=== PATIENT | male | born 1960 | race Caucasian/White ===

== ENCOUNTER → 2021-01-09 08:22 | Outpatient (REF) | payer MEDICAID, SELFPAY | LOC: HO.CARD 08:22 | PROVIDERS: PCP Hospitalist; Referring Provider Hospitalist; Visit Provider Internal Medicine Cardiovascular Disease | DX: Z13.89 Encounter for screening for other disorder (principal) | CPT/HCPCS: J0280; J2785 ==

== ENCOUNTER 2021-02-13 11:59 | Inpatient (IN) | payer MEDICAID, SELFPAY ==
[2021-02-13] VITALS (7 sets, daily range): BP systolic 114–180; BP diastolic 51–83; PULSE 79–126; RESP 16–19; TEMP 36.9–39.5; O2SAT 95–100; BMI 24.2; BMI 22.4; BMI 23.6
--- NOTE | ~2021-02-13 | XR_ITS ---
EXAMINATION: XR CHEST CLINICAL INFORMATION: Fever COMPARISON: None TECHNIQUE: AP portable view of the chest was obtained. FINDINGS: There is a region of disease noted within the mid and lower right lung. There also appears to be some retrocardiac disease which partially obscures the hemidiaphragm which is consistent with left lower lobe disease. Patient status post median sternotomy. Heart normal size. No evidence of pulmonary edema. No pneumothorax or pleural effusion. XR/XR chest 1V IMPRESSION: Right lung airspace disease. Probable left lower lobe disease.
--- NOTE | ~2021-02-13 | US_ITS ---
EXAMINATION: US RETROPERITONEAL LIMITED (RENAL ONLY) CLINICAL INFORMATION: CKD/DORIAN, acute kidney insufficiency COMPARISON: None TECHNIQUE: Targeted ultrasound of the kidneys utilizing grayscale and color flow imaging. FINDINGS: RIGHT KIDNEY: 11.2 x 5 x 4.2 cm cm (SAG x AP x TRV). The kidney is normal in size, contour, and echogenicity. Renal cortical thickness is normal. No calculi or focal parenchymal lesions. No hydronephrosis. LEFT KIDNEY: 9 x 4.5 x 3.6 cm. cm (SAG x AP x TRV). The kidney is normal in size, contour, and echogenicity. Renal cortical thickness is normal. No calculi or focal parenchymal lesions. No hydronephrosis. US/US renal BI IMPRESSION: Normal ultrasound of the kidneys.
[2021-02-13 12:43] LABS: Glucose Urine UA NEG (NEG); Leukocyte Esterase Urine NEG (NEG); Nitrite Urine NEG (NEG); Specific Gravity - Urine 1.015 (1.005-1.025); UACC Culture Trigger NO; Urine Blood NEG (NEG); Urine Ketones NEG (NEG); Urine Protein 1+ MG/DL (NEG-TRACE)
[2021-02-13 12:44] LABS: Appearance Urine CLEAR; Color Urine YELLOW
[2021-02-13 12:54] LABS: RBC Urine 0-2 /HPF (0); Squamous Epithelial Cell Urine TRACE /LPF; WBC Urine 0-2 /HPF (0-4)
[2021-02-13 13:06] LABS: COVID-19 Test Negative (Negative); IDNOW Serial# 55D5AD1C
--- NOTE | 2021-02-13 14:32 | ECG_ITS ---
Test Reason : CHEST PAIN Blood Pressure : / mmHG Vent. Rate : 090 BPM Atrial Rate : 090 BPM P-R Int : 176 ms QRS Dur : 178 ms QT Int : 440 ms P-R-T Axes : 078 -66 -01 degrees QTc Int : 538 ms Normal sinus rhythm Possible Left atrial enlargement Left axis deviation Right bundle branch block Inferior infarct , age undetermined Abnormal ECG No previous ECGs available Referred By: Anna Moore Electronically Signed By:GABRIELA DUMONT
--- NOTE | 2021-02-13 14:35 | ED_ITS ---
HPI - General Adult General Chief complaint: General Medical Stated complaint: fever/vomiting from SNF Time Seen by Provider: 02/13/21 13:30 Source: patient and EMS Mode of arrival: EMS History of Present Illness HPI narrative: Patient is a 60-year-old male with a past medical history of seizures on keppra, schizoaffective disorder, CHF, type 2 diabetes, CKD stage IIIA, hypothyroidism, HLD, legally blind, coronary artery bypass grafts and restless legs syndrome coming from [facility] via EMS with with lethargy, pallor, sweating and fever. Patient states he has had a fever for 2 weeks but he is an unreliable historian as he states his T-max was 500 degrees. He states he has nausea but no abdominal pain. He has central chest pain that is stabbing in nature. He denies any shortness of breath, urinary or bowel changes. Related Data Allergies Allergy/AdvReac Type Severity Reaction Status Date / Time No Known Allergies Allergy Unverified 02/13/21 14:32 Review of Systems Review of Systems: Yes all other systems are reviewed and are negative Neurologic: Reports confusion (Slightly) Psychiatric: Psychiatric: Reports confusion (Slightly) [facility] Social History Social History Advance Directives: Yes Advance Directives on File: No Physical Exam Vital Signs: Vital Signs: Last Vital Signs Temp 99.1 F 02/13/21 14:57 Pulse 85 02/13/21 14:57 Resp 18 02/13/21 14:57 BP 129/60 02/13/21 14:57 Pulse Ox 96 02/13/21 14:57 Body Mass Index 24.2 Const: General: cooperative, comfortable, no acute distress, well developed, confusion (Slightly) and poor hygiene; No well groomed Nutritional Appearance: thin Orientation/consciousness: confusion (Slightly) Limitations: other limitations (legally blind) HENMT: Head: Yes normal to inspection Neck: Neck: Yes normal visual inspection and Yes full ROM Resp: Effort & Inspection: normal respiratory effort and able to speak in complete sentences Auscultation: clear to auscultation bilaterally Cardio: Rate: tachycardic Rhythm: regular rhythm Heart sounds: normal S1 and S2 GI: Inspection: Yes normal to inspection Palpation (GI): Soft to palpation and nontender Skin: General skin exam: no rashes or lesions noted Neuro: General: confusion (Slightly) Extrem: General: Yes normal to inspection Course Course Course Narrative: Patient is a 60-year-old male with a past medical history of seizures on keppra, schizoaffective disorder, CHF, type 2 diabetes, CKD stage IIIA, hypothyroidism, HLD, legally blind, coronary artery bypass grafts and restless legs syndrome coming from [facility] via EMS with with lethargy, pallor, sweating and fever. Vital signs notable for heart rate of 126, temp 103.1 degrees, O2 sat 95% on room air, BP 122/83 and respirations 19. EKG reveals ST changes in V2 through V6, no prior to compare to, will give 324 ASA and repeat EKG in 15 mins Reevaluation(s) Reevaluation #1: Lactic acid 2.4, as patient had elevated heart rate and temperature, also chest x-ray shows likely left lower lobe pneumonia, will start sepsis fluids and give Levaquin for antibiotics. Time: 15:34 Reevaluation #2: Repeat EKG showed ST depressions in V3 through V6, patient's troponin just resulted at 59.4. Reviewed with Dr. Sánchez. Patient now stating he does not have any active chest pain and is trying to sleep. Text to for Cardiology consult. Time: 15:42 Reevaluation #3: Dr. Zendejas recommended starting IV heparin if we suspect new [place], I will start IV heparin now. Notified nurse. Medical Decision Making Lab Data Result diagrams: 02/13/21 14:49 02/13/21 14:49 Labs: Lab Results 02/13/21 02/13/21 02/13/21 Range/Units 12:29 12:35 14:49 WBC (4.8-10.8) X10*3/uL RBC (4.60-5.80) X10*6/uL Hgb (14.0-18.0) g/dl Hct (42-52) % MCV (80-98) fL MCH (27.0-33.0) pg MCHC (31.0-36.0) g/dl RDW (11.0-16.0) % Plt Count (160-400) X10*3/uL MPV (9.4-12.4) fL Immature Gran % (Auto) (0.0-0.4) % Neut % (Auto) (45-73) % Lymph % (Auto) (20-40) % [place] % (Auto) (2-11) % Eos % (Auto) (0-4) % Baso % (Auto) (0-2) % Lymph # (Auto) (1.2-4.9) X10*3/uL [place] # (Auto) (0.1-1.2) X10*3/uL Eos # (Auto) (0.0-0.4) X10*3/uL Baso # (Auto) (0.0-0.2) X10*3/uL Abs Immat Gran (auto) (0.00-0.03) X10*3/uL Absolute Neuts (auto) (2.0-8.3) X10*3/uL Absolute Nucleated RBC (0.0-0.012) X10*3/uL Nucleated RBC % (auto) (0.0-0.2) /100WBC Sodium (135-145) mmol/L Potassium (3.3-5.1) mmol/L Chloride (96-108) mmol/L Carbon Dioxide (22-29) mmol/L Anion Gap (12-20) BUN (9-16) mg/dL Creatinine (0.5-1.4) mg/dL Estim Creat Clear Calc Estimated GFR Random Glucose (60-115) mg/dL Lactic Acid 2.3 H* (0.5-2.0) mmol/L Calcium (8.4-10.2) mg/dL Troponin I High Sens (<3.5-35.0) ng/L B-Natriuretic Peptide (<100) pg/mL Urine Color YELLOW Urine Appearance CLEAR Urine pH 6.0 (5.0-8.0) Ur Specific [place] 1.015 (1.005-1.025) Urine Protein 1+ H (NEG-TRACE) MG/DL Urine Glucose (UA) NEG (NEG) MG/DL Urine Ketones NEG (NEG) MG/DL Urine Blood NEG (NEG) Urine Nitrite NEG (NEG) Ur Leukocyte Esterase NEG (NEG) Urine RBC 0-2 (0) /HPF Urine WBC 0-2 (0-4) /HPF Ur Squamous Epith Cells TRACE /LPF Urine Bacteria NONE /LPF COVID-19 ([facility]AYES) Negative (Negative) COVID-19 Clin Com See Note 02/13/21 02/13/21 02/13/21 Range/Units 14:49 14:49 14:49 WBC 10.6 (4.8-10.8) X10*3/uL RBC 3.38 L (4.60-5.80) X10*6/uL Hgb 9.8 L (14.0-18.0) g/dl Hct 30.2 L (42-52) % MCV 89.3 (80-98) fL MCH 29.0 (27.0-33.0) pg MCHC 32.5 (31.0-36.0) g/dl RDW 17.2 H (11.0-16.0) % Plt Count 363 (160-400) X10*3/uL MPV 8.8 L (9.4-12.4) fL Immature Gran % (Auto) 0.7 H (0.0-0.4) % Neut % (Auto) 88.8 H (45-73) % Lymph % (Auto) 4.1 L (20-40) % [place] % (Auto) 6.1 (2-11) % Eos % (Auto) 0.0 (0-4) % Baso % (Auto) 0.3 (0-2) % Lymph # (Auto) 0.4 L (1.2-4.9) X10*3/uL [place] # (Auto) 0.7 (0.1-1.2) X10*3/uL Eos # (Auto) 0.0 (0.0-0.4) X10*3/uL Baso # (Auto) 0.0 (0.0-0.2) X10*3/uL Abs Immat Gran (auto) 0.07 H (0.00-0.03) X10*3/uL Absolute Neuts (auto) 9.4 H (2.0-8.3) X10*3/uL Absolute Nucleated RBC 0.000 (0.0-0.012) X10*3/uL Nucleated RBC % (auto) 0.0 (0.0-0.2) /100WBC Sodium 133 L (135-145) mmol/L Potassium 3.7 (3.3-5.1) mmol/L Chloride 100 (96-108) mmol/L Carbon Dioxide 26 (22-29) mmol/L Anion Gap 11 L (12-20) BUN 20 H (9-16) mg/dL Creatinine 1.93 H (0.5-1.4) mg/dL Estim Creat Clear Calc 36.2 Estimated GFR 36 Random Glucose 70 (60-115) mg/dL Lactic Acid (0.5-2.0) mmol/L Calcium 9.1 (8.4-10.2) mg/dL Troponin I High Sens 59.4 H* (<3.5-35.0) ng/L B-Natriuretic Peptide (<100) pg/mL Urine Color Urine Appearance Urine pH (5.0-8.0) Ur Specific [place] (1.005-1.025) Urine Protein (NEG-TRACE) MG/DL Urine Glucose (UA) (NEG) MG/DL Urine Ketones (NEG) MG/DL Urine Blood (NEG) Urine Nitrite (NEG) Ur Leukocyte Esterase (NEG) Urine RBC (0) /HPF Urine WBC (0-4) /HPF Ur Squamous Epith Cells /LPF Urine Bacteria /LPF COVID-19 (HAYES) (Negative) COVID-19 Clin Com 02/13/21 Range/Units 14:49 WBC (4.8-10.8) X10*3/uL RBC (4.60-5.80) X10*6/uL Hgb (14.0-18.0) g/dl Hct (42-52) % MCV (80-98) fL MCH (27.0-33.0) pg MCHC (31.0-36.0) g/dl RDW (11.0-16.0) % Plt Count (160-400) X10*3/uL MPV (9.4-12.4) fL Immature Gran % (Auto) (0.0-0.4) % Neut % (Auto) (45-73) % Lymph % (Auto) (20-40) % [place] % (Auto) (2-11) % Eos % (Auto) (0-4) % Baso % (Auto) (0-2) % Lymph # (Auto) (1.2-4.9) X10*3/uL [place] # (Auto) (0.1-1.2) X10*3/uL Eos # (Auto) (0.0-0.4) X10*3/uL Baso # (Auto) (0.0-0.2) X10*3/uL Abs Immat Gran (auto) (0.00-0.03) X10*3/uL Absolute Neuts (auto) (2.0-8.3) X10*3/uL Absolute Nucleated RBC (0.0-0.012) X10*3/uL Nucleated RBC % (auto) (0.0-0.2) /100WBC Sodium (135-145) mmol/L Potassium (3.3-5.1) mmol/L Chloride (96-108) mmol/L Carbon Dioxide (22-29) mmol/L Anion Gap (12-20) BUN (9-16) mg/dL Creatinine (0.5-1.4) mg/dL Estim Creat Clear Calc Estimated GFR Random Glucose (60-115) mg/dL Lactic Acid (0.5-2.0) mmol/L Calcium (8.4-10.2) mg/dL Troponin I High Sens (<3.5-35.0) ng/L B-Natriuretic Peptide 164 H (<100) pg/mL Urine Color Urine Appearance Urine pH (5.0-8.0) Ur Specific [place] (1.005-1.025) Urine Protein (NEG-TRACE) MG/DL Urine Glucose (UA) (NEG) MG/DL Urine Ketones (NEG) MG/DL Urine Blood (NEG) Urine Nitrite (NEG) Ur Leukocyte Esterase (NEG) Urine RBC (0) /HPF Urine WBC (0-4) /HPF Ur Squamous Epith Cells /LPF Urine Bacteria /LPF COVID-19 ([facility]AYES) (Negative) COVID-19 Clin Com ECG Data Attestation: I personally reviewed and interpreted this ECG as follows: Interpretation: Dr. Sánchez reviewed EKG, normal sinus rhythm with possible inferior and possible infarct V3 through V6, RBBB Discharge Plan Discharge Clinical Impression: Pneumonia, Non-ST elevation [place] (NSTEMI), Severe sepsis
--- NOTE | 2021-02-13 15:00 | ECG_ITS ---
Test Reason : REPEAT Blood Pressure : / mmHG Vent. Rate : 087 BPM Atrial Rate : 087 BPM P-R Int : 186 ms QRS Dur : 186 ms QT Int : 444 ms P-R-T Axes : 067 -60 -10 degrees QTc Int : 534 ms Normal sinus rhythm Possible Left atrial enlargement Left axis deviation Right bundle branch block Inferior infarct (cited on or before 13-FEB-2021) T wave abnormality, consider lateral ischemia Abnormal ECG When compared with ECG of 13-FEB-2021 14:36, No significant change was found Referred By: Anna Moore Electronically Signed By:GABRIELA DUMONT
[2021-02-13 15:02] LABS: Basophils Percent Auto 0.3 % (0-2); Hematocrit 30.2 % (42-52); Hemoglobin 9.8 g/dl (14.0-18.0); Imm Gran Abs Auto 0.07 X10*3/uL (0.00-0.03); Imm Gran Pct Auto 0.7 % (0.0-0.4); Lymphocytes Absolute Auto 0.4 X10*3/uL (1.2-4.9); Lymphocytes Percent Auto 4.1 % (20-40); MANUAL DIFF FLAG NO; Mean Corpuscular HGB Conc 32.5 g/dl (31.0-36.0); Mean Corpuscular Volume 89.3 fL (80-98); Mean Platelet Volume 8.8 fL (9.4-12.4); Monocytes Absolute Auto 0.7 X10*3/uL (0.1-1.2); Monocytes Percent Auto 6.1 % (2-11); Neutrophils Absolute Auto 9.4 X10*3/uL (2.0-8.3); Neutrophils Percent Auto 88.8 % (45-73); Platelet Count 363 X10*3/uL (160-400); Red Blood Count 3.38 X10*6/uL (4.60-5.80); Red Cell Distribution Width 17.2 % (11.0-16.0); White Blood Count 10.6 X10*3/uL (4.8-10.8)
[2021-02-13] MEDS: Acetaminophen 325 MG TABLET 650 MG PO (15:02)
[2021-02-13] MEDS: Ondansetron ODT 4 MG TAB.RAPDIS TRANSLINGU (15:03)
[2021-02-13] MEDS: Aspirin 81 MG TAB.CHEW 324 MG PO (15:15)
[2021-02-13 15:27] LABS: Anion Gap 11 (12-20); Blood Urea Nitrogen 20 mg/dL (9-16); Calcium 9.1 mg/dL (8.4-10.2); Carbon Dioxide 26 mmol/L (22-29); Chloride 100 mmol/L (96-108); Creatinine Clr Calc Pharmacy 36.2; Estimated Glomerular Filt Rate 36; Glucose Random 70 mg/dL (60-115); Potassium 3.7 mmol/L (3.3-5.1); Sodium 133 mmol/L (135-145)
[2021-02-13 15:31] LABS: Lactic Acid 2.3 mmol/L (0.5-2.0)
[2021-02-13 15:33] LABS: B Type Natriuretic Peptide 164 pg/mL (<100)
[2021-02-13 15:37] LABS: Troponin-I High Sensitivity 59.4 ng/L (<3.5-35.0)
[2021-02-13 16:34] LABS: Hematocrit 28.3 % (42-52); Hemoglobin 9.3 g/dl (14.0-18.0); Mean Corpuscular HGB Conc 32.9 g/dl (31.0-36.0); Mean Corpuscular Hemoglobin 29.3 pg (27.0-33.0); Mean Corpuscular Volume 89.3 fL (80-98); Mean Platelet Volume 8.7 fL (9.4-12.4); Platelet Count 329 X10*3/uL (160-400); Red Blood Count 3.17 X10*6/uL (4.60-5.80); Red Cell Distribution Width 17.2 % (11.0-16.0); White Blood Count 13.6 X10*3/uL (4.8-10.8)
[2021-02-13 16:41] LABS: Alanine Aminotransferase 8 U/L (0-40); Albumin Level 3.5 g/dL (3.5-5.0); Alkaline Phosphatase 92 U/L (39-117); Aspartate Amino Transferase 14 U/L (5-37); Bilirubin Direct 0.3 mg/dL (0.0-0.5); Bilirubin Total 0.4 mg/dL (0.0-1.0); C Reactive Protein 1.33 mg/dL (< or = 0.50); Lactate Dehydrogenase 153 U/L (118-273); Magnesium 1.7 mg/dL (1.6-2.6); Total Protein 9.6 g/dL (6.5-8.0)
--- NOTE | 2021-02-13 16:42 | PM.IMHP ---
History of Present Illness Date of Service: 02/13/21 Chief Complaint: fever, diaphoresis 60yo M long-term [facility] resident with CAD s/p CABG, diastolic CHF, HTN, HLD, CKD 3a, DM2, hypothyroidism, and schizoaffective disorder who was sent in with fever, diaphoresis, pallor, lethargy, and chest pain. He states the chest pain is mid-sternal and actually relieved by walking. He denies cough or dyspnea. No abdominal pain, nausea, or vomiting. No leg swelling. Patient is an unreliable/poor historian. He told the ED PA that he was febrile for 2 weeks but told me it was more like 4 days. Upon presentation in the ED, he was septic with fever of 103.1 and HR of 126. Lactate was 2.4. Chest X-ray showed RML, RLL, and LLL infiltrate consistent with multilobar pneumonia. COVID-19 [facility]ES was negative. EKG showed NSR with DEBBY, LAD, RBBB, and inferior Q waves. hs-Tn-I was 59.4. The patient was started on heparin drip. Repeat hs-Tn-I was 252.5. Review of Systems Review of Systems: Yes all other systems are reviewed and are negative [facility] Medical History Coronary artery disease Diastolic heart failure History of stroke Hyperlipidemia Hypertension Hypothyroidism Legal blindness Restless leg Schizoaffective disorder Seizure disorder Stage 3a chronic kidney disease Type 2 diabetes mellitus Urinary retention Pertinent family history: mother of heart attack Surgical History History of coronary artery bypass graft Social History Advance Directives: Yes Advance Directives on File: No Meds Allergies Allergy/AdvReac Type Severity Reaction Status Date / Time No Known Allergies Allergy Unverified 02/13/21 14:32 Active Medications: Current Medications Generic Name Dose Route Start Last Admin Trade Name Freq PRN Reason Stop Dose Admin Aspirin 81 mg 02/14/21 09:00 Aspirin 81 Mg Tab.Chew PO DAILY MARLENA Atorvastatin Calcium 80 mg 02/13/21 21:00 Atorvastatin Calcium 80 Mg Tablet PO BEDTIME MARLENA Dextrose 25 gm 02/13/21 16:26 Dextrose 50 % 25 Gm/50 Ml Vial IVPUSH Q15M PRN per Hypoglycemia Standing Ord. Protocol Glucose 15 gm 02/13/21 16:26 Glucose Gel 15 Gm Gel..Gram. PO Q15M PRN per Hypoglycemia Standing Ord. Protocol Heparin Sodium (Porcine) 2,700 unit 02/13/21 15:57 Heparin Sodium,Porcine 5,000 Unit/Ml Vial 40 unit/kg (2700 unit) IVPUSH PROTOCOL BOLUS PRN 40 unit/kg - Heparin Protocol Protocol Heparin Sodium (Porcine) 5,400 unit 02/13/21 15:57 Heparin Sodium,Porcine 5,000 Unit/Ml Vial 80 unit/kg (5400 unit) IVPUSH PROTOCOL BOLUS PRN 80 unit/kg - Heparin Protocol Protocol Levofloxacin 750 mg in 150 mls @ 100 mls/hr 02/13/21 15:32 Levaquin IV 02/13/21 17:01 ONCE ONE Heparin Sodium/Sodium Chloride 25,000 unit in 250 mls @ 0 mls/hr 02/13/21 16:00 IVCONT .Q0M MARLENA Protocol Per Protocol Ceftriaxone Sodium 1 gm/ 50 mls @ 100 mls/hr 02/13/21 16:30 Sodium Chloride IV Q24H [facility] Doxycycline Hyclate 100 mg/ 250 mls @ 166.67 mls/hr 02/13/21 16:30 Sodium Chloride IV Q12H [facility] Insulin Human Lispro 0 unit 02/13/21 16:30 Insulin Lispro 100 Unit/Ml 3 Ml Vial SUBCUT QIDACHS [facility] Protocol Nitroglycerin 0.4 mg 02/13/21 16:26 Nitroglycerin 0.4 Mg Tab.Subl SUBLINGUAL Q5MX3 PRN chest pain Pharmacy Consult 1 each 02/13/21 16:18 Consult Rx Perform Med Rec MISCELLANE 02/13/21 16:19 STAT STA Home Medications Medication Instructions Recorded Confirmed Last Taken Type acetaminophen 325 mg tablet 650 mg PO Q4H PRN 02/13/21 02/13/21 Unknown History ascorbic acid (vitamin C) 500 mg 500 mg PO BID 02/13/21 02/13/21 Unknown History tablet atorvastatin 10 mg tablet 10 mg PO DAILY 02/13/21 02/13/21 Unknown History baclofen 5 mg tablet 5 mg PO BEDTIME 02/13/21 02/13/21 Unknown History bisacodyl 10 mg rectal suppository 10 mg [place] DAILY PRN 02/13/21 02/13/21 Unknown History carvedilol 3.125 mg tablet 3.125 mg PO BID 02/13/21 02/13/21 Unknown History dorzolamide 2 %-timolol 0.5 % (PF) 1 drp OPHTHALMIC (EYE) BID 02/13/21 02/13/21 Unknown History eye drops ferrous sulfate 325 mg (65 mg 325 mg PO BID 02/13/21 02/13/21 Unknown History iron) tablet insulin glargine 100 unit/mL (3 20 unit SUBCUT BEDTIME 02/13/21 02/13/21 Unknown History mL) subcutaneous pen (Lantus Solostar U-100 Insulin) isosorbide mononitrate 120 mg 120 mg PO DAILY 02/13/21 02/13/21 Unknown History tablet,extended release 24 hr levetiracetam 1,000 mg tablet 1,000 mg PO BID 02/13/21 02/13/21 Unknown History ([place]) levothyroxine 75 mcg tablet 75 mcg PO DAILY 02/13/21 02/13/21 Unknown History lorazepam 1 mg tablet 1 mg PO BID PRN 02/13/21 02/13/21 Unknown History metformin 1,000 mg tablet 1,000 mg PO BID 02/13/21 02/13/21 Unknown History oxycodone 5 mg tablet 5 mg PO QID PRN 02/13/21 02/13/21 Unknown History pregabalin 25 mg capsule (Lyrica) 25 mg PO BID 02/13/21 02/13/21 Unknown History quetiapine 100 mg tablet 100 mg PO BID 02/13/21 02/13/21 Unknown History quetiapine 50 mg tablet 50 mg PO BID 02/13/21 02/13/21 Unknown History ropinirole 0.25 mg tablet 0.25 mg PO BID 02/13/21 02/13/21 Unknown History sennosides 8.6 mg tablet (senna) 8.6 mg PO DAILY PRN 02/13/21 02/13/21 Unknown History tamsulosin 0.4 mg capsule 0.4 mg PO DAILY 02/13/21 02/13/21 Unknown History torsemide 10 mg tablet 10 mg PO DAILY 02/13/21 02/13/21 Unknown History Physical Exam Vital Signs and Narrative: Vital Signs: Last Vital Signs Temp 99.1 F 02/13/21 14:57 Pulse 85 02/13/21 14:57 Resp 18 02/13/21 14:57 BP 129/60 02/13/21 14:57 Pulse Ox 96 02/13/21 14:57 Body Mass Index 24.2 Gen: in no acute distress HEENT: blind, sclera anicteric, moist mucus membranes Neck: supple Lungs: diminished bilaterally with diffuse inspiratory crackles Heart: regular rate and rhythm, no murmurs Abd: soft, non-tender, non-distended Ext: no edema MSK: reproducible chest wall tenderness along left sternal border Skin: warm/well-perfused Neuro: alert and oriented x3 Psych: impaired insight Results Labs CBC and Chem 7: 02/13/21 16:28 02/13/21 14:49 Labs: Laboratory Results - last 24 hr 02/13/21 02/13/21 02/13/21 12:29 12:35 14:49 MCV MCH MCHC RDW Plt Count MPV Immature Gran % (Auto) Neut % (Auto) Lymph % (Auto) [place] % (Auto) Eos % (Auto) Baso % (Auto) Lymph # (Auto) [place] # (Auto) Eos # (Auto) Baso # (Auto) Abs Immat Gran (auto) Absolute Neuts (auto) Absolute Nucleated RBC Nucleated RBC % (auto) Anion Gap Estim Creat Clear Calc Estimated GFR Random Glucose Lactic Acid 2.3 H* Calcium Magnesium Total Bilirubin Direct Bilirubin AST ALT Alkaline Phosphatase Lactate Dehydrogenase Troponin I High Sens C-Reactive Protein B-Natriuretic Peptide Total Protein Albumin Urine Color YELLOW Urine Appearance CLEAR Urine pH 6.0 Ur Specific [place] 1.015 Urine Protein 1+ H Urine Glucose (UA) NEG Urine Ketones NEG Urine Blood NEG Urine Nitrite NEG Ur Leukocyte Esterase NEG Urine RBC 0-2 Urine WBC 0-2 Ur Squamous Epith Cells TRACE Urine Bacteria NONE COVID-19 ([facility]ES) Negative COVID-19 Clin Com See Note 02/13/21 02/13/21 02/13/21 14:49 14:49 14:49 MCV 89.3 MCH 29.0 MCHC 32.5 RDW 17.2 H Plt Count 363 MPV 8.8 L Immature Gran % (Auto) 0.7 H Neut % (Auto) 88.8 H Lymph % (Auto) 4.1 L [place] % (Auto) 6.1 Eos % (Auto) 0.0 Baso % (Auto) 0.3 Lymph # (Auto) 0.4 L [place] # (Auto) 0.7 Eos # (Auto) 0.0 Baso # (Auto) 0.0 Abs Immat Gran (auto) 0.07 H Absolute Neuts (auto) 9.4 H Absolute Nucleated RBC 0.000 Nucleated RBC % (auto) 0.0 Anion Gap 11 L Estim Creat Clear Calc 36.2 Estimated GFR 36 Random Glucose 70 Lactic Acid Calcium 9.1 Magnesium 1.7 Total Bilirubin 0.4 Direct Bilirubin 0.3 AST 14 ALT 8 Alkaline Phosphatase 92 Lactate Dehydrogenase 153 Troponin I High Sens 59.4 H* C-Reactive Protein 1.33 H B-Natriuretic Peptide Total Protein 9.6 H Albumin 3.5 Urine Color Urine Appearance Urine pH Ur Specific [place] Urine Protein Urine Glucose (UA) Urine Ketones Urine Blood Urine Nitrite Ur Leukocyte Esterase Urine RBC Urine WBC Ur Squamous Epith Cells Urine Bacteria COVID-19 ([facility]ES) COVID-19 [employer] 02/13/21 02/13/21 14:49 16:28 MCV 89.3 MCH 29.3 MCHC 32.9 RDW 17.2 H Plt Count 329 MPV 8.7 L Immature Gran % (Auto) Neut % (Auto) Lymph % (Auto) [place] % (Auto) Eos % (Auto) Baso % (Auto) Lymph # (Auto) [place] # (Auto) Eos # (Auto) Baso # (Auto) Abs Immat Gran (auto) Absolute Neuts (auto) Absolute Nucleated RBC 0.000 Nucleated RBC % (auto) 0.0 Anion Gap Estim Creat Clear Calc Estimated GFR Random Glucose Lactic Acid Calcium Magnesium Total Bilirubin Direct Bilirubin AST ALT Alkaline Phosphatase Lactate Dehydrogenase Troponin I High Sens C-Reactive Protein B-Natriuretic Peptide 164 H Total Protein Albumin Urine Color Urine Appearance Urine pH Ur Specific [place] Urine Protein Urine Glucose (UA) Urine Ketones Urine Blood Urine Nitrite Ur Leukocyte Esterase Urine RBC Urine WBC Ur Squamous Epith Cells Urine Bacteria COVID-19 ([facility]ES) COVID-19 [employer] Com Imaging Radiologist's Impressions: Impressions Chest X-Ray 02/13/21 14:56 IMPRESSION: Right lung airspace disease. Probable left lower lobe disease. Assessment and Plan (1) Pneumonia: Status: Acute (2) Non-ST elevation [place] (NSTEMI): Status: Acute (3) Severe sepsis: Status: Acute 60yo M long-term [facility] resident with CAD s/p CABG, diastolic CHF, HTN, HLD, CKD 3a, DM2, hypothyroidism, and schizoaffective disorder who was sent in with fever, diaphoresis, pallor, lethargy, and chest pain. He is found to be septic due to multilobar pneumonia and has an NSTEMI. # severe sepsis # multilobar pneumonia - [place] [facility] PSI score 121 [risk class IV, 9% mortality] so inpt tx indicated. will give ceftriaxone/doxycycline, trend PCT, check BCx, check urinary antigen tests. - given fluid bolus, trend lactate # NSTEMI - could be type 2/due to sepsis; however, pt has known coronary disease and is s/p CABG and is high-risk; will heparinize, continue ASA + high-intensity statin, obtain TTE, and consult Cardiology. # CAD # HTN # CHF - continue carvedilol, Imdur; hold torsemide # CKD3a - suspect this is his baseline SCr; obtain records from [facility]. avoid nephrotoxins. check FENa, urine pr/Cr, renal US # normocytic anemia - ?baseline- obtain records from [facility]. continue Fe supplementation # seizure disorder - continue levetiracetam # RLS - continue ropinirole # schizoaffective disorder - continue quetiapine, lorazepam # chronic pain - continue pregabalin, baclofen, oxycodone # DM2 - hold MTF; continue glargine and add correction-dose lispro; check A1c # hypothyrodism - continue LT4 # VTE ppx - heparin gtt # code - FULL Quality Stroke Does the patient have a stroke diagnosis?: No VTE Prior VTE?: No VTE Risk Level:: Medical - moderate - high VTE Device Contraindication: N/A - Device Ordered VTE Drug Contraindication: N/A - Med Ordered
[2021-02-13 16:45] LABS: INTERNATIONAL NORM RATIO 1.2 (0.9-1.1); Prothrombin Time 13.5 SEC (9.9-13.0)
[2021-02-13 16:48] LABS: PTT Heparin Drip 31.5 SEC (53-77.9)
[2021-02-13 16:59] LABS: Reflex Lactate? Lactic Acid Added
[2021-02-13] MEDS: cefTRIAXone sodium 1 GM in 0.9 % Sodium Chloride 50 ML IV (17:02)
[2021-02-13 17:05] LABS: Procalcitonin 6.19 ng/mL
[2021-02-13 17:05] LABS: Glucose, Whole Blood 92 mg/dL (60-115)
[2021-02-13 17:26] LABS: Estimated Average Glucose 157 mg/dL; Hemoglobin A1c % 7.1 %
[2021-02-13] MEDS: 0.9 % Sodium Chloride 2,041.17 ML 2041.17 ML IV (17:51)
[2021-02-13 17:55] LABS: ~Lactic Acid-LAB USE ONLY 1.7 mmol/L (0.5-2.0)
[2021-02-13] MEDS: levoFLOXacin/D5W 750 MG/150 ML PIGGYBACK 100 MG IV (17:59)
[2021-02-13 18:08] LABS: Troponin-I High Sensitivity 252.5 ng/L (<3.5-35.0)
[2021-02-13] MEDS: Heparin Sodium,Porcine/1/2NS 25,000 UNIT/250 ML IV.SOLN 7.57 UNIT IVCONT (18:14)
--- NOTE | 2021-02-13 19:07 | PC.NURSE ---
Heparin drip started at 181. Troponins critically elevated. and PA aware. Pt to be moved to [facility] bed. No changes on monitor. Next PTT-HD entered.
[2021-02-13] MEDS: Doxycycline Hyclate 100 MG in 0.9 % Sodium Chloride 250 ML 166.67 MG IV (19:20)
--- NOTE | 2021-02-13 20:01 | PC.NURSE ---
pt awaiting for transfer to floor. pt in nad.
[2021-02-13] MEDS: QUEtiapine Fumarate 50 MG TABLET PO (22:20)
[2021-02-13] MEDS: Pregabalin 25 MG CAPSULE PO (22:20)
[2021-02-13] MEDS: carvediloL 3.125 MG TABLET PO (22:20)
[2021-02-13] MEDS: Ascorbic Acid 500 MG TABLET PO (22:20)
[2021-02-13] MEDS: rOPINIRole HCL 0.25 MG TABLET PO (22:20)
[2021-02-13] MEDS: levETIRAcetam 1,000 MG TABLET 1000 MG PO (22:20)
[2021-02-13] MEDS: QUEtiapine Fumarate 100 MG TABLET PO (22:21)
[2021-02-13] MEDS: Atorvastatin Calcium 80 MG TABLET PO (22:21)
[2021-02-13] MEDS: Baclofen 10 MG TABLET 5 MG PO (22:21)
[2021-02-13] MEDS: Ferrous Sulfate 324 MG TABLET.DR PO (22:21)
[2021-02-13] MEDS: Dorzolamide HCl 2 % Ophth Sol 10 ML DRPBTL 1 DROP EYE-BOTH (22:24)
[2021-02-13 22:25] LABS: Glucose, Whole Blood 123 mg/dL (60-115)
[2021-02-14] VITALS (12 sets, daily range): BP systolic 76–145; BP diastolic 45–66; PULSE 57–79; RESP 17–20; TEMP 36.2–37.6; O2SAT 93–99; BMI 23.6
[2021-02-14 00:51] LABS: PTT Heparin Drip 51.2 SEC (53-77.9)
[2021-02-14] MEDS: Heparin Sodium,Porcine 5,000 UNIT/ML VIAL 2500 UNIT IVPUSH (01:32)
[2021-02-14] MEDS: LORazepam 1 MG TABLET PO ×2 (01:33→21:55)
[2021-02-14] MEDS: Doxycycline Hyclate 100 MG in 0.9 % Sodium Chloride 250 ML 166.67 MG IV ×2 (04:58→16:50)
[2021-02-14] MEDS: Levothyroxine Sodium 75 MCG TABLET PO (04:58)
--- NOTE | 2021-02-14 07:30 | CA_ITS ---
Transthoracic Echocardiogram Patient (Last, First, Middle): Miquel Arnold, Gender: Male Date of : 1960 Age: 60 Procedure Date: 02/14/2021 Procedure Type: Transthoracic Echocardiogram Location: [facility] [place] Height: 167.64 cm Weight: 66.23 kg BSA: 1.75 m2 Heart Rate: bpm BP: 137 / 64 mmHg Panama Hat Blocker: DSDaiana Referring MD: Trey Penaloza MD Symptoms: NSTEMI Conclusions: - 1. Normal LV systolic function with pseudonormal filling pattern with underlying regional wall motion abnormality suggestive coronary artery disease 2. Mildly dilated left atrium 3. Normal cardiac valvular Doppler next 4. Normal RV systolic pressure 5. No pericardial effusion Findings Left Ventricle Normal left ventricular size and systolic function. There is mildly increased left ventricular wall thickness. The visually estimated ejection fraction is between 55-60%. Spectral Doppler is indicative of a pseudonormal filling pattern. E/E prime ratio is between 8 and 15 consistent with indeterminate filling pressures. Wall Motion Rest Echo Findings The inferoseptal wall and mid inferior segment are hypokinetic. The basal inferior segment is akinetic. All other scored wall segments showed normal motion. Right Ventricle Normal right ventricular cavity size and systolic function. Atria The left atrium is mildly dilated. There is no evidence of interatrial shunt. The right atrium is normal in size. Aortic Valve Normal aortic valve structure and function. There is no aortic valve stenosis. There is no aortic valve regurgitation. Mitral Valve There is mild anterior and posterior mitral leaflet thickening. There is trace mitral valve regurgitation. There is no mitral valve stenosis. Pulmonic Valve The pulmonic valve is likely normal. Tricuspid Valve Likely normal tricuspid valve structure and function. The right ventricular systolic pressure is normal. The right ventricular systolic pressure is 27 mmHg. There is no evidence of pulmonary hypertension. Great Vessels All visible segments of the aorta are normal in size. The pulmonary artery was not well visualized. Venous The inferior vena cava was not well visualized. Pericardium/Pleural There is no evidence of pericardial effusion. Prior Study Comparison No prior study available for comparison. Measurements 2D Linear Measurements IVSd: 1.24 0.6-0.9/0.6-1.0 cm LVIDd: 5.05 3.9-5.3/4.2-5.9 cm LVIDd Index: 2.89 2.4-3.2/2.2-3.1 cm/m2 LVIDs: 3.19 2.0-3.6 cm LVPWd: 1.31 0.7-1.1 cm Ao Root: 3.10 2.1-3.5 cm LA Diam: 4.20 2.7-3.8/3.0-4.0 cm LAIDs Index: 2.40 1.5-2.3 cm/m2 LV Mass: 380.77 67-162/88-224 g LV Mass Index: 217.58 43-95/49-115 g/m2 LVOT Diam: 2.20 3.0+(-)1.3 cm Mitral Valve MV Pk E: 1.12 MV PK A: 0.99 MV Decel Time: 135.00 E/A: 1.10 E'Lateral: 9.79 E'Medial: 4.79 E/E' Med: 23.40 E/E' Lat: 11.40 PHT: 40.00 MVA PHT: 5.50 Decel Hickman: 8.64 Aortic Valve AoV Pk Eric: 1.26 AoV Pk Grad: 6.00 LVOT LVOT Pk Eric: 0.92 LVOT Mn Eric: 0.62 LVOT VTI: 0.22 LVOT Pk Grad: 3.00 LVOT Mn Grad: 2.00 LVOT Diam: 2.20 LVOT Area: 3.80 Diastolic Function MV Pk E: 1.12 MV Pk A: 0.99 E/A: 1.10 E'Medial: 4.79 E/E' Med: 23.40 E' Laterial: 9.79 E/E' Lat: 11.40 Right Ventricle TAPSE (mm): 17.50 Tricuspid Valve TR Pk Eric: 2.47 TR Pk Grad: 24.00 RA Press: 3.00 RVSP: 27.00 Great Vessels Aorta Ao Root-2D: 3.10 2.0-3.7 cm Ao Asc: 3.50 2.1-3.4 cm Updated in Other Vendor System with Status of Final Cheikh Zendejas MD electronically signed on 02/14/2021 4:00:11 PM with status of Final
[2021-02-14 07:50] LABS: Hematocrit 24.4 % (42-52); Hemoglobin 7.8 g/dl (14.0-18.0); Mean Corpuscular Hemoglobin 28.7 pg (27.0-33.0); Mean Corpuscular Volume 89.7 fL (80-98); Platelet Count 302 X10*3/uL (160-400); Red Blood Count 2.72 X10*6/uL (4.60-5.80); Red Cell Distribution Width 17.7 % (11.0-16.0); White Blood Count 15.9 X10*3/uL (4.8-10.8)
[2021-02-14 07:55] LABS: INTERNATIONAL NORM RATIO 1.5 (0.9-1.1); Prothrombin Time 17.1 SEC (9.9-13.0)
[2021-02-14 08:07] LABS: Glucose, Whole Blood 113 mg/dL (60-115)
[2021-02-14 08:08] LABS: PTT Heparin Drip 107.8 SEC (53-77.9)
[2021-02-14 08:10] LABS: B Type Natriuretic Peptide 321 pg/mL (<100)
--- NOTE | 2021-02-14 08:44 | MHC.CM.PN ---
CM spoke with Patient's Guardian/Yessenia @ [phone]. The goal for dc is for Patient to return to LTC @ [facility] and CM has initiated and will follow for dc planning. Patient uses a walker to assist with mobility and Dr. Uriel Callaway is the PCP.
[2021-02-14 09:02] LABS: Iron 36 mcg/dL (45-160); Percent Iron Saturation 18 % (15-50); Total Iron Binding Capacity 196 mcg/dL (228-428); Unsaturated Iron Binding 160 ug/dL
[2021-02-14 09:06] LABS: Anion Gap 9 (12-20); Blood Urea Nitrogen 21 mg/dL (9-16); Calcium 7.6 mg/dL (8.4-10.2); Carbon Dioxide 22 mmol/L (22-29); Chloride 102 mmol/L (96-108); Creatinine Clr Calc Pharmacy 40.9; Estimated Glomerular Filt Rate 41; Glucose Random 117 mg/dL (60-115); Sodium 129 mmol/L (135-145)
[2021-02-14 09:19] LABS: Hematocrit 23.4 % (42-52); Hemoglobin 7.5 g/dl (14.0-18.0)
--- NOTE | 2021-02-14 10:16 | P.CONCA_ITS ---
History of Present Illness History of Present Illness Date of Service: 02/14/21 Requesting physician: Trey Penaloza Consult reason: troponin elevation Chief complaint: sepsis,PNA, NSTEMI Narrative: I was requested to see Miquel in cardiology consultation today for elevated troponins. Patient is not providing any history, responded briefly w ith some eye movements but then was not were bubble on questioning. History was mostly therefore obtained from the chart. Patient was sent from assisted facility because of fever and chills on presentation was noted to have multi lobar pneumonia with severe sepsis. Reported EKG initially showed significant ST depression, however reviewing the EKG shows right bundle-branch block with anterior T-wave changes which are not unusual in patients with right bundle- branch block. His initial troponin was in the 50s and subsequent troponin in 240 range. Cardiology consult was sought for elevated troponins. There was reported history of chest pain however the chest pain was fairly atypical for myocardial ischemia as he said the pain got better with walking and was possibly pleuritic in nature. Patient not providing me with any history. His usual health status is not clear to me whether patient has any exertional chest pain prior to presentation. He is in a assisted facility and is getting all his medications. Prior history of CAD status post coronary artery bypass grafti ng, chronic kidney disease, diabetes, hypertension, schizoaffective disorder. He was treated with aggressive sepsis protocol with aggressive IV hydration and his lactic acid has improved. His fevers improved. His overall clinical status seems to have improved. He was also started on IV heparin because of rising troponins. Review of Systems Review of Systems: Yes Unobtainable due to mental status PMFSH Past Medical History Medical History Coronary artery disease Diastolic heart failure History of stroke Hyperlipidemia Hypertension Hypothyroidism Legal blindness Restless leg Schizoaffective disorder Seizure disorder Stage 3a chronic kidney disease Type 2 diabetes mellitus Urinary retention Surgical History Surgical History History of coronary artery bypass graft Social History Social History Household Members: Other Household Members Other:: FACILITY Housing: Assisted Living Facility Do you presently have visiting nurse or other home services: No Patient Tobacco Use Status: Never used Tobacco Use of substances other than those prescribed or required for medical reasons: No Currently Displaying Signs/Symptoms of Drug Intoxication Withdrawal: No Have you been hit, kicked, punched, or otherwise hurt by someone within the past year? If so, by whom?: No Do you feel safe in your current relationship?: Yes Is there a partner from a previous relationship who is making you feel unsafe now?: No Are you made to feel afraid or neglected: No Spiritual Healthcare Practices: unknown Gnosticist Healthcare Practices: unknown Cultural Healthcare Practices: unknown Advance Directives: No (yes, but unknown date) Advance Directives on File: No Do you have thoughts of harming others: None Do you have a plan to hurt others: No Plan Recently lost weight without trying: Unsure Poor oral hygiene: No service: No Current occupational status: disabled [employer] Allergies Allergy/AdvReac Type Severity Reaction Status Date / Time No Known Allergies Allergy Unverified 02/13/21 14:32 Active Medications: Current Medications Generic Name Dose Route Start Last Admin Trade Name Freq PRN Reason Stop Dose Admin Acetaminophen 650 mg 02/13/21 16:40 Acetaminophen 325 Mg Tablet PO Q6H PRN Pain, Mild (Pain Scale 1-3) Ascorbic Acid 500 mg 02/13/21 21:00 02/13/21 22:20 Ascorbic Acid 500 Mg Tablet PO 500 mg BID MARLENA Administration Aspirin 81 mg 02/14/21 09:00 Aspirin 81 Mg Tab.Chew PO DAILY MARLENA Atorvastatin Calcium 80 mg 02/13/21 21:00 02/13/21 22:21 Atorvastatin Calcium 80 Mg Tablet PO 80 mg BEDTIME MARLENA Administration Baclofen 5 mg 02/13/21 21:00 02/13/21 22:21 Baclofen 10 Mg Tablet PO 5 mg BEDTIME MARLENA Administration Bisacodyl 10 mg 02/13/21 18:15 Bisacodyl 10 Mg Supp.Rect RI DAILY PRN Constipation Carvedilol 3.125 mg 02/13/21 21:00 02/13/21 22:20 Carvedilol 3.125 Mg Tablet PO 3.125 mg BID MARLENA Administration Protocol Dextrose 25 gm 02/13/21 16:26 Dextrose 50 % 25 Gm/50 Ml Vial IVPUSH Q15M PRN per Hypoglycemia Standing Ord. Protocol Dorzolamide HCl 1 drop 02/13/21 21:00 02/13/21 22:24 Dorzolamide Hcl 2 % Ophth Huma 10 Ml Juanita EYE-BOTH 1 drop BID MARLENA Administration Ferrous Sulfate 324 mg 02/13/21 21:00 02/13/21 22:21 Ferrous Sulfate 324 Mg Tablet.Dr PO 324 mg BID MARLENA Administration Glucose 15 gm 02/13/21 16:26 Glucose Gel 15 Gm Gel..Gram. PO Q15M PRN per Hypoglycemia Standing Ord. Protocol Heparin Sodium (Porcine) 2,500 unit 02/13/21 18:05 02/14/21 01:32 Heparin Sodium,Porcine 5,000 Unit/Ml Vial 40 unit/kg (2500 unit) 2,500 unit IVPUSH Administration PROTOCOL BOLUS PRN 40 unit/kg - Heparin Protocol Protocol Heparin Sodium (Porcine) 5,000 unit 02/13/21 18:05 Heparin Sodium,Porcine 5,000 Unit/Ml Vial 80 unit/kg (5000 unit) IVPUSH PROTOCOL BOLUS PRN 80 unit/kg - Heparin Protocol Protocol Ceftriaxone Sodium 1 gm/ 50 mls @ 100 mls/hr 02/13/21 16:30 02/13/21 17:30 Sodium Chloride IV Infused Q24H MARLENA Infusion Doxycycline Hyclate 100 mg/ 250 mls @ 166.67 mls/hr 02/13/21 16:30 02/14/21 06:35 Sodium Chloride IV Infused Q12H MARLENA Infusion Heparin Sodium/Sodium Chloride 25,000 unit in 250 mls @ 0 mls/hr 02/13/21 18: 15 02/14/21 09:52 IVCONT 11 units/kg/hr .Q0M MARLENA 6.94 mls/hr Titration Protocol Per Protocol Insulin Glargine 20 unit 02/13/21 21:00 02/13/21 22:40 Insulin Glargine,Hum.Rec.Anlog 100 Unit/Ml 10 Ml Vial SUBCUT Not Given BEDTIME [facility] Insulin Human Lispro 0 unit 02/13/21 16:30 02/14/21 08:18 Insulin Lispro 100 Unit/Ml 3 Ml Vial SUBCUT Not Given QIDACHS [facility] Protocol Isosorbide Mononitrate 120 mg 02/13/21 18:30 02/13/21 19:12 Isosorbide Mononitrate 60 Mg Tab.Er.24h PO Not Given DAILY [facility] Protocol Levetiracetam 1,000 mg 02/13/21 21:00 09/02/21 22:20 Levetiracetam 1,000 Mg Tablet PO 1,000 mg BID MARLENA Administration Levothyroxine Sodium 75 mcg 02/14/21 06:30 02/14/21 04:58 Levothyroxine Sodium 75 Mcg Tablet PO 75 mcg DAILY@0630 MARLENA Administration Lorazepam 1 mg 02/13/21 18:15 02/14/21 01:33 Lorazepam 1 Mg Tablet PO 1 mg BID PRN Administration Anxiety Nitroglycerin 0.4 mg 02/13/21 16:26 Nitroglycerin 0.4 Mg Tab.Subl SUBLINGUAL Q5MX3 PRN chest pain Ondansetron HCl 4 mg 02/13/21 16:40 Ondansetron Hcl 4 Mg/2 Ml Vial IVPUSH Q8H PRN Nausea and Vomiting Oxycodone HCl 5 mg 02/13/21 18:15 Oxycodone Hcl Immed Release 5 Mg Tablet PO QID PRN Pain Pharmacy Consult 1 each 02/13/21 16:49 Consult Rx Perform Med Rec MISCELLANE ONCE PRN Consult order Pregabalin 25 mg 02/13/21 21:00 02/13/21 22:20 Pregabalin 25 Mg Capsule PO 25 mg BID MARLENA Administration Quetiapine Fumarate 100 mg 02/13/21 21:00 02/13/21 22:21 Quetiapine Fumarate 100 Mg Tablet PO 100 mg BID MARLENA Administration Quetiapine Fumarate 50 mg 02/13/21 21:00 02/13/21 22:20 Quetiapine Fumarate 50 Mg Tablet PO 50 mg BID MARLENA Administration Ropinirole HCl 0.25 mg 02/13/21 21:00 02/13/21 22:20 Ropinirole Hcl 0.25 Mg Tablet PO 0.25 mg BID MARLENA Administration Senna 8.6 mg 02/13/21 18:15 Sennosides 8.6 Mg Tablet PO DAILY PRN Constipation Tamsulosin HCl 0.4 mg 02/14/21 17:00 Tamsulosin Hcl 0.4 Mg Capsule PO DAILY@1700 [facility] Timolol Maleate 1 drop 02/13/21 21:00 02/13/21 22:36 Timolol Maleate 0.5 % Oph Huma 5 Ml Drbtl EYE-BOTH Not Given BID [facility] Home Medications Medication Instructions Recorded Confirmed Last Taken Type acetaminophen 325 mg tablet 650 mg PO Q4H PRN 02/13/21 02/13/21 Unknown History ascorbic acid (vitamin C) 500 mg 500 mg PO BID 02/13/21 02/13/21 Unknown History tablet atorvastatin 10 mg tablet 10 mg PO DAILY 02/13/21 02/13/21 Unknown History baclofen 5 mg tablet 5 mg PO BEDTIME 02/13/21 02/13/21 Unknown History bisacodyl 10 mg rectal suppository 10 mg RI DAILY PRN 02/13/21 02/13/21 Unknown History carvedilol 3.125 mg tablet 3.125 mg PO BID 02/13/21 02/13/21 Unknown History dorzolamide 2 %-timolol 0.5 % (PF) 1 drp OPHTHALMIC (EYE) BID 02/13/21 02/13/21 Unknown History eye drops ferrous sulfate 325 mg (65 mg 325 mg PO BID 02/13/21 02/13/21 Unknown History iron) tablet insulin glargine 100 unit/mL (3 20 unit SUBCUT BEDTIME 02/13/21 02/13/21 Unknown History mL) subcutaneous pen (Lantus Solostar U-100 Insulin) isosorbide mononitrate 120 mg 120 mg PO DAILY 02/13/21 02/13/21 Unknown History tablet,extended release 24 hr levetiracetam 1,000 mg tablet 1,000 mg PO BID 02/13/21 02/13/21 Unknown History ([place]) levothyroxine 75 mcg tablet 75 mcg PO DAILY 02/13/21 02/13/21 Unknown History lorazepam 1 mg tablet 1 mg PO BID PRN 02/13/21 02/13/21 Unknown History metformin 1,000 mg tablet 1,000 mg PO BID 02/13/21 02/13/21 Unknown History oxycodone 5 mg tablet 5 mg PO QID PRN 02/13/21 02/13/21 Unknown History pregabalin 25 mg capsule (Lyrica) 25 mg PO BID 02/13/21 02/13/21 Unknown History quetiapine 100 mg tablet 100 mg PO BID 02/13/21 02/13/21 Unknown History quetiapine 50 mg tablet 50 mg PO BID 02/13/21 02/13/21 Unknown History ropinirole 0.25 mg tablet 0.25 mg PO BID 02/13/21 02/13/21 Unknown History sennosides 8.6 mg tablet (senna) 8.6 mg PO DAILY PRN 02/13/21 02/13/21 Unknown History tamsulosin 0.4 mg capsule 0.4 mg PO DAILY 02/13/21 02/13/21 Unknown History torsemide 10 mg tablet 10 mg PO DAILY 02/13/21 02/13/21 Unknown History Physical Exam Vital Signs: Vital Signs: Last Vital Signs Temp 99.0 F 02/14/21 08:00 Pulse 72 02/14/21 08:00 Resp 17 02/14/21 08:00 BP 145/65 H 02/14/21 08:16 Pulse Ox 93 02/14/21 08:00 Body Mass Index 23.6 Const: General: no acute distress and lethargic; No cooperative Orientation/consciousness: lethargic HENMT: Head: Yes normocephalic and Yes atraumatic Neck: Neck: Yes other (Patient did not a lot examination) Resp: Effort & Inspection: other (Patient did not allow examination) Cardio: Jugular venous distension: other (Patient did not allow examination) Neuro: General: other (Patient did not allow examination) Results Labs and Meds Result diagrams: 02/14/21 09:10 02/14/21 07:36 Lab results: Laboratory Results - last 24 hr 02/13/21 02/13/21 02/13/21 12:29 12:35 14:49 WBC RBC Hgb Hct MCV MCH MCHC RDW Plt Count MPV Immature Gran % (Auto) Neut % (Auto) Lymph % (Auto) Colbert % (Auto) Eos % (Auto) Baso % (Auto) Lymph # (Auto) Colbert # (Auto) Eos # (Auto) Baso # (Auto) Abs Immat Gran (auto) Absolute Neuts (auto) Absolute Nucleated RBC Nucleated RBC % (auto) PT INR APTT PTT (Heparin Protocol) Sodium Potassium Chloride Carbon Dioxide Anion Gap BUN Creatinine Estim Creat Clear Calc Estimated GFR POC Glucose Random Glucose Estimat Average Glucose Hemoglobin A1c % Lactic Acid 2.3 H* Lactic Acid Fup @ 2Hr Calcium Magnesium Iron TIBC % Saturation Unsat Iron Binding Total Bilirubin Direct Bilirubin AST ALT Alkaline Phosphatase Lactate Dehydrogenase Troponin I High Sens C-Reactive Protein B-Natriuretic Peptide Total Protein Albumin Procalcitonin Urine Color YELLOW Urine Appearance CLEAR Urine pH 6.0 Ur Specific [place] 1.015 Urine Protein 1+ H Urine Glucose (UA) NEG Urine Ketones NEG Urine Blood NEG Urine Nitrite NEG Ur Leukocyte Esterase NEG Urine RBC 0-2 Urine WBC 0-2 Ur Squamous Epith Cells TRACE Urine Bacteria NONE COVID-19 (HAYES) Negative COVID-19 Clin Com See Note 02/13/21 02/13/21 02/13/21 14:49 14:49 14:49 WBC 10.6 RBC 3.38 L Hgb 9.8 L Hct 30.2 L MCV 89.3 MCH 29.0 MCHC 32.5 RDW 17.2 H Plt Count 363 MPV 8.8 L Immature Gran % (Auto) 0.7 H Neut % (Auto) 88.8 H Lymph % (Auto) 4.1 L Colbert % (Auto) 6.1 Eos % (Auto) 0.0 Baso % (Auto) 0.3 Lymph # (Auto) 0.4 L Colbert # (Auto) 0.7 Eos # (Auto) 0.0 Baso # (Auto) 0.0 Abs Immat Gran (auto) 0.07 H Absolute Neuts (auto) 9.4 H Absolute Nucleated RBC 0.000 Nucleated RBC % (auto) 0.0 PT INR APTT PTT (Heparin Protocol) Sodium 133 L Potassium 3.7 Chloride 100 Carbon Dioxide 26 Anion Gap 11 L BUN 20 H Creatinine 1.93 H Estim Creat Clear Calc 36.2 Estimated GFR 36 POC Glucose Random Glucose 70 Estimat Average Glucose Hemoglobin A1c % Lactic Acid Lactic Acid Fup @ 2Hr Calcium 9.1 Magnesium 1.7 Iron TIBC % Saturation Unsat Iron Binding Total Bilirubin 0.4 Direct Bilirubin 0.3 AST 14 ALT 8 Alkaline Phosphatase 92 Lactate Dehydrogenase 153 Troponin I High Sens 59.4 H* C-Reactive Protein 1.33 H B-Natriuretic Peptide Total Protein 9.6 H Albumin 3.5 Procalcitonin Urine Color Urine Appearance Urine pH Ur Specific [place] Urine Protein Urine Glucose (UA) Urine Ketones Urine Blood Urine Nitrite Ur Leukocyte Esterase Urine RBC Urine WBC Ur Squamous Epith Cells Urine Bacteria COVID-19 (HAYES) COVID-19 Clin Com 02/13/21 02/13/21 02/13/21 14:49 14:49 16:28 WBC 13.6 H RBC 3.17 L Hgb 9.3 L Hct 28.3 L MCV 89.3 MCH 29.3 MCHC 32.9 RDW 17.2 H Plt Count 329 MPV 8.7 L Immature Gran % (Auto) Neut % (Auto) Lymph % (Auto) Colbert % (Auto) Eos % (Auto) Baso % (Auto) Lymph # (Auto) Colbert # (Auto) Eos # (Auto) Baso # (Auto) Abs Immat Gran (auto) Absolute Neuts (auto) Absolute Nucleated RBC 0.000 Nucleated RBC % (auto) 0.0 PT INR APTT PTT (Heparin Protocol) Sodium Potassium Chloride Carbon Dioxide Anion Gap BUN Creatinine Estim Creat Clear Calc Estimated GFR POC Glucose Random Glucose Estimat Average Glucose Hemoglobin A1c % Lactic Acid Lactic Acid Fup @ 2Hr Calcium Magnesium Iron TIBC % Saturation Unsat Iron Binding Total Bilirubin Direct Bilirubin AST ALT Alkaline Phosphatase Lactate Dehydrogenase Troponin I High Sens C-Reactive Protein B-Natriuretic Peptide 164 H Total Protein Albumin Procalcitonin 6.19 Urine Color Urine Appearance Urine pH Ur Specific [place] Urine Protein Urine Glucose (UA) Urine Ketones Urine Blood Urine Nitrite Ur Leukocyte Esterase Urine RBC Urine WBC Ur Squamous Epith Cells Urine Bacteria COVID-19 (HAYES) COVID-19 [place] Com 02/13/21 02/13/21 02/13/21 16:28 16:28 17:00 WBC RBC Hgb Hct MCV MCH MCHC RDW Plt Count MPV Immature Gran % (Auto) Neut % (Auto) Lymph % (Auto) Colbert % (Auto) Eos % (Auto) Baso % (Auto) Lymph # (Auto) Colbert # (Auto) Eos # (Auto) Baso # (Auto) Abs Immat Gran (auto) Absolute Neuts (auto) Absolute Nucleated RBC Nucleated RBC % (auto) PT 13.5 H INR 1.2 H APTT PTT (Heparin Protocol) 31.5 L Sodium Potassium Chloride Carbon Dioxide Anion Gap BUN Creatinine Estim Creat Clear Calc Estimated GFR POC Glucose 92 Random Glucose Estimat Average Glucose 157 Hemoglobin A1c % 7.1 Lactic Acid Lactic Acid Fup @ 2Hr Calcium Magnesium Iron TIBC % Saturation Unsat Iron Binding Total Bilirubin Direct Bilirubin AST ALT Alkaline Phosphatase Lactate Dehydrogenase Troponin I High Sens C-Reactive Protein B-Natriuretic Peptide Total Protein Albumin Procalcitonin Urine Color Urine Appearance Urine pH Ur Specific [place] Urine Protein Urine Glucose (UA) Urine Ketones Urine Blood Urine Nitrite Ur Leukocyte Esterase Urine RBC Urine WBC Ur Squamous Epith Cells Urine Bacteria COVID-19 (HAYES) COVID-19 [place] Com 02/13/21 02/13/21 02/13/21 17:37 17:37 22:16 WBC RBC Hgb Hct MCV MCH MCHC RDW Plt Count MPV Immature Gran % (Auto) Neut % (Auto) Lymph % (Auto) Colbert % (Auto) Eos % (Auto) Baso % (Auto) Lymph # (Auto) [place]bert # (Auto) Eos # (Auto) Baso # (Auto) Abs Immat Gran (auto) Absolute Neuts (auto) Absolute Nucleated RBC Nucleated RBC % (auto) PT INR APTT PTT (Heparin Protocol) Sodium Potassium Chloride Carbon Dioxide Anion Gap BUN Creatinine Estim Creat Clear Calc Estimated GFR POC Glucose 123 H Random Glucose Estimat Average Glucose Hemoglobin A1c % Lactic Acid Lactic Acid Fup @ 2Hr 1.7 Calcium Magnesium Iron TIBC % Saturation Unsat Iron Binding Total Bilirubin Direct Bilirubin AST ALT Alkaline Phosphatase Lactate Dehydrogenase Troponin I High Sens 252.5 H* D C-Reactive Protein B-Natriuretic Peptide Total Protein Albumin Procalcitonin Urine Color Urine Appearance Urine pH Ur Specific [place] Urine Protein Urine Glucose (UA) Urine Ketones Urine Blood Urine Nitrite Ur Leukocyte Esterase Urine RBC Urine WBC Ur Squamous Epith Cells Urine Bacteria COVID-19 (HAYES) COVID-19 Clin Com 02/14/21 02/14/21 02/14/21 00:22 07:36 07:36 WBC 15.9 H RBC 2.72 L Hgb 7.8 L Hct 24.4 L MCV 89.7 MCH 28.7 MCHC 32.0 RDW 17.7 H Plt Count 302 MPV 9.0 L Immature Gran % (Auto) Neut % (Auto) Lymph % (Auto) Colbert % (Auto) Eos % (Auto) Baso % (Auto) Lymph # (Auto) Colbert # (Auto) Eos # (Auto) Baso # (Auto) Abs Immat Gran (auto) Absolute Neuts (auto) Absolute Nucleated RBC 0.000 Nucleated RBC % (auto) 0.0 PT 17.1 H D INR 1.5 H APTT PTT (Heparin Protocol) 51.2 L D Sodium Potassium Chloride Carbon Dioxide Anion Gap BUN Creatinine Estim Creat Clear Calc Estimated GFR POC Glucose Random Glucose Estimat Average Glucose Hemoglobin A1c % Lactic Acid Lactic Acid Fup @ 2Hr Calcium Magnesium Iron TIBC % Saturation Unsat Iron Binding Total Bilirubin Direct Bilirubin AST ALT Alkaline Phosphatase Lactate Dehydrogenase Troponin I High Sens C-Reactive Protein B-Natriuretic Peptide Total Protein Albumin Procalcitonin Urine Color Urine Appearance Urine pH Ur Specific [place] Urine Protein Urine Glucose (UA) Urine Ketones Urine Blood Urine Nitrite Ur Leukocyte Esterase Urine RBC Urine WBC Ur Squamous Epith Cells Urine Bacteria COVID-19 (HAYES) COVID-19 Clin Com 02/14/21 02/14/21 02/14/21 07:36 07:36 07:36 WBC RBC Hgb Hct MCV MCH MCHC RDW Plt Count MPV Immature Gran % (Auto) Neut % (Auto) Lymph % (Auto) Colbert % (Auto) Eos % (Auto) Baso % (Auto) Lymph # (Auto) Colbert # (Auto) Eos # (Auto) Baso # (Auto) Abs Immat Gran (auto) Absolute Neuts (auto) Absolute Nucleated RBC Nucleated RBC % (auto) PT INR APTT PTT (Heparin Protocol) 107.8 H* D Sodium 129 L Potassium 4.0 Chloride 102 Carbon Dioxide 22 Anion Gap 9 L BUN 21 H Creatinine 1.71 H Estim Creat Clear Calc 40.9 Estimated GFR 41 POC Glucose Random Glucose 117 H D Estimat Average Glucose Hemoglobin A1c % Lactic Acid Lactic Acid Fup @ 2Hr Calcium 7.6 L D Magnesium Iron 36 L TIBC 196 L % Saturation 18 Unsat Iron Binding 160 Total Bilirubin Direct Bilirubin AST ALT Alkaline Phosphatase Lactate Dehydrogenase Troponin I High Sens C-Reactive Protein B-Natriuretic Peptide 321 H Total Protein Albumin Procalcitonin Urine Color Urine Appearance Urine pH Ur Specific [place] Urine Protein Urine Glucose (UA) Urine Ketones Urine Blood Urine Nitrite Ur Leukocyte Esterase Urine RBC Urine WBC Ur Squamous Epith Cells Urine Bacteria COVID-19 ([facility]AYES) COVID-19 Clin Com 02/14/21 02/14/21 02/14/21 08:04 09:10 09:10 WBC RBC Hgb 7.5 L Hct 23.4 L MCV MCH MCHC RDW Plt Count MPV Immature Gran % (Auto) Neut % (Auto) Lymph % (Auto) Colbert % (Auto) Eos % (Auto) Baso % (Auto) Lymph # (Auto) Colbert # (Auto) Eos # (Auto) Baso # (Auto) Abs Immat Gran (auto) Absolute Neuts (auto) Absolute Nucleated RBC Nucleated RBC % (auto) PT INR APTT Cancelled PTT (Heparin Protocol) 55.0 D Sodium Potassium Chloride Carbon Dioxide Anion Gap BUN Creatinine Estim Creat Clear Calc Estimated GFR POC Glucose 113 Random Glucose Estimat Average Glucose Hemoglobin A1c % Lactic Acid Lactic Acid Fup @ 2Hr Calcium Magnesium Iron TIBC % Saturation Unsat Iron Binding Total Bilirubin Direct Bilirubin AST ALT Alkaline Phosphatase Lactate Dehydrogenase Troponin I High Sens C-Reactive Protein B-Natriuretic Peptide Total Protein Albumin Procalcitonin Urine Color Urine Appearance Urine pH Ur Specific [place] Urine Protein Urine Glucose (UA) Urine Ketones Urine Blood Urine Nitrite Ur Leukocyte Esterase Urine RBC Urine WBC Ur Squamous Epith Cells Urine Bacteria COVID-19 ([facility]AYES) COVID-19 Clin Com EKG shows normal sinus rhythm right bundle-branch block with anterior T-wave changes which could be secondary to RV strain or LAD territory ischemia with prior inferior infarct. Imaging Radiologist's impression: Impressions Chest X-Ray 02/13/21 14:56 IMPRESSION: Right lung airspace disease. Probable left lower lobe disease. Renal Ultrasound 02/13/21 17:58 IMPRESSION: Normal ultrasound of the kidneys. Assessment and Plan (1) Non-ST elevation [place] (NSTEMI): Status: Acute Patient presents to the hospital with severe sepsis related to pneumonia and noted to have elevated troponin with some atypical chest pain. However patient is a poor historian and not providing any further history at this point time. Rising troponin, differential diagnosis include primary ACS although less likely, secondary NSTEMI related to severe sepsis and pneumonia and also possibility of stress-induced cardiomyopathy. Echocardiogram has been performed. Given that there is historical inadequacy will treat him with IV heparin for 48 hours. If there is persistent decreasing hematocrit, pursue workup. Lower hematocrit may be due to dilutional anemia. However trend troponin till there is apeak.. Will review the echocardiogram. Continue low- dose aspirin, high-intensity statin therapy and beta-george therapy. Currently not having apparent any symptoms. Management will be conservative. Will sign of the case unless there are further issues. Thank you for allowing me to partake in his care Procedures Date of Service Date of Service: 02/14/21
[2021-02-14 10:18] LABS: Ferritin 197 ng/mL (20-250)
[2021-02-14 10:41] LABS: Folate 3.5 ng/mL (> or = 4.0); Vitamin B12 298 pg/mL (200-900)
[2021-02-14 11:05] LABS: Glucose, Whole Blood 117 mg/dL (60-115)
[2021-02-14] MEDS: Pregabalin 25 MG CAPSULE PO ×2 (12:10→20:23)
[2021-02-14] MEDS: carvediloL 3.125 MG TABLET PO (12:10)
[2021-02-14] MEDS: levETIRAcetam 1,000 MG TABLET 1000 MG PO ×2 (12:11→20:23)
[2021-02-14] MEDS: Isosorbide Mononitrate 60 MG TAB.ER.24H 120 MG PO (12:11)
[2021-02-14] MEDS: rOPINIRole HCL 0.25 MG TABLET PO ×2 (12:13→20:22)
[2021-02-14] MEDS: Ascorbic Acid 500 MG TABLET PO ×2 (12:13→20:22)
[2021-02-14] MEDS: QUEtiapine Fumarate 50 MG TABLET PO ×2 (12:14→20:23)
[2021-02-14] MEDS: Ferrous Sulfate 324 MG TABLET.DR PO ×2 (12:14→20:23)
[2021-02-14] MEDS: QUEtiapine Fumarate 100 MG TABLET PO ×2 (12:14→20:23)
[2021-02-14] MEDS: timoloL maleate 0.5 % Oph Sol 5 ML DRBTL 1 DROP EYE-BOTH (12:15)
[2021-02-14] MEDS: Dorzolamide HCl 2 % Ophth Sol 10 ML DRPBTL 1 DROP EYE-BOTH (12:15)
[2021-02-14] MEDS: Aspirin 81 MG TAB.CHEW PO (12:15)
--- NOTE | 2021-02-14 14:25 | HO.PM.IMPN ---
Subjective Subjective Date of Service: 02/14/21 Interval History: sepsis/pneumonia,nstemi Review of Systems Patient is awake could answers few questions like denies any chest chest pain currently or shortness of breath or abdominal pain As per staff no active bleeding episode In addition patient received the fluid bolus 30 cc range due to sepsis on admit. Physical Exam Vital Signs: Vital Signs: Last Vital Signs Temp 99.1 F 02/14/21 11:25 Pulse 65 02/14/21 12:11 Resp 17 02/14/21 11:25 BP 139/64 02/14/21 12:11 Pulse Ox 95 02/14/21 11:25 Body Mass Index 23.6 physical exam: Gen: in no acute distress HEENT: blind, sclera anicteric, moist mucus membranes Lungs: air entry seems slightly better, diminshed at bases, few faint rale at base. Heart: regular rate and rhythm, no murmurs Abd: soft, non-tender, non-distended Ext: no edema or cynosis. MSK: reproducible chest wall tenderness along left sternal border Skin: warm/well-perfused Neuro: alert and oriented x3 Psych: impaired insight Objective Data Active Medications Acetaminophen (Acetaminophen 325 Mg Tablet) 650 mg PO Q6H PRN PRN Reason: Pain, Mild (Pain Scale 1-3) Ascorbic Acid (Ascorbic Acid 500 Mg Tablet) 500 mg PO BID [facility] Last Admin: 02/14/21 12:13 Dose: 500 mg Documented by: JOSIAH Aspirin (Aspirin 81 Mg Tab.Chew) 81 mg PO DAILY [facility] Last Admin: 02/14/21 12:15 Dose: 81 mg Documented by: JOSIAH Atorvastatin Calcium (Atorvastatin Calcium 80 Mg Tablet) 80 mg PO BEDTIME [facility] Last Admin: 02/13/21 22:21 Dose: 80 mg Documented by: LYNDA Baclofen (Baclofen 10 Mg Tablet) 5 mg PO BEDTIME [facility] Last Admin: 02/13/21 22:21 Dose: 5 mg Documented by: LYNDA Bisacodyl (Bisacodyl 10 Mg Supp.Rect) 10 mg DE DAILY PRN PRN Reason: Constipation Carvedilol (Carvedilol 3.125 Mg Tablet) 3.125 mg PO BID [facility]; Protocol Last Admin: 02/14/21 12:10 Dose: 3.125 mg Documented by: JOSIAH Dextrose (Dextrose 50 % 25 Gm/50 Ml Vial) 25 gm IVPUSH Q15M PRN; Protocol PRN Reason: per Hypoglycemia Standing Ord. Dorzolamide HCl (Dorzolamide Hcl 2 % Ophth Huma 10 Ml Drpbtl) 1 drop EYE-BOTH BID [facility] Last Admin: 02/14/21 12:15 Dose: 1 drop Documented by: JOSIAH Ferrous Sulfate (Ferrous Sulfate 324 Mg Tablet.Dr) 324 mg PO BID [facility] Last Admin: 02/14/21 12:14 Dose: 324 mg Documented by: JOSIAH Glucose (Glucose Gel 15 Gm Gel..Gram.) 15 gm PO Q15M PRN; Protocol PRN Reason: per Hypoglycemia Standing Ord. Heparin Sodium (Porcine) (Heparin Sodium,Porcine 5,000 Unit/Ml Vial) 2,500 unit 40 unit/kg (2500 unit) IVPUSH PROTOCOL BOLUS PRN; Protocol PRN Reason: 40 unit/kg - Heparin Protocol Last Admin: 02/14/21 01:32 Dose: 2,500 unit Documented by: LYNDA Heparin Sodium (Porcine) (Heparin Sodium,Porcine 5,000 Unit/Ml Vial) 5,000 unit 80 unit/kg (5000 unit) IVPUSH PROTOCOL BOLUS PRN; Protocol PRN Reason: 80 unit/kg - Heparin Protocol Ceftriaxone Sodium 1 gm/ (Sodium Chloride) 50 mls @ 100 mls/hr IV Q24H [facility] Last Infusion: 02/13/21 17:30 Dose: 0 mls/hr Documented by: DOMENICA Doxycycline Hyclate 100 mg/ (Sodium Chloride) 250 mls @ 166.67 mls/hr IV Q12H [facility] Last Infusion: 02/14/21 06:35 Dose: 0 mls/hr Documented by: LYNDA Heparin Sodium/Sodium Chloride () 25,000 unit in 250 mls @ 0 mls/hr IVCONT .Q0M [facility]; Protocol Last Titration: 02/14/21 09:52 Dose: 11 units/kg/hr, 6.94 mls/hr Documented by: JOSIAH Cosigned by: SOL Insulin Glargine (Insulin Glargine,Hum.Rec.Anlog 100 Unit/Ml 10 Ml Vial) 20 unit SUBCUT BEDTIME [facility] Last Admin: 02/13/21 22:40 Dose: Not Given Documented by: LYNDA Non-Admin Reason: No Insulin Coverage Insulin Human Lispro (Insulin Lispro 100 Unit/Ml 3 Ml Vial) 0 unit SUBCUT QIDACHS [facility]; Protocol Last Admin: 02/14/21 11:03 Dose: Not Given Documented by: JOSIAH Non-Admin Reason: No Insulin Coverage Comments: POC 117 Isosorbide Mononitrate (Isosorbide Mononitrate 60 Mg Tab.Er.24h) 120 mg PO DAILY [facility]; Protocol Last Admin: 02/14/21 12:11 Dose: 120 mg Documented by: JOSIAH Levetiracetam (Levetiracetam 1,000 Mg Tablet) 1,000 mg PO BID [facility] Last Admin: 02/14/21 12:11 Dose: 1,000 mg Documented by: JOSIAH Levothyroxine Sodium (Levothyroxine Sodium 75 Mcg Tablet) 75 mcg PO DAILY@0630 [facility] Last Admin: 02/14/21 04:58 Dose: 75 mcg Documented by: LYNDA Lorazepam (Lorazepam 1 Mg Tablet) 1 mg PO BID PRN PRN Reason: Anxiety Last Admin: 02/14/21 01:33 Dose: 1 mg Documented by: LYNDA Nitroglycerin (Nitroglycerin 0.4 Mg Tab.Subl) 0.4 mg SUBLINGUAL Q5MX3 PRN PRN Reason: chest pain Ondansetron HCl (Ondansetron Hcl 4 Mg/2 Ml Vial) 4 mg IVPUSH Q8H PRN PRN Reason: Nausea and Vomiting Oxycodone HCl (Oxycodone Hcl Immed Release 5 Mg Tablet) 5 mg PO QID PRN PRN Reason: Pain Pharmacy Consult (Consult Rx Perform Med Rec) 1 each MISCELLANE ONCE PRN PRN Reason: Consult order Pregabalin (Pregabalin 25 Mg Capsule) 25 mg PO BID [facility] Last Admin: 02/14/21 12:10 Dose: 25 mg Documented by: JOSIAH Quetiapine Fumarate (Quetiapine Fumarate 100 Mg Tablet) 100 mg PO BID [facility] Last Admin: 02/14/21 12:14 Dose: 100 mg Documented by: JOSIAH Quetiapine Fumarate (Quetiapine Fumarate 50 Mg Tablet) 50 mg PO BID [facility] Last Admin: 02/14/21 12:14 Dose: 50 mg Documented by: JOSIAH Ropinirole HCl (Ropinirole Hcl 0.25 Mg Tablet) 0.25 mg PO BID [facility] Last Admin: 02/14/21 12:13 Dose: 0.25 mg Documented by: JOSIAH Senna (Sennosides 8.6 Mg Tablet) 8.6 mg PO DAILY PRN PRN Reason: Constipation Tamsulosin HCl (Tamsulosin Hcl 0.4 Mg Capsule) 0.4 mg PO DAILY@1700 [facility] Timolol Maleate (Timolol Maleate 0.5 % Oph Huma 5 Ml Drbtl) 1 drop EYE-BOTH BID [facility] Last Admin: 02/14/21 12:15 Dose: 1 drop Documented by: JOSIAH Labs CBC & Chem 7: 02/14/21 16:47 02/14/21 07:36 Labs: Laboratory Results - last 24 hr 02/13/21 02/13/21 02/13/21 14:49 14:49 14:49 MCV 89.3 MCH 29.0 MCHC 32.5 RDW 17.2 H Plt Count 363 MPV 8.8 L Immature Gran % (Auto) 0.7 H Neut % (Auto) 88.8 H Lymph % (Auto) 4.1 L [place] % (Auto) 6.1 Eos % (Auto) 0.0 Baso % (Auto) 0.3 Lymph # (Auto) 0.4 L [place] # (Auto) 0.7 Eos # (Auto) 0.0 Baso # (Auto) 0.0 Abs Immat Gran (auto) 0.07 H Absolute Neuts (auto) 9.4 H Absolute Nucleated RBC 0.000 Nucleated RBC % (auto) 0.0 PT INR APTT PTT (Heparin Protocol) Anion Gap 11 L Estim Creat Clear Calc 36.2 Estimated GFR 36 POC Glucose Random Glucose 70 Estimat Average Glucose Hemoglobin A1c % Lactic Acid 2.3 H* Lactic Acid Fup @ 2Hr Calcium 9.1 Magnesium 1.7 Iron TIBC % Saturation Unsat Iron Binding Ferritin Total Bilirubin 0.4 Direct Bilirubin 0.3 AST 14 ALT 8 Alkaline Phosphatase 92 Lactate Dehydrogenase 153 Troponin I High Sens C-Reactive Protein 1.33 H B-Natriuretic Peptide Total Protein 9.6 H Albumin 3.5 Vitamin B12 Folate Procalcitonin Blood Type Antibody Screen 02/13/21 02/13/21 02/13/21 14:49 14:49 14:49 MCV MCH MCHC RDW Plt Count MPV Immature Gran % (Auto) Neut % (Auto) Lymph % (Auto) [place] % (Auto) Eos % (Auto) Baso % (Auto) Lymph # (Auto) [place] # (Auto) Eos # (Auto) Baso # (Auto) Abs Immat Gran (auto) Absolute Neuts (auto) Absolute Nucleated RBC Nucleated RBC % (auto) PT INR APTT PTT (Heparin Protocol) Anion Gap Estim Creat Clear Calc Estimated GFR POC Glucose Random Glucose Estimat Average Glucose Hemoglobin A1c % Lactic Acid Lactic Acid Fup @ 2Hr Calcium Magnesium Iron TIBC % Saturation Unsat Iron Binding Ferritin Total Bilirubin Direct Bilirubin AST ALT Alkaline Phosphatase Lactate Dehydrogenase Troponin I High Sens 59.4 H* C-Reactive Protein B-Natriuretic Peptide 164 H Total Protein Albumin Vitamin B12 Folate Procalcitonin 6.19 Blood Type Antibody Screen 02/13/21 02/13/21 02/13/21 16:28 16:28 16:28 MCV 89.3 MCH 29.3 MCHC 32.9 RDW 17.2 H Plt Count 329 MPV 8.7 L Immature Gran % (Auto) Neut % (Auto) Lymph % (Auto) [place] % (Auto) Eos % (Auto) Baso % (Auto) Lymph # (Auto) [place] # (Auto) Eos # (Auto) Baso # (Auto) Abs Immat Gran (auto) Absolute Neuts (auto) Absolute Nucleated RBC 0.000 Nucleated RBC % (auto) 0.0 PT 13.5 H INR 1.2 H APTT PTT (Heparin Protocol) 31.5 L Anion Gap Estim Creat Clear Calc Estimated GFR POC Glucose Random Glucose Estimat Average Glucose 157 Hemoglobin A1c % 7.1 Lactic Acid Lactic Acid Fup @ 2Hr Calcium Magnesium Iron TIBC % Saturation Unsat Iron Binding Ferritin Total Bilirubin Direct Bilirubin AST ALT Alkaline Phosphatase Lactate Dehydrogenase Troponin I High Sens C-Reactive Protein B-Natriuretic Peptide Total Protein Albumin Vitamin B12 Folate Procalcitonin Blood Type Antibody Screen 02/13/21 02/13/21 02/13/21 17:00 17:37 17:37 MCV MCH MCHC RDW Plt Count MPV Immature Gran % (Auto) Neut % (Auto) Lymph % (Auto) [place] % (Auto) Eos % (Auto) Baso % (Auto) Lymph # (Auto) [place] # (Auto) Eos # (Auto) Baso # (Auto) Abs Immat Gran (auto) Absolute Neuts (auto) Absolute Nucleated RBC Nucleated RBC % (auto) PT INR APTT PTT (Heparin Protocol) Anion Gap Estim Creat Clear Calc Estimated GFR POC Glucose 92 Random Glucose Estimat Average Glucose Hemoglobin A1c % Lactic Acid Lactic Acid Fup @ 2Hr 1.7 Calcium Magnesium Iron TIBC % Saturation Unsat Iron Binding Ferritin Total Bilirubin Direct Bilirubin AST ALT Alkaline Phosphatase Lactate Dehydrogenase Troponin I High Sens 252.5 H* D C-Reactive Protein B-Natriuretic Peptide Total Protein Albumin Vitamin B12 Folate Procalcitonin Blood Type Antibody Screen 02/13/21 02/14/21 02/14/21 22:16 00:22 07:36 MCV 89.7 MCH 28.7 MCHC 32.0 RDW 17.7 H Plt Count 302 MPV 9.0 L Immature Gran % (Auto) Neut % (Auto) Lymph % (Auto) [place] % (Auto) Eos % (Auto) Baso % (Auto) Lymph # (Auto) [place] # (Auto) Eos # (Auto) Baso # (Auto) Abs Immat Gran (auto) Absolute Neuts (auto) Absolute Nucleated RBC 0.000 Nucleated RBC % (auto) 0.0 PT INR APTT PTT (Heparin Protocol) 51.2 L D Anion Gap Estim Creat Clear Calc Estimated GFR POC Glucose 123 H Random Glucose Estimat Average Glucose Hemoglobin A1c % Lactic Acid Lactic Acid Fup @ 2Hr Calcium Magnesium Iron TIBC % Saturation Unsat Iron Binding Ferritin Total Bilirubin Direct Bilirubin AST ALT Alkaline Phosphatase Lactate Dehydrogenase Troponin I High Sens C-Reactive Protein B-Natriuretic Peptide Total Protein Albumin Vitamin B12 Folate Procalcitonin Blood Type Antibody Screen 02/14/21 02/14/21 02/14/21 07:36 07:36 07:36 MCV MCH MCHC RDW Plt Count MPV Immature Gran % (Auto) Neut % (Auto) Lymph % (Auto) [place] % (Auto) Eos % (Auto) Baso % (Auto) Lymph # (Auto) [place] # (Auto) Eos # (Auto) Baso # (Auto) Abs Immat Gran (auto) Absolute Neuts (auto) Absolute Nucleated RBC Nucleated RBC % (auto) PT 17.1 H D INR 1.5 H APTT PTT (Heparin Protocol) Anion Gap 9 L Estim Creat Clear Calc 40.9 Estimated GFR 41 POC Glucose Random Glucose 117 H D Estimat Average Glucose Hemoglobin A1c % Lactic Acid Lactic Acid Fup @ 2Hr Calcium 7.6 L D Magnesium Iron 36 L TIBC 196 L % Saturation 18 Unsat Iron Binding 160 Ferritin 197 Total Bilirubin Direct Bilirubin AST ALT Alkaline Phosphatase Lactate Dehydrogenase Troponin I High Sens C-Reactive Protein B-Natriuretic Peptide 321 H Total Protein Albumin Vitamin B12 Folate Procalcitonin Blood Type Antibody Screen 02/14/21 02/14/21 02/14/21 07:36 07:36 08:04 MCV MCH MCHC RDW Plt Count MPV Immature Gran % (Auto) Neut % (Auto) Lymph % (Auto) [place] % (Auto) Eos % (Auto) Baso % (Auto) Lymph # (Auto) [place] # (Auto) Eos # (Auto) Baso # (Auto) Abs Immat Gran (auto) Absolute Neuts (auto) Absolute Nucleated RBC Nucleated RBC % (auto) PT INR APTT PTT (Heparin Protocol) 107.8 H* D Anion Gap Estim Creat Clear Calc Estimated GFR POC Glucose 113 Random Glucose Estimat Average Glucose Hemoglobin A1c % Lactic Acid Lactic Acid Fup @ 2Hr Calcium Magnesium Iron TIBC % Saturation Unsat Iron Binding Ferritin Total Bilirubin Direct Bilirubin AST ALT Alkaline Phosphatase Lactate Dehydrogenase Troponin I High Sens C-Reactive Protein B-Natriuretic Peptide Total Protein Albumin Vitamin B12 298 Folate 3.5 L Procalcitonin Blood Type Antibody Screen 02/14/21 02/14/21 02/14/21 09:10 09:10 11:02 MCV MCH MCHC RDW Plt Count MPV Immature Gran % (Auto) Neut % (Auto) Lymph % (Auto) [place] % (Auto) Eos % (Auto) Baso % (Auto) Lymph # (Auto) [place] # (Auto) Eos # (Auto) Baso # (Auto) Abs Immat Gran (auto) Absolute Neuts (auto) Absolute Nucleated RBC Nucleated RBC % (auto) PT INR APTT Cancelled PTT (Heparin Protocol) 55.0 D Anion Gap Estim Creat Clear Calc Estimated GFR POC Glucose 117 H Random Glucose Estimat Average Glucose Hemoglobin A1c % Lactic Acid Lactic Acid Fup @ 2Hr Calcium Magnesium Iron TIBC % Saturation Unsat Iron Binding Ferritin Total Bilirubin Direct Bilirubin AST ALT Alkaline Phosphatase Lactate Dehydrogenase Troponin I High Sens C-Reactive Protein B-Natriuretic Peptide Total Protein Albumin Vitamin B12 Folate Procalcitonin Blood Type O Positive Antibody Screen NEGATIVE Microbiology Microbiology Results: Microbiology 02/13/21 14:50 Blood Culture - Preliminary Blood - Venous Prelim: GPC Gram Stain only Assessment and Plan (1) Pneumonia: Status: Acute (2) Non-ST elevation CO (NSTEMI): Status: Acute Assessment and Plan: 60yo M long-term [facility] resident with CAD s/p CABG, diastolic CHF, HTN, HLD, CKD 3a, DM2, hypothyroidism, and schizoaffective disorder who was sent in with fever, diaphoresis, pallor, lethargy, and chest pain.? He is found to be septic due to multilobar pneumonia and has an NSTEMI. 1. severe sepsis: multilobar pneumonia continue ceftriaxone/doxycycline, trend PCT, check BCx, check urinary antigen tests. given fluid bolus blood culture -gram positive coccix1 , blood culture 2nd -neg. hold off vanco-? 1 culture positive might be contamination ID eval 2. NSTEMI:d/d acs vs secondary to sepsis vs stress cardiomyopathy however, pt has known coronary disease and is s/p CABG and is high-risk; continue ASA + high-intensity statin, hold iv heaprin(almost received 24hours) TTE pending seen by cardio- moniter cbc. trops recheck-seems trending down h/h slowly trending down -d/w cardio : seems low suspicion of acs , hold heaprin due to h/h treding down 3.CAD/ HTN/CHF - continue carvedilol, Imdur; hold torsemide 4. CKD3a - suspect this is his baseline SCr; obtain records from [facility].? avoid nephrotoxins.? check FENa, urine pr/Cr, renal US Hyponatremia: Probably related to fluids, we will and hyponatremia workup. 5. normocytic anemia trending down 7.5-7.8 range /hct around 24 range ( which seems around 8 range)-? diluational , no gross bleeding as per staff added anemia workup,fobt type and cross ,moniter cbc closely - continue Fe supplementation ?baseline- obtain records from [facility].? 6. seizure disorder- continue levetiracetam 7. RLS- continue ropinirole 8. schizoaffective disorder- continue quetiapine, lorazepam 9. chronic pain- continue pregabalin, baclofen, oxycodone 10. DM2- hold MTF; continue glargine and add correction-dose lispro; check A1c 11. hypothyrodism- continue LT4 # VTE ppx: scd due to anemia Patient's healthcare proxy miss Casas (phone no [phone]) updated and she understands above and agreement with plan. Quality Stroke Does the patient have a stroke diagnosis?: No VTE Prior VTE?: No VTE Risk Level:: Medical - moderate - high VTE Device Contraindication: N/A - Device Ordered VTE Drug Contraindication: N/A - Med Ordered
[2021-02-14 16:11] LABS: Glucose, Whole Blood 192 mg/dL (60-115)
[2021-02-14 16:24] LABS: PTT Heparin Drip 50.8 SEC (53-77.9)
[2021-02-14] MEDS: Heparin Sodium,Porcine 5,000 UNIT/ML VIAL 5000 UNIT IVPUSH (16:42)
[2021-02-14] MEDS: Insulin Lispro 100 UNIT/ML 3 ML VIAL SUBCUT ×2 (16:46→20:49)
[2021-02-14] MEDS: cefTRIAXone sodium 1 GM in 0.9 % Sodium Chloride 50 ML IV (16:49)
[2021-02-14 16:56] LABS: Hematocrit 22.3 % (42-52); Hemoglobin 7.1 g/dl (14.0-18.0)
[2021-02-14] MEDS: Tamsulosin HCL 0.4 MG CAPSULE PO (17:05)
[2021-02-14] MEDS: Omeprazole 20 MG CAPSULE.DR PO (17:09)
[2021-02-14 17:27] LABS: Osmolality, Serum 290 mosm/kg (281-305)
[2021-02-14 18:53] LABS: Osmolality Urine 272 mosm/kg (373-1093)
[2021-02-14 18:57] LABS: Troponin-I High Sensitivity 202.2 ng/L (<3.5-35.0)
[2021-02-14 19:05] LABS: Amphetamine Screen Urine Not Detected (Not Detect); Barbiturates, Urine Not Detected (Not Detect); Benzodiazepines Screen Urine Not Detected (Not Detect); Cannabinoid Screen Urine Not Detected (Not Detect); Cocaine Screen Urine Not Detected (Not Detect); Fentanyl, urine Not Detected (Not Detect); Opiate Screen Urine Not Detected (Not Detect); Phencyclidine Screen Urine Not Detected (Not Detect)
[2021-02-14 19:08] LABS: Creatinine Urine 52.17 mg/dL; Potassium Urine Random 37.9 mmol/L; Total Protein Urine Random 12 mg/dL (<12)
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
[2021-02-14] MEDS: Atorvastatin Calcium 80 MG TABLET PO (20:22)
[2021-02-14] MEDS: Baclofen 10 MG TABLET 5 MG PO (20:23)
[2021-02-14 20:43] LABS: Glucose, Whole Blood 231 mg/dL (60-115)
[2021-02-14] MEDS: 0.9 % Sodium Chloride 500 ML IV (20:46)
[2021-02-14] MEDS: Insulin Glargine,Hum.rec.anlog 100 UNIT/ML 10 ML VIAL 20 UNIT SUBCUT (20:49)
[2021-02-14 21:12] LABS: Basophils Percent Auto 0.2 % (0-2); Hematocrit 22.3 % (42-52); Hemoglobin 7.1 g/dl (14.0-18.0); Lymphocytes Absolute Auto 1.5 X10*3/uL (1.2-4.9); Lymphocytes Percent Auto 9.5 % (20-40); MANUAL DIFF FLAG NO; Mean Corpuscular HGB Conc 31.8 g/dl (31.0-36.0); Mean Corpuscular Hemoglobin 29.2 pg (27.0-33.0); Mean Corpuscular Volume 91.8 fL (80-98); Mean Platelet Volume 8.9 fL (9.4-12.4); Monocytes Absolute Auto 0.7 X10*3/uL (0.1-1.2); Monocytes Percent Auto 4.8 % (2-11); Neutrophils Absolute Auto 12.8 X10*3/uL (2.0-8.3); Neutrophils Percent Auto 83.5 % (45-73); Platelet Count 292 X10*3/uL (160-400); Red Blood Count 2.43 X10*6/uL (4.60-5.80); Red Cell Distribution Width 18.3 % (11.0-16.0); White Blood Count 15.3 X10*3/uL (4.8-10.8)
[2021-02-14 21:22] LABS: Lactic Acid 1.5 mmol/L (0.5-2.0)
[2021-02-14 21:37] LABS: Troponin-I High Sensitivity 165.1 ng/L (<3.5-35.0)
[2021-02-15] VITALS (9 sets, daily range): BP systolic 92–188; BP diastolic 53–80; PULSE 80–101; RESP 18–20; TEMP 36.4–37.3; O2SAT 96–99
[2021-02-15] MEDS: oxyCODONE HCl Immed Release 5 MG TABLET PO (01:02)
[2021-02-15] MEDS: Doxycycline Hyclate 100 MG in 0.9 % Sodium Chloride 250 ML 166.6 MG IV (04:26)
[2021-02-15 06:55] LABS: Hematocrit 23.8 % (42-52); Hemoglobin 7.6 g/dl (14.0-18.0); Mean Corpuscular HGB Conc 31.9 g/dl (31.0-36.0); Mean Corpuscular Volume 90.8 fL (80-98); Mean Platelet Volume 9.3 fL (9.4-12.4); Platelet Count 343 X10*3/uL (160-400); Red Blood Count 2.62 X10*6/uL (4.60-5.80); Red Cell Distribution Width 18.1 % (11.0-16.0); White Blood Count 14.1 X10*3/uL (4.8-10.8)
[2021-02-15 07:03] LABS: Glucose, Whole Blood 140 mg/dL (60-115)
[2021-02-15] MEDS: Ascorbic Acid 500 MG TABLET PO ×2 (09:52→20:01)
[2021-02-15] MEDS: timoloL maleate 0.5 % Oph Sol 5 ML DRBTL 1 DROP EYE-BOTH (09:52)
[2021-02-15] MEDS: Aspirin 81 MG TAB.CHEW PO (09:53)
[2021-02-15] MEDS: Pregabalin 25 MG CAPSULE PO ×2 (09:53→20:01)
[2021-02-15] MEDS: QUEtiapine Fumarate 50 MG TABLET PO ×2 (09:53→20:02)
[2021-02-15] MEDS: rOPINIRole HCL 0.25 MG TABLET PO ×2 (09:53→20:01)
[2021-02-15] MEDS: QUEtiapine Fumarate 100 MG TABLET PO ×2 (09:54→20:01)
[2021-02-15] MEDS: Dorzolamide HCl 2 % Ophth Sol 10 ML DRPBTL 1 DROP EYE-BOTH (09:54)
[2021-02-15] MEDS: Ferrous Sulfate 324 MG TABLET.DR PO ×2 (09:54→20:03)
[2021-02-15] MEDS: levETIRAcetam 1,000 MG TABLET 1000 MG PO ×2 (09:57→20:02)
[2021-02-15] MEDS: Isosorbide Mononitrate 60 MG TAB.ER.24H 120 MG PO (09:57)
[2021-02-15] MEDS: carvediloL 3.125 MG TABLET PO ×2 (09:58→20:01)
[2021-02-15 11:03] LABS: Glucose, Whole Blood 174 mg/dL (60-115)
--- NOTE | 2021-02-15 14:10 | HO.PM.IMPN ---
Subjective Subjective Date of Service: 02/15/21 Interval History: f/u on sepsis, pna, doing better Review of Systems no fever no sob Physical Exam Vital Signs: Vital Signs: Last Vital Signs Temp 97.8 F 02/15/21 11:31 Pulse 87 02/15/21 11:31 Resp 18 02/15/21 11:31 BP 120/58 L 02/15/21 11:31 Pulse Ox 98 02/15/21 11:31 Body Mass Index 23.6 hysical exam: Gen: in no acute distress HEENT: blind, sclera anicteric, moist mucus membranes Lungs: air entry seems slightly better, diminshed at bases, few faint rale at base. Heart: regular rate and rhythm, no murmurs Abd: soft, non-tender, non-distended Ext: no edema or cynosis. MSK: reproducible chest wall tenderness along left sternal border Skin: warm/well-perfused Neuro: alert and oriented x3 Psych: impaired insight Objective Data Active Medications Acetaminophen (Acetaminophen 325 Mg Tablet) 650 mg PO Q6H PRN PRN Reason: Pain, Mild (Pain Scale 1-3) Ascorbic Acid (Ascorbic Acid 500 Mg Tablet) 500 mg PO BID [facility] Last Admin: 02/15/21 09:52 Dose: 500 mg Documented by: BRI Aspirin (Aspirin 81 Mg Tab.Chew) 81 mg PO DAILY [facility] Last Admin: 02/15/21 09:53 Dose: 81 mg Documented by: BRI Atorvastatin Calcium (Atorvastatin Calcium 80 Mg Tablet) 80 mg PO BEDTIME [facility] Last Admin: 02/14/21 20:22 Dose: 80 mg Documented by: VITOR Baclofen (Baclofen 10 Mg Tablet) 5 mg PO BEDTIME [facility] Last Admin: 02/14/21 20:23 Dose: 5 mg Documented by: VITOR Bisacodyl (Bisacodyl 10 Mg Supp.Rect) 10 mg VA DAILY PRN PRN Reason: Constipation Carvedilol (Carvedilol 3.125 Mg Tablet) 3.125 mg PO BID [facility]; Protocol Last Admin: 02/15/21 09:58 Dose: 3.125 mg Documented by: BRI Dextrose (Dextrose 50 % 25 Gm/50 Ml Vial) 25 gm IVPUSH Q15M PRN; Protocol PRN Reason: per Hypoglycemia Standing Ord. Dorzolamide HCl (Dorzolamide Hcl 2 % Ophth Huma 10 Ml Drpbtl) 1 drop EYE-BOTH BID [facility] Last Admin: 02/15/21 09:54 Dose: 1 drop Documented by: BRI Ferrous Sulfate (Ferrous Sulfate 324 Mg Tablet.Dr) 324 mg PO BID [facility] Last Admin: 02/15/21 09:54 Dose: 324 mg Documented by: BRI Glucose (Glucose Gel 15 Gm Gel..Gram.) 15 gm PO Q15M PRN; Protocol PRN Reason: per Hypoglycemia Standing Ord. Ceftriaxone Sodium 1 gm/ (Sodium Chloride) 50 mls @ 100 mls/hr IV Q24H [facility] Last Infusion: 02/14/21 17:33 Dose: 0 mls/hr Documented by: JOSIAH Doxycycline Hyclate 100 mg/ (Sodium Chloride) 250 mls @ 166.67 mls/hr IV Q12H [facility] Last Infusion: 02/15/21 06:02 Dose: 0 mls/hr Documented by: VITOR Insulin Glargine (Insulin Glargine,Hum.Rec.Anlog 100 Unit/Ml 10 Ml Vial) 20 unit SUBCUT BEDTIME [facility] Last Admin: 02/14/21 20:49 Dose: 20 unit Documented by: VITOR Insulin Human Lispro (Insulin Lispro 100 Unit/Ml 3 Ml Vial) 0 unit SUBCUT QIDACHS [facility]; Protocol Last Admin: 02/15/21 11:21 Dose: Not Given Documented by: BRI Non-Admin Reason: Patient Refused Isosorbide Mononitrate (Isosorbide Mononitrate 60 Mg Tab.Er.24h) 120 mg PO DAILY [facility]; Protocol Last Admin: 02/15/21 09:57 Dose: 120 mg Documented by: BRI Levetiracetam (Levetiracetam 1,000 Mg Tablet) 1,000 mg PO BID [facility] Last Admin: 02/15/21 09:57 Dose: 1,000 mg Documented by: BRI Levothyroxine Sodium (Levothyroxine Sodium 75 Mcg Tablet) 75 mcg PO DAILY@0630 [facility] Last Admin: 02/15/21 06:05 Dose: Not Given Documented by: VITOR Non-Admin Reason: Patient Refused Lorazepam (Lorazepam 1 Mg Tablet) 1 mg PO BID PRN PRN Reason: Anxiety Last Admin: 02/14/21 21:55 Dose: 1 mg Documented by: VITOR Nitroglycerin (Nitroglycerin 0.4 Mg Tab.Subl) 0.4 mg SUBLINGUAL Q5MX3 PRN PRN Reason: chest pain Omeprazole (Omeprazole 20 Mg Capsule.Dr) 20 mg PO BID@0630,1630 [facility] Last Admin: 02/15/21 06:05 Dose: Not Given Documented by: VITOR Non-Admin Reason: Patient Refused Ondansetron HCl (Ondansetron Hcl 4 Mg/2 Ml Vial) 4 mg IVPUSH Q8H PRN PRN Reason: Nausea and Vomiting Oxycodone HCl (Oxycodone Hcl Immed Release 5 Mg Tablet) 5 mg PO QID PRN PRN Reason: Pain Last Admin: 02/15/21 01:02 Dose: 5 mg Documented by: VITOR Pharmacy Consult (Consult Rx Perform Med Rec) 1 each MISCELLANE ONCE PRN PRN Reason: Consult order Pharmacy Consult (Consult Rx Vancomycin Dosing) 1 each MISCELLANE DAILY PRN PRN Reason: Consult order Pregabalin (Pregabalin 25 Mg Capsule) 25 mg PO BID [facility] Last Admin: 02/15/21 09:53 Dose: 25 mg Documented by: BRI Quetiapine Fumarate (Quetiapine Fumarate 100 Mg Tablet) 100 mg PO BID [facility] Last Admin: 02/15/21 09:54 Dose: 100 mg Documented by: BRI Quetiapine Fumarate (Quetiapine Fumarate 50 Mg Tablet) 50 mg PO BID [facility] Last Admin: 02/15/21 09:53 Dose: 50 mg Documented by: BRI Ropinirole HCl (Ropinirole Hcl 0.25 Mg Tablet) 0.25 mg PO BID [facility] Last Admin: 02/15/21 09:53 Dose: 0.25 mg Documented by: BRI Senna (Sennosides 8.6 Mg Tablet) 8.6 mg PO DAILY PRN PRN Reason: Constipation Tamsulosin HCl (Tamsulosin Hcl 0.4 Mg Capsule) 0.4 mg PO DAILY@1700 [facility] Last Admin: 02/14/21 17:05 Dose: 0.4 mg Documented by: HO.KELASH Comments: BARCODE RIPPED Timolol Maleate (Timolol Maleate 0.5 % Oph Huma 5 Ml Drbtl) 1 drop EYE-BOTH BID [facility] Last Admin: 02/15/21 09:52 Dose: 1 drop Documented by: BRI Labs CBC & Chem 7: 02/15/21 05:42 02/14/21 07:36 Labs: Laboratory Results - last 24 hr 02/13/21 02/13/21 02/14/21 14:49 16:28 07:36 WBC 10.6 13.6 H 15.9 H MCV MCH MCHC RDW Plt Count MPV Immature Gran % (Auto) Neut % (Auto) Lymph % (Auto) Travis % (Auto) Eos % (Auto) Baso % (Auto) Lymph # (Auto) Travis # (Auto) Eos # (Auto) Baso # (Auto) Abs Immat Gran (auto) Absolute Neuts (auto) Absolute Nucleated RBC Nucleated RBC % (auto) PTT (Heparin Protocol) POC Glucose Osmolality Lactic Acid Troponin I High Sens Urine Osmolality U Random Total Protein Ur Random Sodium Ur Random Potassium Ur Random Chloride Urine Creatinine Urine Opiates Screen Urine Fentanyl Screen Ur Barbiturates Screen Ur Phencyclidine Scrn Ur Amphetamines Screen U Benzodiazepines Scrn Urine Cocaine Screen U Marijuana (THC) Screen 02/14/21 02/14/21 02/14/21 16:01 16:08 16:47 WBC MCV MCH MCHC RDW Plt Count MPV Immature Gran % (Auto) Neut % (Auto) Lymph % (Auto) Travis % (Auto) Eos % (Auto) Baso % (Auto) Lymph # (Auto) Travis # (Auto) Eos # (Auto) Baso # (Auto) Abs Immat Gran (auto) Absolute Neuts (auto) Absolute Nucleated RBC Nucleated RBC % (auto) PTT (Heparin Protocol) 50.8 L POC Glucose 192 H Osmolality 290 Lactic Acid Troponin I High Sens Urine Osmolality U Random Total Protein Ur Random Sodium Ur Random Potassium Ur Random Chloride Urine Creatinine Urine Opiates Screen Urine Fentanyl Screen Ur Barbiturates Screen Ur Phencyclidine Scrn Ur Amphetamines Screen U Benzodiazepines Scrn Urine Cocaine Screen U Marijuana (THC) Screen 02/14/21 02/14/21 02/14/21 16:47 18:29 18:29 WBC MCV MCH MCHC RDW Plt Count MPV Immature Gran % (Auto) Neut % (Auto) Lymph % (Auto) Travis % (Auto) Eos % (Auto) Baso % (Auto) Lymph # (Auto) Travis # (Auto) Eos # (Auto) Baso # (Auto) Abs Immat Gran (auto) Absolute Neuts (auto) Absolute Nucleated RBC Nucleated RBC % (auto) PTT (Heparin Protocol) POC Glucose Osmolality Lactic Acid Troponin I High Sens 202.2 H* Urine Osmolality 272 L U Random Total Protein Ur Random Sodium Ur Random Potassium Ur Random Chloride Urine Creatinine Urine Opiates Screen Not Detected Urine Fentanyl Screen Not Detected Ur Barbiturates Screen Not Detected Ur Phencyclidine Scrn Not Detected Ur Amphetamines Screen Not Detected U Benzodiazepines Scrn Not Detected Urine Cocaine Screen Not Detected U Marijuana (THC) Screen Not Detected 02/14/21 02/14/21 02/14/21 18:29 20:40 21:02 WBC 15.3 H MCV 91.8 MCH 29.2 MCHC 31.8 RDW 18.3 H Plt Count 292 MPV 8.9 L Immature Gran % (Auto) 2.0 H Neut % (Auto) 83.5 H Lymph % (Auto) 9.5 L Travis % (Auto) 4.8 Eos % (Auto) 0.0 Baso % (Auto) 0.2 Lymph # (Auto) 1.5 Travis # (Auto) 0.7 Eos # (Auto) 0.0 Baso # (Auto) 0.0 Abs Immat Gran (auto) 0.30 H Absolute Neuts (auto) 12.8 H Absolute Nucleated RBC 0.000 Nucleated RBC % (auto) 0.0 PTT (Heparin Protocol) POC Glucose 231 H Osmolality Lactic Acid Troponin I High Sens Urine Osmolality U Random Total Protein 12 Ur Random Sodium 21.0 Ur Random Potassium 37.9 Ur Random Chloride 23.0 Urine Creatinine 52.17 Urine Opiates Screen Urine Fentanyl Screen Ur Barbiturates Screen Ur Phencyclidine Scrn Ur Amphetamines Screen U Benzodiazepines Scrn Urine Cocaine Screen U Marijuana (THC) Screen 02/14/21 02/14/21 02/15/21 21:02 21:02 05:42 WBC 14.1 H MCV 90.8 MCH 29.0 MCHC 31.9 RDW 18.1 H Plt Count 343 MPV 9.3 L Immature Gran % (Auto) Neut % (Auto) Lymph % (Auto) Travis % (Auto) Eos % (Auto) Baso % (Auto) Lymph # (Auto) Travis # (Auto) Eos # (Auto) Baso # (Auto) Abs Immat Gran (auto) Absolute Neuts (auto) Absolute Nucleated RBC 0.000 Nucleated RBC % (auto) 0.0 PTT (Heparin Protocol) POC Glucose Osmolality Lactic Acid 1.5 Troponin I High Sens 165.1 H* Urine Osmolality U Random Total Protein Ur Random Sodium Ur Random Potassium Ur Random Chloride Urine Creatinine Urine Opiates Screen Urine Fentanyl Screen Ur Barbiturates Screen Ur Phencyclidine Scrn Ur Amphetamines Screen U Benzodiazepines Scrn Urine Cocaine Screen U Marijuana (THC) Screen 02/15/21 02/15/21 06:54 10:51 WBC MCV MCH MCHC RDW Plt Count MPV Immature Gran % (Auto) Neut % (Auto) Lymph % (Auto) Travis % (Auto) Eos % (Auto) Baso % (Auto) Lymph # (Auto) Travis # (Auto) Eos # (Auto) Baso # (Auto) Abs Immat Gran (auto) Absolute Neuts (auto) Absolute Nucleated RBC Nucleated RBC % (auto) PTT (Heparin Protocol) POC Glucose 140 H 174 H Osmolality Lactic Acid Troponin I High Sens Urine Osmolality U Random Total Protein Ur Random Sodium Ur Random Potassium Ur Random Chloride Urine Creatinine Urine Opiates Screen Urine Fentanyl Screen Ur Barbiturates Screen Ur Phencyclidine Scrn Ur Amphetamines Screen U Benzodiazepines Scrn Urine Cocaine Screen U Marijuana (THC) Screen Microbiology Microbiology Results: Microbiology 02/13/21 14:50 Blood Culture - Final Blood - Venous Coag negative Staphylococcus 02/13/21 14:49 Blood Culture - Preliminary Blood - Venous No growth after 24 hours. Assessment and Plan (1) Pneumonia: Status: Acute (2) Non-ST elevation OK (NSTEMI): Status: Acute Assessment and Plan: 60yo M long-term [facility] resident with CAD s/p CABG, diastolic CHF, HTN, HLD, CKD 3a, DM2, hypothyroidism, and schizoaffective disorder who was sent in with fever, diaphoresis, pallor, lethargy, and chest pain.? He is found to be septic due to multilobar pneumonia and has an NSTEMI. 1. severe sepsis d/t multilobar pneumonia, improving, clinically improving -continue Doxycyline and Ceftriaxone 2. NSTEMI:meical management 3.CAD/ HTN/CHF - continue carvedilol, Imdur; hold torsemide 4. CKD3a - suspect this is his baseline SCr; obtain records from [facility].? avoid nephrotoxins.? check FENa, urine pr/Cr, renal US Hyponatremia: Probably related to fluids, we will and hyponatremia workup. 5. normocytic anemia trending down 7.5-7.8 range /hct around 24 range ( which seems around 8 range)-? diluational , no gross bleeding as per staff added anemia workup,fobt type and cross ,moniter cbc closely - continue Fe supplementation ?baseline- obtain records from [facility].? 6. seizure disorder- continue levetiracetam 7. RLS- continue ropinirole 8. schizoaffective disorder- continue quetiapine, lorazepam 9. chronic pain- continue pregabalin, baclofen, oxycodone 10. DM2- hold MTF; continue glargine and add correction-dose lispro; check A1c 11. hypothyrodism- continue LT4 # VTE ppx: scd due to anemia Patient's healthcare proxy miss Casas (phone no [phone]) updated and she understands above and agreement with plan. Quality Stroke Does the patient have a stroke diagnosis?: No VTE Prior VTE?: No VTE Risk Level:: Medical - moderate - high VTE Device Contraindication: N/A - Device Ordered VTE Drug Contraindication: N/A - Med Ordered
--- NOTE | 2021-02-15 14:22 | W.PM.IDCN ---
History of Present Illness Data of Consult Service Date: 02/15/21 Requesting physician: Kriss Sanchez Primary Care Provider: DO TK Beckwith Reason for consult: sepsis He presents from [facility] with fever and pallor He has temperature to 103.1 and tachycardia to 126 on arrival He received Ceftriaxone and Doxycycline,now day 3 Blood cultures coagulase negative staph x 1 Review of Systems Review of Systems: Yes Unobtainable due to mental condition [facility] Past Medical History Medical History Coronary artery disease Diastolic heart failure History of stroke Hyperlipidemia Hypertension Hypothyroidism Legal blindness Restless leg Schizoaffective disorder Seizure disorder Stage 3a chronic kidney disease Type 2 diabetes mellitus Urinary retention Surgical History Surgical History History of coronary artery bypass graft Social History Social History Household Members: Other Household Members Other:: FACILITY Housing: Assisted Living Facility Do you presently have visiting nurse or other home services: No Patient Tobacco Use Status: Never used Tobacco service: No Current occupational status: disabled Meds Allergies Allergy/AdvReac Type Severity Reaction Status Date / Time No Known Allergies Allergy Unverified 02/13/21 14:32 Active Medications: Current Medications Generic Name Dose Route Start Last Admin Trade Name Freq PRN Reason Stop Dose Admin Acetaminophen 650 mg 02/13/21 16:40 Acetaminophen 325 Mg Tablet PO Q6H PRN Pain, Mild (Pain Scale 1-3) Ascorbic Acid 500 mg 02/13/21 21:00 02/15/21 09:52 Ascorbic Acid 500 Mg Tablet PO 500 mg BID [facility] Administration Aspirin 81 mg 02/14/21 09:00 02/15/21 09:53 Aspirin 81 Mg Tab.Chew PO 81 mg DAILY [facility] Administration Atorvastatin Calcium 80 mg 02/13/21 21:00 02/14/21 20:22 Atorvastatin Calcium 80 Mg Tablet PO 80 mg BEDTIME [facility] Administration Baclofen 5 mg 02/13/21 21:00 02/14/21 20:23 Baclofen 10 Mg Tablet PO 5 mg BEDTIME [facility] Administration Bisacodyl 10 mg 02/13/21 18:15 Bisacodyl 10 Mg Supp.Rect CO DAILY PRN Constipation Carvedilol 3.125 mg 02/13/21 21:00 02/15/21 09:58 Carvedilol 3.125 Mg Tablet PO 3.125 mg BID [facility] Administration Protocol Dextrose 25 gm 02/13/21 16:26 Dextrose 50 % 25 Gm/50 Ml Vial IVPUSH Q15M PRN per Hypoglycemia Standing Ord. Protocol Dorzolamide HCl 1 drop 02/13/21 21:00 02/15/21 09:54 Dorzolamide Hcl 2 % Ophth Huma 10 Ml Drpbtl EYE-BOTH 1 drop BID [facility] Administration Ferrous Sulfate 324 mg 02/13/21 21:00 02/15/21 09:54 Ferrous Sulfate 324 Mg Tablet.Dr PO 324 mg BID [facility] Administration Glucose 15 gm 02/13/21 16:26 Glucose Gel 15 Gm Gel..Gram. PO Q15M PRN per Hypoglycemia Standing Ord. Protocol Ceftriaxone Sodium 1 gm/ 50 mls @ 100 mls/hr 02/13/21 16:30 02/14/21 17:33 Sodium Chloride IV Infused Q24H [facility] Infusion Doxycycline Hyclate 100 mg/ 250 mls @ 166.67 mls/hr 02/13/21 16:30 02/15/21 06:02 Sodium Chloride IV Infused Q12H [facility] Infusion Insulin Glargine 20 unit 02/13/21 21:00 02/14/21 20:49 Insulin Glargine,Hum.Rec.Anlog 100 Unit/Ml 10 Ml Vial SUBCUT 20 unit BEDTIME [facility] Administration Insulin Human Lispro 0 unit 02/13/21 16:30 02/15/21 11:21 Insulin Lispro 100 Unit/Ml 3 Ml Vial SUBCUT Not Given QIDACHS [facility] Protocol Isosorbide Mononitrate 120 mg 02/13/21 18:30 02/15/21 09:57 Isosorbide Mononitrate 60 Mg Tab.Er.24h PO 120 mg DAILY [facility] Administration Protocol Levetiracetam 1,000 mg 02/13/21 21:00 02/15/21 09:57 Levetiracetam 1,000 Mg Tablet PO 1,000 mg BID [facility] Administration Levothyroxine Sodium 75 mcg 02/14/21 06:30 02/15/21 06:05 Levothyroxine Sodium 75 Mcg Tablet PO Not Given DAILY@0630 [facility] Lorazepam 1 mg 02/13/21 18:15 02/14/21 21:55 Lorazepam 1 Mg Tablet PO 1 mg BID PRN Administration Anxiety Nitroglycerin 0.4 mg 02/13/21 16:26 Nitroglycerin 0.4 Mg Tab.Subl SUBLINGUAL Q5MX3 PRN chest pain Omeprazole 20 mg 02/14/21 17:00 02/15/21 06:05 Omeprazole 20 Mg Capsule.Dr PO Not Given BID@0630,1630 [facility] Ondansetron HCl 4 mg 02/13/21 16:40 Ondansetron Hcl 4 Mg/2 Ml Vial IVPUSH Q8H PRN Nausea and Vomiting Oxycodone HCl 5 mg 02/13/21 18:15 02/15/21 01:02 Oxycodone Hcl Immed Release 5 Mg Tablet PO 5 mg QID PRN Administration Pain Pharmacy Consult 1 each 02/13/21 16:49 Consult Rx Perform Med Rec MISCELLANE ONCE PRN Consult order Pharmacy Consult 1 each 02/14/21 17:53 Consult Rx Vancomycin Dosing MISCELLANE DAILY PRN Consult order Pregabalin 25 mg 02/13/21 21:00 02/15/21 09:53 Pregabalin 25 Mg Capsule PO 25 mg BID [facility] Administration Quetiapine Fumarate 100 mg 02/13/21 21:00 02/15/21 09:54 Quetiapine Fumarate 100 Mg Tablet PO 100 mg BID [facility] Administration Quetiapine Fumarate 50 mg 02/13/21 21:00 02/15/21 09:53 Quetiapine Fumarate 50 Mg Tablet PO 50 mg BID [facility] Administration Ropinirole HCl 0.25 mg 02/13/21 21:00 02/15/21 09:53 Ropinirole Hcl 0.25 Mg Tablet PO 0.25 mg BID [facility] Administration Senna 8.6 mg 02/13/21 18:15 Sennosides 8.6 Mg Tablet PO DAILY PRN Constipation Tamsulosin HCl 0.4 mg 02/14/21 17:00 02/14/21 17:05 Tamsulosin Hcl 0.4 Mg Capsule PO 0.4 mg DAILY@1700 [facility] Administration Timolol Maleate 1 drop 02/13/21 21:00 02/15/21 09:52 Timolol Maleate 0.5 % Oph Huma 5 Ml Drbtl EYE-BOTH 1 drop BID [facility] Administration Home Medications Medication Instructions Recorded Confirmed Last Taken Type acetaminophen 325 mg tablet 650 mg PO Q4H PRN 02/13/21 02/13/21 Unknown History ascorbic acid (vitamin C) 500 mg 500 mg PO BID 02/13/21 02/13/21 Unknown History tablet baclofen 5 mg tablet 5 mg PO BEDTIME 02/13/21 02/13/21 Unknown History bisacodyl 10 mg rectal suppository 10 mg CO DAILY PRN 02/13/21 02/13/21 Unknown History carvedilol 3.125 mg tablet 3.125 mg PO BID 02/13/21 02/13/21 Unknown History dorzolamide 2 %-timolol 0.5 % (PF) 1 drp OPHTHALMIC (EYE) BID 02/13/21 02/13/21 Unknown History eye drops ferrous sulfate 325 mg (65 mg 325 mg PO BID 02/13/21 02/13/21 Unknown History iron) tablet insulin glargine 100 unit/mL (3 20 unit SUBCUT BEDTIME 02/13/21 02/13/21 Unknown History mL) subcutaneous pen (Lantus Solostar U-100 Insulin) isosorbide mononitrate 120 mg 120 mg PO DAILY 02/13/21 02/13/21 Unknown History tablet,extended release 24 hr levetiracetam 1,000 mg tablet 1,000 mg PO BID 02/13/21 02/13/21 Unknown History (Keppra) levothyroxine 75 mcg tablet 75 mcg PO DAILY 02/13/21 02/13/21 Unknown History lorazepam 1 mg tablet 1 mg PO BID PRN 02/13/21 02/13/21 Unknown History metformin 1,000 mg tablet 1,000 mg PO BID 02/13/21 02/13/21 Unknown History oxycodone 5 mg tablet 5 mg PO QID PRN 02/13/21 02/13/21 Unknown History pregabalin 25 mg capsule (Lyrica) 25 mg PO BID 02/13/21 02/13/21 Unknown History quetiapine 100 mg tablet 100 mg PO BID 02/13/21 02/13/21 Unknown History quetiapine 50 mg tablet 50 mg PO BID 02/13/21 02/13/21 Unknown History ropinirole 0.25 mg tablet 0.25 mg PO BID 02/13/21 02/13/21 Unknown History sennosides 8.6 mg tablet (senna) 8.6 mg PO DAILY PRN 02/13/21 02/13/21 Unknown History tamsulosin 0.4 mg capsule 0.4 mg PO DAILY 02/13/21 02/13/21 Unknown History torsemide 10 mg tablet 10 mg PO DAILY 02/13/21 02/13/21 Unknown History Physical Exam Vital Signs: Vital Signs: Last Vital Signs Temp 97.8 F 02/15/21 11:31 Pulse 87 02/15/21 11:31 Resp 18 02/15/21 11:31 BP 120/58 L 02/15/21 11:31 Pulse Ox 98 02/15/21 11:31 Body Mass Index 23.6 Const: General: cooperative HENMT: Head: Yes normal to inspection Mouth: Normal oral and palatal mucosa present Eyes: General: appearance normal, both eyes and all related structures Resp: Effort & Inspection: normal respiratory effort Cardio: Rate: regular rate Rhythm: regular rhythm GI: Palpation (GI): Soft to palpation and nontender Extrem: General: Yes normal to inspection Results Labs CBC & Chem 7: 02/15/21 05:42 02/14/21 07:36 Labs: Short CBC 02/13/21 02/14/21 02/14/21 Range/Units 14:49 16:47 21:02 WBC 15.3 H (4.8-10.8) X10*3/uL Hgb 7.1 L 7.1 L (14.0-18.0) g/dl Hct 22.3 L 22.3 L (42-52) % Plt Count 292 (160-400) X10*3/uL Procalcitonin 6.19 ng/mL 02/15/21 Range/Units 05:42 WBC 14.1 H (4.8-10.8) X10*3/uL Hgb 7.6 L (14.0-18.0) g/dl Hct 23.8 L (42-52) % Plt Count 343 (160-400) X10*3/uL Procalcitonin ng/mL Microbiology Microbiology Results: Microbiology 02/13/21 14:50 Blood - Venous Blood Culture - Final Coag negative Staphylococcus 02/13/21 14:49 Blood - Venous Blood Culture - Preliminary No growth after 24 hours. Assessment and Plan (1) Severe sepsis: Status: Resolved Sepsis likely due to CAP,both lungs,right more than left Possible strep pneumonia,Hflu,no evidence of aspiration Legionella possible,pending tests (2) Pneumonia: Status: Acute Would continue Ceftriaxone and Doxycycline Legionella and strep pneumonia pending COVID negative 5 days ,now day 3 and then po Ceftin 500 bid and Doxycycline 100 mg ,total 8 days No treatment staph coagulase negative,contaminant
[2021-02-15] MEDS: cefTRIAXone sodium 1 GM in 0.9 % Sodium Chloride 50 ML IV (15:46)
[2021-02-15] MEDS: LORazepam 1 MG TABLET PO (15:47)
[2021-02-15] MEDS: Omeprazole 20 MG CAPSULE.DR PO (15:47)
[2021-02-15] MEDS: Tamsulosin HCL 0.4 MG CAPSULE PO (15:49)
[2021-02-15 15:58] LABS: Glucose, Whole Blood 141 mg/dL (60-115)
[2021-02-15] MEDS: Doxycycline Hyclate 100 MG in 0.9 % Sodium Chloride 250 ML 166.67 MG IV (16:32)
[2021-02-15] MEDS: Atorvastatin Calcium 80 MG TABLET PO (20:01)
[2021-02-15] MEDS: Baclofen 10 MG TABLET 5 MG PO (20:02)
[2021-02-15 20:35] LABS: Glucose, Whole Blood 174 mg/dL (60-115)
[2021-02-15] MEDS: Insulin Glargine,Hum.rec.anlog 100 UNIT/ML 10 ML VIAL 20 UNIT SUBCUT (20:53)
[2021-02-15] MEDS: Insulin Lispro 100 UNIT/ML 3 ML VIAL SUBCUT (20:54)
[2021-02-16] VITALS (8 sets, daily range): BP systolic 112–169; BP diastolic 68–77; PULSE 66–82; RESP 16–18; TEMP 36.8–37.4; O2SAT 97–98
[2021-02-16] MEDS: Doxycycline Hyclate 100 MG in 0.9 % Sodium Chloride 250 ML 166.67 MG IV ×2 (04:07→16:59)
[2021-02-16] MEDS: LORazepam 1 MG TABLET PO ×2 (05:34→20:17)
[2021-02-16] MEDS: Levothyroxine Sodium 75 MCG TABLET PO (05:34)
[2021-02-16] MEDS: Omeprazole 20 MG CAPSULE.DR PO (05:34)
--- NOTE | 2021-02-16 09:13 | PC.NURSE ---
pt refusing poc and Bp this am, will continue to reattempt
[2021-02-16 12:05] LABS: Glucose, Whole Blood 124 mg/dL (60-115)
[2021-02-16] MEDS: Isosorbide Mononitrate 60 MG TAB.ER.24H 120 MG PO (12:16)
[2021-02-16] MEDS: Aspirin 81 MG TAB.CHEW PO (12:17)
[2021-02-16] MEDS: rOPINIRole HCL 0.25 MG TABLET PO ×2 (12:17→20:17)
[2021-02-16] MEDS: QUEtiapine Fumarate 50 MG TABLET PO ×2 (12:17→20:17)
[2021-02-16] MEDS: QUEtiapine Fumarate 100 MG TABLET PO ×2 (12:17→20:17)
[2021-02-16] MEDS: levETIRAcetam 1,000 MG TABLET 1000 MG PO ×2 (12:18→20:17)
[2021-02-16] MEDS: Pregabalin 25 MG CAPSULE PO ×2 (12:18→20:17)
[2021-02-16] MEDS: Ferrous Sulfate 324 MG TABLET.DR PO ×2 (12:18→20:17)
[2021-02-16] MEDS: Ascorbic Acid 500 MG TABLET PO ×2 (12:18→20:16)
[2021-02-16] MEDS: carvediloL 3.125 MG TABLET PO ×2 (12:18→20:17)
--- NOTE | 2021-02-16 14:13 | HO.PM.IMPN ---
Subjective Subjective Date of Service: 02/16/21 Interval History: f/u on PNA, no sob, no hypoxia Review of Systems no fever no sob Physical Exam Vital Signs: Vital Signs: Last Vital Signs Temp 98.8 F 02/16/21 12:00 Pulse 70 02/16/21 12:18 Resp 16 02/16/21 12:00 BP 169/77 H 02/16/21 12:18 Pulse Ox 97 02/16/21 12:00 Body Mass Index 23.6 General: Alert, cooperative at moment Resp: CTA bilateral CVS: S1,S2,RRR GI: +BS, NT, no distention Skin: No rash Neuro: motor grossly intact Psych: appropriate affect Objective Data Active Medications Acetaminophen (Acetaminophen 325 Mg Tablet) 650 mg PO Q6H PRN PRN Reason: Pain, Mild (Pain Scale 1-3) Ascorbic Acid (Ascorbic Acid 500 Mg Tablet) 500 mg PO BID COUNTS INCLUDE 234 BEDS AT THE [facility] Last Admin: 02/16/21 12:18 Dose: 500 mg Documented by: PATIENCE Aspirin (Aspirin 81 Mg Tab.Chew) 81 mg PO DAILY COUNTS INCLUDE 234 BEDS AT THE [facility] Last Admin: 02/16/21 12:17 Dose: 81 mg Documented by: PATIENCE Atorvastatin Calcium (Atorvastatin Calcium 80 Mg Tablet) 80 mg PO BEDTIME COUNTS INCLUDE 234 BEDS AT THE [facility] Last Admin: 02/15/21 20:01 Dose: 80 mg Documented by: VITOR Baclofen (Baclofen 10 Mg Tablet) 5 mg PO BEDTIME COUNTS INCLUDE 234 BEDS AT THE [facility] Last Admin: 02/15/21 20:02 Dose: 5 mg Documented by: VITOR Bisacodyl (Bisacodyl 10 Mg Supp.Rect) 10 mg ME DAILY PRN PRN Reason: Constipation Carvedilol (Carvedilol 3.125 Mg Tablet) 3.125 mg PO BID COUNTS INCLUDE 234 BEDS AT THE [facility]; Protocol Last Admin: 02/16/21 12:18 Dose: 3.125 mg Documented by: PATIENCE Dextrose (Dextrose 50 % 25 Gm/50 Ml Vial) 25 gm IVPUSH Q15M PRN; Protocol PRN Reason: per Hypoglycemia Standing Ord. Dorzolamide HCl (Dorzolamide Hcl 2 % Ophth Huma 10 Ml Drpbtl) 1 drop EYE-BOTH BID COUNTS INCLUDE 234 BEDS AT THE [facility] Last Admin: 02/16/21 12:18 Dose: Not Given Documented by: PATIENCE Non-Admin Reason: Patient Refused Ferrous Sulfate (Ferrous Sulfate 324 Mg Tablet.Dr) 324 mg PO BID COUNTS INCLUDE 234 BEDS AT THE [facility] Last Admin: 02/16/21 12:18 Dose: 324 mg Documented by: PATIENCE Glucose (Glucose Gel 15 Gm Gel..Gram.) 15 gm PO Q15M PRN; Protocol PRN Reason: per Hypoglycemia Standing Ord. Ceftriaxone Sodium 1 gm/ (Sodium Chloride) 50 mls @ 100 mls/hr IV Q24H COUNTS INCLUDE 234 BEDS AT THE [facility] Last Infusion: 02/15/21 16:37 Dose: 0 mls/hr Documented by: BRI Doxycycline Hyclate 100 mg/ (Sodium Chloride) 250 mls @ 166.67 mls/hr IV Q12H COUNTS INCLUDE 234 BEDS AT THE [facility] Last Infusion: 02/16/21 05:39 Dose: 0 mls/hr Documented by: VITOR Insulin Glargine (Insulin Glargine,Hum.Rec.Anlog 100 Unit/Ml 10 Ml Vial) 20 unit SUBCUT BEDTIME COUNTS INCLUDE 234 BEDS AT THE [facility] Last Admin: 02/15/21 20:53 Dose: 20 unit Documented by: VITOR Insulin Human Lispro (Insulin Lispro 100 Unit/Ml 3 Ml Vial) 0 unit SUBCUT QIDACHS COUNTS INCLUDE 234 BEDS AT THE [facility]; Protocol Last Admin: 02/16/21 11:48 Dose: Not Given Documented by: PATIENCE Non-Admin Reason: No Insulin Coverage Isosorbide Mononitrate (Isosorbide Mononitrate 60 Mg Tab.Er.24h) 120 mg PO DAILY COUNTS INCLUDE 234 BEDS AT THE [facility]; Protocol Last Admin: 02/16/21 12:16 Dose: 120 mg Documented by: PATIENCE Levetiracetam (Levetiracetam 1,000 Mg Tablet) 1,000 mg PO BID COUNTS INCLUDE 234 BEDS AT THE [facility] Last Admin: 02/16/21 12:18 Dose: 1,000 mg Documented by: PATIENCE Levothyroxine Sodium (Levothyroxine Sodium 75 Mcg Tablet) 75 mcg PO DAILY@0630 COUNTS INCLUDE 234 BEDS AT THE [facility] Last Admin: 02/16/21 05:34 Dose: 75 mcg Documented by: VITOR Lorazepam (Lorazepam 1 Mg Tablet) 1 mg PO BID PRN PRN Reason: Anxiety Last Admin: 02/16/21 05:34 Dose: 1 mg Documented by: VITOR Nitroglycerin (Nitroglycerin 0.4 Mg Tab.Subl) 0.4 mg SUBLINGUAL Q5MX3 PRN PRN Reason: chest pain Omeprazole (Omeprazole 20 Mg Capsule.Dr) 20 mg PO BID@0630,1630 COUNTS INCLUDE 234 BEDS AT THE [facility] Last Admin: 02/16/21 05:34 Dose: 20 mg Documented by: VITOR Ondansetron HCl (Ondansetron Hcl 4 Mg/2 Ml Vial) 4 mg IVPUSH Q8H PRN PRN Reason: Nausea and Vomiting Oxycodone HCl (Oxycodone Hcl Immed Release 5 Mg Tablet) 5 mg PO QID PRN PRN Reason: Pain Last Admin: 02/15/21 01:02 Dose: 5 mg Documented by: VITOR Pharmacy Consult (Consult Rx Perform Med Rec) 1 each MISCELLANE ONCE PRN PRN Reason: Consult order Pharmacy Consult (Consult Rx Vancomycin Dosing) 1 each MISCELLANE DAILY PRN PRN Reason: Consult order Pregabalin (Pregabalin 25 Mg Capsule) 25 mg PO BID COUNTS INCLUDE 234 BEDS AT THE [facility] Last Admin: 02/16/21 12:18 Dose: 25 mg Documented by: PATIENCE Quetiapine Fumarate (Quetiapine Fumarate 100 Mg Tablet) 100 mg PO BID COUNTS INCLUDE 234 BEDS AT THE [facility] Last Admin: 02/16/21 12:17 Dose: 100 mg Documented by: PATIENCE Quetiapine Fumarate (Quetiapine Fumarate 50 Mg Tablet) 50 mg PO BID COUNTS INCLUDE 234 BEDS AT THE [facility] Last Admin: 02/16/21 12:17 Dose: 50 mg Documented by: PATIENCE Ropinirole HCl (Ropinirole Hcl 0.25 Mg Tablet) 0.25 mg PO BID COUNTS INCLUDE 234 BEDS AT THE [facility] Last Admin: 02/16/21 12:17 Dose: 0.25 mg Documented by: PATIENCE Senna (Sennosides 8.6 Mg Tablet) 8.6 mg PO DAILY PRN PRN Reason: Constipation Tamsulosin HCl (Tamsulosin Hcl 0.4 Mg Capsule) 0.4 mg PO DAILY@1700 COUNTS INCLUDE 234 BEDS AT THE [facility] Last Admin: 02/15/21 15:49 Dose: 0.4 mg Documented by: BRI Timolol Maleate (Timolol Maleate 0.5 % Oph Huma 5 Ml Drbtl) 1 drop EYE-BOTH BID COUNTS INCLUDE 234 BEDS AT THE [facility] Last Admin: 02/16/21 11:49 Dose: Not Given Documented by: PATIENCE Non-Admin Reason: Patient Refused Labs CBC & Chem 7: 02/15/21 05:42 02/14/21 07:36 Labs: Laboratory Results - last 24 hr 02/15/21 02/15/21 02/16/21 15:50 20:28 11:41 POC Glucose 141 H 174 H 124 H Microbiology Microbiology Results: Microbiology 02/13/21 14:49 Blood Culture - Preliminary Blood - Venous No growth after 48 hours. Assessment and Plan (1) Pneumonia: Status: Acute (2) Non-ST elevation [place] (NSTEMI): Status: Acute Assessment and Plan: 60yo M long-term [facility] resident with CAD s/p CABG, diastolic CHF, HTN, HLD, CKD 3a, DM2, hypothyroidism, and schizoaffective disorder who was sent in with fever, diaphoresis, pallor, lethargy, and chest pain.? He is found to be septic due to multilobar pneumonia and has an NSTEMI. 1. severe sepsis d/t multilobar pneumonia, improving, clinically improving -continue Doxycyline and Ceftriaxone D4, ID recommend 5 days, then PO continue monitoring clinically 2. NSTEMI:meical management 3.CAD/ HTN/CHF - continue carvedilol, Imdur; hold torsemide 4. CKD3a - suspect this is his baseline SCr; obtain records from [facility].? avoid nephrotoxins.? check FENa, urine pr/Cr, renal US Hyponatremia: Probably related to fluids, we will and hyponatremia workup. 5. normocytic anemia trending down 7.5-7.8 range /hct around 24 range ( which seems around 8 range)-? diluational , no gross bleeding as per staff added anemia workup,fobt type and cross ,moniter cbc closely - continue Fe supplementation ?baseline- obtain records from [facility].? 6. seizure disorder- continue levetiracetam 7. RLS- continue ropinirole 8. schizoaffective disorder- continue quetiapine, lorazepam 9. chronic pain- continue pregabalin, baclofen, oxycodone 10. DM2- hold MTF; continue glargine and add correction-dose lispro; check A1c 11. hypothyrodism- continue LT4 # VTE ppx: scd due to anemia Patient's healthcare proxy miss Casas (phone no [phone]) updated and she understands above and agreement with plan. Discharte tomorrow Quality Stroke Does the patient have a stroke diagnosis?: No VTE Prior VTE?: No VTE Risk Level:: Medical - moderate - high VTE Device Contraindication: N/A - Device Ordered VTE Drug Contraindication: N/A - Med Ordered
--- NOTE | 2021-02-16 14:15 | MHC.CM.PN ---
CM INFORMED PT MAY BE CLEARED TO DC TOMORROW. PTS [facility] SNF INFORMED AND UPDATES SENT. DC PLAN IS TO RETURN TO [facility] [place] VIA S
[2021-02-16 16:48] LABS: Glucose, Whole Blood 141 mg/dL (60-115)
[2021-02-16] MEDS: cefTRIAXone sodium 1 GM in 0.9 % Sodium Chloride 50 ML IV (17:00)
[2021-02-16 19:47] LABS: Glucose, Whole Blood 146 mg/dL (60-115)
[2021-02-16] MEDS: Baclofen 10 MG TABLET 5 MG PO (20:17)
[2021-02-16] MEDS: Atorvastatin Calcium 80 MG TABLET PO (20:17)
[2021-02-16] MEDS: Insulin Glargine,Hum.rec.anlog 100 UNIT/ML 10 ML VIAL 20 UNIT SUBCUT (20:18)
[2021-02-17] MEDS: Doxycycline Hyclate 100 MG in 0.9 % Sodium Chloride 250 ML 166.67 MG IV (03:55)
[2021-02-17 04:00] VITALS: BP 104/49; PULSE 56; RESP 20; TEMP 36.8; O2SAT 96
[2021-02-17 06:59] VITALS: BP 99/68; PULSE 72; RESP 20; TEMP 35.5; O2SAT 96
[2021-02-17 07:22] LABS: Glucose, Whole Blood 260 mg/dL (60-115)
[2021-02-17 10:59] VITALS: BP 160/90; PULSE 85; RESP 20; TEMP 36.6; O2SAT 96
[2021-02-17 11:03] VITALS: BP 114/95
[2021-02-17] MEDS: timoloL maleate 0.5 % Oph Sol 5 ML DRBTL 1 DROP EYE-BOTH (11:12)
[2021-02-17 11:13] VITALS: BP 114/95; PULSE 85
[2021-02-17] MEDS: Isosorbide Mononitrate 60 MG TAB.ER.24H 120 MG PO (11:13)
[2021-02-17] MEDS: QUEtiapine Fumarate 100 MG TABLET PO (11:13)
[2021-02-17] MEDS: QUEtiapine Fumarate 50 MG TABLET PO (11:13)
[2021-02-17] MEDS: Dorzolamide HCl 2 % Ophth Sol 10 ML DRPBTL 1 DROP EYE-BOTH (11:13)
[2021-02-17] MEDS: Aspirin 81 MG TAB.CHEW PO (11:13)
[2021-02-17] MEDS: rOPINIRole HCL 0.25 MG TABLET PO (11:13)
[2021-02-17] MEDS: Ascorbic Acid 500 MG TABLET PO (11:14)
[2021-02-17] MEDS: Pregabalin 25 MG CAPSULE PO (11:14)
[2021-02-17] MEDS: levETIRAcetam 1,000 MG TABLET 1000 MG PO (11:14)
[2021-02-17] MEDS: Ferrous Sulfate 324 MG TABLET.DR PO (11:14)
[2021-02-17 11:22] LABS: Glucose, Whole Blood 145 mg/dL (60-115)
--- NOTE | 2021-02-17 11:30 | P.DS_ITS ---
DS: Providers Provider Date of Service: 02/17/21 Date of admission: 02/13/21 16:41 Primary care physician: Uriel Callaway DO Consults: 02/13/21 16:20 Consult to Cardiology Routine Consulting Provider: Cheikh Zendejas Reason for consultation: NSTEMI, sepsis 02/14/21 16:21 Consult to Infectious Diseases Routine Consulting Provider: Monica Suazo Reason for consultation: sepsis/Pneumonia/?bactermia DS: Diagnosis Discharge Diagnosis (1) Pneumonia: Status: Acute (2) Non-ST elevation [place] (NSTEMI): Status: Acute DS: Summary Hospital Course Hospital Course: Chief Complaint: fever, diaphoresis 60yo M long-term [facility] resident with CAD s/p CABG, diastolic CHF, HTN, HLD, CKD 3a, DM2, hypothyroidism, and schizoaffective disorder who was sent in with fever, diaphoresis, pallor, lethargy, and chest pain.? He states the chest pain is mid-sternal and actually relieved by walking.? He denies cough or dyspnea.? No abdominal pain, nausea, or vomiting.? No leg swelling.? Patient is an unreliable/poor historian.? He told the ED PA that he was febrile for 2 weeks but told me it was more like 4 days. Upon presentation in the ED, he was septic with fever of 103.1 and HR of 126.? Lactate was 2.4.? Chest X-ray showed RML, RLL, and LLL infiltrate consistent with multilobar pneumonia.? COVID-19 HAYES was negative.? EKG showed NSR with DEBBY, LAD, RBBB, and inferior Q waves.? hs-Tn-I was 59.4.? The patient was started on heparin drip.? Repeat hs-Tn-I was 252.5. Hospital course: 1. severe sepsis due to multilobar pneumonia that has been treated with IV Ceftriaxone and IV Doxycyline for 5 days now and has clinically improved, has no fever, WBC is trending down. Infectious disease saw patient and recommend transition to oral Ceftin and Doxycyline upon discharge. Sepsis has resolved 2. NSTEMI: Initial troponin of 59 went up to 252 and then came down to 265. He was seen by cardiology and recommended medical mangement with Heparin for 48hrs, Echo showed: - 1. Normal LV systolic function with pseudonormal filling ? ? ? pattern with underlying regional wall motion abnormality ? suggestive coronary artery disease ? 2. Mildly dilated left atrium? 3. Normal cardiac valvular Doppler next 4. Normal RV systolic? ? pressure ? 5. No pericardial effusion . To continue medical management with ASA, coreg and Lipitor 3.CAD/ HTN/CHF - continue carvedilol, Imdur and to resume Torsemide 4. CKD3a - suspect this is his baseline SCr; obtain records from [facility].? avoid nephrotoxins.? c 5. normocytic anemia--H/H is stable 6. seizure disorder- continue levetiracetam 7. RLS- continue ropinirole 8. schizoaffective disorder- continue quetiapine, lorazepam 9. chronic pain- continue pregabalin, baclofen, oxycodone 10. DM2- hold MTF; continue glargine and add correction-dose lispro; check A1c 11. hypothyrodism- continue LT4 # VTE ppx: scd due to anemia Time Spent with Patient Time attestation: Total time spent providing and/or coordinating discharge services: Discharge coordination time: Greater than 30 minutes Quality: Stroke Does the patient have a stroke diagnosis?: No Physical Exam Vital Signs: Vital Signs: Last Vital Signs Temp 98 F 02/17/21 10:59 Pulse 85 02/17/21 11:13 Resp 20 02/17/21 10:59 BP 114/95 H 02/17/21 11:13 Pulse Ox 96 02/17/21 10:59 Body Mass Index 23.6 DS: Data Data Completed and Pending Labs on day of discharge: Laboratory Results - last 24 hr 02/16/21 02/16/21 02/16/21 11:41 16:44 19:43 POC Glucose 124 H 141 H 146 H 02/17/21 02/17/21 07:18 11:00 POC Glucose 260 H 145 H Preliminary micro results at discharge 02/13/21 14:49 Blood Culture - Preliminary Blood - Venous No growth after 48 hours. Discharge Plan Discharge Anticipated Discharge Date/Time: 02/17/21 11:31 Patient Disposition: Xfer SNF Discharge Diagnosis: Pneumonia, NSTEMI Referrals: [facility] [Outside] - 1 Week Uriel Callaway DO [Primary Care Provider] - 1 Week Discharge Medications: New cefuroxime axetil 500 mg tablet 500 mg PO BID 3 Days Qty: 10 RF: 0 doxycycline hyclate 100 mg tablet,delayed release (DR/EC) 100 mg PO BID 3 Days Qty: 10 RF: 0 atorvastatin [Lipitor] 40 mg tablet 40 mg PO BEDTIME Qty: 30 RF: 0 Continued acetaminophen 325 mg Tablet 650 mg PO Q4H PRN (Reason: Fever Or Pain) RF: 0 ascorbic acid (vitamin C) 500 mg Tablet 500 mg PO BID RF: 0 carvedilol 3.125 mg Tablet 3.125 mg PO BID RF: 0 bisacodyl 10 mg Suppository 10 mg [place] DAILY PRN (Reason: Constipation) RF: 0 ferrous sulfate 325 mg (65 mg iron) Tablet 325 mg PO BID RF: 0 baclofen 5 mg Tablet 5 mg PO BEDTIME RF: 0 dorzolamide-timolol (PF) 2-0.5 % Drops 1 drp OPHTHALMIC (EYE) BID RF: 0 sennosides [senna] 8.6 mg Tablet 8.6 mg PO DAILY PRN (Reason: Constipation) RF: 0 quetiapine 100 mg Tablet 100 mg PO BID RF: 0 isosorbide mononitrate 120 mg Tablet Extended Release 24 Hr 120 mg PO DAILY RF: 0 levothyroxine 75 mcg Tablet 75 mcg PO DAILY RF: 0 ropinirole 0.25 mg Tablet 0.25 mg PO BID RF: 0 metformin 1,000 mg Tablet 1,000 mg PO BID RF: 0 lorazepam 1 mg Tablet 1 mg PO BID PRN (Reason: Anxiety) RF: 0 oxycodone 5 mg Tablet 5 mg PO QID PRN (Reason: Pain) RF: 0 pregabalin [Lyrica] 25 mg Capsule 25 mg PO BID RF: 0 quetiapine 50 mg Tablet 50 mg PO BID RF: 0 levetiracetam [Keppra] 1,000 mg Tablet 1,000 mg PO BID RF: 0 Lantus Solostar U-100 Insulin 100 unit/mL (3 mL) Insulin Pen 20 unit SUBCUT BEDTIME RF: 0 torsemide 10 mg Tablet 10 mg PO DAILY RF: 0 tamsulosin 0.4 mg Capsule 0.4 mg PO DAILY RF: 0 Discontinued atorvastatin 10 mg Tablet 10 mg PO DAILY RF: 0 Discharge Orders: Discharge Order (Routine); Ordered 02/17/21 Ordered By: Brayan Chaudhari Diet: advance to usual diet Activity on Discharge: As tolerated Stand Alone Forms: Patient Portal Discharge page Care Plan Goals: Full recovery from pneumonia and prevent rehospitaliazation Health Concerns: Pneumonia Plan of Treatment: Take cefuroxime and doxycycline as directed and follow up with her primary care doctor within a week, call for appointment. Assessment: As above Discharge Date/Time: 02/17/21 16:53
[2021-02-17 13:55] LABS: Adenovirus PCR Not Detected (Not Detect.); Bordetella parapertussis PCR Not Detected (Not Detect.); Bordetella pertussis PCR Not Detected (Not Detect.); Chlamydia pneumoniae PCR Not Detected (Not Detect.); Coronavirus 229E PCR Not Detected (Not Detect.); Coronavirus HKU1 PCR Not Detected (Not Detect.); Coronavirus NL63 PCR Not Detected (Not Detect.); Coronavirus OC43 PCR Not Detected (Not Detect.); Human metapneumovirus PCR Not Detected (Not Detect.); Influenza A PCR Not Detected (Not Detect.); Influenza B PCR Not Detected (Not Detect.); Mycoplasma pneumoniae PCR Not Detected (Not Detect.); Parainfluenza 1 PCR Not Detected (Not Detect.); Parainfluenza 2 PCR Not Detected (Not Detect.); Parainfluenza 3 PCR Not Detected (Not Detect.); Parainfluenza 4 PCR Not Detected (Not Detect.); RSV PCR Not Detected (Not Detect.); Rhino/Enterovirus PCR Not Detected (Not Detect.); SARS-CoV-2 PCR Not Detected (Not Detect.)
--- NOTE | 2021-02-17 15:06 | MHC.CM.PN ---
PT CLEARED TO DC TODAY BACK TO [facility] VIA BLS. CM CALLED PTS GUARDIAN, CLARISSA WADDELL ([phone]) AND LEFT A MESSAGE INFORMING HER OF DC. PT WILL DC BACK TO [facility] TODAY AT 1600 HOURS VIA BLS
[2021-02-18 20:45] LABS: Strep Pneumo Ag urine Not Detected (Not Detected)
[2021-02-21 04:11] LABS: Legionella Ag Urine Not Detected (Not Detected)
== END 2021-02-17 16:53 | disposition skilled nursing facility (03) | DRG 720 ==
LOC: HO.ED 12:41 → HO.EDOVER 16:53 → HO.IMC 17:32
PROVIDERS: Hospitalist; Internal Medicine; Physician Assistant; Admitting Provider Family Medicine; Emergency Provider Internal Medicine; PCP Hospitalist; Visit Provider Internal Medicine
DX: A41.9 Sepsis, unspecified organism (principal); I21.4 Non-ST elevation (NSTEMI) myocardial infarction; J18.1 Lobar pneumonia, unspecified organism; E11.22 Type 2 diabetes mellitus with diabetic chronic kidney disease; I13.0 Hypertensive heart and chronic kidney disease with heart failure and stage 1 through stage 4 chronic kidney disease, or unspecified chronic kidney disease; N18.31 Chronic kidney disease, stage 3a; R65.20 Severe sepsis without septic shock; I25.10 Atherosclerotic heart disease of native coronary artery without angina pectoris; F25.9 Schizoaffective disorder, unspecified; E03.9 Hypothyroidism, unspecified; H54.8 Legal blindness, as defined in USA; I45.10 Unspecified right bundle-branch block; D63.1 Anemia in chronic kidney disease; E78.5 Hyperlipidemia, unspecified; G25.81 Restless legs syndrome; G40.909 Epilepsy, unspecified, not intractable, without status epilepticus; G89.29 Other chronic pain; Z95.1 Presence of aortocoronary bypass graft; Z20.822 Contact with and (suspected) exposure to COVID-19; Z79.4 Long term (current) use of insulin; Z79.890 Hormone replacement therapy; Z79.899 Other long term (current) drug therapy
CPT/HCPCS: 36415; 71045; 76775; 80048; 80076; 80307; 81001; 82436; 82607; 82728; 82746; 82947; 83036; 83540; 83605; 83615; 83735; 83880; 83930; 83935; 84133; 84145; 84156; 84300; 84484; 85014; 85018; 85025; 85027; 85610; 85730; 86140; 86850; 86900; 86901; 87040; 87147; 87205; 87449; 87633; 87635; 87899; 93005; 93306; 99285; J0696; J1956

== ENCOUNTER → 2021-10-22 10:23 | Outpatient (BNVA) | payer MEDICAID, SELFPAY | PROVIDERS: PCP Hospitalist; Visit Provider Urology | DX: N40.1 Benign prostatic hyperplasia with lower urinary tract symptoms (principal); N13.8 Other obstructive and reflux uropathy; R33.9 Retention of urine, unspecified | CPT/HCPCS: 99212 ==

== ENCOUNTER 2022-01-23 13:40 | Inpatient (IN) | payer MEDICAID, SELFPAY ==
[2022-01-23] VITALS (7 sets, daily range): BP systolic 143–190; BP diastolic 87–128; PULSE 65–111; RESP 14–18; TEMP 36.6–36.9; O2SAT 97–100; BMI 19.6
--- NOTE | ~2022-01-23 | CT_ITS ---
EXAMINATION: CT HEAD WITHOUT CONTRAST CLINICAL INFORMATION: Headaches and altered mental status. COMPARISON: There are no prior studies available for comparison. TECHNIQUE: Contiguous axial imaging was performed from the skull base to vertex without intravenous administration of contrast. Coronal and sagittal reformatted images were generated at the technologist workstation. This CT examination was performed using dose optimization techniques as appropriate, variously including the following: *Automated exposure control *Adjustment of mA and/or kV according to patient size (this includes techniques or standardized protocols for targeted exams where dose is matched to indication/reason for exam; i.e. extremities or head) *Use of iterative reconstruction technique DLP: 777 mGy-cm FINDINGS: There is no evidence of acute intracranial hemorrhage or territorial infarction. No abnormal mass effect or midline shift is seen. Anand to white matter differentiation is well preserved. No extra-axial fluid collections are identified. The ventricles and sulci are commensurately prominent consistent with diffuse volume loss, including the cerebellar hemispheres. There are patchy areas of low-attenuation the periventricular subcortical white matter, consistent with chronic microvascular ischemic changes. An area of low-attenuation in the left ross radiata/left centrum semiovale is likely consistent with sequelae of chronic ischemia, as there is expected dilatation of the posterior body of the left lateral ventricle. There are basal ganglia lacunar infarcts bilaterally. There have been bilateral lens extractions. 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 There are atheromatous calcifications of the cavernous internal carotid arteries bilaterally in the right vertebral artery. The mastoid air cells and visualized portions of the paranasal sinuses are well-aerated. CT/CT head/brain wo con IMPRESSION: 1. There are no acute bleeds or territorial infarcts. No masses are demonstrated. 2. There are chronic microvascular ischemic changes and chronic lacunar infarcts. There is likely a chronic infarct in the left ross radiata/left centrum semiovale. There is diffuse volume loss. 3. 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
--- NOTE | ~2022-01-23 | XR_ITS ---
EXAMINATION: XR CHEST CLINICAL INFORMATION: Chest pain COMPARISON: Chest 02/13/2021 TECHNIQUE: Frontal view of the chest was obtained. FINDINGS: The lungs are hypoexpanded with no acute process seen. Previously visualized opacity right mid to lower lobe has resolved. Heart size and pulmonary vascularity is normal. There are mediastinal dwain and median sternotomy sutures unchanged. No gross bony abnormality. XR/XR chest 1V IMPRESSION: Hypoexpanded lungs with no acute process seen.
--- NOTE | ~2022-01-23 | NM_ITS ---
EXAMINATION: PULMONARY PERFUSION STUDY CLINICAL INFORMATION: Shortness of breath, chest pain. COMPARISON: No previous lung scan is available for comparison. The diagnostic CT scan of the abdomen and pelvis, dated 01/25/2022, is available for comparison. TECHNIQUE: Following the intravenous injection of 4.0 mCi Tc-99m MAA, the lungs were imaged in the anterior and posterior, left and right lateral and [place], MEJIAS, LPO, and RPO projections using a gamma scintillation camera. FINDINGS: No segmental perfusion defects are present. There is minimal heterogeneity in the distribution of activity bilaterally. There are no focal anatomic appearing perfusion defects present. NM/NM pul perfusion IMPRESSION: Very low probability of pulmonary embolism.
--- NOTE | ~2022-01-23 | XR_ITS ---
EXAMINATION: XR CHEST CLINICAL INFORMATION: Sepsis COMPARISON: Previous chest x-ray most recent January 2022 TECHNIQUE: Frontal view of the chest was obtained. FINDINGS: The cardiac and mediastinal contours are stable. The lungs are clear. There is no pleural effusion or pneumothorax. There are median sternotomy wires. XR/XR chest 1V IMPRESSION: No evidence for acute disease in the chest.
--- NOTE | ~2022-01-23 | XR_ITS ---
EXAMINATION: BILATERAL KNEE X-RAY CLINICAL INFORMATION: Fall COMPARISON: None TECHNIQUE: 2 views of each knee FINDINGS: Right: There is an intramedullary tawny in the distal femoral shaft and 3 supracondylar screws. There is a healing fracture of the distal femoral shaft. Fracture line is still seen. There is surrounding bony callus formation. No other fracture is seen. The bones are osteopenic. There are innumerable lytic bone lesions. There are small osteophytes at the patellofemoral joint. The joint spaces are otherwise normal. There is a small osteophyte at the quadriceps tendon insertion to the patella and patellar tendon origin. There is no knee joint effusion. Left: The bones are osteopenic. There are innumerable lytic bone lesions. No fracture or dislocation is seen. There are degenerative changes at the patellofemoral joint. There are osteophytes at the quadriceps tendon insertion, patellar tendon origin and insertion. There is no joint effusion. There is atherosclerotic disease. XR/XR knee LT 2V IMPRESSION: Right: ORIF of right distal femoral shaft fracture. No acute fracture. Osteopenia and diffuse bony lytic disease. Mild degenerative changes at the patellofemoral joint. Left: No fracture. Degenerative changes at the patellofemoral joint. Osteopenia and diffuse bony lytic disease.
--- NOTE | ~2022-01-23 | XR_ITS ---
EXAMINATION: BILATERAL KNEE X-RAY CLINICAL INFORMATION: Fall COMPARISON: None TECHNIQUE: 2 views of each knee FINDINGS: Right: There is an intramedullary tawny in the distal femoral shaft and 3 supracondylar screws. There is a healing fracture of the distal femoral shaft. Fracture line is still seen. There is surrounding bony callus formation. No other fracture is seen. The bones are osteopenic. There are innumerable lytic bone lesions. There are small osteophytes at the patellofemoral joint. The joint spaces are otherwise normal. There is a small osteophyte at the quadriceps tendon insertion to the patella and patellar tendon origin. There is no knee joint effusion. Left: The bones are osteopenic. There are innumerable lytic bone lesions. No fracture or dislocation is seen. There are degenerative changes at the patellofemoral joint. There are osteophytes at the quadriceps tendon insertion, patellar tendon origin and insertion. There is no joint effusion. There is atherosclerotic disease. XR/XR knee RT 2V IMPRESSION: Right: ORIF of right distal femoral shaft fracture. No acute fracture. Osteopenia and diffuse bony lytic disease. Mild degenerative changes at the patellofemoral joint. Left: No fracture. Degenerative changes at the patellofemoral joint. Osteopenia and diffuse bony lytic disease.
--- NOTE | ~2022-01-23 | CT_ITS ---
EXAMINATION: CT ABDOMEN AND PELVIS WITHOUT CONTRAST CLINICAL INFORMATION: Altered mental status, SIRS, question source of infection COMPARISON: Renal ultrasound 02/13/2021 TECHNIQUE: Multidetector volumetric imaging was performed from the superior aspect of the liver through the pubic symphysis. Sagittal and coronal reformatted images were obtained on the technologist's workstation. This CT examination was performed using dose optimization techniques as appropriate, variously including the following: *Automated exposure control *Adjustment of mA and/or kV according to patient size (this includes techniques or standardized protocols for targeted exams where dose is matched to indication/reason for exam; i.e. extremities or head) *Use of iterative reconstruction technique DLP: 559 mGy-cm FINDINGS: LUNG BASES: Respiratory motion significantly limits evaluation of the lung bases. There is patchy left lower lobe consolidation suspicious for infection or aspiration. ABDOMINAL AND PELVIC WALL: Unremarkable. LIVER AND BILIARY TREE: Unremarkable. GALLBLADDER: Unremarkable. PANCREAS: Unremarkable. SPLEEN: Unremarkable. ADRENAL GLANDS: Unremarkable. KIDNEYS AND URETERS: Unremarkable. GASTROINTESTINAL TRACT: Desiccated stool ball within the rectum measuring at least 7.9 cm. Rectal wall is mildly thickened relative to the degree of distention with some subtle infiltration of the mesorectal fat, which can be seen in the setting of stercoral colitis. No findings to suggest appendicitis. VASCULAR: Unremarkable. LYMPH NODES/PERITONEUM: No lymphadenopathy. FREE FLUID: None. BLADDER: Urinary bladder is distended. PELVIC VISCERA: Unremarkable. OSSEOUS STRUCTURES: Diffusely mottled and moth-eaten appearance of the bones with innumerable tiny lucent lesions with areas of cortical destruction most notably within the pelvis. Partially imaged right hip ORIF. Median sternotomy wires. CT/CT abdomen pelvis wo con IMPRESSION: Diffusely mottled appearance of the bones with moth-eaten appearance of the pelvis where there are numerous tiny lucent lesions with cortical destruction. Findings could be seen in the setting of multiple myeloma or underlying lytic osseous metastatic disease. Recommend correlation with clinical history and sampling could be considered if clinically warranted. Patchy left lower lobe consolidation suspicious for infection or aspiration. Consider follow-up CT chest to ensure resolution. Desiccated stool ball within the rectum measuring at least 7.9 cm. Rectal wall is mildly thickened relative to the degree of distention with some subtle infiltration of the mesorectal fat, which can be seen in the setting of stercoral colitis. Urinary bladder is distended. Recommend correlation with any symptoms of urinary retention.
--- NOTE | 2022-01-23 13:53 | ECG_ITS ---
Test Reason : cp Blood Pressure : / mmHG Vent. Rate : 074 BPM Atrial Rate : 074 BPM P-R Int : 188 ms QRS Dur : 170 ms QT Int : 460 ms P-R-T Axes : 076 -65 088 degrees QTc Int : 510 ms Normal sinus rhythm Possible Left atrial enlargement Left axis deviation Right bundle branch block Abnormal ECG When compared with ECG of 13-FEB-2021 15:18, No significant change was found Referred By: Leana Muniz Electronically Signed By:TANYA HOLLAND
--- NOTE | 2022-01-23 14:31 | ED.CHESTPAIN ---
HPI - Chest Pain General Chief Complaint: Headache Stated Complaint: chest pain headache Time Seen by Provider: 01/23/22 13:53 Source: patient, EMS and RN notes reviewed Mode of arrival: EMS Limitations: other History of Present Illness HPI narrative: 61-year-old male with a past medical history of seizures on Keppra, schizoaffective disorder, CHF, type 2 diabetes, CKD stage IIIa, hypothyroidism, hyperlipidemia who is legally blind, CAD with bypass graft, NSTEMI and restless leg syndrome presenting to the ED via EMS with care 1 after he started complaining of a headache and chest pain once his roommate who is here in the emergency department was found unresponsive prior to arrival. He is not really speaking right now only pointing with his fingers and responding to my questions and he admits to a headache and chest pain. He denies a fever, nausea, vomiting, shortness of breath, cough, abdominal pain, diarrhea or any other symptoms at this time although very limited/poor historian he is nodding yes or no to my answers instead of answering them. MD complaint: chest pain Pertinent past history: coronary artery disease and prior OK Onset (ago): minute(s) (rn child) Timing of current episode: constant Prior episodes: Yes Onset: during rest Context: other (started after they found his roommate from [facility] unresponsive and brought his room a here for further evaluation treatment patient's symptoms started shortly after that happen) Risk Factors Coronary artery disease risk factors: diabetes, hyperlipidemia and hypertension Thoracic aortic dissection risk factors: none Related Data Home Medications Medication Instructions Recorded Confirmed acetaminophen 325 mg tablet 650 mg PO Q4H PRN Fever Or Pain 02/13/21 02/13/21 ascorbic acid (vitamin C) 500 mg 500 mg PO BID 02/13/21 02/13/21 tablet baclofen 5 mg tablet 5 mg PO BEDTIME 02/13/21 02/13/21 bisacodyl 10 mg rectal suppository 10 mg MD DAILY PRN Constipation 02/13/21 02/13/21 carvedilol 3.125 mg tablet 3.125 mg PO BID 02/13/21 02/13/21 dorzolamide 2 %-timolol 0.5 % (PF) 1 drp ophthalmic (eye) BID 02/13/21 02/13/21 eye drops ferrous sulfate 325 mg (65 mg 325 mg PO BID 02/13/21 02/13/21 iron) tablet insulin glargine 100 unit/mL (3 20 unit subcut BEDTIME 02/13/21 02/13/21 mL) subcutaneous pen (Lantus Solostar U-100 Insulin) isosorbide mononitrate 120 mg 120 mg PO DAILY 02/13/21 02/13/21 tablet,extended release 24 hr levetiracetam 1,000 mg tablet 1,000 mg PO BID 02/13/21 02/13/21 (Keppra) levothyroxine 75 mcg tablet 75 mcg PO DAILY 02/13/21 02/13/21 lorazepam 1 mg tablet 1 mg PO BID PRN Anxiety 02/13/21 02/13/21 metformin 1,000 mg tablet 1,000 mg PO BID 02/13/21 02/13/21 oxycodone 5 mg tablet 5 mg PO QID PRN Pain 02/13/21 02/13/21 pregabalin 25 mg capsule (Lyrica) 25 mg PO BID 02/13/21 02/13/21 quetiapine 100 mg tablet 100 mg PO BID 02/13/21 02/13/21 quetiapine 50 mg tablet 50 mg PO BID 02/13/21 02/13/21 ropinirole 0.25 mg tablet 0.25 mg PO BID 02/13/21 02/13/21 sennosides 8.6 mg tablet (senna) 8.6 mg PO DAILY PRN Constipation 02/13/21 02/13/21 tamsulosin 0.4 mg capsule 0.4 mg PO DAILY 02/13/21 02/13/21 torsemide 10 mg tablet 10 mg PO DAILY 02/13/21 02/13/21 Previous Rx's Medication Instructions Recorded atorvastatin 40 mg tablet (Lipitor) 40 mg PO BEDTIME #30 tabs 02/17/21 cefuroxime axetil 500 mg tablet 500 mg PO BID 3 days #10 tabs 02/17/21 doxycycline hyclate 100 mg 100 mg PO BID 3 days #10 tabs 02/17/21 tablet,delayed release Allergies Allergy/AdvReac Type Severity Reaction Status Date / Time No Known Allergies Allergy Verified 10/22/21 10:29 Review of Systems Review of Systems: Constitutional : No Weight loss, No Fever, No Chills, No Night Sweats, No Fatigue, No Malaise ENT/Mouth : No Hearing loss, No Ear Pain, No Nasal Congestion, No Sinus Pain, No Hoarseness, No sore throat, No Rhinorrhea, No Swallowing Difficulty Eyes: No Eye Pain, No Swelling, No Redness, No Foreign Body, No Discharge, No Vision Changes Cardiovascular : + Chest Pain, No SOB, No Dyspnea on Exertion, No Orthopnea, No Edema, No Palpitations Respiratory : No Cough, No Sputum, No Wheezing, No Smoke Exposure, No Dyspnea Gastrointestinal : No Nausea, No Vomiting, No Diarrhea, No Constipation, No abdominal Pain, No Hematochezia, No Melena Genitourinary : no irregular bleeding, No Dysuria, No Urinary Frequency, No Hematuria, No Urinary Incontinence, No Urgency, No Flank Pain, No Urinary Flow Changes, No Hesitancy Musculoskeletal : No joint pain, No Myalgias, No Joint Swelling Skin : No Skin Lesions, No rash Neuro : No Weakness, No Numbness, No Paresthesias, No Loss of Consciousness, No Dizziness, + Headache Psych : No Anxiety/Panic, No Depression, No SI/HI/AH/VH, No Social Issues, Heme/Lymph: No Bruising, No Bleeding,No Lymphadenopathy Endocrine : No Polyuria, No Polydipsia, No Temperature Intolerance Yes all other systems are reviewed and are negative [facility] Past Medical History Attestation statement: The following information was validated with the patient. Source: old records reviewed, nursing notes reviewed and other (Records from [facility] reviewed) Medical History (Updated 01/23/22 @ 21:39 by TAYLOR Berry) Coronary artery disease Diastolic heart failure History of stroke Hyperlipidemia Hypertension Hypothyroidism Legal blindness Restless leg Schizoaffective disorder Seizure disorder Stage 3a chronic kidney disease Type 2 diabetes mellitus Urinary retention Surgical History History of coronary artery bypass graft Social History Social History Household Members: Other Household Members Other:: FACILITY Housing: Assisted Living Facility Do you presently have visiting nurse or other home services: No Patient Tobacco Use Status: Never used Tobacco Advance Directives: No Advance Directives Information Provided: No service: No Current occupational status: disabled Physical Exam Vital Signs: Vital Signs: Last Vital Signs Temp 97.8 F 01/23/22 20:20 Pulse 111 H 01/23/22 20:20 Resp 14 01/23/22 20:20 BP 178/128 H 01/23/22 20:20 Pulse Ox 99 01/23/22 20:20 O2 Del Method 01/23/22 20:20 BMI result Body Mass Index 19.6 Vital signs have been reviewed as normal and appeared to be correct. Blood pressure 147/87. Heart rate normal. Respiration rate normal. Temperature normal. Oxygen saturation normal. Appearance: Alert. Oriented X3. No acute distress. Head: Normal external exam. Normocephalic. Atraumatic. Able to rotate head bilaterally. Eyes: Blind, sclera anicteric, Eyelids normal. ENT: Hearing normal. Pharynx normal. Uvula midline. tongue midline. Moist mucous membranes. No trismus noted. No drooling noted. Neck: Normal inspection. Neck supple. FROM. No adenopathy. Thyroid Normal. No meningeal signs. No neck mass noted. CVS: Normal heart rate and rhythm. Heart sound normal. No murmurs noted. Pulses normal throughout. Respiratory: No respiratory distress. Painless inspiration. Breath sounds normal. No wheezes/rales/rhonchi noted. Chest nontender. No accessory muscle usage noted or decreased air movement noted. No crepitus is noted. No signs of trauma noted. No accessory muscle usage noted. No tracheal tug noted. No abdominal retractions noted. Abdomen: Soft and nontender. Nondistended. No guarding. No rigidity. Bowel sounds normal in all 4 quadrants. No distention noted. No organomegaly noted. No visible injury noted. No rebound tenderness. Negative Rovsing sign. Negative obturator's sign. Negative psoas sign. Negative Mireles sign. Back: Full range of motion noted. Skin: Skin warm and dry. Normal skin color. Normal skin turgor. No rashes/lesions/lacerations noted. Extremities: Extremities exhibit normal range of motion. Extremities nontender. Able to shrug shoulders bilaterally and keep up against resistance. Neuro: Oriented X 3. No motor deficit. No sensory deficit. Reflexes normal. Moving all extremities. No focal motor deficits. Cranial nerves II-XI intact bilaterally. Facial strength normal. Normal cognition. Speech normal. Gait normal. Strength 5/5 throughout. No pronator drift. No tremor noted. No fasciculations noted. Muscle tone normal throughout. Course Course Course Narrative: 13:55pm - 61-year-old male with a past medical history of seizures on Keppra, schizoaffective disorder, CHF, type 2 diabetes, CKD stage IIIa, hypothyroidism, hyperlipidemia who is legally blind, CAD with bypass graft, NSTEMI and restless leg syndrome presenting to the ED via EMS with care 1 after he started complaining of a headache and chest pain once his roommate who is here in the emergency department was found unresponsive prior to arrival. He is not really speaking right now only pointing with his fingers and responding to my questions and he admits to a headache and chest pain. Plan: Will obtain labs, chest x-ray, EKG, UA with straight cath, blood cultures and lactic acid re-evaluate. Reevaluation(s) Reevaluation #1: - Labs reviewed patient with baseline anemia which is improved when compared to prior. The elevated platelet count at 506 this is new when compared to prior. Sodium 133 this is improved when compared to prior. Creatinine 1.56. This is improved when compared to prior. Random glucose 153. Lactic acid 1.6. Troponin 25.9. 3 hours after 29.4 therefore negative delta. UA with +2 protein and red blood cells otherwise no evidence of UTI. Patient negative for stool occult. - CT scan of brain negative for any acute processes only revealed chronic changes. - chest x-ray within normal limits no acute processes noted only chronic changes. - therefore at this time patient will be sent back to [facility] most likely related to anxiety due to his roommate being unresponsive right next to him. With instructions to continue taking previously prescribed medications as previously prescribed. Time: 18:29 Reevaluation #2: - apparently the patient had an episode of sinus tachycardia around 17:00 although I was not informed by the tech that was at the cardiac monitors due to she is not properly trained for manager cardiac although the tech that came at 19:00 noticed that the patient went into sinus tach around 745 and she printed out a report and showed me and the supervising Dr. Agrawal and we requested a repeat EKG and repeat EKG is sinus tachycardia with ventricular rate of 114 with left axis deviation right bundle branch block no acute ischemic change are noted. - therefore at this time will repeat a 3rd troponin, Patient is also noted to be hypertensive will give 500 mL of fluids and re-evaluate before returning back to [facility] at this time. Time: 20:32 Reevaluation #3: - Patient still hypertensive in the 170s/115 and his heart rate is still in the 100-120 - 3rd repeat troponin which is 6 hours after the patient arrived here is 44.3 - at this time will give 5 mg of metroprolol - therefore at this time discussing his case with Dr. Eaton from Cardiology for further recommendation and he reports that he believes this is hypertensive urgency in that the patient should be admitted for med management at this time per Cardiology. Therefore at this time will admit to the hospitalist unit spoke to Dr. Correa. MDM - Chest Pain Medical Records Data Attestation: I reviewed the patient's medical records. Lab Data Attestation: I reviewed the patient's lab results. Result diagrams: 01/23/22 14:50 01/23/22 14:50 Labs: Lab Results 01/23/22 01/23/22 01/23/22 Range/Units 14:50 14:50 14:50 WBC 6.1 (4.8-10.8) X10*3/uL RBC 4.12 L (4.60-5.80) X10*6/uL Hgb 11.9 L (14.0-18.0) g/dl Hct 36.8 L (42.0-52.0) % MCV 89.3 (80.0-98.0) fL MCH 28.9 (27.0-33.0) pg MCHC 32.3 (31.0-36.0) g/dl RDW 15.2 (11.0-16.0) % Plt Count 506 H (160-400) X10*3/uL MPV 8.9 L (9.4-12.4) fL Immature Gran % (Auto) 0.7 H (0.0-0.4) % Neut % (Auto) 65.3 (45-73) % Lymph % (Auto) 22.0 (20-40) % [place] % (Auto) 10.9 (2-11) % Eos % (Auto) 0.0 (0-4) % Baso % (Auto) 1.1 (0-2) % Lymph # (Auto) 1.4 (1.2-4.9) X10*3/uL [place] # (Auto) 0.7 (0.1-1.2) X10*3/uL Eos # (Auto) 0.0 (0.0-0.4) X10*3/uL Baso # (Auto) 0.1 (0.0-0.2) X10*3/uL Abs Immat Gran (auto) 0.04 H (0.00-0.03) X10*3/uL Absolute Neuts (auto) 4.0 (2.0-8.3) x10*3/uL Absolute Nucleated RBC 0.000 (0.0-0.012) X10*3/uL Nucleated RBC % (auto) 0.0 (0.0-0.2) /100WBC PT 11.8 (10.0-13.1) SEC INR 1.0 (0.9-1.1) Sodium 133 L (135-145) mmol/L Potassium 3.9 (3.3-5.1) mmol/L Chloride 99 (96-108) mmol/L Carbon Dioxide 26 (22-29) mmol/L Anion Gap 12 (12-20) BUN 15 (9-16) mg/dL Creatinine 1.56 H (0.5-1.4) mg/dL Estim Creat Clear Calc 39.5 Estimated GFR 45 Random Glucose 153 H (60-115) mg/dL Lactic Acid (0.5-2.0) mmol/L Calcium 8.9 D (8.4-10.2) mg/dL Magnesium 1.9 (1.6-2.6) mg/dL Total Bilirubin 0.5 (0.0-1.0) mg/dL AST 15 (5-37) U/L ALT 11 (0-40) U/L Alkaline Phosphatase 86 (39-117) U/L Troponin I High Sens (<3.5-35.0) ng/L Total Protein 10.6 H (6.5-8.0) g/dL Albumin 3.8 (3.5-5.0) g/dL Urine Color Urine Appearance Urine pH (5.0-8.0) Ur Specific Vaughn (1.005-1.025) Urine Protein (NEG-TRACE) MG/DL Urine Glucose (UA) (NEG) MG/DL Urine Ketones (NEG) MG/DL Urine Blood (NEG) Urine Nitrite (NEG) Ur Leukocyte Esterase (NEG) Urine RBC (0) /HPF Urine WBC (0-4) /HPF Ur Squamous Epith Cells /LPF Urine Bacteria /LPF Stool Occult Blood (NEGATIVE) 01/23/22 01/23/22 01/23/22 Range/Units 14:50 14:51 17:35 WBC (4.8-10.8) X10*3/uL RBC (4.60-5.80) X10*6/uL Hgb (14.0-18.0) g/dl Hct (42.0-52.0) % MCV (80.0-98.0) fL MCH (27.0-33.0) pg MCHC (31.0-36.0) g/dl RDW (11.0-16.0) % Plt Count (160-400) X10*3/uL MPV (9.4-12.4) fL Immature Gran % (Auto) (0.0-0.4) % Neut % (Auto) (45-73) % Lymph % (Auto) (20-40) % [place] % (Auto) (2-11) % Eos % (Auto) (0-4) % Baso % (Auto) (0-2) % Lymph # (Auto) (1.2-4.9) X10*3/uL [place] # (Auto) (0.1-1.2) X10*3/uL Eos # (Auto) (0.0-0.4) X10*3/uL Baso # (Auto) (0.0-0.2) X10*3/uL Abs Immat Gran (auto) (0.00-0.03) X10*3/uL Absolute Neuts (auto) (2.0-8.3) x10*3/uL Absolute Nucleated RBC (0.0-0.012) X10*3/uL Nucleated RBC % (auto) (0.0-0.2) /100WBC PT (10.0-13.1) SEC INR (0.9-1.1) Sodium (135-145) mmol/L Potassium (3.3-5.1) mmol/L Chloride (96-108) mmol/L Carbon Dioxide (22-29) mmol/L Anion Gap (12-20) BUN (9-16) mg/dL Creatinine (0.5-1.4) mg/dL Estim Creat Clear Calc Estimated GFR Random Glucose (60-115) mg/dL Lactic Acid 1.6 (0.5-2.0) mmol/L Calcium (8.4-10.2) mg/dL Magnesium (1.6-2.6) mg/dL Total Bilirubin (0.0-1.0) mg/dL AST (5-37) U/L ALT (0-40) U/L Alkaline Phosphatase (39-117) U/L Troponin I High Sens 25.9 (<3.5-35.0) ng/L Total Protein (6.5-8.0) g/dL Albumin (3.5-5.0) g/dL Urine Color YELLOW Urine Appearance CLEAR Urine pH 7.0 (5.0-8.0) Ur Specific Vaughn 1.010 (1.005-1.025) Urine Protein 2+ H (NEG-TRACE) MG/DL Urine Glucose (UA) NEG (NEG) MG/DL Urine Ketones NEG (NEG) MG/DL Urine Blood TRACE (NEG) Urine Nitrite NEG (NEG) Ur Leukocyte Esterase NEG (NEG) Urine RBC 5-9 H (0) /HPF Urine WBC 0 (0-4) /HPF Ur Squamous Epith Cells 1+ /LPF Urine Bacteria NONE /LPF Stool Occult Blood (NEGATIVE) 01/23/22 01/23/22 01/23/22 Range/Units 17:40 18:13 20:23 WBC (4.8-10.8) X10*3/uL RBC (4.60-5.80) X10*6/uL Hgb (14.0-18.0) g/dl Hct (42.0-52.0) % MCV (80.0-98.0) fL MCH (27.0-33.0) pg MCHC (31.0-36.0) g/dl RDW (11.0-16.0) % Plt Count (160-400) X10*3/uL MPV (9.4-12.4) fL Immature Gran % (Auto) (0.0-0.4) % Neut % (Auto) (45-73) % Lymph % (Auto) (20-40) % [place] % (Auto) (2-11) % Eos % (Auto) (0-4) % Baso % (Auto) (0-2) % Lymph # (Auto) (1.2-4.9) X10*3/uL [place] # (Auto) (0.1-1.2) X10*3/uL Eos # (Auto) (0.0-0.4) X10*3/uL Baso # (Auto) (0.0-0.2) X10*3/uL Abs Immat Gran (auto) (0.00-0.03) X10*3/uL Absolute Neuts (auto) (2.0-8.3) x10*3/uL Absolute Nucleated RBC (0.0-0.012) X10*3/uL Nucleated RBC % (auto) (0.0-0.2) /100WBC PT (10.0-13.1) SEC INR (0.9-1.1) Sodium (135-145) mmol/L Potassium (3.3-5.1) mmol/L Chloride (96-108) mmol/L Carbon Dioxide (22-29) mmol/L Anion Gap (12-20) BUN (9-16) mg/dL Creatinine (0.5-1.4) mg/dL Estim Creat Clear Calc Estimated GFR Random Glucose (60-115) mg/dL Lactic Acid (0.5-2.0) mmol/L Calcium (8.4-10.2) mg/dL Magnesium (1.6-2.6) mg/dL Total Bilirubin (0.0-1.0) mg/dL AST (5-37) U/L ALT (0-40) U/L Alkaline Phosphatase (39-117) U/L Troponin I High Sens 29.4 44.3 H D (<3.5-35.0) ng/L Total Protein (6.5-8.0) g/dL Albumin (3.5-5.0) g/dL Urine Color Urine Appearance Urine pH (5.0-8.0) Ur Specific Vaughn (1.005-1.025) Urine Protein (NEG-TRACE) MG/DL Urine Glucose (UA) (NEG) MG/DL Urine Ketones (NEG) MG/DL Urine Blood (NEG) Urine Nitrite (NEG) Ur Leukocyte Esterase (NEG) Urine RBC (0) /HPF Urine WBC (0-4) /HPF Ur Squamous Epith Cells /LPF Urine Bacteria /LPF Stool Occult Blood NEGATIVE (NEGATIVE) Imaging Data Chest x-ray: Attestation: I personally reviewed and interpreted this imaging study as follows: Radiologist's impression: FINDINGS: The lungs are hypoexpanded with no acute process seen. Previously visualized opacity right mid to lower lobe has resolved. Heart size and pulmonary vascularity is normal. There are mediastinal dwain and median sternotomy sutures unchanged. No gross bony abnormality. XR/XR chest 1V IMPRESSION: Hypoexpanded lungs with no acute process seen. CT scan of brain without contrast: Attestation: I personally reviewed and interpreted this imaging study as follows: Radiologist's impression: FINDINGS: There is no evidence of acute intracranial hemorrhage or territorial infarction. No abnormal mass effect or midline shift is seen. Anand to white matter differentiation is well preserved. No extra-axial fluid collections are identified. The ventricles and sulci are commensurately prominent consistent with diffuse volume loss, including the cerebellar hemispheres. There are patchy areas of low-attenuation the periventricular subcortical white matter, consistent with chronic microvascular ischemic changes. An area of low-attenuation in the left ross radiata/left centrum semiovale is likely consistent with sequelae of chronic ischemia, as there is expected dilatation of the posterior body of the left lateral ventricle. There are basal ganglia lacunar infarcts bilaterally. There have been bilateral lens extractions. 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 There are atheromatous calcifications of the cavernous internal carotid arteries bilaterally in the right vertebral artery. The mastoid air cells and visualized portions of the paranasal sinuses are well-aerated. ? CT/CT head/brain wo con IMPRESSION: 1. There are no acute bleeds or territorial infarcts. No masses are demonstrated. ? 2. There are chronic microvascular ischemic changes and chronic lacunar infarcts. There is likely a chronic infarct in the left ross radiata/left centrum semiovale. There is diffuse volume loss. ? 3. 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 ECG Data ECG #1: Attestation: I personally reviewed and interpreted this ECG as follows: ECG interpretation date: 01/23/22 ECG interpretation time: 14:05 Prior ECG tracings: available for review Interpretation: Normal sinus rhythm with ventricular rate of 74 with left atrial enlargement with left axis deviation and right bundle branch block which is similar compared to prior EKGs on 02/13/2021 no acute ischemic change are noted today. ECG #2: Attestation: I personally reviewed and interpreted this ECG as follows: ECG interpretation date: 01/23/22 ECG interpretation time: 20:06 Prior ECG tracings: available for review Interpretation: sinus tachycardia with ventricular rate of 114 with left axis deviation right bundle branch block no acute ischemic change are noted. Similar compared to prior EKGs. Critical Care Time Critical Care Time Critical Care Time: Yes Total Critical Care Time: 60 Attestation: I personally attest to this time spent taking care of the patient Discharge Plan Discharge Clinical Impression: Headache, Elevated troponin, Hypertensive urgency Patient Disposition: Admitted As Inpatient Print Language: [place]
--- NOTE | 2022-01-23 14:54 | PC.NURSE ---
Placed urinal in between patient's legs for urine sample. Patient refused straight cath at this time.
--- NOTE | 2022-01-23 14:59 | PC.NURSE ---
Patient continually yells drink . RN has attempted to provider water and ice chips but patient does not fully understand. Patient will require further eval before fluids.
[2022-01-23 15:02] LABS: MANUAL DIFF FLAG NO
[2022-01-23 15:03] LABS: Basophils Absolute Auto 0.1 X10*3/uL (0.0-0.2); Basophils Percent Auto 1.1 % (0-2); Hematocrit 36.8 % (42.0-52.0); Hemoglobin 11.9 g/dl (14.0-18.0); Imm Gran Abs Auto 0.04 X10*3/uL (0.00-0.03); Imm Gran Pct Auto 0.7 % (0.0-0.4); Lymphocytes Absolute Auto 1.4 X10*3/uL (1.2-4.9); Mean Corpuscular HGB Conc 32.3 g/dl (31.0-36.0); Mean Corpuscular Hemoglobin 28.9 pg (27.0-33.0); Mean Corpuscular Volume 89.3 fL (80.0-98.0); Mean Platelet Volume 8.9 fL (9.4-12.4); Monocytes Absolute Auto 0.7 X10*3/uL (0.1-1.2); Monocytes Percent Auto 10.9 % (2-11); Neutrophils Percent Auto 65.3 % (45-73); Platelet Count 506 X10*3/uL (160-400); Red Blood Count 4.12 X10*6/uL (4.60-5.80); Red Cell Distribution Width 15.2 % (11.0-16.0); White Blood Count 6.1 X10*3/uL (4.8-10.8)
[2022-01-23 15:09] LABS: Prothrombin Time 11.8 SEC (10.0-13.1)
[2022-01-23 15:20] LABS: Lactic Acid 1.6 mmol/L (0.5-2.0)
[2022-01-23 15:26] LABS: Troponin-I High Sensitivity 25.9 ng/L (<3.5-35.0)
[2022-01-23 15:28] LABS: Alanine Aminotransferase 11 U/L (0-40); Albumin Level 3.8 g/dL (3.5-5.0); Alkaline Phosphatase 86 U/L (39-117); Anion Gap 12 (12-20); Aspartate Amino Transferase 15 U/L (5-37); Bilirubin Total 0.5 mg/dL (0.0-1.0); Blood Urea Nitrogen 15 mg/dL (9-16); Calcium 8.9 mg/dL (8.4-10.2); Carbon Dioxide 26 mmol/L (22-29); Chloride 99 mmol/L (96-108); Creatinine Clr Calc Pharmacy 39.5; Estimated Glomerular Filt Rate 45; Glucose Random 153 mg/dL (60-115); Magnesium 1.9 mg/dL (1.6-2.6); Potassium 3.9 mmol/L (3.3-5.1); Sodium 133 mmol/L (135-145); Total Protein 10.6 g/dL (6.5-8.0)
[2022-01-23] MEDS: diphenhydrAMINE HCL 50 MG/ML VIAL 25 MG IVPUSH (16:11)
[2022-01-23] MEDS: Haloperidol Lactate 5 MG/ML VIAL 2.5 MG IVPUSH (16:13)
[2022-01-23 17:53] LABS: Appearance Urine CLEAR; Color Urine YELLOW; Glucose Urine UA NEG (NEG); Leukocyte Esterase Urine NEG (NEG); Nitrite Urine NEG (NEG); UACC Culture Trigger NO; Urine Blood TRACE (NEG); Urine Ketones NEG (NEG); Urine Protein 2+ MG/DL (NEG-TRACE)
[2022-01-23 18:08] LABS: Troponin-I High Sensitivity 29.4 ng/L (<3.5-35.0)
[2022-01-23 18:10] LABS: Squamous Epithelial Cell Urine 1+ /LPF; WBC Urine 0 /HPF (0-4)
[2022-01-23 18:25] LABS: OBS Int Ctl Valid YES; OBS1 NEGATIVE (NEGATIVE)
--- NOTE | 2022-01-23 19:56 | ECG_ITS ---
Test Reason : HEART RATE Blood Pressure : / mmHG Vent. Rate : 114 BPM Atrial Rate : 115 BPM P-R Int : 168 ms QRS Dur : 168 ms QT Int : 378 ms P-R-T Axes : 000 -82 086 degrees QTc Int : 521 ms Sinus tachycardia Left axis deviation Right bundle branch block Inferior infarct , age undetermined Abnormal ECG When compared with ECG of 23-JAN-2022 14:05, Vent. rate has increased BY 40 BPM Referred By: Amber Jackson Electronically Signed By:TANYA HOLLAND
--- NOTE | 2022-01-23 20:03 | PC.NURSE ---
Call out to [facility] for updated ETA @1641 [facility] passed transport to [facility] and will be here within the hour
--- NOTE | 2022-01-23 20:10 | PC.NURSE ---
Report taken from Tia RN, assumed care of pt. Pt was awaiting DC back to [facility], when his HR increased to 120's. EKG performed, sinus tachycardia on monitor, BP elevated, repeat troponin drawn, IVF hung and infusing without difficulty. HR decreased to 111-114 BP remains high, awaiting lab results and possible admission.
--- NOTE | 2022-01-23 20:19 | PC.NURSE ---
call out to [facility] @2010 to cancel patient transfer
[2022-01-23] MEDS: 0.9 % Sodium Chloride 500 ML 999 ML IV (20:26)
[2022-01-23 20:50] LABS: Troponin-I High Sensitivity 44.3 ng/L (<3.5-35.0)
[2022-01-23] MEDS: Aspirin 81 MG TAB.CHEW 324 MG PO (21:43)
[2022-01-23] MEDS: Metoprolol Tartrate 5 MG/5 ML VIAL IVPUSH (21:43)
--- NOTE | 2022-01-23 21:50 | PC.NURSE ---
Repeat troponin increased- pt to be admitted. Denies chest pain at this time, reports 4/10 headache. Medicated with metoprolol IVP and chewable aspirin. Bp and HR improved, PA notified. Incontinent of urine, cleaned and full bedding change. Repositioned for comfort. Awaiting hospitalist consult for admission.
[2022-01-23 22:04] LABS: COVID-19 Test Negative (Negative); IDNOW Serial# 55D5AD1C
--- NOTE | 2022-01-23 22:29 | PM.IMHP ---
History of Present Illness Date of Service: 01/23/22 Chief Complaint: Hypertensive, chest pain 61-year-old male with from [facility] with history of CAD, heart failure, CVA, HLD, HTN, hypothyroidism, schizoaffective disorder, seizure disorder, diabetes, who presents to the hospital from [facility] with multiple complaints including elevated blood pressure, with complaints of headache as well as chest pain. On my interview patient is completely confused, and although awake and sitting up in bed he is not answering questions and keeps asking for more water. Apparently patient's symptoms occurred after he witnessed his roommate be unresponsive. I am unable to obtain review of system due to patient's mental status. On arrival to the ED patient was hemodynamically stable but had a high blood pressure in the 180s systolic over 100 diastolic Labs significant for WBC count of 6.1, hemoglobin of 11.9, hematocrit 36.8, sodium 133, creatinine of 1.56 around his baseline, troponin of 25.9, increased initially to 29.4 than 244.3, UA negative. EKG showed T-wave inversions in anterior inferior leads of these were present on previous EKG This case was discussed with Cardiology who recommended patient be admitted to the hospital for further evaluation Review of Systems Review of Systems: Yes all other systems are reviewed and are negative [facility] Medical History Coronary artery disease Diastolic heart failure History of stroke Hyperlipidemia Hypertension Hypothyroidism Legal blindness Restless leg Schizoaffective disorder Seizure disorder Stage 3a chronic kidney disease Type 2 diabetes mellitus Urinary retention Surgical History History of coronary artery bypass graft Social History Household Members: Other Household Members Other:: FACILITY Housing: Assisted Living Facility Do you presently have visiting nurse or other home services: No Patient Tobacco Use Status: Never used Tobacco Advance Directives: No Advance Directives Information Provided: No service: No Current occupational status: disabled Meds Allergies Allergy/AdvReac Type Severity Reaction Status Date / Time No Known Allergies Allergy Verified 10/22/21 10:29 Active Medications: Current Medications Acetaminophen (Acetaminophen 325 Mg Tablet) 650 mg PO Q6H PRN PRN Reason: Pain, Mild (Pain Scale 1-3) Docusate Sodium (Docusate Sodium 100 Mg Capsule) 100 mg PO DAILY PRN PRN Reason: Constipation Heparin Sodium (Porcine) (Heparin Sodium,Porcine 5,000 Unit/Ml Vial) 5,000 unit SUBCUT Q12H [facility] Ondansetron HCl (Ondansetron Hcl 4 Mg/2 Ml Vial) 4 mg IVPUSH Q8H PRN PRN Reason: Nausea and Vomiting Pharmacy Consult (Consult Rx Perform Med Rec) 1 each MISCELLANE ONCE PRN PRN Reason: Consult order Sodium Chloride (0.9 % Sodium Chloride Flush 3 Ml Syringe) 3 ml IVFLUSH QSHIFT [facility] Home Medications Medication Instructions Recorded Confirmed Last Taken Type acetaminophen 325 mg tablet 650 mg PO Q4H PRN Fever Or Pain 02/13/21 02/13/21 Unknown History ascorbic acid (vitamin C) 500 mg 500 mg PO BID 02/13/21 02/13/21 Unknown History tablet baclofen 5 mg tablet 5 mg PO BEDTIME 02/13/21 02/13/21 Unknown History bisacodyl 10 mg rectal suppository 10 mg MI DAILY PRN Constipation 02/13/21 02/13/21 Unknown History carvedilol 3.125 mg tablet 3.125 mg PO BID 02/13/21 02/13/21 Unknown History dorzolamide 2 %-timolol 0.5 % (PF) 1 drp ophthalmic (eye) BID 02/13/21 02/13/21 Unknown History eye drops ferrous sulfate 325 mg (65 mg 325 mg PO BID 02/13/21 02/13/21 Unknown History iron) tablet insulin glargine 100 unit/mL (3 20 unit subcut BEDTIME 02/13/21 02/13/21 Unknown History mL) subcutaneous pen (Lantus Solostar U-100 Insulin) isosorbide mononitrate 120 mg 120 mg PO DAILY 02/13/21 02/13/21 Unknown History tablet,extended release 24 hr levetiracetam 1,000 mg tablet 1,000 mg PO BID 02/13/21 02/13/21 Unknown History (Keppra) levothyroxine 75 mcg tablet 75 mcg PO DAILY 02/13/21 02/13/21 Unknown History lorazepam 1 mg tablet 1 mg PO BID PRN Anxiety 02/13/21 02/13/21 Unknown History metformin 1,000 mg tablet 1,000 mg PO BID 02/13/21 02/13/21 Unknown History oxycodone 5 mg tablet 5 mg PO QID PRN Pain 02/13/21 02/13/21 Unknown History pregabalin 25 mg capsule (Lyrica) 25 mg PO BID 02/13/21 02/13/21 Unknown History quetiapine 100 mg tablet 100 mg PO BID 02/13/21 02/13/21 Unknown History quetiapine 50 mg tablet 50 mg PO BID 02/13/21 02/13/21 Unknown History ropinirole 0.25 mg tablet 0.25 mg PO BID 02/13/21 02/13/21 Unknown History sennosides 8.6 mg tablet (senna) 8.6 mg PO DAILY PRN Constipation 02/13/21 02/13/21 Unknown History tamsulosin 0.4 mg capsule 0.4 mg PO DAILY 02/13/21 02/13/21 Unknown History torsemide 10 mg tablet 10 mg PO DAILY 02/13/21 02/13/21 Unknown History Physical Exam Vital Signs and Narrative: Vital Signs: Last Vital Signs Temp 97.8 F 01/23/22 20:20 Pulse 93 01/23/22 21:47 Resp 18 01/23/22 21:47 BP 147/100 H 01/23/22 21:47 Pulse Ox 97 01/23/22 21:47 O2 Del Method 01/23/22 21:47 BMI result Body Mass Index 19.6 Const: Other: Patient awake, sitting up in bed, calling out and name, not answering questions , not following command, not even not me when I am asking him questions General: cooperative and no acute distress Eyes: General: appearance normal, both eyes and all related structures Resp: Effort & Inspection: normal respiratory effort Auscultation: clear to auscultation bilaterally Cardio: Rate: regular rate Rhythm: regular rhythm GI: Palpation (GI): Soft to palpation Auscultation: normal bowel sounds Skin: General skin exam: no rashes or lesions noted Neuro: Other: Unable to conduct as patient is not following directions Extrem: General: Yes normal to inspection and Yes no pedal edema Results Labs CBC and Chem 7: 01/23/22 14:50 01/23/22 14:50 Labs: Laboratory Results - last 24 hr 01/23/22 01/23/22 01/23/22 14:50 14:50 14:50 MCV 89.3 MCH 28.9 MCHC 32.3 RDW 15.2 Plt Count 506 H MPV 8.9 L Immature Gran % (Auto) 0.7 H Neut % (Auto) 65.3 Lymph % (Auto) 22.0 Fajardo % (Auto) 10.9 Eos % (Auto) 0.0 Baso % (Auto) 1.1 Lymph # (Auto) 1.4 Fajardo # (Auto) 0.7 Eos # (Auto) 0.0 Baso # (Auto) 0.1 Abs Immat Gran (auto) 0.04 H Absolute Neuts (auto) 4.0 Absolute Nucleated RBC 0.000 Nucleated RBC % (auto) 0.0 PT 11.8 INR 1.0 Anion Gap 12 Estim Creat Clear Calc 39.5 Estimated GFR 45 Random Glucose 153 H Lactic Acid Calcium 8.9 D Magnesium 1.9 Total Bilirubin 0.5 AST 15 ALT 11 Alkaline Phosphatase 86 Total Protein 10.6 H Albumin 3.8 Urine Color Urine Appearance Urine pH Ur Specific Lebo Urine Protein Urine Glucose (UA) Urine Ketones Urine Blood Urine Nitrite Ur Leukocyte Esterase Urine RBC Urine WBC Ur Squamous Epith Cells Urine Bacteria Stool Occult Blood COVID-19 (HAYES) COVID-NOWBOX 01/23/22 01/23/22 01/23/22 14:51 17:35 18:13 MCV MCH MCHC RDW Plt Count MPV Immature Gran % (Auto) Neut % (Auto) Lymph % (Auto) F[place]ardo % (Auto) Eos % (Auto) Baso % (Auto) Lymph # (Auto) F[place]ardo # (Auto) Eos # (Auto) Baso # (Auto) Abs Immat Gran (auto) Absolute Neuts (auto) Absolute Nucleated RBC Nucleated RBC % (auto) PT INR Anion Gap Estim Creat Clear Calc Estimated GFR Random Glucose Lactic Acid 1.6 Calcium Magnesium Total Bilirubin AST ALT Alkaline Phosphatase Total Protein Albumin Urine Color YELLOW Urine Appearance CLEAR Urine pH 7.0 Ur Specific Lebo 1.010 Urine Protein 2+ H Urine Glucose (UA) NEG Urine Ketones NEG Urine Blood TRACE Urine Nitrite NEG Ur Leukocyte Esterase NEG Urine RBC 5-9 H Urine WBC 0 Ur Squamous Epith Cells 1+ Urine Bacteria NONE Stool Occult Blood NEGATIVE COVID-19 (HAYES) COVID-[employer] Com 01/23/22 21:45 MCV MCH MCHC RDW Plt Count MPV Immature Gran % (Auto) Neut % (Auto) Lymph % (Auto) [place]ardo % (Auto) Eos % (Auto) Baso % (Auto) Lymph # (Auto) [place]ardo # (Auto) Eos # (Auto) Baso # (Auto) Abs Immat Gran (auto) Absolute Neuts (auto) Absolute Nucleated RBC Nucleated RBC % (auto) PT INR Anion Gap Estim Creat Clear Calc Estimated GFR Random Glucose Lactic Acid Calcium Magnesium Total Bilirubin AST ALT Alkaline Phosphatase Total Protein Albumin Urine Color Urine Appearance Urine pH Ur Specific Lebo Urine Protein Urine Glucose (UA) Urine Ketones Urine Blood Urine Nitrite Ur Leukocyte Esterase Urine RBC Urine WBC Ur Squamous Epith Cells Urine Bacteria Stool Occult Blood COVID-19 (HAYES) Negative COVID-19 Clin Com See Note Imaging Radiologist's Impressions: Impressions Chest X-Ray 01/23/22 14:34 IMPRESSION: Hypoexpanded lungs with no acute process seen. Head CT 01/23/22 16:50 IMPRESSION: 1. There are no acute bleeds or territorial infarcts. No masses are demonstrated. 2. There are chronic microvascular ischemic changes and chronic lacunar infarcts. There is likely a chronic infarct in the left ross radiata/left centrum semiovale. There is diffuse volume loss. 3. 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 Assessment and Plan (1) Elevated troponin: Status: Acute (2) Headache: Status: Acute (3) Hypertensive urgency: Status: Acute Plan 61-year-old male with past medical history of CAD, CVA, as well as a resident of [facility] presents to the hospital with complaints of chest pain, headache, and was found to be hypertensive # elevated troponin - likely secondary to hypertensive urgency - no EKG changes suggestive of acute coronary syndrome - ED discussed case with Cardiology, patient will be admitted for further management and evaluation # headache - likely secondary to hypertensive urgency - head CT showed no acute bleeds or territorial infarct, no masses are demonstrated, chronic microvascular ischemic changes and chronic lacunar infarcts - supportive measure, Tylenol p.r.n. # chest pain - patient unable to elaborate on the chest pain - troponin is elevated as above, will trend -EKG shows T-wave inversions in leads V1 V2 V3 before which are present on previous EKG done in February of 2021 - cardiology on consult # hypertension urgency - elevated blood pressure, with a resultant elevated troponin - blood pressure stable at this time after receiving metoprolol IV - will continue his home antihypertensives- - monitor BP # diabetes - low-dose sliding scale insulin - hold oral antihyperglycemics # hypothyroidism - continue levothyroxine # schizoaffective disorder - continue antipsychotics DVT prophylaxis: Lovenox Quality Stroke Does the patient have a stroke diagnosis?: No VTE Prior VTE?: No VTE Risk Level:: Medical - moderate - high VTE Device Contraindication: Treatment Not Indicated VTE Drug Contraindication: N/A - Med Ordered
[2022-01-23] MEDS: Heparin Sodium,Porcine 5,000 UNIT/ML VIAL 5000 UNIT SUBCUT (23:52)
[2022-01-23] MEDS: 0.9 % Sodium Chloride Flush 3 ML SYRINGE IVFLUSH (23:53)
--- NOTE | 2022-01-24 02:01 | PC.NURSE ---
Report given to [facility], pt transferred to floor via stretcher. Speech consult ordered for pt- [facility] paperwork from pt arrival yesterday notated pt with difficulty swallowing- pt continued to have difficulty tonight, would ask for drink then blow bubbles with straw or spit water out if straw not positioned properly. No coughing or gurgling noted- pt just unable to drink beverages effectively. Nurse assuming care of pt and hospitalist notified.
[2022-01-24 02:36] VITALS: BP 138/85; PULSE 98; RESP 17; TEMP 36.9; O2SAT 97
[2022-01-24 04:00] VITALS: BP 138/85; PULSE 98; RESP 17; TEMP 36.9; O2SAT 97
[2022-01-24 04:11] VITALS: BMI 19.7
[2022-01-24 07:25] LABS: MANUAL DIFF FLAG NO
[2022-01-24 07:33] LABS: Basophils Absolute Auto 0.1 X10*3/uL (0.0-0.2); Basophils Percent Auto 0.5 % (0-2); Hematocrit 40.5 % (42.0-52.0); Hemoglobin 13.4 g/dl (14.0-18.0); Imm Gran Abs Auto 0.14 X10*3/uL (0.00-0.03); Lymphocytes Absolute Auto 1.4 X10*3/uL (1.2-4.9); Lymphocytes Percent Auto 10.5 % (20-40); Mean Corpuscular HGB Conc 33.1 g/dl (31.0-36.0); Mean Corpuscular Hemoglobin 29.7 pg (27.0-33.0); Mean Corpuscular Volume 89.8 fL (80.0-98.0); Mean Platelet Volume 9.4 fL (9.4-12.4); Monocytes Absolute Auto 1.2 X10*3/uL (0.1-1.2); Monocytes Percent Auto 8.4 % (2-11); Neutrophils Absolute Auto 10.9 x10*3/uL (2.0-8.3); Neutrophils Percent Auto 79.6 % (45-73); Platelet Count 653 X10*3/uL (160-400); Red Blood Count 4.51 X10*6/uL (4.60-5.80); Red Cell Distribution Width 15.6 % (11.0-16.0); White Blood Count 13.7 X10*3/uL (4.8-10.8)
[2022-01-24 07:46] LABS: Glucose, Whole Blood 215 mg/dL (60-115)
[2022-01-24 08:00] VITALS: BP 153/84; PULSE 118; RESP 18; TEMP 36.6; O2SAT 98
[2022-01-24 08:05] LABS: Anion Gap 19 (12-20); Blood Urea Nitrogen 20 mg/dL (9-16); Calcium 9.4 mg/dL (8.4-10.2); Carbon Dioxide 23 mmol/L (22-29); Chloride 99 mmol/L (96-108); Creatinine Clr Calc Pharmacy 30.3; Estimated Glomerular Filt Rate 33; Glucose Random 190 mg/dL (60-115); Potassium 4.5 mmol/L (3.3-5.1); Sodium 136 mmol/L (135-145)
[2022-01-24] MEDS: 0.9 % Sodium Chloride Flush 3 ML SYRINGE IVFLUSH ×2 (08:31→16:19)
[2022-01-24] MEDS: Insulin Lispro 100 UNIT/ML 3 ML VIAL SUBCUT ×2 (08:32→16:18)
--- NOTE | 2022-01-24 09:54 | PM.CNCAR ---
History of Present Illness History of Present Illness Date of Service: 01/24/22 Chief complaint: Headache,CP,hypertensive urgency Narrative: This is a cardiology consultation regarding elevated troponins and uncontrolled blood pressures as well as chest pain. Patient is from [facility] facility. There is no history available from the patient due to mental status. It seems that his roommate was unresponsive and subsequently, patient complained of chest pain and headache and had high blood pressure. Hence he was sent to the ER and admitted. Upon evaluation in the ER, found to have a pressure in the 180s over 100s and had elevated troponins. It is not possible to communicate with the patient due to his mental status. Hence no history is available from directly. He is somewhat morning and lying down in bed. Review of Systems Review of Systems: Unable to obtain review of systems from patient. Neurologic: Reports confusion Psychiatric: Psychiatric: Reports confusion [facility] Past Medical History Medical History Coronary artery disease Diastolic heart failure History of stroke Hyperlipidemia Hypertension Hypothyroidism Legal blindness Restless leg Schizoaffective disorder Seizure disorder Stage 3a chronic kidney disease Type 2 diabetes mellitus Urinary retention Family History Pertinent family history: Unable to obtain this information due to his mental status. Surgical History Surgical History History of coronary artery bypass graft Social History Social History Household Members: Other Household Members Other:: FACILITY Housing: Assisted Living Facility Do you presently have visiting nurse or other home services: No Patient Tobacco Use Status: Never used Tobacco Advance Directives: No Advance Directives Information Provided: No service: No Current occupational status: disabled Meds Allergies Allergy/AdvReac Type Severity Reaction Status Date / Time No Known Allergies Allergy Verified 10/22/21 10:29 Active Medications: Current Medications Acetaminophen (Acetaminophen 325 Mg Tablet) 650 mg PO Q6H PRN PRN Reason: Pain, Mild (Pain Scale 1-3) Dextrose (Dextrose 50 % 25 Gm/50 Ml Syringe) 25 gm IVPUSH Q15M PRN; Protocol PRN Reason: per Hypoglycemia Standing Ord. Docusate Sodium (Docusate Sodium 100 Mg Capsule) 100 mg PO DAILY PRN PRN Reason: Constipation Glucose (Glucose Gel 15 Gm Gel..Gram.) 15 gm PO Q15M PRN; Protocol PRN Reason: per Hypoglycemia Standing Ord. Heparin Sodium (Porcine) (Heparin Sodium,Porcine 5,000 Unit/Ml Vial) 5,000 unit SUBCUT Q12H [facility] Last Admin: 01/23/22 23:52 Dose: 5,000 unit Insulin Human Lispro (Insulin Lispro 100 Unit/Ml 3 Ml Vial) 0 unit SUBCUT QIDACHS [facility]; Protocol Last Admin: 01/24/22 08:32 Dose: 4 unit Ondansetron HCl (Ondansetron Hcl 4 Mg/2 Ml Vial) 4 mg IVPUSH Q8H PRN PRN Reason: Nausea and Vomiting Pharmacy Consult (Consult Rx Perform Med Rec) 1 each MISCELLANE ONCE PRN PRN Reason: Consult order Sodium Chloride (0.9 % Sodium Chloride Flush 3 Ml Syringe) 3 ml IVFLUSH QSHIFT [facility] Last Admin: 01/24/22 08:31 Dose: 3 ml Home Medications Medication Instructions Recorded Confirmed Last Taken Type acetaminophen 325 mg tablet 650 mg PO Q4H PRN Fever Or Pain 02/13/21 02/13/21 Unknown History ascorbic acid (vitamin C) 500 mg 500 mg PO BID 02/13/21 02/13/21 Unknown History tablet baclofen 5 mg tablet 5 mg PO BEDTIME 02/13/21 02/13/21 Unknown History bisacodyl 10 mg rectal suppository 10 mg SD DAILY PRN Constipation 02/13/21 02/13/21 Unknown History carvedilol 3.125 mg tablet 3.125 mg PO BID 02/13/21 02/13/21 Unknown History dorzolamide 2 %-timolol 0.5 % (PF) 1 drp ophthalmic (eye) BID 02/13/21 02/13/21 Unknown History eye drops ferrous sulfate 325 mg (65 mg 325 mg PO BID 02/13/21 02/13/21 Unknown History iron) tablet insulin glargine 100 unit/mL (3 20 unit subcut BEDTIME 02/13/21 02/13/21 Unknown History mL) subcutaneous pen (Lantus Solostar U-100 Insulin) isosorbide mononitrate 120 mg 120 mg PO DAILY 02/13/21 02/13/21 Unknown History tablet,extended release 24 hr levetiracetam 1,000 mg tablet 1,000 mg PO BID 02/13/21 02/13/21 Unknown History ([place]) levothyroxine 75 mcg tablet 75 mcg PO DAILY 02/13/21 02/13/21 Unknown History lorazepam 1 mg tablet 1 mg PO BID PRN Anxiety 02/13/21 02/13/21 Unknown History metformin 1,000 mg tablet 1,000 mg PO BID 02/13/21 02/13/21 Unknown History oxycodone 5 mg tablet 5 mg PO QID PRN Pain 02/13/21 02/13/21 Unknown History pregabalin 25 mg capsule (Lyrica) 25 mg PO BID 02/13/21 02/13/21 Unknown History quetiapine 100 mg tablet 100 mg PO BID 02/13/21 02/13/21 Unknown History quetiapine 50 mg tablet 50 mg PO BID 02/13/21 02/13/21 Unknown History ropinirole 0.25 mg tablet 0.25 mg PO BID 02/13/21 02/13/21 Unknown History sennosides 8.6 mg tablet (senna) 8.6 mg PO DAILY PRN Constipation 02/13/21 02/13/21 Unknown History tamsulosin 0.4 mg capsule 0.4 mg PO DAILY 02/13/21 02/13/21 Unknown History torsemide 10 mg tablet 10 mg PO DAILY 02/13/21 02/13/21 Unknown History Physical Exam Vital Signs: Vital Signs: Last Vital Signs Temp 98 F 01/24/22 08:00 Pulse 118 H 01/24/22 08:00 Resp 18 01/24/22 08:00 BP 153/84 H 01/24/22 08:00 Pulse Ox 98 01/24/22 08:00 O2 Del Method 01/24/22 08:00 BMI result Body Mass Index 19.7 Const: General: comfortable, no acute distress and confusion Orientation/consciousness: No patient oriented x3 and confusion HEENT: Other: Unremarkable Head: Yes normal to inspection Neck: Neck: Yes normal visual inspection Chest: Other: Sternotomy scar. Chest palpation & inspection: normal inspection of the chest Resp: Auscultation: clear to auscultation bilaterally Cardio: Palpation: normal PMI Heart sounds: S1 normal heart sound present, S2 normal heart sound present, no gallops, no murmurs and no rubs GI: Palpation (GI): Soft to palpation Back/Spine/Pelvis: Other: unremarkable Skin: General skin exam: no rashes or lesions noted Neuro: General: No patient oriented x3 and confusion Extrem: General: Yes normal to inspection Psych: Mental Status: mental status grossly abnormal Objective Labs and Meds Result diagrams: 01/24/22 07:08 01/24/22 07:08 Lab results: Laboratory Results - last 24 hr 01/23/22 01/23/22 01/23/22 14:50 14:50 14:50 WBC 6.1 RBC 4.12 L Hgb 11.9 L Hct 36.8 L MCV 89.3 MCH 28.9 MCHC 32.3 RDW 15.2 Plt Count 506 H MPV 8.9 L Immature Gran % (Auto) 0.7 H Neut % (Auto) 65.3 Lymph % (Auto) 22.0 [place] % (Auto) 10.9 Eos % (Auto) 0.0 Baso % (Auto) 1.1 Lymph # (Auto) 1.4 [place] # (Auto) 0.7 Eos # (Auto) 0.0 Baso # (Auto) 0.1 Abs Immat Gran (auto) 0.04 H Absolute Neuts (auto) 4.0 Absolute Nucleated RBC 0.000 Nucleated RBC % (auto) 0.0 PT 11.8 INR 1.0 Sodium 133 L Potassium 3.9 Chloride 99 Carbon Dioxide 26 Anion Gap 12 BUN 15 Creatinine 1.56 H Estim Creat Clear Calc 39.5 Estimated GFR 45 POC Glucose Random Glucose 153 H Lactic Acid Calcium 8.9 D Magnesium 1.9 Total Bilirubin 0.5 AST 15 ALT 11 Alkaline Phosphatase 86 Troponin I High Sens Total Protein 10.6 H Albumin 3.8 Urine Color Urine Appearance Urine pH Ur Specific [place] Urine Protein Urine Glucose (UA) Urine Ketones Urine Blood Urine Nitrite Ur Leukocyte Esterase Urine RBC Urine WBC Ur Squamous Epith Cells Urine Bacteria Stool Occult Blood COVID-19 ([facility]ES) COVID-19 Clin Com 01/23/22 01/23/22 01/23/22 14:50 14:51 17:35 WBC RBC Hgb Hct MCV MCH MCHC RDW Plt Count MPV Immature Gran % (Auto) Neut % (Auto) Lymph % (Auto) [place] % (Auto) Eos % (Auto) Baso % (Auto) Lymph # (Auto) [place] # (Auto) Eos # (Auto) Baso # (Auto) Abs Immat Gran (auto) Absolute Neuts (auto) Absolute Nucleated RBC Nucleated RBC % (auto) PT INR Sodium Potassium Chloride Carbon Dioxide Anion Gap BUN Creatinine Estim Creat Clear Calc Estimated GFR POC Glucose Random Glucose Lactic Acid 1.6 Calcium Magnesium Total Bilirubin AST ALT Alkaline Phosphatase Troponin I High Sens 25.9 Total Protein Albumin Urine Color YELLOW Urine Appearance CLEAR Urine pH 7.0 Ur Specific [place] 1.010 Urine Protein 2+ H Urine Glucose (UA) NEG Urine Ketones NEG Urine Blood TRACE Urine Nitrite NEG Ur Leukocyte Esterase NEG Urine RBC 5-9 H Urine WBC 0 Ur Squamous Epith Cells 1+ Urine Bacteria NONE Stool Occult Blood COVID-19 ([facility]AYES) COVID-19 Clin Com 01/23/22 01/23/22 01/23/22 17:40 18:13 20:23 WBC RBC Hgb Hct MCV MCH MCHC RDW Plt Count MPV Immature Gran % (Auto) Neut % (Auto) Lymph % (Auto) [place] % (Auto) Eos % (Auto) Baso % (Auto) Lymph # (Auto) [place] # (Auto) Eos # (Auto) Baso # (Auto) Abs Immat Gran (auto) Absolute Neuts (auto) Absolute Nucleated RBC Nucleated RBC % (auto) PT INR Sodium Potassium Chloride Carbon Dioxide Anion Gap BUN Creatinine Estim Creat Clear Calc Estimated GFR POC Glucose Random Glucose Lactic Acid Calcium Magnesium Total Bilirubin AST ALT Alkaline Phosphatase Troponin I High Sens 29.4 44.3 H D Total Protein Albumin Urine Color Urine Appearance Urine pH Ur Specific [place] Urine Protein Urine Glucose (UA) Urine Ketones Urine Blood Urine Nitrite Ur Leukocyte Esterase Urine RBC Urine WBC Ur Squamous Epith Cells Urine Bacteria Stool Occult Blood NEGATIVE COVID-19 ([facility]ES) COVID-19 Clin Com 01/23/22 01/24/22 01/24/22 21:45 07:08 07:08 WBC 13.7 H RBC 4.51 L Hgb 13.4 L Hct 40.5 L MCV 89.8 MCH 29.7 MCHC 33.1 RDW 15.6 Plt Count 653 H D MPV 9.4 Immature Gran % (Auto) 1.0 H Neut % (Auto) 79.6 H Lymph % (Auto) 10.5 L [place] % (Auto) 8.4 Eos % (Auto) 0.0 Baso % (Auto) 0.5 Lymph # (Auto) 1.4 [place] # (Auto) 1.2 Eos # (Auto) 0.0 Baso # (Auto) 0.1 Abs Immat Gran (auto) 0.14 H Absolute Neuts (auto) 10.9 H Absolute Nucleated RBC 0.000 Nucleated RBC % (auto) 0.0 PT INR Sodium 136 Potassium 4.5 Chloride 99 Carbon Dioxide 23 Anion Gap 19 BUN 20 H Creatinine 2.04 H Estim Creat Clear Calc 30.3 Estimated GFR 33 POC Glucose Random Glucose 190 H Lactic Acid Calcium 9.4 Magnesium Total Bilirubin AST ALT Alkaline Phosphatase Troponin I High Sens Total Protein Albumin Urine Color Urine Appearance Urine pH Ur Specific [place] Urine Protein Urine Glucose (UA) Urine Ketones Urine Blood Urine Nitrite Ur Leukocyte Esterase Urine RBC Urine WBC Ur Squamous Epith Cells Urine Bacteria Stool Occult Blood COVID-19 ([facility]AYES) Negative COVID-19 Clin Com See Note 01/24/22 07:43 WBC RBC Hgb Hct MCV MCH MCHC RDW Plt Count MPV Immature Gran % (Auto) Neut % (Auto) Lymph % (Auto) [place] % (Auto) Eos % (Auto) Baso % (Auto) Lymph # (Auto) [place] # (Auto) Eos # (Auto) Baso # (Auto) Abs Immat Gran (auto) Absolute Neuts (auto) Absolute Nucleated RBC Nucleated RBC % (auto) PT INR Sodium Potassium Chloride Carbon Dioxide Anion Gap BUN Creatinine Estim Creat Clear Calc Estimated GFR POC Glucose 215 H Random Glucose Lactic Acid Calcium Magnesium Total Bilirubin AST ALT Alkaline Phosphatase Troponin I High Sens Total Protein Albumin Urine Color Urine Appearance Urine pH Ur Specific [place] Urine Protein Urine Glucose (UA) Urine Ketones Urine Blood Urine Nitrite Ur Leukocyte Esterase Urine RBC Urine WBC Ur Squamous Epith Cells Urine Bacteria Stool Occult Blood COVID-19 ([facility]ES) COVID-19 Clin Com ECG Interpretation: EKG with sinus rhythm at 74/Min; right bundle-branch block. Leftward axis. Left atrial abnormality. Nonspecific ST-T changes. In the repeat EKG, above findings with sinus tachycardia. Overall, not much different from before. Imaging Radiologist's impression: Impressions Chest X-Ray 01/23/22 14:34 IMPRESSION: Hypoexpanded lungs with no acute process seen. Head CT 01/23/22 16:50 IMPRESSION: 1. There are no acute bleeds or territorial infarcts. No masses are demonstrated. 2. There are chronic microvascular ischemic changes and chronic lacunar infarcts. There is likely a chronic infarct in the left ross radiata/left centrum semiovale. There is diffuse volume loss. 3. 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 Assessment and Plan (1) Hypertensive urgency: Status: Acute (2) Elevated troponin: Status: Acute Plan Blood pressure in the ER as much as 178/128 mm Hg. Most recently, 153/84 mm Hg. Heart rate-tachycardic, sinus tachycardia Labs with elevation of creatinine to 2.04. He does have CKD. Slightly above his baseline. High sensitivity troponins are 25.9, 29.4 and 44.3. Echocardiogram last year done setting of elevated troponins shows normal LVEF at 55-60%; wall motion abnormalities to suggest underlying coronary disease. As described above, there is sternotomy scar on exam. Overall, poorly controlled blood pressure, sinus tachycardia, elevated troponins from high blood pressures. We can go up on his home beta-george dose. He seems to be on carvedilol 3.125 b.i.d. and we can double that up. He is on high dose of isosorbide mononitrate, statins and dose can be continued. Should be on aspirin as well. Discussed with Dr. Peralta. Procedures Date of Service Date of Service: 01/24/22
--- NOTE | 2022-01-24 10:32 | PHA.MEDREC ---
Pharmacy Consult ? Medication Reconciliation Pharmacy has completed the medication reconciliation. Med list from order summary report [facility] [place]
--- NOTE | 2022-01-24 11:30 | HO.PM.IMPN ---
Subjective Subjective Date of Service: 01/24/22 Interval History: Seen and evaluated this morning Difficult to assess, altered mentation, answers with yes and no only Not taking his medications this morning No other overnight events Review of Systems Review of Systems: Yes Unobtainable due to mental status Physical Exam Vital Signs: Vital Signs: Last Vital Signs Temp 98 F 01/24/22 08:00 Pulse 118 H 01/24/22 08:00 Resp 18 01/24/22 08:00 BP 153/84 H 01/24/22 08:00 Pulse Ox 98 01/24/22 08:00 O2 Del Method 01/24/22 08:00 BMI result Body Mass Index 19.7 Const: Other: Constitutional : Alert with stimulation, confused, not in distress Neck : Normal inspection, Supple Cardiovascular : RRR, no JVP, no lower extremity edema Respiratory : fair bilateral air entry, no crackles, wheezes or rhonchi Gastrointestinal: soft, lax, Normal bowel sounds, Non tender Skin : Warm, Dry skin, sternotomy scar Neurological : Alert & disoriented, contracted, No focal deficit Objective Data Active Medications Acetaminophen (Acetaminophen 325 Mg Tablet) 650 mg PO Q6H PRN PRN Reason: Pain, Mild (Pain Scale 1-3) Aspirin (Aspirin Enteric Coated 81 Mg Tablet.Dr) 81 mg PO DAILY [facility] Carvedilol (Carvedilol 6.25 Mg Tablet) 6.25 mg PO BID [facility]; Protocol Dextrose (Dextrose 50 % 25 Gm/50 Ml Syringe) 25 gm IVPUSH Q15M PRN; Protocol PRN Reason: per Hypoglycemia Standing Ord. Docusate Sodium (Docusate Sodium 100 Mg Capsule) 100 mg PO DAILY PRN PRN Reason: Constipation Glucose (Glucose Gel 15 Gm Gel..Gram.) 15 gm PO Q15M PRN; Protocol PRN Reason: per Hypoglycemia Standing Ord. Heparin Sodium (Porcine) (Heparin Sodium,Porcine 5,000 Unit/Ml Vial) 5,000 unit SUBCUT Q12H [facility] Last Admin: 01/23/22 23:52 Dose: 5,000 unit Documented By: PIYUSH Insulin Human Lispro (Insulin Lispro 100 Unit/Ml 3 Ml Vial) 0 unit SUBCUT QIDACHS [facility]; Protocol Last Admin: 01/24/22 08:32 Dose: 4 unit Documented By: AUBREE Isosorbide Mononitrate (Isosorbide Mononitrate 60 Mg Tab.Er.24h) 120 mg PO DAILY [facility]; Protocol Ondansetron HCl (Ondansetron Hcl 4 Mg/2 Ml Vial) 4 mg IVPUSH Q8H PRN PRN Reason: Nausea and Vomiting Pharmacy Consult (Consult Rx Perform Med Rec) 1 each MISCELLANE ONCE PRN PRN Reason: Consult order Pharmacy Consult (Consult Rx Perform Med Rec) 1 each MISCELLANE ONCE PRN PRN Reason: Consult order Sodium Chloride (0.9 % Sodium Chloride Flush 3 Ml Syringe) 3 ml IVFLUSH QSHIFT [facility] Last Admin: 01/24/22 08:31 Dose: 3 ml Documented By: AUBREE Labs CBC & Chem 7: 01/24/22 07:08 01/24/22 07:08 Labs: Laboratory Results - last 24 hr 01/23/22 01/23/22 01/23/22 14:50 14:50 14:50 MCV 89.3 MCH 28.9 MCHC 32.3 RDW 15.2 Plt Count 506 H MPV 8.9 L Immature Gran % (Auto) 0.7 H Neut % (Auto) 65.3 Lymph % (Auto) 22.0 [place] % (Auto) 10.9 Eos % (Auto) 0.0 Baso % (Auto) 1.1 Lymph # (Auto) 1.4 [place] # (Auto) 0.7 Eos # (Auto) 0.0 Baso # (Auto) 0.1 Abs Immat Gran (auto) 0.04 H Absolute Neuts (auto) 4.0 Absolute Nucleated RBC 0.000 Nucleated RBC % (auto) 0.0 PT 11.8 INR 1.0 Anion Gap 12 Estim Creat Clear Calc 39.5 Estimated GFR 45 POC Glucose Random Glucose 153 H Lactic Acid Calcium 8.9 D Magnesium 1.9 Total Bilirubin 0.5 AST 15 ALT 11 Alkaline Phosphatase 86 Total Protein 10.6 H Albumin 3.8 Urine Color Urine Appearance Urine pH Ur Specific [place] Urine Protein Urine Glucose (UA) Urine Ketones Urine Blood Urine Nitrite Ur Leukocyte Esterase Urine RBC Urine WBC Ur Squamous Epith Cells Urine Bacteria Stool Occult Blood COVID-19 ([facility]) COVID-19 Clin Com 01/23/22 01/23/22 01/23/22 14:51 17:35 18:13 MCV MCH MCHC RDW Plt Count MPV Immature Gran % (Auto) Neut % (Auto) Lymph % (Auto) [place] % (Auto) Eos % (Auto) Baso % (Auto) Lymph # (Auto) [place] # (Auto) Eos # (Auto) Baso # (Auto) Abs Immat Gran (auto) Absolute Neuts (auto) Absolute Nucleated RBC Nucleated RBC % (auto) PT INR Anion Gap Estim Creat Clear Calc Estimated GFR POC Glucose Random Glucose Lactic Acid 1.6 Calcium Magnesium Total Bilirubin AST ALT Alkaline Phosphatase Total Protein Albumin Urine Color YELLOW Urine Appearance CLEAR Urine pH 7.0 Ur Specific [place] 1.010 Urine Protein 2+ H Urine Glucose (UA) NEG Urine Ketones NEG Urine Blood TRACE Urine Nitrite NEG Ur Leukocyte Esterase NEG Urine RBC 5-9 H Urine WBC 0 Ur Squamous Epith Cells 1+ Urine Bacteria NONE Stool Occult Blood NEGATIVE COVID-19 ([facility]ES) COVID-19 Clin Com 01/23/22 01/24/22 01/24/22 21:45 07:08 07:08 MCV 89.8 MCH 29.7 MCHC 33.1 RDW 15.6 Plt Count 653 H D MPV 9.4 Immature Gran % (Auto) 1.0 H Neut % (Auto) 79.6 H Lymph % (Auto) 10.5 L [place] % (Auto) 8.4 Eos % (Auto) 0.0 Baso % (Auto) 0.5 Lymph # (Auto) 1.4 [place] # (Auto) 1.2 Eos # (Auto) 0.0 Baso # (Auto) 0.1 Abs Immat Gran (auto) 0.14 H Absolute Neuts (auto) 10.9 H Absolute Nucleated RBC 0.000 Nucleated RBC % (auto) 0.0 PT INR Anion Gap 19 Estim Creat Clear Calc 30.3 Estimated GFR 33 POC Glucose Random Glucose 190 H Lactic Acid Calcium 9.4 Magnesium Total Bilirubin AST ALT Alkaline Phosphatase Total Protein Albumin Urine Color Urine Appearance Urine pH Ur Specific [place] Urine Protein Urine Glucose (UA) Urine Ketones Urine Blood Urine Nitrite Ur Leukocyte Esterase Urine RBC Urine WBC Ur Squamous Epith Cells Urine Bacteria Stool Occult Blood COVID-19 ([facility]AYES) Negative COVID-19 Clin Com See Note 01/24/22 07:43 MCV MCH MCHC RDW Plt Count MPV Immature Gran % (Auto) Neut % (Auto) Lymph % (Auto) [place] % (Auto) Eos % (Auto) Baso % (Auto) Lymph # (Auto) [place] # (Auto) Eos # (Auto) Baso # (Auto) Abs Immat Gran (auto) Absolute Neuts (auto) Absolute Nucleated RBC Nucleated RBC % (auto) PT INR Anion Gap Estim Creat Clear Calc Estimated GFR POC Glucose 215 H Random Glucose Lactic Acid Calcium Magnesium Total Bilirubin AST ALT Alkaline Phosphatase Total Protein Albumin Urine Color Urine Appearance Urine pH Ur Specific [place] Urine Protein Urine Glucose (UA) Urine Ketones Urine Blood Urine Nitrite Ur Leukocyte Esterase Urine RBC Urine WBC Ur Squamous Epith Cells Urine Bacteria Stool Occult Blood COVID-19 ([facility]ES) COVID-19 Clin Com Assessment and Plan (1) Headache: Status: Acute (2) Elevated troponin: Status: Acute (3) Hypertensive urgency: Status: Acute Plan 61-year-old male with past medical history of CAD, CVA, as [facility] with complaints of chest pain, headache, and was found to be hypertensive # elevated troponin Denies any chest pain likely secondary to hypertensive urgency Increase beta-george doses Continue baby aspirin Cardiology input appreciated # headache secondary to hypertensive urgency head CT showed no acute bleeds or territorial infarct Control blood pressure, Tylenol p.r.n. # hypertension urgency Better controlled this morning Increase beta-george, continue isosorbide mononitrate # diabetes low-dose sliding scale insulin hold oral antihyperglycemics # hypothyroidism continue levothyroxine # schizoaffective disorder continue antipsychotics Cut down Seroquel 200 at bedtime DVT prophylaxis: Lovenox Quality Stroke Does the patient have a stroke diagnosis?: No VTE Prior VTE?: No VTE Risk Level:: Medical - moderate - high VTE Device Contraindication: Treatment Not Indicated VTE Drug Contraindication: N/A - Med Ordered
[2022-01-24 11:34] LABS: Glucose, Whole Blood 161 mg/dL (60-115)
[2022-01-24 11:54] VITALS: BP 139/86; PULSE 116; RESP 18; TEMP 36.1; O2SAT 98
[2022-01-24] MEDS: Heparin Sodium,Porcine 5,000 UNIT/ML VIAL 5000 UNIT SUBCUT (13:02)
[2022-01-24 15:57] VITALS: BP 164/111; PULSE 111; RESP 20; TEMP 37.1; O2SAT 98
[2022-01-24 16:06] LABS: Glucose, Whole Blood 204 mg/dL (60-115)
--- NOTE | 2022-01-24 17:14 | PC.NURSE ---
Pt unable to take po meds, liquids or applesauce. Opens mouth and holds open and doesnt swallow. Does not follow commands when instructed to close mouth and swallow. Speech garbled, only says a word or 2 at a time. Stares around room. Contacted [facility] who state this is not patients baseline.
[2022-01-24] MEDS: levETIRAcetam in NaCl (iso-os) 1,000 MG/100 ML PIGGYBACK 400 MG IV (17:38)
[2022-01-24 20:00] VITALS: BP 137/94; PULSE 94; RESP 20; TEMP 37.3; O2SAT 97
[2022-01-24 20:20] LABS: Glucose, Whole Blood 169 mg/dL (60-115)
[2022-01-25] VITALS (8 sets, daily range): BP systolic 117–176; BP diastolic 73–112; PULSE 79–110; RESP 16–32; TEMP 36.1–38.1; O2SAT 95–98
[2022-01-25] MEDS: Heparin Sodium,Porcine 5,000 UNIT/ML VIAL 5000 UNIT SUBCUT ×3 (01:32→22:54)
[2022-01-25] MEDS: 0.9 % Sodium Chloride Flush 3 ML SYRINGE IVFLUSH ×2 (01:32→08:20)
[2022-01-25 04:26] LABS: Hematocrit 40.2 % (42.0-52.0); Hemoglobin 13.5 g/dl (14.0-18.0); Mean Corpuscular HGB Conc 33.6 g/dl (31.0-36.0); Mean Corpuscular Hemoglobin 29.5 pg (27.0-33.0); Mean Platelet Volume 9.4 fL (9.4-12.4); Platelet Count 581 X10*3/uL (160-400); Red Blood Count 4.57 X10*6/uL (4.60-5.80); Red Cell Distribution Width 16.1 % (11.0-16.0)
[2022-01-25 04:47] LABS: Anion Gap 23 (12-20); Blood Urea Nitrogen 37 mg/dL (9-16); Calcium 9.1 mg/dL (8.4-10.2); Carbon Dioxide 16 mmol/L (22-29); Chloride 103 mmol/L (96-108); Creatinine Clr Calc Pharmacy 25.8; Estimated Glomerular Filt Rate 28; Glucose Random 221 mg/dL (60-115); Magnesium 2.2 mg/dL (1.6-2.6); Potassium 4.5 mmol/L (3.3-5.1); Sodium 137 mmol/L (135-145)
[2022-01-25 04:48] LABS: Anion Gap 21 (12-20); Blood Urea Nitrogen 37 mg/dL (9-16); Calcium 9.2 mg/dL (8.4-10.2); Carbon Dioxide 17 mmol/L (22-29); Chloride 102 mmol/L (96-108); Creatinine Clr Calc Pharmacy 25.5; Estimated Glomerular Filt Rate 27; Glucose Random 222 mg/dL (60-115); Potassium 4.4 mmol/L (3.3-5.1); Sodium 136 mmol/L (135-145)
[2022-01-25] MEDS: levETIRAcetam in NaCl (iso-os) 1,000 MG/100 ML PIGGYBACK 400 MG IV ×2 (06:39→17:21)
[2022-01-25 07:29] LABS: Glucose, Whole Blood 235 mg/dL (60-115)
--- NOTE | 2022-01-25 07:44 | HO.PM.IMPN ---
Subjective Subjective Date of Service: 01/25/22 Interval History: Seen and evaluated this morning Altered mentation, nonverbal this morning Not taking his medications or oral intake has been spiking fevers this morning No other overnight events Review of Systems Review of Systems: Yes Unobtainable due to mental status Physical Exam Vital Signs: Vital Signs: Last Vital Signs Temp 100.6 F H 01/25/22 03:03 Pulse 101 H 01/25/22 03:03 Resp 20 01/25/22 03:03 BP 157/100 H 01/25/22 03:03 Pulse Ox 96 01/25/22 03:03 O2 Del Method 01/25/22 03:03 BMI result Body Mass Index 19.7 Const: Other: Constitutional : Alert with stimulation but not responding or following commands, not in distress Neck : Normal inspection, Supple Cardiovascular : RRR, no JVP, no lower extremity edema Respiratory : fair bilateral air entry, no crackles, wheezes or rhonchi Gastrointestinal: soft, lax, Normal bowel sounds, Non tender Skin : Warm, Dry skin, sternotomy scar Neurological : Alert with stimulation but not interactive at all, contracted, No focal deficit Objective Data Active Medications Acetaminophen (Acetaminophen 325 Mg Tablet) 650 mg PO Q6H PRN PRN Reason: Pain, Mild (Pain Scale 1-3) Acetaminophen (Acetaminophen 325 Mg Tablet) 650 mg PO Q4H PRN PRN Reason: Fever Or Pain Aspirin (Aspirin Enteric Coated 81 Mg Tablet.Dr) 81 mg PO DAILY COUNT INCLUDES THE [facility] Atorvastatin Calcium (Atorvastatin Calcium 10 Mg Tablet) 10 mg PO BEDTIME COUNT INCLUDES THE [facility] Last Admin: 01/24/22 21:19 Dose: Not Given Documented By: SOL Non-Admin Reason: NPO Baclofen (Baclofen 10 Mg Tablet) 5 mg PO BEDTIME COUNT INCLUDES THE [facility] Last Admin: 01/24/22 21:19 Dose: Not Given Documented By: SOL Non-Admin Reason: NPO Bisacodyl (Bisacodyl 10 Mg Supp.Rect) 10 mg PA DAILY PRN PRN Reason: Constipation Carvedilol (Carvedilol 6.25 Mg Tablet) 6.25 mg PO BID COUNT INCLUDES THE [facility]; Protocol Last Admin: 01/24/22 21:19 Dose: Not Given Documented By: SOL Non-Admin Reason: NPO Dextrose (Dextrose 50 % 25 Gm/50 Ml Syringe) 25 gm IVPUSH Q15M PRN; Protocol PRN Reason: per Hypoglycemia Standing Ord. Docusate Sodium (Docusate Sodium 100 Mg Capsule) 100 mg PO DAILY PRN PRN Reason: Constipation Glucose (Glucose Gel 15 Gm Gel..Gram.) 15 gm PO Q15M PRN; Protocol PRN Reason: per Hypoglycemia Standing Ord. Heparin Sodium (Porcine) (Heparin Sodium,Porcine 5,000 Unit/Ml Vial) 5,000 unit SUBCUT Q12H COUNT INCLUDES THE [facility] Last Admin: 01/25/22 01:32 Dose: 5,000 unit Documented By: RANDEE Levetiracetam (Keppra) 1,000 mg in 100 mls @ 400 mls/hr IV Q12H COUNT INCLUDES THE [facility] Last Infusion: 01/25/22 07:18 Dose: 0 mls/hr Documented By: RANDEE Insulin Human Lispro (Insulin Lispro 100 Unit/Ml 3 Ml Vial) 0 unit SUBCUT QIDACHS COUNT INCLUDES THE [facility]; Protocol Last Admin: 01/24/22 21:20 Dose: Not Given Documented By: SOL Non-Admin Reason: NPO Isosorbide Mononitrate (Isosorbide Mononitrate 60 Mg Tab.Er.24h) 120 mg PO DAILY COUNT INCLUDES THE [facility]; Protocol Labetalol HCl (Labetalol Hcl 20 Mg/4 Ml Syringe) 5 mg IVPUSH QID COUNT INCLUDES THE [facility] Last Admin: 01/24/22 21:17 Dose: 5 mg Documented By: SOL Levothyroxine Sodium (Levothyroxine Sodium 75 Mcg Tablet) 75 mcg PO DAILY@0630 COUNT INCLUDES THE [facility] Lorazepam (Lorazepam 1 Mg Tablet) 1 mg PO BID PRN PRN Reason: Anxiety Multivitamins/Vitamin C (Multivitamin Tablet) 1 tab PO DAILY COUNT INCLUDES THE [facility] Ondansetron HCl (Ondansetron Hcl 4 Mg/2 Ml Vial) 4 mg IVPUSH Q8H PRN PRN Reason: Nausea and Vomiting Pharmacy Consult (Consult Rx Perform Med Rec) 1 each MISCELLANE ONCE PRN PRN Reason: Consult order Pregabalin (Pregabalin 25 Mg Capsule) 25 mg PO BID COUNT INCLUDES THE [facility] Last Admin: 01/24/22 21:19 Dose: Not Given Documented By: SOL Non-Admin Reason: NPO Quetiapine Fumarate (Quetiapine Fumarate 50 Mg Tablet) 50 mg PO BID COUNT INCLUDES THE [facility] Last Admin: 01/24/22 21:19 Dose: Not Given Documented By: SOL Non-Admin Reason: NPO Ropinirole HCl (Ropinirole Hcl 0.25 Mg Tablet) 0.25 mg PO BID COUNT INCLUDES THE [facility] Last Admin: 01/24/22 21:20 Dose: Not Given Documented By: SOL Non-Admin Reason: NPO Senna (Sennosides 8.6 Mg Tablet) 8.6 mg PO DAILY PRN PRN Reason: Constipation Sodium Chloride (0.9 % Sodium Chloride Flush 3 Ml Syringe) 3 ml IVFLUSH QSHIFT COUNT INCLUDES THE [facility] Last Admin: 01/25/22 01:32 Dose: 3 ml Documented By: RANDEE Tamsulosin HCl (Tamsulosin Hcl 0.4 Mg Capsule) 0.4 mg PO DAILY@1730 COUNT INCLUDES THE [facility] Last Admin: 01/24/22 16:19 Dose: Not Given Documented By: AUBREE Non-Admin Reason: unable to swallow Torsemide (Torsemide 20 Mg Tablet) 10 mg PO DAILY COUNT INCLUDES THE [facility]; Protocol Labs CBC & Chem 7: 01/25/22 04:01 01/25/22 04:01 Labs: Laboratory Results - last 24 hr 01/24/22 01/24/22 01/24/22 07:08 07:43 11:30 MCV MCH MCHC RDW Plt Count MPV Absolute Nucleated RBC Nucleated RBC % (auto) Anion Gap 19 Estim Creat Clear Calc 30.3 Estimated GFR 33 POC Glucose 215 H 161 H Random Glucose 190 H Calcium 9.4 Magnesium 01/24/22 01/24/22 01/25/22 15:55 20:05 04:01 MCV 88.0 MCH 29.5 MCHC 33.6 RDW 16.1 H Plt Count 581 H MPV 9.4 Absolute Nucleated RBC 0.000 Nucleated RBC % (auto) 0.0 Anion Gap Estim Creat Clear Calc Estimated GFR POC Glucose 204 H 169 H Random Glucose Calcium Magnesium 01/25/22 01/25/22 01/25/22 04:01 04:01 07:16 MCV MCH MCHC RDW Plt Count MPV Absolute Nucleated RBC Nucleated RBC % (auto) Anion Gap 21 H 23 H Estim Creat Clear Calc 25.5 25.8 Estimated GFR 27 28 POC Glucose 235 H Random Glucose 222 H 221 H Calcium 9.2 9.1 Magnesium 2.2 Microbiology Microbiology Results: Microbiology 01/23/22 14:50 Blood Culture - Preliminary Blood - Venous No growth after 24 hours. 01/23/22 14:50 Blood Culture - Preliminary Blood - Venous No growth after 24 hours. Assessment and Plan (1) Hypertensive urgency: Status: Acute (2) SIRS (systemic inflammatory response syndrome): Status: Acute Plan 61-year-old male with past medical history of CAD, CVA, as well as a resident of [facility] presents to the hospital with complaints of chest pain, headache, and was found to be hypertensive # SIRS Fever, Lactic acidosis and tachycardia No clear source of infection identified Fever of 102 Tylenol as needed IVF boluses for LA, follow Cultures, CXR, UA and CT Abdomen Ceftriaxone and Azithromycin # toxic metabolic encephalopathy secondary to possible infection, fever,hypertensive emergency Increase beta-george doses starts IV antibiotics Recurrent reorientation # headache secondary to hypertensive urgency head CT showed no acute bleeds or territorial infarct Control blood pressure, Tylenol p.r.n. # hypertension urgency elevated troponin secondary to hypertension Better controlled this morning Not taking p.o. medications, increase labetalol to 10 mg q.i.d. cardiology following, continue baby aspirin # diabetes low-dose sliding scale insulin hold oral antihyperglycemics # hypothyroidism continue levothyroxine # schizoaffective disorder continue antipsychotics Cut down Seroquel 200 at bedtime DVT prophylaxis: Lovenox Quality Stroke Does the patient have a stroke diagnosis?: No VTE Prior VTE?: No VTE Risk Level:: Medical - moderate - high VTE Device Contraindication: Treatment Not Indicated VTE Drug Contraindication: N/A - Med Ordered
[2022-01-25] MEDS: cefTRIAXone sodium 1 GM in 0.9 % Sodium Chloride 50 ML IV (08:20)
[2022-01-25] MEDS: 0.9 % Sodium Chloride 1,000 ML 125 ML IVCONT ×2 (08:20→22:54)
[2022-01-25] MEDS: Insulin Lispro 100 UNIT/ML 3 ML VIAL SUBCUT ×2 (08:27→21:11)
[2022-01-25 08:57] LABS: Lactic Acid 2.5 mmol/L (0.5-2.0)
[2022-01-25 10:01] LABS: Reflex Lactate? Lactic Acid Added
[2022-01-25] MEDS: 0.9 % Sodium Chloride 1,000 ML 999 ML IV ×4 (10:29→16:20)
[2022-01-25 11:16] LABS: COVID-19 Test Negative (Negative); IDNOW Serial# 16C4AD1C
--- NOTE | 2022-01-25 11:35 | PM.PNCARD ---
Subjective Subjective Date of Service: 01/25/22 Interval history: Patient is nonverbal. Not able to give any information. Review of Systems Review of Systems Unable to obtain review of systems due to mental status. Physical Exam Vital Signs: Last Vital Signs Temp 99.9 F 01/25/22 08:00 Pulse 110 H 01/25/22 08:00 Resp 32 H 01/25/22 08:00 BP 160/112 H 01/25/22 08:00 Pulse Ox 95 01/25/22 08:00 O2 Del Method 01/25/22 08:00 BMI result Body Mass Index 19.7 Const General: comfortable and no acute distress Orientation/consciousness: No patient oriented x3 HEENT Other: Unremarkable Head: Yes normal to inspection Neck Neck: Yes normal visual inspection Chest Other: Sternotomy scar. Chest palpation & inspection: normal inspection of the chest Resp Auscultation: clear to auscultation bilaterally Cardio Palpation: normal PMI Heart sounds: S1 normal heart sound present, S2 normal heart sound present, no gallops, no murmurs and no rubs GI Palpation (GI): Soft to palpation Back/Spine/Pelvis Other: unremarkable Skin General skin exam: no rashes or lesions noted Neuro General: No patient oriented x3 Extrem General: Yes normal to inspection Psych Mental Status: mental status grossly abnormal Objective Labs and Meds Result diagrams: 01/25/22 04:01 01/25/22 04:01 Lab results: Laboratory Results - last 24 hr 01/24/22 01/24/22 01/25/22 15:55 20:05 04:01 WBC 14.0 H RBC 4.57 L Hgb 13.5 L Hct 40.2 L MCV 88.0 MCH 29.5 MCHC 33.6 RDW 16.1 H Plt Count 581 H MPV 9.4 Absolute Nucleated RBC 0.000 Nucleated RBC % (auto) 0.0 Sodium Potassium Chloride Carbon Dioxide Anion Gap BUN Creatinine Estim Creat Clear Calc Estimated GFR POC Glucose 204 H 169 H Random Glucose Lactic Acid Calcium Magnesium COVID-19 ([facility]) COVID-19 Clin Com 01/25/22 01/25/22 01/25/22 04:01 04:01 07:16 WBC RBC Hgb Hct MCV MCH MCHC RDW Plt Count MPV Absolute Nucleated RBC Nucleated RBC % (auto) Sodium 136 137 Potassium 4.4 4.5 Chloride 102 103 Carbon Dioxide 17 L 16 L Anion Gap 21 H 23 H BUN 37 H D 37 H Creatinine 2.43 H 2.40 H Estim Creat Clear Calc 25.5 25.8 Estimated GFR 27 28 POC Glucose 235 H Random Glucose 222 H 221 H Lactic Acid Calcium 9.2 9.1 Magnesium 2.2 COVID-19 ([facility]) COVID-19 Clin Com 01/25/22 01/25/22 07:49 10:35 WBC RBC Hgb Hct MCV MCH MCHC RDW Plt Count MPV Absolute Nucleated RBC Nucleated RBC % (auto) Sodium Potassium Chloride Carbon Dioxide Anion Gap BUN Creatinine Estim Creat Clear Calc Estimated GFR POC Glucose Random Glucose Lactic Acid 2.5 H* Calcium Magnesium COVID-19 ([facility]) Negative COVID-19 Clin Com See Note Imaging Radiologist's impression: Impressions Chest X-Ray 01/25/22 08:20 IMPRESSION: No evidence for acute disease in the chest. Progress Note: A&P Assessment and plan (1) Hypertensive urgency: Status: Acute (2) Elevated troponin: Status: Acute Plan Blood pressures are still running quite high. Most recent blood pressure is 160/112 mm Hg. Based on vital signs, still tachycardic. Elevated creatinine noted. About his baseline. High sensitivity troponins are 25.9, 29.4 and 44.3. Echocardiogram last year done in setting of elevated troponins shows normal LVEF at 55-60%; wall motion abnormalities to suggest underlying coronary disease. There is sternotomy scar on exam. Overall, poorly controlled blood pressure, sinus tachycardia, elevated troponins from high blood pressures. We can continue to increase the beta-george dosing. Hopefully that will help the heart rate as well as the blood pressure. He is also on high dose of Imdur that can be continued. On statins and aspirin. Discussed with Dr. Peralta. Time Spent With Patient Time: Total time spent is greater than 50% in coordination of care (as documented) at patient's floor/unit and/or counseling patient: 35min. Progress Note: Quality Stroke Does the patient have a stroke diagnosis?: No Procedures Date of Service Date of Service: 01/25/22
[2022-01-25 11:53] LABS: ~Lactic Acid-LAB USE ONLY 2.5 mmol/L (0.5-2.0)
[2022-01-25 12:54] LABS: Reflex Lactate? 2 Y
[2022-01-25] MEDS: Azithromycin 500 MG in 0.9 % Sodium Chloride 250 ML 125 MG IV (13:02)
--- NOTE | 2022-01-25 13:41 | CONS_ITS ---
DATE OF SERVICE: REASON FOR CONSULTATION: I was called to see this patient to assist in the management of patient's acute renal failure. HISTORY OF PRESENT ILLNESS: To summarize, Miquel is a 61-year-old man with a history of chronic kidney disease with a baseline creatinine of 1.58 mg/dL to 1.7 mg/dL. He is a resident of [facility]. He was brought in because of hypertension and some vague chest pain. At the time of admission, creatinine was around 2, which is increased to 2.4 mg/dL. The patient is unable to give a good history. Appears confused. Most of information obtained from the chart and the team. His ongoing medical problems include history of coronary disease, diastolic heart failure, stroke, hyperlipidemia, hypertension, chronic kidney disease stage 3, restless legs syndrome, schizoaffective disorder, seizures, diabetes mellitus, and history of urinary retention. SOCIAL HISTORY: He is a resident of [facility]. No history of any smoking or alcohol abuse has been documented. ALLERGIES: NO KNOWN DRUG ALLERGIES HAVE BEEN REPORTED. MEDICATIONS: Tylenol, vitamin C, baclofen, carvedilol, iron sulfate, insulin, levetiracetam, lorazepam, metformin, torsemide 10 mg, quetiapine, and ropinirole. REVIEW OF SYSTEMS: Not obtained from the patient due to his mental status. PHYSICAL EXAMINATION: VITAL SIGNS: The patient is a middle aged man, he is lethargic, confused, not verbalizing, responds to pain. NECK: Supple. Mucosa is dry. LUNGS: Air entry equal with few scattered rhonchi. HEART: S1, S2 heard. No gallop. ABDOMEN: Soft and nontender. EXTREMITIES: No dependent edema. No rash. No clubbing. VITAL SIGNS: Blood pressure 140/90, pulse 89 per minute. Afebrile. LABORATORY DATA: Sodium 137, potassium 4.5, CO2 of 16, BUN 37, creatinine 2.4, blood sugar 221. Lactic acid 2.5. WBC 14.0, hemoglobin 13.5, platelets 581. He has had severe anemia in the past. Urine showed 2+ protein by dipstick, 5 to 9 rbc's. Specific gravity 1.010. IMPRESSION: A 61-year-old man with stage 2 chronic kidney disease with a complicated medical history. Currently has acute kidney injury. Differential diagnosis of acute kidney injury would include hypoperfusion versus ischemic acute tubular necrosis. Obstructive uropathy should be ruled out. With few rbc's and some protein in the urinalysis, glomerulonephritis should be considered as well. RECOMMENDATIONS: Will be to hold the torsemide. Continue with IV hydration. Keep intake more than the output. Continue to avoid nephrotoxins. Check urine for sodium, creatinine, protein. If renal function does not improve, obtain renal ultrasonogram to rule out hydronephrosis. Keep Hansen catheter in place to monitor urine output over the next 24 to 48 hours. I will order serology workup. If renal function does not improve with hydration next 24 to 48 hours. There is no indication for dialysis. Overall prognosis is guarded. Concur with other medical management. We will follow him along with the team. Javier Duran MD BPA/MODL / [id number]
[2022-01-25 14:45] LABS: Lactic Acid 2.4 mmol/L (0.5-2.0)
[2022-01-25 14:46] LABS: Reflex Lactate? Lactic Acid Added
[2022-01-25] MEDS: Morphine Sulfate 2 MG/ML CARTRIDGE 1 MG IVPUSH (16:20)
--- NOTE | 2022-01-25 16:21 | MHC.CM.PN ---
PT IS A LTC RESIDENT OF [facility] HE WILL NEED BLS TRANSPORT GUARDIAN: CLARISSA WADDELL [phone] MESSAGE LEFT WITH MEDICARE RIGHTS AND CONTACT INFO
--- NOTE | 2022-01-25 16:51 | PM.UROCN ---
History of Present Illness Consult details Consult date: 01/25/22 Narrative: urinary consultation - urinary retention 61-year-old male admitted to hospital with hypertension and elevated troponin Known BPH patient Resident of [facility] with impaired baseline responsiveness See medical note for detailed past medical history Ramos catheter placed with 400 cc residual switch from tamsulosin to doxazosin 8 mg Review of Systems Constitutional: Constitutional: Reports as per HPI and Reports no additional constitutional complaints Cardiovascular: Cardiovascular: Reports as per HPI and Reports no additional cardiovascular complaints Respiratory: Respiratory: Reports as per HPI and Reports no additional respiratory complaints Gastrointestinal: Gastrointestinal: Reports as per HPI and Reports no additional gastrointestinal complaints Genitourinary: Genitourinary: Reports as per HPI Musculoskeletal: Musculoskeletal: Reports no additional musculoskeletal complaints and Reports as per HPI Neurologic: Reports system reviewed and no additional complaints, except as documented and Reports as per HPI PMF Past Medical History Medical History Coronary artery disease Diastolic heart failure History of stroke Hyperlipidemia Hypertension Hypothyroidism Legal blindness Restless leg Schizoaffective disorder Seizure disorder Stage 3a chronic kidney disease Type 2 diabetes mellitus Urinary retention Surgical History Surgical History History of coronary artery bypass graft Social History Social History Household Members: Other Household Members Other:: FACILITY Housing: Assisted Living Facility Do you presently have visiting nurse or other home services: No Patient Tobacco Use Status: Never used Tobacco Advance Directives: No Advance Directives Information Provided: No service: No Current occupational status: disabled Meds Allergies Allergy/AdvReac Type Severity Reaction Status Date / Time No Known Allergies Allergy Verified 10/22/21 10:29 Active Medications: Current Medications Acetaminophen (Acetaminophen 325 Mg Tablet) 650 mg PO Q6H PRN PRN Reason: Pain, Mild (Pain Scale 1-3) Acetaminophen (Acetaminophen 325 Mg Tablet) 650 mg PO Q4H PRN PRN Reason: Fever Or Pain Aspirin (Aspirin Enteric Coated 81 Mg Tablet.) 81 mg PO DAILY [facility] Last Admin: 01/25/22 08:19 Dose: Not Given Atorvastatin Calcium (Atorvastatin Calcium 10 Mg Tablet) 10 mg PO BEDTIME [facility] Last Admin: 01/24/22 21:19 Dose: Not Given Baclofen (Baclofen 10 Mg Tablet) 5 mg PO BEDTIME [facility] Last Admin: 01/24/22 21:19 Dose: Not Given Bisacodyl (Bisacodyl 10 Mg Supp.Rect) 10 mg [place] DAILY PRN PRN Reason: Constipation Carvedilol (Carvedilol 6.25 Mg Tablet) 6.25 mg PO BID [facility]; Protocol Last Admin: 01/25/22 08:19 Dose: Not Given Dextrose (Dextrose 50 % 25 Gm/50 Ml Syringe) 25 gm IVPUSH Q15M PRN; Protocol PRN Reason: per Hypoglycemia Standing Ord. Docusate Sodium (Docusate Sodium 100 Mg Capsule) 100 mg PO DAILY PRN PRN Reason: Constipation Glucose (Glucose Gel 15 Gm Gel..Gram.) 15 gm PO Q15M PRN; Protocol PRN Reason: per Hypoglycemia Standing Ord. Heparin Sodium (Porcine) (Heparin Sodium,Porcine 5,000 Unit/Ml Vial) 5,000 unit SUBCUT Q12H [facility] Last Admin: 01/25/22 10:29 Dose: 5,000 unit Levetiracetam (Keppra) 1,000 mg in 100 mls @ 400 mls/hr IV Q12H [facility] Last Infusion: 01/25/22 07:18 Dose: Infused Sodium Chloride (Ns) 1,000 mls @ 125 mls/hr IVCONT .Q8H [facility] Last Infusion: 01/25/22 12:01 Dose: 0 mls/hr Ceftriaxone Sodium 1 gm/ (Sodium Chloride) 50 mls @ 100 mls/hr IV Q24H [facility] Last Infusion: 01/25/22 08:55 Dose: Infused Azithromycin 500 mg/ Sodium (Chloride) 250 mls @ 125 mls/hr IV Q24H [facility] Last Infusion: 01/25/22 15:14 Dose: Infused Insulin Human Lispro (Insulin Lispro 100 Unit/Ml 3 Ml Vial) 0 unit SUBCUT QIDACHS [facility]; Protocol Last Admin: 01/25/22 11:59 Dose: Not Given Isosorbide Mononitrate (Isosorbide Mononitrate 60 Mg Tab.Er.24h) 120 mg PO DAILY [facility]; Protocol Last Admin: 01/25/22 08:19 Dose: Not Given Labetalol HCl (Labetalol Hcl 20 Mg/4 Ml Syringe) 10 mg IVPUSH QID [facility] Last Admin: 01/25/22 12:17 Dose: 10 mg Levothyroxine Sodium (Levothyroxine Sodium 75 Mcg Tablet) 75 mcg PO DAILY@0630 [facility] Last Admin: 01/25/22 08:10 Dose: Not Given Lorazepam (Lorazepam 1 Mg Tablet) 1 mg PO BID PRN PRN Reason: Anxiety Morphine Sulfate (Morphine Sulfate 2 Mg/Ml Cartridge) 1 mg IVPUSH Q4H PRN; Protocol PRN Reason: Pain, Moderate (Pain Scale 4-6 Last Admin: 01/25/22 16:20 Dose: 1 mg Multivitamins/Vitamin C (Multivitamin Tablet) 1 tab PO DAILY [facility] Last Admin: 01/25/22 08:19 Dose: Not Given Ondansetron HCl (Ondansetron Hcl 4 Mg/2 Ml Vial) 4 mg IVPUSH Q8H PRN PRN Reason: Nausea and Vomiting Pharmacy Consult (Consult Rx Perform Med Rec) 1 each MISCELLANE ONCE PRN PRN Reason: Consult order Pregabalin (Pregabalin 25 Mg Capsule) 25 mg PO BID [facility] Last Admin: 01/25/22 08:19 Dose: Not Given Quetiapine Fumarate (Quetiapine Fumarate 50 Mg Tablet) 50 mg PO BID [facility] Last Admin: 01/25/22 08:19 Dose: Not Given Ropinirole HCl (Ropinirole Hcl 0.25 Mg Tablet) 0.25 mg PO BID [facility] Last Admin: 01/25/22 08:19 Dose: Not Given Senna (Sennosides 8.6 Mg Tablet) 8.6 mg PO DAILY PRN PRN Reason: Constipation Sodium Chloride (0.9 % Sodium Chloride Flush 3 Ml Syringe) 3 ml IVFLUSH QSHIFT [facility] Last Admin: 01/25/22 16:00 Dose: Not Given Tamsulosin HCl (Tamsulosin Hcl 0.4 Mg Capsule) 0.4 mg PO DAILY@1730 [facility] Last Admin: 01/25/22 16:21 Dose: Not Given Home Medications Medication Instructions Recorded Confirmed Last Taken Type acetaminophen 325 mg tablet 650 mg PO Q4H PRN Fever Or Pain 02/13/21 01/24/22 Unknown History baclofen 5 mg tablet 5 mg PO BEDTIME 02/13/21 01/24/22 Unknown History bisacodyl 10 mg rectal suppository 10 mg [place] DAILY PRN Constipation 02/13/21 01/24/22 Unknown History carvedilol 3.125 mg tablet 3.125 mg PO BID 02/13/21 01/24/22 Unknown History dorzolamide 2 %-timolol 0.5 % (PF) 1 drp ophthalmic (eye) BID 02/13/21 01/24/22 Unknown History eye drops ferrous sulfate 325 mg (65 mg 325 mg PO BID 02/13/21 01/24/22 Unknown History iron) tablet isosorbide mononitrate 120 mg 120 mg PO DAILY 02/13/21 01/24/22 Unknown History tablet,extended release 24 hr levetiracetam 1,000 mg tablet 1,000 mg PO BID 02/13/21 01/24/22 Unknown History (Keppra) levothyroxine 75 mcg tablet 75 mcg PO DAILY@0630 02/13/21 01/24/22 Unknown History lorazepam 1 mg tablet 1 mg PO BID PRN Anxiety 02/13/21 01/24/22 Unknown History metformin 1,000 mg tablet 1,000 mg PO BID 02/13/21 01/24/22 Unknown History oxycodone 5 mg tablet 2.5 mg PO Q6H PRN Pain 02/13/21 01/24/22 Unknown History pregabalin 25 mg capsule (Lyrica) 25 mg PO BID 02/13/21 01/24/22 Unknown History ropinirole 0.25 mg tablet 0.25 mg PO BID 02/13/21 01/24/22 Unknown History sennosides 8.6 mg tablet (senna) 8.6 mg PO DAILY PRN Constipation 02/13/21 01/24/22 Unknown History tamsulosin 0.4 mg capsule 0.4 mg PO DAILY@1730 02/13/21 01/24/22 Unknown History torsemide 10 mg tablet 10 mg PO DAILY 02/13/21 01/24/22 Unknown History atorvastatin 10 mg tablet 10 mg PO BEDTIME 01/24/22 01/24/22 Unknown History epinephrine 0.3 mg/0.3 mL 0.3 mg IM Q4H PRN Allergic Reaction 01/24/22 01/24/22 Unknown History injection, auto-injector (EpiPen 2-Raghu) multivitamin 1 tab PO DAILY 01/24/22 01/24/22 Unknown History quetiapine 200 mg tablet,extended 400 mg PO BEDTIME 01/24/22 01/24/22 Unknown History release 24 hr Physical Exam Vital Signs: Vital Signs: Last Vital Signs Temp 98.7 F 01/25/22 16:00 Pulse 86 01/25/22 16:00 Resp 17 01/25/22 16:00 BP 135/86 01/25/22 16:00 Pulse Ox 98 01/25/22 16:00 O2 Del Method 01/25/22 16:00 O2 Flow Rate 1 01/25/22 16:00 BMI result Body Mass Index 19.7 Const: General: cooperative, healthy appearing, comfortable and no acute distress Orientation/consciousness: patient oriented x3 HEENT: Face and sinus: Yes normal facial exam Mouth: moist mucous membranes Neck: Neck: Yes normal visual inspection, Yes full ROM and Yes trachea midline Chest: Chest palpation & inspection: normal inspection of the chest Resp: Effort & Inspection: normal respiratory effort, able to speak in complete sentences and no respiratory distress GI: Inspection: Yes normal to inspection Back/Spine/Pelvis: Cervical Spine: normal cervical lordosis Thoracic/Lumbar Spine: thoracic and lumbar spine normal to inspection Skin: General skin exam: no rashes or lesions noted Neuro: General: patient oriented x3, tone normal and moves all extremities Extrem: General: Yes normal to inspection and Yes capillary refill normal Results Labs Result diagrams: 01/25/22 04:01 01/25/22 04:01 Labs: Abnormal lab results 01/24/22 01/25/22 01/25/22 Range/Units 20:05 04:01 04:01 WBC 14.0 H (4.8-10.8) X10*3/uL RBC 4.57 L (4.60-5.80) X10*6/uL Hgb 13.5 L (14.0-18.0) g/dl Hct 40.2 L (42.0-52.0) % RDW 16.1 H (11.0-16.0) % Plt Count 581 H (160-400) X10*3/uL Carbon Dioxide 17 L (22-29) mmol/L Anion Gap 21 H (12-20) BUN 37 H D (9-16) mg/dL Creatinine 2.43 H (0.5-1.4) mg/dL POC Glucose 169 H (60-115) mg/dL Random Glucose 222 H (60-115) mg/dL Lactic Acid (0.5-2.0) mmol/L Lactic Acid F/U @ 2Hr (0.5-2.0) mmol/L 01/25/22 01/25/22 01/25/22 Range/Units 04:01 07:16 07:49 WBC (4.8-10.8) X10*3/uL RBC (4.60-5.80) X10*6/uL Hgb (14.0-18.0) g/dl Hct (42.0-52.0) % RDW (11.0-16.0) % Plt Count (160-400) X10*3/uL Carbon Dioxide 16 L (22-29) mmol/L Anion Gap 23 H (12-20) BUN 37 H (9-16) mg/dL Creatinine 2.40 H (0.5-1.4) mg/dL POC Glucose 235 H (60-115) mg/dL Random Glucose 221 H (60-115) mg/dL Lactic Acid 2.5 H* (0.5-2.0) mmol/L Lactic Acid F/U @ 2Hr (0.5-2.0) mmol/L 01/25/22 01/25/22 Range/Units 10:36 12:16 WBC (4.8-10.8) X10*3/uL RBC (4.60-5.80) X10*6/uL Hgb (14.0-18.0) g/dl Hct (42.0-52.0) % RDW (11.0-16.0) % Plt Count (160-400) X10*3/uL Carbon Dioxide (22-29) mmol/L Anion Gap (12-20) BUN (9-16) mg/dL Creatinine (0.5-1.4) mg/dL POC Glucose (60-115) mg/dL Random Glucose (60-115) mg/dL Lactic Acid 2.4 H* (0.5-2.0) mmol/L Lactic Acid F/U @ 2Hr 2.5 H* (0.5-2.0) mmol/L Short CBC 01/25/22 Range/Units 04:01 WBC 14.0 H (4.8-10.8) X10*3/uL Hgb 13.5 L (14.0-18.0) g/dl Hct 40.2 L (42.0-52.0) % Plt Count 581 H (160-400) X10*3/uL BMP 01/25/22 01/25/22 04:01 04:01 Sodium 136 137 Potassium 4.4 4.5 Chloride 102 103 Carbon Dioxide 17 L 16 L BUN 37 H D 37 H Creatinine 2.43 H 2.40 H Calcium 9.2 9.1 Urine 01/23/22 Range/Units 17:35 Urine Color YELLOW Urine Appearance CLEAR Urine pH 7.0 (5.0-8.0) Ur Specific [place] 1.010 (1.005-1.025) Urine Protein 2+ H (NEG-TRACE) MG/DL Urine Glucose (UA) NEG (NEG) MG/DL All other labs normal. Assessment and Plan (1) BPH w urinary obs/LUTS: Status: Acute (2) Urinary retention: Status: Acute Plan Ramos placed for 400cc urine Procedures Date of Service Date of Service: 01/25/22 Catheter Insertion (Urinary) Date of insertion: 01/25/22 Time of insertion: 16:55 Reason for placing: Acute urinary retention Antiseptic solution prep: Povidone-Iodine Topical anesthesia used: Yes Catheter type/location: 2-way Urethral Size (N[place]): 16 Catheter balloon size (mL): 10 Results: successfully catheterized-immediate flow Complications: required urology for complicated ramos catheter placement CPT 53426
[2022-01-25 16:53] LABS: Glucose, Whole Blood 141 mg/dL (60-115)
[2022-01-25 17:36] LABS: Lactic Acid 1.9 mmol/L (0.5-2.0)
[2022-01-25 17:39] LABS: Anion Gap 15 (12-20); Blood Urea Nitrogen 37 mg/dL (9-16); Carbon Dioxide 17 mmol/L (22-29); Chloride 114 mmol/L (96-108); Creatinine Clr Calc Pharmacy 31.4; Estimated Glomerular Filt Rate 35; Glucose Random 180 mg/dL (60-115); Potassium 3.9 mmol/L (3.3-5.1); Sodium 142 mmol/L (135-145)
[2022-01-25 17:49] LABS: Calcium 7.5 mg/dL (8.4-10.2)
[2022-01-25 17:51] LABS: Appearance Urine HAZY; Color Urine YELLOW; Glucose Urine UA NEG (NEG); Leukocyte Esterase Urine NEG (NEG); Nitrite Urine NEG (NEG); PH 5.5 (5.0-8.0); Specific Gravity - Urine >= 1.030 (1.005-1.025); UACC Culture Trigger NO; Urine Blood TRACE (NEG); Urine Ketones 5 MG/DL (NEG); Urine Protein 2+ MG/DL (NEG-TRACE)
[2022-01-25 18:00] LABS: RBC Urine 0-2 /HPF (0); WBC Urine 0-2 /HPF (0-4)
[2022-01-25 18:01] LABS: Amorphous Sediment Urine 2+ /LPF; Bacteria Urine TRACE /LPF; Mucus Urine 1+ /LPF; Squamous Epithelial Cell Urine 1+ /LPF
--- NOTE | 2022-01-25 18:43 | PC.NURSE ---
Pt w/ Critical Lactic (2.5) this AM. clammy, mild fever. Notified MD Peralta - order blood cultures, CXR, COVID swab, 1L bolus, one time dose ceftriaxone. Repeat lactic still Critical, MD notified - another 1L bolus ordered, Azithromycin, increased labetolol dosage, CT abd/pelv.. UA ordered but unable to obtain d/t no urine output in patient external cath, bladder scanned for 155ml, MD notified. Order for ramos to be placed, this RN unable to do so d/t resistance, urology called to floor to place ramos. Repeat lactic still critical - 2L boluses ordered. Ramos placed by MD Eastman, +output, UA sent. Lactic improved to 1.9.
[2022-01-25 20:14] LABS: Glucose, Whole Blood 176 mg/dL (60-115)
--- NOTE | 2022-01-25 23:01 | PC.NURSE ---
2200 1000 cc SSE given with good results.Pt had large soft formed stool.
[2022-01-26] VITALS (9 sets, daily range): BP systolic 110–183; BP diastolic 73–92; PULSE 75–97; RESP 16–19; TEMP 36.1–36.8; O2SAT 94–100
--- NOTE | 2022-01-26 | ECG_ITS ---
Test Reason : cp Blood Pressure : / mmHG Vent. Rate : 073 BPM Atrial Rate : 073 BPM P-R Int : 186 ms QRS Dur : 174 ms QT Int : 480 ms P-R-T Axes : 070 -64 153 degrees QTc Int : 528 ms Normal sinus rhythm Possible Left atrial enlargement Left axis deviation Right bundle branch block Inferior infarct (cited on or before 23-JAN-2022) Anteroseptal infarct (cited on or before 23-JAN-2022) T wave abnormality, consider lateral ischemia Abnormal ECG When compared with ECG of 23-JAN-2022 20:06, Vent. rate has decreased BY 41 BPM Serial changes of Anteroseptal infarct Present Referred By: Delmy Peralta Electronically Signed By:GABRIELA DUMONT
[2022-01-26] MEDS: levETIRAcetam in NaCl (iso-os) 1,000 MG/100 ML PIGGYBACK 400 MG IV ×2 (05:25→18:31)
[2022-01-26] MEDS: 0.9 % Sodium Chloride 1,000 ML 125 ML IVCONT ×2 (06:23→14:08)
[2022-01-26 06:38] LABS: Hematocrit 32.6 % (42.0-52.0); Hemoglobin 10.3 g/dl (14.0-18.0); Mean Corpuscular HGB Conc 31.6 g/dl (31.0-36.0); Mean Corpuscular Hemoglobin 29.3 pg (27.0-33.0); Mean Corpuscular Volume 92.9 fL (80.0-98.0); Mean Platelet Volume 9.7 fL (9.4-12.4); Platelet Count 390 X10*3/uL (160-400); Red Blood Count 3.51 X10*6/uL (4.60-5.80); Red Cell Distribution Width 16.8 % (11.0-16.0); White Blood Count 12.6 X10*3/uL (4.8-10.8)
[2022-01-26 07:28] LABS: Lactate Dehydrogenase 286 U/L (118-273)
[2022-01-26 07:28] LABS: Anion Gap 14 (12-20); Blood Urea Nitrogen 34 mg/dL (9-16); Calcium 7.6 mg/dL (8.4-10.2); Carbon Dioxide 17 mmol/L (22-29); Chloride 116 mmol/L (96-108); Creatinine Clr Calc Pharmacy 35.2; Estimated Glomerular Filt Rate 39; Glucose Random 165 mg/dL (60-115); Potassium 3.8 mmol/L (3.3-5.1); Sodium 143 mmol/L (135-145)
[2022-01-26 07:40] LABS: Glucose, Whole Blood 171 mg/dL (60-115)
[2022-01-26] MEDS: cefTRIAXone sodium 1 GM in 0.9 % Sodium Chloride 50 ML IV (09:01)
--- NOTE | 2022-01-26 10:29 | MHC.CDI.CONC ---
CDI Concurrent Query Documentation Clarification: PHYSICIAN'S DOCUMENTATION REQUEST Date of Query: 01/26/22 1030 Patient Name: Miquel Arnold Admit Date: 01/25/22 Dear Doctor, A review of the medical record indicates additional documentation may be needed. Please review below and update the documentation accordingly. Risk Factors/Clinical Indicators/Treatments ED 01/23 - PMH: Chronic kidney disease IIIa H&P: PMH - Chronic kidney disease IIIa Nephrology note 01/25 - Chronic kidney disease at baseline cr. 1.58/ History of CKD 3. Impression - Chronic kidney disease Stage 2 Please clarify which of the following accurately represents the patient's renal status: Clarity and consistency: Specifics: Chronic kidney disease Stage 2 Chronic kidney disease Stage 3a Other (please specify) Unable to determine Criteria for DORIAN* Stages of Chronic Kidney Disease* 1. Increase in serum creatinine by ? 0.3 mg/dL Level Description GFR (?26.5 micromol/L) within 48 hours, or G1 Normal or High > 90 2. Increase in serum creatinine to ?1.5 times baseline, G2 Mildly decreased 60 ? 89 which is known or presumed to have occurred within 7 days, or G3a Mildly to moderately decreased 45 ? 59 3. Urine volume <0.5 mL/kg/hour for six hours G3b Moderately to severely decreased 30 - 44 G4 Severely decreased 15 ? 29 G5 Kidney failure < 15 *Source: Kidney Disease: Improving Global Outcomes (KDIGO) 2012 Use of terms such as suspected, likely, concern for, or probable (associated with a specific diagnosis that is being evaluated, monitored, or treated as if it exists) are acceptable and can be coded in the inpatient setting, when documented at the time of discharge. Thank you, Marry Ríos [facility], CDIS Extension: [phone] Please use your independent medical judgment in providing your response. THIS QUERY IS PART OF THE PERMANENT MEDICAL RECORD Provider Response: CKD Stage 3
--- NOTE | 2022-01-26 11:08 | PM.PNNEP ---
Subjective Subjective Date of Service: 01/27/22 Interval history: Events noted Non verbal Physical Exam Vital Signs: Vital Signs: Last Vital Signs Temp 97.6 F 01/26/22 07:48 Pulse 95 01/26/22 07:48 Resp 19 01/26/22 07:48 BP 110/74 01/26/22 09:58 Pulse Ox 94 01/26/22 07:48 O2 Del Method 01/26/22 07:48 O2 Flow Rate 3 01/26/22 07:48 BMI result Body Mass Index 19.7 Const: Other: Constitutional : Alert with stimulation but not responding or following commands, not in distress Neck : Normal inspection, Supple Cardiovascular : RRR, no JVP, no lower extremity edema Respiratory : fair bilateral air entry, no crackles, wheezes or rhonchi Gastrointestinal: soft, lax, Normal bowel sounds, Non tender Skin : Warm, Dry skin, sternotomy scar Neurological : Alert with stimulation but not interactive at all, contracted, No focal deficit Objective Data Labs CBC & Chem 7: 01/27/22 05:49 01/27/22 05:49 Labs: Laboratory Results - last 24 hr 01/24/22 01/25/22 01/25/22 Unknown 10:35 10:36 WBC RBC Hgb Hct MCV MCH MCHC RDW Plt Count MPV Absolute Nucleated RBC Nucleated RBC % (auto) Sodium Potassium Chloride Carbon Dioxide Anion Gap BUN Creatinine Estim Creat Clear Calc Estimated GFR POC Glucose Random Glucose Lactic Acid Lactic Acid F/U @ 2Hr 2.5 H* Calcium Lactate Dehydrogenase Urine Color YELLOW Urine Appearance HAZY Urine pH 5.5 Ur Specific [place] >= 1.030 H Urine Protein 2+ H Urine Glucose (UA) NEG Urine Ketones 5 Urine Blood TRACE Urine Nitrite NEG Ur Leukocyte Esterase NEG Urine RBC 0-2 Urine WBC 0-2 Ur Squamous Epith Cells 1+ Amorphous Sediment 2+ Urine Bacteria TRACE Hyaline Casts 1-4 Granular Casts 1-4 Urine Mucus 1+ COVID-19 (HAYES) Negative COVID-19 Clin Com See Note 01/25/22 01/25/22 01/25/22 12:16 16:49 17:18 WBC RBC Hgb Hct MCV MCH MCHC RDW Plt Count MPV Absolute Nucleated RBC Nucleated RBC % (auto) Sodium Potassium Chloride Carbon Dioxide Anion Gap BUN Creatinine Estim Creat Clear Calc Estimated GFR POC Glucose 141 H Random Glucose Lactic Acid 2.4 H* 1.9 Lactic Acid F/U @ 2Hr Calcium Lactate Dehydrogenase Urine Color Urine Appearance Urine pH Ur Specific [place] Urine Protein Urine Glucose (UA) Urine Ketones Urine Blood Urine Nitrite Ur Leukocyte Esterase Urine RBC Urine WBC Ur Squamous Epith Cells Amorphous Sediment Urine Bacteria Hyaline Casts Granular Casts Urine Mucus COVID-19 (HAYES) COVID-19 Clin Com 01/25/22 01/25/22 01/26/22 17:19 20:09 06:03 WBC 12.6 H RBC 3.51 L D Hgb 10.3 L D Hct 32.6 L MCV 92.9 MCH 29.3 MCHC 31.6 RDW 16.8 H Plt Count 390 D MPV 9.7 Absolute Nucleated RBC 0.000 Nucleated RBC % (auto) 0.0 Sodium 142 Potassium 3.9 Chloride 114 H Carbon Dioxide 17 L Anion Gap 15 BUN 37 H Creatinine 1.97 H Estim Creat Clear Calc 31.4 Estimated GFR 35 POC Glucose 176 H Random Glucose 180 H Lactic Acid Lactic Acid F/U @ 2Hr Calcium 7.5 L D Lactate Dehydrogenase Urine Color Urine Appearance Urine pH Ur Specific [place] Urine Protein Urine Glucose (UA) Urine Ketones Urine Blood Urine Nitrite Ur Leukocyte Esterase Urine RBC Urine WBC Ur Squamous Epith Cells Amorphous Sediment Urine Bacteria Hyaline Casts Granular Casts Urine Mucus COVID-19 (HAYES) COVID-19 Clin Com 01/26/22 01/26/22 01/26/22 06:03 06:23 07:26 WBC RBC Hgb Hct MCV MCH MCHC RDW Plt Count MPV Absolute Nucleated RBC Nucleated RBC % (auto) Sodium 143 Potassium 3.8 Chloride 116 H Carbon Dioxide 17 L Anion Gap 14 BUN 34 H Creatinine 1.76 H Estim Creat Clear Calc 35.2 Estimated GFR 39 POC Glucose 171 H Random Glucose 165 H Lactic Acid Lactic Acid F/U @ 2Hr Calcium 7.6 L Lactate Dehydrogenase 286 H Urine Color Urine Appearance Urine pH Ur Specific [place] Urine Protein Urine Glucose (UA) Urine Ketones Urine Blood Urine Nitrite Ur Leukocyte Esterase Urine RBC Urine WBC Ur Squamous Epith Cells Amorphous Sediment Urine Bacteria Hyaline Casts Granular Casts Urine Mucus COVID-19 (HAYES) COVID-19 Clin Com Microbiology Microbiology Results: Microbiology 01/25/22 07:52 Blood - Venous Blood Culture - Preliminary No growth after 24 hours. 01/25/22 07:48 Blood - Venous Blood Culture - Preliminary No growth after 24 hours. 01/23/22 14:50 Blood - Venous Blood Culture - Preliminary No growth after 48 hours. 01/23/22 14:50 Blood - Venous Blood Culture - Preliminary No growth after 48 hours. Procedures Date of Service Date of Service: 01/26/22 Assessment & Plan Assessment and plan (1) BPH w urinary obs/LUTS: Status: Acute (2) Urinary retention: Status: Acute Plan 61-year-old male with past medical history of CAD, CVA, as well as a resident of [facility] presents to the hospital with complaints of chest pain, headache, and was found to be hypertensive DORIAN on CKD DORIAN due to hypoperfusion Cr improving No indication for dialysis Keep i >o Avoid hypotension Add NaHCO3 650 mg BID to correct acidosis Time Spent With Patient Time: Total time spent is greater than 50% in coordination of care (as documented) at patient's floor/unit and/or counseling patient: Progress Note: Quality Stroke Does the patient have a stroke diagnosis?: No
[2022-01-26 11:27] LABS: Glucose, Whole Blood 190 mg/dL (60-115)
[2022-01-26 11:28] LABS: Glucose, Whole Blood 162 mg/dL (60-115)
[2022-01-26] MEDS: Insulin Lispro 100 UNIT/ML 3 ML VIAL SUBCUT (11:34)
[2022-01-26] MEDS: Heparin Sodium,Porcine 5,000 UNIT/ML VIAL 5000 UNIT SUBCUT (11:35)
--- NOTE | 2022-01-26 12:21 | HO.PM.IMPN ---
Subjective Subjective Date of Service: 01/26/22 Interval History: Seen and evaluated this morning Altered mentation, nonverbal this morning a not following commands Not taking his medications or oral intake No more fever overnight No other overnight events Review of Systems Review of Systems: Yes Unobtainable due to mental status Physical Exam Vital Signs: Vital Signs: Last Vital Signs Temp 98.1 F 01/26/22 11:23 Pulse 84 01/26/22 11:23 Resp 16 01/26/22 11:23 BP 121/74 01/26/22 11:23 Pulse Ox 98 01/26/22 11:23 O2 Del Method 01/26/22 11:23 O2 Flow Rate 3 01/26/22 11:23 BMI result Body Mass Index 19.7 Const: Other: Constitutional : Alert with stimulation but not responding or following commands, not in distress Neck : Normal inspection, Supple Cardiovascular : RRR, no JVP, no lower extremity edema Respiratory : fair bilateral air entry, no crackles, wheezes or rhonchi Gastrointestinal: soft, lax, Normal bowel sounds, Non tender Skin : Warm, Dry skin, sternotomy scar Neurological : Alert with stimulation but not interactive at all, contracted, No focal deficit Objective Data Active Medications Acetaminophen (Acetaminophen 325 Mg Tablet) 650 mg PO Q6H PRN PRN Reason: Pain, Mild (Pain Scale 1-3) Acetaminophen (Acetaminophen 325 Mg Tablet) 650 mg PO Q4H PRN PRN Reason: Fever Or Pain Aspirin (Aspirin Enteric Coated 81 Mg Tablet.) 81 mg PO DAILY [facility] Last Admin: 01/26/22 09:04 Dose: Not Given Documented By: DOMINGUEZ Non-Admin Reason: not able to swallow Atorvastatin Calcium (Atorvastatin Calcium 10 Mg Tablet) 10 mg PO BEDTIME [facility] Last Admin: 01/25/22 21:25 Dose: Not Given Documented By: DIOMEDES Non-Admin Reason: NPO Baclofen (Baclofen 10 Mg Tablet) 5 mg PO BEDTIME [facility] Last Admin: 01/25/22 21:25 Dose: Not Given Documented By: DIOMEDES Non-Admin Reason: NPO Bisacodyl (Bisacodyl 10 Mg Supp.Rect) 10 mg DC DAILY PRN PRN Reason: Constipation Carvedilol (Carvedilol 6.25 Mg Tablet) 6.25 mg PO BID [facility]; Protocol Last Admin: 01/26/22 09:04 Dose: Not Given Documented By: DOMINGUEZ Non-Admin Reason: NPO Dextrose (Dextrose 50 % 25 Gm/50 Ml Syringe) 25 gm IVPUSH Q15M PRN; Protocol PRN Reason: per Hypoglycemia Standing Ord. Docusate Sodium (Docusate Sodium 100 Mg Capsule) 100 mg PO DAILY PRN PRN Reason: Constipation Doxazosin Mesylate (Doxazosin Mesylate 2 Mg Tablet) 4 mg PO BEDTIME [facility]; Protocol Last Admin: 01/25/22 21:26 Dose: Not Given Documented By: DIOMEDES Non-Admin Reason: NPO Glucose (Glucose Gel 15 Gm Gel..Gram.) 15 gm PO Q15M PRN; Protocol PRN Reason: per Hypoglycemia Standing Ord. Heparin Sodium (Porcine) (Heparin Sodium,Porcine 5,000 Unit/Ml Vial) 5,000 unit SUBCUT Q12H [facility] Last Admin: 01/26/22 11:35 Dose: 5,000 unit Documented By: KALANI Levetiracetam (Keppra) 1,000 mg in 100 mls @ 400 mls/hr IV Q12H [facility] Last Infusion: 01/26/22 05:49 Dose: 0 mls/hr Documented By: DIOMEDES Sodium Chloride (Ns) 1,000 mls @ 125 mls/hr IVCONT .Q8H [facility] Last Admin: 01/26/22 06:23 Dose: 125 mls/hr Documented By: DIOMEDES Ceftriaxone Sodium 1 gm/ (Sodium Chloride) 50 mls @ 100 mls/hr IV Q24H [facility] Last Infusion: 01/26/22 09:54 Dose: 0 mls/hr Documented By: KALANI Azithromycin 500 mg/ Sodium (Chloride) 250 mls @ 125 mls/hr IV Q24H [facility] Last Infusion: 01/25/22 15:14 Dose: 0 mls/hr Documented By: DANIEL Insulin Human Lispro (Insulin Lispro 100 Unit/Ml 3 Ml Vial) 0 unit SUBCUT QIDACHS [facility]; Protocol Last Admin: 01/26/22 11:34 Dose: 2 unit Documented By: KALANI Isosorbide Mononitrate (Isosorbide Mononitrate 60 Mg Tab.Er.24h) 120 mg PO DAILY [facility]; Protocol Last Admin: 01/26/22 09:04 Dose: Not Given Documented By: DOMINGUEZ Non-Admin Reason: NPO Labetalol HCl (Labetalol Hcl 20 Mg/4 Ml Syringe) 10 mg IVPUSH QID [facility] Last Admin: 01/26/22 09:05 Dose: 10 mg Documented By: DOMINGUEZ Levothyroxine Sodium (Levothyroxine Sodium 75 Mcg Tablet) 75 mcg PO DAILY@0630 [facility] Last Admin: 01/26/22 05:28 Dose: Not Given Documented By: DIOMEDES Non-Admin Reason: NPO Lorazepam (Lorazepam 1 Mg Tablet) 1 mg PO BID PRN PRN Reason: Anxiety Morphine Sulfate (Morphine Sulfate 2 Mg/Ml Cartridge) 1 mg IVPUSH Q4H PRN; Protocol PRN Reason: Pain, Moderate (Pain Scale 4-6 Last Admin: 01/25/22 16:20 Dose: 1 mg Documented By: DANIEL Multivitamins/Vitamin C (Multivitamin Tablet) 1 tab PO DAILY [facility] Last Admin: 01/26/22 09:05 Dose: Not Given Documented By: DOMINGUEZ Non-Admin Reason: NPO Ondansetron HCl (Ondansetron Hcl 4 Mg/2 Ml Vial) 4 mg IVPUSH Q8H PRN PRN Reason: Nausea and Vomiting Pharmacy Consult (Consult Rx Perform Med Rec) 1 each MISCELLANE ONCE PRN PRN Reason: Consult order Pregabalin (Pregabalin 25 Mg Capsule) 25 mg PO BID [facility] Last Admin: 01/26/22 09:05 Dose: Not Given Documented By: DOMINGUEZ Non-Admin Reason: NPO Quetiapine Fumarate (Quetiapine Fumarate 50 Mg Tablet) 50 mg PO BID [facility] Last Admin: 01/26/22 09:05 Dose: Not Given Documented By: DOMINGUEZ Non-Admin Reason: NPO Ropinirole HCl (Ropinirole Hcl 0.25 Mg Tablet) 0.25 mg PO BID [facility] Last Admin: 01/26/22 09:05 Dose: Not Given Documented By: DOMINGUEZ Non-Admin Reason: NPO Senna (Sennosides 8.6 Mg Tablet) 8.6 mg PO DAILY PRN PRN Reason: Constipation Sodium Chloride (0.9 % Sodium Chloride Flush 3 Ml Syringe) 3 ml IVFLUSH QSHIFT [facility] Last Admin: 01/26/22 09:04 Dose: Not Given Documented By: DOMINGUEZ Non-Admin Reason: IV Running Labs CBC & Chem 7: 01/26/22 06:03 01/26/22 06:03 Labs: Laboratory Results - last 24 hr 01/24/22 01/25/22 01/25/22 Unknown 11:59 12:16 MCV MCH MCHC RDW Plt Count MPV Absolute Nucleated RBC Nucleated RBC % (auto) Anion Gap Estim Creat Clear Calc Estimated GFR POC Glucose 190 H Random Glucose Lactic Acid 2.4 H* Calcium Lactate Dehydrogenase Urine Color YELLOW Urine Appearance HAZY Urine pH 5.5 Ur Specific [place] >= 1.030 H Urine Protein 2+ H Urine Glucose (UA) NEG Urine Ketones 5 Urine Blood TRACE Urine Nitrite NEG Ur Leukocyte Esterase NEG Urine RBC 0-2 Urine WBC 0-2 Ur Squamous Epith Cells 1+ Amorphous Sediment 2+ Urine Bacteria TRACE Hyaline Casts 1-4 Granular Casts 1-4 Urine Mucus 1+ 01/25/22 01/25/22 01/25/22 16:49 17:18 17:19 MCV MCH MCHC RDW Plt Count MPV Absolute Nucleated RBC Nucleated RBC % (auto) Anion Gap 15 Estim Creat Clear Calc 31.4 Estimated GFR 35 POC Glucose 141 H Random Glucose 180 H Lactic Acid 1.9 Calcium 7.5 L D Lactate Dehydrogenase Urine Color Urine Appearance Urine pH Ur Specific [place] Urine Protein Urine Glucose (UA) Urine Ketones Urine Blood Urine Nitrite Ur Leukocyte Esterase Urine RBC Urine WBC Ur Squamous Epith Cells Amorphous Sediment Urine Bacteria Hyaline Casts Granular Casts Urine Mucus 01/25/22 01/26/22 01/26/22 20:09 06:03 06:03 MCV 92.9 MCH 29.3 MCHC 31.6 RDW 16.8 H Plt Count 390 D MPV 9.7 Absolute Nucleated RBC 0.000 Nucleated RBC % (auto) 0.0 Anion Gap 14 Estim Creat Clear Calc 35.2 Estimated GFR 39 POC Glucose 176 H Random Glucose 165 H Lactic Acid Calcium 7.6 L Lactate Dehydrogenase Urine Color Urine Appearance Urine pH Ur Specific [place] Urine Protein Urine Glucose (UA) Urine Ketones Urine Blood Urine Nitrite Ur Leukocyte Esterase Urine RBC Urine WBC Ur Squamous Epith Cells Amorphous Sediment Urine Bacteria Hyaline Casts Granular Casts Urine Mucus 01/26/22 01/26/22 01/26/22 06:23 07:26 11:21 MCV MCH MCHC RDW Plt Count MPV Absolute Nucleated RBC Nucleated RBC % (auto) Anion Gap Estim Creat Clear Calc Estimated GFR POC Glucose 171 H 162 H Random Glucose Lactic Acid Calcium Lactate Dehydrogenase 286 H Urine Color Urine Appearance Urine pH Ur Specific [place] Urine Protein Urine Glucose (UA) Urine Ketones Urine Blood Urine Nitrite Ur Leukocyte Esterase Urine RBC Urine WBC Ur Squamous Epith Cells Amorphous Sediment Urine Bacteria Hyaline Casts Granular Casts Urine Mucus Microbiology Microbiology Results: Microbiology 01/25/22 07:52 Blood Culture - Preliminary Blood - Venous No growth after 24 hours. 01/25/22 07:48 Blood Culture - Preliminary Blood - Venous No growth after 24 hours. 01/23/22 14:50 Blood Culture - Preliminary Blood - Venous No growth after 48 hours. 01/23/22 14:50 Blood Culture - Preliminary Blood - Venous No growth after 48 hours. Assessment and Plan (1) Sepsis: Status: Acute (2) Lytic bone lesions on xray: Status: Acute (3) Pneumonia: Status: Acute (4) Urinary retention: Status: Acute Plan 61-year-old male with past medical history of CAD, CVA, as well as a resident of [facility] presents to the hospital with complaints of chest pain, headache, and was found to be hypertensive # sepsis secondary to pneumonia Lactic acidosis resolved Tylenol as needed CT showed an evidence of left lower lobe infiltrates Pending cultures Continue Ceftriaxone and Azithromycin # Lytic pelvic lesion concerning for possible multiple myeloma with elevated protein to albumin ratio Oncology input appreciated, immunofixation, kappa lambda ordered Urine immunofixation ordered To do bone marrow biopsy # toxic metabolic encephalopathy secondary to possible multiple myeloma, infection Control blood pressure Treat infection Evaluate for multiple myeloma Recurrent reorientation # headache secondary to hypertensive urgency, multiple myeloma head CT showed no acute bleeds or territorial infarct Control blood pressure, Tylenol p.r.n. # urine retention Hansen catheter placed by urologist Tamsulosin discontinued and started on doxazosin # hypertension urgency elevated troponin secondary to hypertension Better controlled Not taking p.o. medications, increase labetalol to 10 mg q.i.d. cardiology following, continue baby aspirin # DORIAN on CKD3b Kidney function improving Nephrology following Continue to monitor # diabetes low-dose sliding scale insulin hold oral antihyperglycemics # hypothyroidism continue levothyroxine IV for now # schizoaffective disorder continue antipsychotics once he can tolerate oral DVT prophylaxis: Heparin The patient will need overnight hospital stay to continue evaluation of possible multiple myeloma requiring bone Hernandez biopsy, treatment of pneumonia to prevent possible decomposition into hypoxic respiratory failure and severe sepsis. Quality Stroke Does the patient have a stroke diagnosis?: No VTE Prior VTE?: No VTE Risk Level:: Medical - moderate - high VTE Device Contraindication: Treatment Not Indicated VTE Drug Contraindication: N/A - Med Ordered
[2022-01-26] MEDS: Levothyroxine Sodium 100 MCG VIAL 60 MCG IVPUSH (14:00)
[2022-01-26] MEDS: Azithromycin 500 MG in 0.9 % Sodium Chloride 250 ML 125 MG IV (14:00)
[2022-01-26 15:22] LABS: Glucose, Whole Blood 149 mg/dL (60-115)
--- NOTE | 2022-01-26 15:24 | MHC.CM.PN ---
per rounds pt has pneumonia dc is not anticipated for 1 to 2 days
--- NOTE | 2022-01-26 15:56 | P.CNHO_ITS ---
Subjective - Subjective Chief complaint: None Patient: new to practice Consult date: 01/26/22 Primary Care Provider: Uriel Callaway DO HPI - Consult Narrative Reason for consult: Lytic lesions of bones Narrative: Miquel Arnold is a 61 year old male who is admitted from [facility] because of altered mental status. He has a history of coronary artery disease, heart failure, CVA, schizoaffective disorder and diabetes who is sent for confusion and not answering questions appropriately. On arrival to ED, patient was hemodynamically stable with elevated blood pressure readings, he was confused and unable to provide any history. Information obtained from chart review and speaking to his hospitalist. Head CT showed no acute bleeds or infarcts. There is diffuse volume loss and chronic infarct in left ross radiata. CT abdomen/pelvis without contrast revealed diffuse mottled appearance of the bones with multiple lytic lesions. Review of Systems - Neurologic Reports no additional neurologic complaints, Reports as per HPI, Reports confusion Oncology Screenings - ECOG Performance Status ECOG Performance Status: 4 [facility] Medical History: Medical History (Last Reviewed 01/24/22 @ 06:36 by Valentino Correa MD) Coronary artery disease Diastolic heart failure History of stroke Hyperlipidemia Hypertension Hypothyroidism Legal blindness Restless leg Schizoaffective disorder Seizure disorder Stage 3a chronic kidney disease Type 2 diabetes mellitus Urinary retention Surgical History: Surgical History (Last Reviewed 01/24/22 @ 06:36 by Valentino Correa MD) History of coronary artery bypass graft Social History: Social History (Last Reviewed 01/24/22 @ 06:36 by Valentino Correa MD) Living Situation History: Household Members: Other Household Members Other:: FACILITY Housing: Assisted Living Facility Do you presently have visiting nurse or other home services: No Alcohol History Details: Currently Displaying Signs/Symptoms of Alcohol Withdrawal: No Tobacco History: Patient Tobacco Use Status: Never used Tobacco Substance Use History: Currently Displaying Signs/Symptoms of Drug Intoxication Withdrawal: No Advance Directives: Advance Directives: No Advance Directives Information Provided: No Occupation Assessmet: service: No Current occupational status: disabled Home Medications and Allergies Current Medications: Current Medications Acetaminophen (Acetaminophen 325 Mg Tablet) 650 mg PO Q6H PRN PRN Reason: Pain, Mild (Pain Scale 1-3) Acetaminophen (Acetaminophen 325 Mg Tablet) 650 mg PO Q4H PRN PRN Reason: Fever Or Pain Aspirin (Aspirin Enteric Coated 81 Mg Tablet.Dr) 81 mg PO DAILY [facility] Last Admin: 01/26/22 09:04 Dose: Not Given Atorvastatin Calcium (Atorvastatin Calcium 10 Mg Tablet) 10 mg PO BEDTIME [facility] Last Admin: 01/25/22 21:25 Dose: Not Given Baclofen (Baclofen 10 Mg Tablet) 5 mg PO BEDTIME [facility] Last Admin: 01/25/22 21:25 Dose: Not Given Bisacodyl (Bisacodyl 10 Mg Supp.Rect) 10 mg MD DAILY PRN PRN Reason: Constipation Carvedilol (Carvedilol 6.25 Mg Tablet) 6.25 mg PO BID [facility]; Protocol Last Admin: 01/26/22 09:04 Dose: Not Given Dextrose (Dextrose 50 % 25 Gm/50 Ml Syringe) 25 gm IVPUSH Q15M PRN; Protocol PRN Reason: per Hypoglycemia Standing Ord. Docusate Sodium (Docusate Sodium 100 Mg Capsule) 100 mg PO DAILY PRN PRN Reason: Constipation Doxazosin Mesylate (Doxazosin Mesylate 2 Mg Tablet) 4 mg PO BEDTIME [facility]; Protocol Last Admin: 01/25/22 21:26 Dose: Not Given Glucose (Glucose Gel 15 Gm Gel..Gram.) 15 gm PO Q15M PRN; Protocol PRN Reason: per Hypoglycemia Standing Ord. Heparin Sodium (Porcine) (Heparin Sodium,Porcine 5,000 Unit/Ml Vial) 5,000 unit SUBCUT Q12H [facility] Last Admin: 01/26/22 11:35 Dose: 5,000 unit Levetiracetam (Keppra) 1,000 mg in 100 mls @ 400 mls/hr IV Q12H [facility] Last Infusion: 01/26/22 05:49 Dose: Infused Sodium Chloride (Ns) 1,000 mls @ 125 mls/hr IVCONT .Q8H [facility] Last Admin: 01/26/22 14:08 Dose: 125 mls/hr Ceftriaxone Sodium 1 gm/ (Sodium Chloride) 50 mls @ 100 mls/hr IV Q24H [facility] Last Infusion: 01/26/22 09:54 Dose: Infused Azithromycin 500 mg/ Sodium (Chloride) 250 mls @ 125 mls/hr IV Q24H [facility] Last Admin: 01/26/22 14:00 Dose: 125 mls/hr Insulin Human Lispro (Insulin Lispro 100 Unit/Ml 3 Ml Vial) 0 unit SUBCUT QIDACHS [facility]; Protocol Last Admin: 01/26/22 11:34 Dose: 2 unit Isosorbide Mononitrate (Isosorbide Mononitrate 60 Mg Tab.Er.24h) 120 mg PO DAILY [facility]; Protocol Last Admin: 01/26/22 09:04 Dose: Not Given Labetalol HCl (Labetalol Hcl 20 Mg/4 Ml Syringe) 10 mg IVPUSH QID [facility] Last Admin: 01/26/22 13:59 Dose: 10 mg Levothyroxine Sodium (Levothyroxine Sodium 100 Mcg Vial) 60 mcg IVPUSH DAILY@0600 [facility] Last Admin: 01/26/22 14:00 Dose: 60 mcg Lorazepam (Lorazepam 1 Mg Tablet) 1 mg PO BID PRN PRN Reason: Anxiety Morphine Sulfate (Morphine Sulfate 2 Mg/Ml Cartridge) 1 mg IVPUSH Q4H [facility]; Protocol PRN Reason: Pain, Moderate (Pain Scale 4-6 Last Admin: 01/25/22 16:20 Dose: 1 mg Multivitamins/Vitamin C (Multivitamin Tablet) 1 tab PO DAILY [facility] Last Admin: 01/26/22 09:05 Dose: Not Given Ondansetron HCl (Ondansetron Hcl 4 Mg/2 Ml Vial) 4 mg IVPUSH Q8H PRN PRN Reason: Nausea and Vomiting Pharmacy Consult (Consult Rx Perform Med Rec) 1 each MISCELLANE ONCE PRN PRN Reason: Consult order Pregabalin (Pregabalin 25 Mg Capsule) 25 mg PO BID [facility] Last Admin: 01/26/22 09:05 Dose: Not Given Quetiapine Fumarate (Quetiapine Fumarate 50 Mg Tablet) 50 mg PO BID [facility] Last Admin: 01/26/22 09:05 Dose: Not Given Ropinirole HCl (Ropinirole Hcl 0.25 Mg Tablet) 0.25 mg PO BID [facility] Last Admin: 01/26/22 09:05 Dose: Not Given Senna (Sennosides 8.6 Mg Tablet) 8.6 mg PO DAILY PRN PRN Reason: Constipation Sodium Chloride (0.9 % Sodium Chloride Flush 3 Ml Syringe) 3 ml IVFLUSH QSHIFT [facility] Last Admin: 01/26/22 09:04 Dose: Not Given Home Medications Medication Instructions Recorded Confirmed Type acetaminophen 325 mg tablet 650 mg PO Q4H PRN Fever Or Pain 02/13/21 01/24/22 History baclofen 5 mg tablet 5 mg PO BEDTIME 02/13/21 01/24/22 History bisacodyl 10 mg rectal suppository 10 mg MD DAILY PRN Constipation 02/13/21 01/24/22 History carvedilol 3.125 mg tablet 3.125 mg PO BID 02/13/21 01/24/22 History dorzolamide 2 %-timolol 0.5 % (PF) 1 drp ophthalmic (eye) BID 02/13/21 01/24/22 History eye drops ferrous sulfate 325 mg (65 mg 325 mg PO BID 02/13/21 01/24/22 History iron) tablet isosorbide mononitrate 120 mg 120 mg PO DAILY 02/13/21 01/24/22 History tablet,extended release 24 hr levetiracetam 1,000 mg tablet 1,000 mg PO BID 02/13/21 01/24/22 History (Kenohelia) levothyroxine 75 mcg tablet 75 mcg PO DAILY@0630 02/13/21 01/24/22 History lorazepam 1 mg tablet 1 mg PO BID PRN Anxiety 02/13/21 01/24/22 History metformin 1,000 mg tablet 1,000 mg PO BID 02/13/21 01/24/22 History oxycodone 5 mg tablet 2.5 mg PO Q6H PRN Pain 02/13/21 01/24/22 History pregabalin 25 mg capsule (Lyrica) 25 mg PO BID 02/13/21 01/24/22 History ropinirole 0.25 mg tablet 0.25 mg PO BID 02/13/21 01/24/22 History sennosides 8.6 mg tablet (senna) 8.6 mg PO DAILY PRN Constipation 02/13/21 01/24/22 History tamsulosin 0.4 mg capsule 0.4 mg PO DAILY@1730 02/13/21 01/24/22 History torsemide 10 mg tablet 10 mg PO DAILY 02/13/21 01/24/22 History atorvastatin 10 mg tablet 10 mg PO BEDTIME 01/24/22 01/24/22 History epinephrine 0.3 mg/0.3 mL 0.3 mg IM Q4H PRN Allergic Reaction 01/24/22 01/24/22 History injection, auto-injector (EpiPen 2-Raghu) multivitamin 1 tab PO DAILY 01/24/22 01/24/22 History quetiapine 200 mg tablet,extended 400 mg PO BEDTIME 01/24/22 01/24/22 History release 24 hr Allergies Allergy/AdvReac Type Severity Reaction Status Date / Time No Known Allergies Allergy Verified 10/22/21 10:29 Physical Exam Vital signs: Vital Signs Temp 97 F 01/26/22 15:41 Pulse 78 01/26/22 15:41 Resp 18 01/26/22 15:41 BP 160/80 H 01/26/22 15:41 Pulse Ox 100 01/26/22 15:41 O2 Del Method 01/26/22 15:41 O2 Flow Rate 3 01/26/22 15:41 Intake & Output 01/25/22 01/26/22 01/26/22 18:59 06:59 18:59 Intake Total 4810.417 / 6535.417 1725.000 / 6535.417 1018.75 / 1018.75 Output Total 600 / 600 200 / 200 Balance 4810.417 / 5935.417 1125.000 / 5935.417 818.75 / 818.75 Urine Output (Average ml/kg/hr) 0.87 0.29 Intake: Intake, Oral Amount 0 / 0 Intake, IV Amount 4810.417 / 6535.417 1725.000 / 6535.417 1018.75 / 1018.75 0.9 % Sodium Chloride 1,000 ml 4000 / 4000 @ 999 mls/hr IV .Q1H1M [facility] Rx#: [id number] Azithromycin 500 mg In 0.9 % 250 / 250 Sodium Chloride 250 ml @ 125 mls/hr IV Q24H [facility] Rx#: [id number] cefTRIAXone sodium 1 gm In 0.9 50 / 50 50 / 50 % Sodium Chloride 50 ml @ 100 mls/hr IV Q24H [facility] Rx#: [id number] levETIRAcetam in NaCl (iso-os) 200 / 300 100 / 300 1,000 mg In 100 ml @ 400 mls/hr IV Q12H [facility] Rx#:[id number] 0.9 % Sodium Chloride 1,000 ml 310.417 / 1651.074 7091.000 / 1935.417 968.75 / 968.75 @ 125 mls/hr IVCONT .Q8H [facility] Rx #:[id number] Output: Output, Urine Amount (Catheter) 600 / 600 200 / 200 Straight 600 / 600 200 / 200 Other: NPO Yes Yes Yes Dinner % Eaten 0% Number of Bowel Movements 1 Urine ramos Urine Color Yellow Yellow Last Bowel Movement 01/25/22 Stool Incontinent Stool Amount Large Stool Color Anand Stool Consistency Formed Weight 57.2 kg - Constitutional Present: obtunded - Routine Respiratory Exam Absent: accessory muscle use - Routine Cardiovascular Exam Cardiovascular: Present: S1, S2 - Routine Skin Exam Present: intact. Absent: cyanosis - Routine Neurological Exam Present: altered mental status Hem/Onc Consult Result - Labs CBC & Chem 7: 01/26/22 06:03 01/26/22 06:03 Labs: Short CBC 01/26/22 Range/Units 06:03 WBC 12.6 H (4.8-10.8) X10*3/uL Hgb 10.3 L D (14.0-18.0) g/dl Hct 32.6 L (42.0-52.0) % Plt Count 390 D (160-400) X10*3/uL BMP 01/25/22 01/26/22 17:19 06:03 Sodium 142 143 Potassium 3.9 3.8 Chloride 114 H 116 H Carbon Dioxide 17 L 17 L BUN 37 H 34 H Creatinine 1.97 H 1.76 H Calcium 7.5 L D 7.6 L Urine 01/24/22 Range/Units Unknown Urine Color YELLOW Urine Appearance HAZY Urine pH 5.5 (5.0-8.0) Ur Specific [place] >= 1.030 H (1.005-1.025) Urine Protein 2+ H (NEG-TRACE) MG/DL Urine Glucose (UA) NEG (NEG) MG/DL Assessment and Plan Patient Active problem list reviewed?: Yes (1) Lytic bone lesions on xray Status: Acute Assessment and plan: 1. This is a 61-year-old male presenting with multiple lytic lesions, acute on chronic renal failure, anemia and elevated total protein, worrisome for multiple myeloma. Unfortunately, patient is nonverbal and unable to communicate. I have placed a call to his legal guardian/healthcare proxy. He will need biopsy of lytic lesions/bone marrow biopsy for diagnosis and further management. Currently he is being treated for pneumonia. Thanks, will follow with you. - Time Spent With Patient Time Spent with Patient (in minutes): 10
--- NOTE | 2022-01-26 17:28 | MHC.SL.SWA ---
Speech Pathologist Impression: Risk of Aspiration Due to: Neurological Condition Reduced Cognition Dysphasia Diet Status: PO w/ [facility] only, re-assess for readiness for diet. Liquid Consistency and Strategies for Safe Swallow: Liquid Intake Recommendation: NPO Liquid Intake Strategies: Solid Food Consistency: Dietary Recommendations: NPO Additional Modifications to Solid Foods: Recommend NPO at this time. Pt is unable to initiate oral movement to control or propel bolus, is at high risk for aspiration. Recommend PO w/ [facility] only. [facility] will continue to follow, re-assess for readiness for diet. Oral Medication Intake: NPO Please contact the pharmacy regarding appropriate crushable or liquid drug formulations that are available whenever modified delivery is recommended. Compensatory Strategies and Precautions to be Taken for Safe Swallow: Supervision While Eating and Drinking for Safe Swallow: PO with [facility] Foods to Avoid: Swallowing Recommended Treatments: Oral Motor Exercises Gustatory Stimulation Recommendation for Speech: Inpatient Speech Therapy Comment: On evaluation today, Patient did not initiate oral movement to propel either liquid or puree bolus, with a need to swab/remove bolus orally to prevent aspiration event. Patient additionally was unable to follow one step directions to assess oral motor, unclear at this time if issue was comprehension v. unable to initiate movement. Recommend NPO at this time due to high risk of aspiration. [facility]CH[facility]OP[facility] will continue to follow, with PO only with [facility]CH[facility]OP[facility], will re-assess swallow daily to determine if patient is ready for diet. Michael GONZALES notified of recommendations by secure text, recommendations discussed with nursing at bedside. Frequency/Duration: M-F while inpatient Date Range for Service Req: Timeline to reassess: Orthopaedic General Clinican/Clinical Fellow: No Supervisory Statement: I have reviewed and agree with the student/clinical fellow's documentation: Yes Speech Language Pathologist: Yessenia Mcclellan M.A., [facility]
[2022-01-26] MEDS: Morphine Sulfate 2 MG/ML CARTRIDGE 1 MG IVPUSH (18:56)
--- NOTE | 2022-01-26 20:51 | PM.EVENT ---
Event Note Date of Service: 01/26/22 Event Note: NSTEMI: Patient complained of chest pain, EKG nonischemic; troponin elevated to 4238. Prior troponins are 42, [address] Stauffer from Cardiology-recommended heparin drip. No transfer recommended. Also suggested to rule out DVT/PE-will obtain V/Q scan/venous duplex. Echocardiogram Sublingual nitroglycerin p.r.n. Patient is already on aspirin statin and Imdur.
[2022-01-26 22:35] LABS: Hematocrit 32.9 % (42.0-52.0); Hemoglobin 10.3 g/dl (14.0-18.0); Mean Corpuscular HGB Conc 31.3 g/dl (31.0-36.0); Mean Corpuscular Hemoglobin 29.4 pg (27.0-33.0); Platelet Count 348 X10*3/uL (160-400); Red Cell Distribution Width 17.2 % (11.0-16.0); White Blood Count 10.7 X10*3/uL (4.8-10.8)
[2022-01-26 23:07] LABS: INTERNATIONAL NORM RATIO 1.2 (0.9-1.1); Prothrombin Time 13.9 SEC (10.0-13.1)
[2022-01-26 23:10] LABS: PTT Heparin Drip 28.6 SEC (53-77.9)
[2022-01-27] VITALS (7 sets, daily range): BP systolic 112–177; BP diastolic 65–92; PULSE 57–98; RESP 16–18; TEMP 36.6–37.2; O2SAT 93–100
[2022-01-27] MEDS: Heparin Sodium,Porcine 5,000 UNIT/ML VIAL 3700 UNIT IVPUSH (00:03)
[2022-01-27] MEDS: Heparin Sodium,Porcine/1/2NS 25,000 UNIT/250 ML IV.SOLN 7.44 UNIT IVCONT (00:12)
[2022-01-27] MEDS: 0.9 % Sodium Chloride 1,000 ML 125 ML IVCONT (00:18)
[2022-01-27 06:23] LABS: Hematocrit 29.4 % (42.0-52.0); Hemoglobin 9.2 g/dl (14.0-18.0); Mean Corpuscular HGB Conc 31.3 g/dl (31.0-36.0); Mean Corpuscular Hemoglobin 29.5 pg (27.0-33.0); Mean Corpuscular Volume 94.2 fL (80.0-98.0); Mean Platelet Volume 9.9 fL (9.4-12.4); Platelet Count 314 X10*3/uL (160-400); Red Blood Count 3.12 X10*6/uL (4.60-5.80); Red Cell Distribution Width 17.2 % (11.0-16.0); White Blood Count 9.6 X10*3/uL (4.8-10.8)
[2022-01-27 06:33] LABS: INTERNATIONAL NORM RATIO 1.3 (0.9-1.1); Prothrombin Time 15.3 SEC (10.0-13.1)
[2022-01-27 06:36] LABS: PTT Heparin Drip 59.6 SEC (53-77.9)
[2022-01-27 06:42] LABS: Anion Gap 12 (12-20); Blood Urea Nitrogen 32 mg/dL (9-16); Calcium 7.4 mg/dL (8.4-10.2); Carbon Dioxide 16 mmol/L (22-29); Chloride 123 mmol/L (96-108); Creatinine Clr Calc Pharmacy 42.7; Estimated Glomerular Filt Rate 45; Glucose Random 151 mg/dL (60-115); Potassium 3.4 mmol/L (3.3-5.1); Sodium 148 mmol/L (135-145)
[2022-01-27] MEDS: levETIRAcetam in NaCl (iso-os) 1,000 MG/100 ML PIGGYBACK 400 MG IV ×2 (06:44→18:39)
--- NOTE | 2022-01-27 07:00 | CA_ITS ---
Transthoracic Echocardiogram Patient (Last, First, Middle): Miquel Arnold, Gender: Male Date of : 1960 Age: 61 Procedure Date: 01/27/2022 Procedure Type: Transthoracic Echocardiogram Location: [facility] [place] Height: 170.18 cm Weight: 61.69 kg BSA: 1.72 m2 Heart Rate: bpm BP: 157 / 79 mmHg Equity Research Associate: RUSSELL Referring MD: Lauri Appiah MD Symptoms: ELEVATED TROPONIN Study Quality: Adequate/contrast Conclusions: - Normal left ventricular cavity size. There is mildly increased left ventricular wall thickness. The left ventricular systolic function is severely decreased. The visually estimated ejection fraction is between 20-25%. - severe global hypokinesis with regional variation. - Normal right ventricular cavity size. There is moderately decreased right ventricular systolic function. - Moderate pulmonary hypertension is present. Findings Procedure Information Contrast agent, definity, is being given per protocol without apparent complications. Left Ventricle Normal left ventricular cavity size. There is mildly increased left ventricular wall thickness. The left ventricular systolic function is severely decreased. The visually estimated ejection fraction is between 20 25%. There is severe global hypokinesis. Abnormal diastolic function is noted. Spectral Doppler is indicative of a pseudonormal filling pattern. Right Ventricle Normal right ventricular cavity size. There is moderately decreased right ventricular systolic function. Atria The left atrium is moderately dilated. The right atrium is moderately dilated. Aortic Valve There is a normal trileaflet aortic valve. There is mild thickening of the aortic valve. There is no aortic valve stenosis. There is no aortic valve regurgitation. Mitral Valve The mitral valve appears normal. There is mild mitral valve regurgitation. There is no mitral valve stenosis. Pulmonic Valve Normal pulmonic valve structure and function. There is trace pulmonic valve regurgitation. Tricuspid Valve Normal tricuspid valve structure and function. There is mild to moderate tricuspid valve regurgitation. Moderately elevated right atrial pressure. Moderate pulmonary hypertension is present. Great Vessels There is mild dilatation of the ascending aorta measuring 3.50 cm. The visualized portions of the pulmonary artery and branches are normal. Venous The inferior vena cava is normal in size and collapses less than 50% with inspiration. Pericardium/Pleural There is no evidence of pericardial effusion. Prior Study Comparison Changes noted compared to prior study dated: 02/14/2021. EF 20-25%. Global hypokinesis with regional variation specially in the inferior wall and anteroseptal cantu which are akinetic. Measurements 2D Linear Measurements IVSd: 1.29 0.6-0.9/0.6-1.0 cm LVIDd: 4.87 3.9-5.3/4.2-5.9 cm LVIDd Index: 2.83 2.4-3.2/2.2-3.1 cm/m2 LVIDs: 3.77 2.0-3.6 cm LVPWd: 1.37 0.7-1.1 cm LA Diam: 3.40 2.7-3.8/3.0-4.0 cm LAIDs Index: 1.98 1.5-2.3 cm/m2 LV Mass: 323.91 67-162/88-224 g LV Mass Index: 188.32 43-95/49-115 g/m2 LVOT Diam: 2.00 3.0+(-)1.3 cm 2D Systolic Function EF 4C: 30.00 >55% EF 2C: 28.40 >55% EF BiP: 29.50 >55% Mitral Valve E'Lateral: 10.10 E'Medial: 7.07 Aortic Valve AoV Pk Eric: 0.94 AoV Mn Eric: 0.68 AoV VTI: 0.18 AoV Pk Grad: 4.00 Aov Mn Grad: 2.00 KIKI Cont.VTI: 2.44 LVOT LVOT Pk Eric: 0.79 LVOT Mn Eric: 0.50 LVOT VTI: 0.14 LVOT Pk Grad: 3.00 LVOT Mn Grad: 1.00 LVOT Diam: 2.00 LVOT Area: 3.14 Diastolic Function E'Medial: 7.07 E' Laterial: 10.10 Right Ventricle TAPSE (mm): 13.60 TVS' Eric: 6.96 Tricuspid Valve TR Pk Eric: 3.40 TR Pk Grad: 46.00 RA Press: 8.00 RVSP: 54.00 Great Vessels Aorta Sinus of Valsalva: 3.71 2.0-3.[address] [place]: 2.89 1.7-3.4 cm Ao Asc: 3.50 2.1-3.4 cm Updated in Other Vendor System with Status of Final Freddy Stauffer MD electronically signed on 01/27/2022 3:42:31 PM with status of Final
[2022-01-27] MEDS: cefTRIAXone sodium 1 GM in 0.9 % Sodium Chloride 50 ML IV (08:12)
[2022-01-27] MEDS: Levothyroxine Sodium 100 MCG VIAL 60 MCG IVPUSH (08:12)
[2022-01-27] MEDS: Dextrose 5 % 1,000 ML 125 ML IVCONT ×2 (08:15→21:01)
[2022-01-27 08:25] LABS: D Dimer High Sensitivity 383 NG/ML
[2022-01-27 08:38] LABS: Glucose, Whole Blood 149 mg/dL (60-115)
--- NOTE | 2022-01-27 09:20 | P.PNNP_ITS ---
Subjective Subjective Date of Service: 01/27/22 Interval history: Events noted More alert Physical Exam Vital Signs: Vital Signs: Last Vital Signs Temp 98.3 F 01/27/22 07:19 Pulse 98 01/27/22 07:19 Resp 17 01/27/22 07:19 BP 112/65 01/27/22 07:19 Pulse Ox 95 01/27/22 07:19 O2 Del Method 01/27/22 07:19 O2 Flow Rate 3 01/27/22 07:19 BMI result Body Mass Index 19.7 Const: Other: Constitutional : more alert Neck : Normal inspection, Supple Cardiovascular : RRR, no JVP, no lower extremity edema Respiratory : fair bilateral air entry, no crackles, wheezes or rhonchi Gastrointestinal: soft, lax, Normal bowel sounds, Non tender Skin : Warm, Dry skin, sternotomy scar Objective Data Labs CBC & Chem 7: 01/27/22 05:49 01/27/22 05:49 Labs: Laboratory Results - last 24 hr 01/25/22 01/26/22 01/26/22 11:59 11:21 15:18 WBC RBC Hgb Hct MCV MCH MCHC RDW Plt Count MPV Absolute Nucleated RBC Nucleated RBC % (auto) PT INR aPTT Heparin Protocol D-Dimer High Sensitivty Sodium Potassium Chloride Carbon Dioxide Anion Gap BUN Creatinine Estim Creat Clear Calc Estimated GFR POC Glucose 190 H 162 H 149 H Random Glucose Calcium Troponin I High Sens 01/26/22 01/26/22 01/26/22 19:50 22:28 22:28 WBC 10.7 RBC 3.50 L Hgb 10.3 L Hct 32.9 L MCV 94.0 MCH 29.4 MCHC 31.3 RDW 17.2 H Plt Count 348 MPV 9.0 L Absolute Nucleated RBC 0.000 Nucleated RBC % (auto) 0.0 PT INR aPTT Heparin Protocol D-Dimer High Sensitivty Sodium Potassium Chloride Carbon Dioxide Anion Gap BUN Creatinine Estim Creat Clear Calc Estimated GFR POC Glucose Random Glucose Calcium Troponin I High Sens 4238.5 H* D 4533.5 H* 01/26/22 01/27/22 01/27/22 22:28 05:48 05:49 WBC 9.6 RBC 3.12 L Hgb 9.2 L Hct 29.4 L MCV 94.2 MCH 29.5 MCHC 31.3 RDW 17.2 H Plt Count 314 MPV 9.9 Absolute Nucleated RBC 0.000 Nucleated RBC % (auto) 0.0 PT 13.9 H 15.3 H INR 1.2 H 1.3 H aPTT Heparin Protocol 28.6 L 59.6 D D-Dimer High Sensitivty 383 Sodium Potassium Chloride Carbon Dioxide Anion Gap BUN Creatinine Estim Creat Clear Calc Estimated GFR POC Glucose Random Glucose Calcium Troponin I High Sens 01/27/22 01/27/22 05:49 07:26 WBC RBC Hgb Hct MCV MCH MCHC RDW Plt Count MPV Absolute Nucleated RBC Nucleated RBC % (auto) PT INR aPTT Heparin Protocol D-Dimer High Sensitivty Sodium 148 H Potassium 3.4 Chloride 123 H Carbon Dioxide 16 L Anion Gap 12 BUN 32 H Creatinine 1.57 H Estim Creat Clear Calc 42.7 Estimated GFR 45 POC Glucose 149 H Random Glucose 151 H Calcium 7.4 L Troponin I High Sens Microbiology Microbiology Results: Microbiology 01/25/22 07:52 Blood - Venous Blood Culture - Preliminary No growth after 24 hours. 01/25/22 07:48 Blood - Venous Blood Culture - Preliminary No growth after 24 hours. 01/23/22 14:50 Blood - Venous Blood Culture - Preliminary No growth after 48 hours. 01/23/22 14:50 Blood - Venous Blood Culture - Preliminary No growth after 48 hours. Procedures Date of Service Date of Service: 01/27/22 Assessment & Plan Assessment and plan (1) BPH w urinary obs/LUTS: Status: Acute (2) Urinary retention: Status: Acute Plan 61-year-old male with past medical history of CAD, CVA, as well as a resident of [facility] presents to the hospital with complaints of chest pain, headache, and was found to be hypertensive Hypernatremia DORIAN on CKD DORIAN due to hypoperfusion Cr improving No indication for dialysis Keep i >o with D5W to correct hypernatremia Avoid hypotension Add NaHCO3 650 mg BID to correct acidosis Time Spent With Patient Time: Total time spent is greater than 50% in coordination of care (as documented) at patient's floor/unit and/or counseling patient: Progress Note: Quality Stroke Does the patient have a stroke diagnosis?: No
[2022-01-27 11:23] LABS: Glucose, Whole Blood 157 mg/dL (60-115)
[2022-01-27] MEDS: Insulin Lispro 100 UNIT/ML 3 ML VIAL SUBCUT ×2 (11:53→20:59)
--- NOTE | 2022-01-27 12:39 | P.PNIM_ITS ---
Subjective Subjective Date of Service: 01/27/22 Interval History: Seen and evaluated this morning More alert this morning and answering some questions but still not following commands Not taking his medications or oral intake No more fever overnight No other overnight events Review of Systems Review of Systems: Yes Unobtainable due to mental status Physical Exam Vital Signs: Vital Signs: Last Vital Signs Temp 98.2 F 01/27/22 10:50 Pulse 85 01/27/22 10:50 Resp 17 01/27/22 10:50 BP 174/92 H 01/27/22 10:50 Pulse Ox 99 01/27/22 10:50 O2 Del Method 01/27/22 10:50 O2 Flow Rate 3 01/27/22 10:50 BMI result Body Mass Index 19.7 Const: Other: Constitutional : Alert with stimulation but not following commands, not in distress Neck : Normal inspection, Supple Cardiovascular : RRR, no JVP, no lower extremity edema Respiratory : fair bilateral air entry, no crackles, wheezes or rhonchi Gastrointestinal: soft, lax, Normal bowel sounds, Non tender Skin : Warm, Dry skin, sternotomy scar Neurological : Alert with stimulation , answering questions, contracted, moving extremities Objective Data Active Medications Acetaminophen (Acetaminophen 325 Mg Tablet) 650 mg PO Q6H PRN PRN Reason: Pain, Mild (Pain Scale 1-3) Acetaminophen (Acetaminophen 325 Mg Tablet) 650 mg PO Q4H PRN PRN Reason: Fever Or Pain Aspirin (Aspirin Enteric Coated 81 Mg Tablet.Dr) 81 mg PO DAILY [facility] Last Admin: 01/27/22 10:27 Dose: Not Given Documented By: STEFFI Non-Admin Reason: NPO Atorvastatin Calcium (Atorvastatin Calcium 10 Mg Tablet) 10 mg PO BEDTIME [facility] Last Admin: 01/26/22 22:01 Dose: Not Given Documented By: PACHECO Non-Admin Reason: NPO Baclofen (Baclofen 10 Mg Tablet) 5 mg PO BEDTIME [facility] Last Admin: 01/26/22 22:01 Dose: Not Given Documented By: PACHECO Non-Admin Reason: NPO Bisacodyl (Bisacodyl 10 Mg Supp.Rect) [address] DAILY PRN PRN Reason: Constipation Carvedilol (Carvedilol 6.25 Mg Tablet) 6.25 mg PO BID [facility]; Protocol Last Admin: 01/27/22 10:27 Dose: Not Given Documented By: STEFFI Non-Admin Reason: NPO Dextrose (Dextrose 50 % 25 Gm/50 Ml Syringe) 25 gm IVPUSH Q15M PRN; Protocol PRN Reason: per Hypoglycemia Standing Ord. Docusate Sodium (Docusate Sodium 100 Mg Capsule) 100 mg PO DAILY PRN PRN Reason: Constipation Doxazosin Mesylate (Doxazosin Mesylate 2 Mg Tablet) 4 mg PO BEDTIME [facility]; Protocol Last Admin: 01/26/22 22:02 Dose: Not Given Documented By: PACHECO Non-Admin Reason: NPO Glucose (Glucose Gel 15 Gm Gel..Gram.) 15 gm PO Q15M PRN; Protocol PRN Reason: per Hypoglycemia Standing Ord. Heparin Sodium (Porcine) (Heparin Sodium,Porcine 5,000 Unit/Ml Vial) 2,500 unit 40 unit/kg (2500 unit) IVPUSH PROTOCOL BOLUS PRN; Protocol PRN Reason: 40 unit/kg - Heparin Protocol Heparin Sodium (Porcine) (Heparin Sodium,Porcine 5,000 Unit/Ml Vial) 5,000 unit 80 unit/kg (5000 unit) IVPUSH PROTOCOL BOLUS PRN; Protocol PRN Reason: 80 unit/kg - Heparin Protocol Levetiracetam (Keppra) 1,000 mg in 100 mls @ 400 mls/hr IV Q12H [facility] Last Infusion: 01/27/22 07:10 Dose: 0 mls/hr Documented By: CARLA Ceftriaxone Sodium 1 gm/ (Sodium Chloride) 50 mls @ 100 mls/hr IV Q24H [facility] Last Infusion: 01/27/22 09:27 Dose: 100 mls/hr Documented By: STEFFI Azithromycin 500 mg/ Sodium (Chloride) 250 mls @ 125 mls/hr IV Q24H [facility] Last Infusion: 01/26/22 16:11 Dose: 0 mls/hr Documented By: KALANI Heparin Sodium/Sodium Chloride () 25,000 unit in 250 mls @ 0 mls/hr IVCONT .Q0M [facility]; Protocol Last Admin: 01/27/22 00:12 Dose: 12 units/kg/hr, 7.44 mls/hr Documented By: CARLA Co-signed By: LEE Dextrose (D5w) 1,000 mls @ 125 mls/hr IVCONT .Q8H [facility] Last Infusion: 01/27/22 10:20 Dose: 0 mls/hr Documented By: STEFFI Insulin Human Lispro (Insulin Lispro 100 Unit/Ml 3 Ml Vial) 0 unit SUBCUT QIDACHS [facility]; Protocol Last Admin: 01/27/22 11:53 Dose: 2 unit Documented By: STEFFI Isosorbide Mononitrate (Isosorbide Mononitrate 60 Mg Tab.Er.24h) 120 mg PO DAILY [facility]; Protocol Last Admin: 01/27/22 10:27 Dose: Not Given Documented By: STEFFI Non-Admin Reason: NPO Labetalol HCl (Labetalol Hcl 20 Mg/4 Ml Syringe) 10 mg IVPUSH QID [facility] Last Admin: 01/27/22 09:53 Dose: 10 mg Documented By: STEFFI Levothyroxine Sodium (Levothyroxine Sodium 100 Mcg Vial) 60 mcg IVPUSH DAILY@0600 [facility] Last Admin: 01/27/22 08:12 Dose: 60 mcg Documented By: STEFFI Lorazepam (Lorazepam 1 Mg Tablet) 1 mg PO BID PRN PRN Reason: Anxiety Morphine Sulfate (Morphine Sulfate 2 Mg/Ml Cartridge) 1 mg IVPUSH Q4H PRN; Protocol PRN Reason: Pain, Moderate (Pain Scale 4-6 Last Admin: 01/26/22 18:56 Dose: 1 mg Documented By: DOMINGUEZ Multivitamins/Vitamin C (Multivitamin Tablet) 1 tab PO DAILY [facility] Last Admin: 01/27/22 10:27 Dose: Not Given Documented By: STEFFI Non-Admin Reason: NPO Nitroglycerin (Nitroglycerin 0.4 Mg Tab.Subl) 0.4 mg SUBLINGUAL Q5MX3 PRN PRN Reason: Chest Pain Ondansetron HCl (Ondansetron Hcl 4 Mg/2 Ml Vial) 4 mg IVPUSH Q8H PRN PRN Reason: Nausea and Vomiting Pharmacy Consult (Consult Rx Perform Med Rec) 1 each MISCELLANE ONCE PRN PRN Reason: Consult order Pregabalin (Pregabalin 25 Mg Capsule) 25 mg PO BID [facility] Last Admin: 01/27/22 10:27 Dose: Not Given Documented By: STEFFI Non-Admin Reason: NPO Quetiapine Fumarate (Quetiapine Fumarate 50 Mg Tablet) 50 mg PO BID [facility] Last Admin: 01/27/22 10:27 Dose: Not Given Documented By: STEFFI Non-Admin Reason: NPO Ropinirole HCl (Ropinirole Hcl 0.25 Mg Tablet) 0.25 mg PO BID [facility] Last Admin: 01/27/22 10:28 Dose: Not Given Documented By: STEFFI Non-Admin Reason: NPO Senna (Sennosides 8.6 Mg Tablet) 8.6 mg PO DAILY PRN PRN Reason: Constipation Sodium Chloride (0.9 % Sodium Chloride Flush 3 Ml Syringe) 3 ml IVFLUSH QSHIFT [facility] Last Admin: 01/27/22 07:11 Dose: Not Given Documented By: STEFFI Non-Admin Reason: IV Running Labs CBC & Chem 7: 01/27/22 05:49 01/27/22 05:49 Labs: Laboratory Results - last 24 hr 01/26/22 01/26/22 01/26/22 15:18 22:28 22:28 MCV 94.0 MCH 29.4 MCHC 31.3 RDW 17.2 H Plt Count 348 MPV 9.0 L Absolute Nucleated RBC 0.000 Nucleated RBC % (auto) 0.0 PT 13.9 H INR 1.2 H aPTT Heparin Protocol 28.6 L D-Dimer High Sensitivty Anion Gap Estim Creat Clear Calc Estimated GFR POC Glucose 149 H Random Glucose Calcium 01/27/22 01/27/22 01/27/22 05:48 05:49 05:49 MCV 94.2 MCH 29.5 MCHC 31.3 RDW 17.2 H Plt Count 314 MPV 9.9 Absolute Nucleated RBC 0.000 Nucleated RBC % (auto) 0.0 PT 15.3 H INR 1.3 H aPTT Heparin Protocol 59.6 D D-Dimer High Sensitivty 383 Anion Gap 12 Estim Creat Clear Calc 42.7 Estimated GFR 45 POC Glucose Random Glucose 151 H Calcium 7.4 L 01/27/22 01/27/22 07:26 10:52 MCV MCH MCHC RDW Plt Count MPV Absolute Nucleated RBC Nucleated RBC % (auto) PT INR aPTT Heparin Protocol D-Dimer High Sensitivty Anion Gap Estim Creat Clear Calc Estimated GFR POC Glucose 149 H 157 H Random Glucose Calcium Microbiology Microbiology Results: Microbiology 01/25/22 07:52 Blood Culture - Preliminary Blood - Venous No growth after 48 hours. 01/25/22 07:48 Blood Culture - Preliminary Blood - Venous No growth after 48 hours. Assessment and Plan (1) Lytic bone lesions on xray: Status: Acute (2) Sepsis: Status: Acute (3) Pneumonia: Status: Acute (4) NSTEMI (non-ST elevated myocardial infarction): Status: Acute Plan 61-year-old male with past medical history of CAD, CVA, as well as a resident of [facility] presents to the hospital with complaints of chest pain, headache, and was found to be hypertensive # NSTEMI Reported chest pain, troponin elevated at [address] or T-wave changes to suggest ACS To do an echo Pending cardiology evaluation On heparin drip, aspirin and statin # sepsis secondary to pneumonia Lactic acidosis resolved Tylenol as needed CT showed an evidence of left lower lobe infiltrates Negative cultures Continue Ceftriaxone and Azithromycin # Lytic pelvic lesion concerning for possible multiple myeloma with elevated protein to albumin ratio Oncology input appreciated, immunofixation, kappa lambda ordered Urine immunofixation ordered To do bone marrow biopsy once medically stable # toxic metabolic encephalopathy secondary to possible multiple myeloma, infection Mild improvement Control blood pressure Treat infection Evaluate for multiple myeloma Recurrent reorientation # headache secondary to hypertensive urgency, multiple myeloma head CT showed no acute bleeds or territorial infarct Control blood pressure, Tylenol p.r.n. # urine retention Hansen catheter placed by urologist Tamsulosin discontinued and started on doxazosin # hypertension urgency elevated troponin secondary to hypertension Better controlled Not taking p.o. medications, increase labetalol to 10 mg q.i.d. cardiology following, continue baby aspirin # DORIAN on CKD3b Kidney function improving Nephrology following Continue to monitor # hypernatremia Secondary to dehydration to start D5W and follow BMP # diabetes low-dose sliding scale insulin hold oral antihyperglycemics # hypothyroidism continue levothyroxine IV for now # schizoaffective disorder continue antipsychotics once he can tolerate oral DVT prophylaxis: Heparin The patient will need overnight hospital stay to continue evaluation of possible multiple myeloma requiring bone Hernandez biopsy, treatment of pneumonia to prevent possible decomposition into hypoxic respiratory failure and severe sepsis. Quality Stroke Does the patient have a stroke diagnosis?: No VTE Prior VTE?: No VTE Risk Level:: Medical - moderate - high VTE Device Contraindication: Treatment Not Indicated VTE Drug Contraindication: N/A - Med Ordered
--- NOTE | 2022-01-27 12:48 | MHC.SL.SWA ---
Speech Pathologist Impression: Risk of Aspiration Due to: Neurological Condition Reduced Cognition Dysphasia Diet Status: RESTART diet of PUREE (NDD1) with NECTAR THICK liquids, PILLS CRUSHED in PUREE. Liquid Consistency and Strategies for Safe Swallow: Liquid Intake Recommendation: [place] Thick Liquid Intake Strategies: Small Sips Liquids by Teaspoon Only Solid Food Consistency: Dietary Recommendations: Pureed (NDD1) Additional Modifications to Solid Foods: Patient may need cuing to: close mouth on spoon to strip spoon of liquid or food; initiate swallowing if holding food or liquid in mouth. Check that patient has swallowed before introducing more food or liquid. Discontinue if patient is pocketing/holding food, or if patient is lethargic/not engaged in meal. Oral Medication Intake: Crushed with Puree Please contact the pharmacy regarding appropriate crushable or liquid drug formulations that are available whenever modified delivery is recommended. Compensatory Strategies and Precautions to be Taken for Safe Swallow: Sitting Upright (90 deg) Liquids from Spoon Small Bites and Sips Alternate Liquids/Solids Rate of Ingestion Change Oral Check Supervision While Eating and Drinking for Safe Swallow: Total Assistance (1:1) Foods to Avoid: Sticky, congealed purees. Swallowing Recommended Treatments: Compens. Strategy Educat. Recommendation for Speech: Inpatient Speech Therapy Comment: Patient was sleeping but easily roused for the treatment. Patient was repositioned to be seated with head of bed at 90 Degrees. Patient continued to answer primarily yes to all questions, although stated no once or twice clearly today, and made occasional brief verbal comments. Pt was given oral care at onset, was noted to close mouth on swab and suck off liquid, initiating swallow after mild delay. Tongue and oral area notably dry, patient is edentulous. Patient exhibited similar sucking action to extract liquid on swab of cold water, similarly intiated swallow after mild delay, laryngeal elevation mildly decreased. Pt was given half tsp of water by spoon, required cuing to close mouth on spoon, then with liquid in mouth, held liquid anteriorly for several seconds, after repeated cues began to propel liquid, with swallow initiated after mild delay. Water trial repeated X3 with similar behavior, some water escaping from mouth when patient appeared to be holding it in mouth, Pt noted to cough after third trial of water. Pt given nectar thick apple juice, with similar response of holding bolus anteriorly for several seconds before initiating oral movement to swallow, despite cuing. On swallow, mild delay initiating, mildly reduced elevation, no clinical signs of aspiration on several trials. ON puree (apple sauce), Patient again needing cuing to open mouth adequately and to strip spoon, resulting in part of the food bolus coating mustache and ash as a result. Patient again held food bolus in mouth for several seconds (longer than liquid bolus), before initiating oral movement for swallow. Swallow initiated after mild delay, laryngeal elevation mildly decreased. Pt given trial of osbaldo cracker softened in apple sauce: Again held bolus in mouth before initiating oral movement, then produced a slow pattern of mastication including rotary chew. Appeared to not initiate swallow after stopping long period of mastication. Pt given another bite of puree, produced swallow pattern with initial pause, but then clearly swallowed. Pt was asked to open mouth to check for residual, but did not follow direction. Patient then given ice water swab which allowed visualization of oral cavity, patient had no residual. Patient has maladaptive pattern of holding food or liquid anteriorly before initiating oral movement for swallow, making oral phase prolonged, however today did initiate lingual movement to propel bolus and produced swallow after mild delay, clearing food and liquid with no clinical signs of aspiration. Recommend RESTART diet of PUREE (NDD1) with NECTAR THICK liquids, PILLS CRUSHED in PUREE. Patient will need a 1-1 feed, with close monitor of behavior/clinical signs of aspiration. If Patient is holding food or liquid in mouth without initiating swallow, discontinue feeding; Do not attempt feeding if patient is lethargic or not adequately engaged in the meal. MD, boardmarker notified of diet recommendation by secure text, discussed with nursing at bedside. Frequency/Duration: M-F while inpatient Date Range for Service Req: Timeline to reassess: Film And Video Graphics Designer Clinican/Clinical Fellow: No Supervisory Statement: I have reviewed and agree with the student/clinical fellow's documentation: Yes Speech Language Pathologist: Yessenia Mcclellan M.A., CCC-HEALTHCARE APPLICATIONS ANALYST
[2022-01-27 13:09] LABS: PTT Heparin Drip 46.4 SEC (53-77.9)
[2022-01-27] MEDS: Heparin Sodium,Porcine 5,000 UNIT/ML VIAL 2500 UNIT IVPUSH (14:07)
[2022-01-27] MEDS: Azithromycin 500 MG in 0.9 % Sodium Chloride 250 ML 125 MG IV (14:09)
[2022-01-27 14:16] LABS: Anion Gap 12 (12-20); Blood Urea Nitrogen 33 mg/dL (9-16); Calcium 7.7 mg/dL (8.4-10.2); Carbon Dioxide 17 mmol/L (22-29); Chloride 121 mmol/L (96-108); Creatinine Clr Calc Pharmacy 37.3; Estimated Glomerular Filt Rate 38; Potassium 3.4 mmol/L (3.3-5.1); Sodium 147 mmol/L (135-145)
[2022-01-27 14:22] LABS: Glucose Random 189 mg/dL (60-115)
[2022-01-27] MEDS: Labetalol HCL 100 MG/20 ML VIAL 10 MG IVPUSH ×3 (14:44→21:02)
--- NOTE | 2022-01-27 15:07 | PM.PNCARD ---
Subjective Subjective Date of Service: 01/27/22 Interval history: Seen and examined at bedside. Quite confused and unable to provide any history. Overnight events noted. I was contacted because patient developed chest pain with T-wave inversions laterally. He has ruled in for NSTEMI. He was started on heparin drip. Physical Exam Vital Signs: Last Vital Signs Temp 98.2 F 01/27/22 10:50 Pulse 85 01/27/22 10:50 Resp 17 01/27/22 10:50 BP 174/92 H 01/27/22 10:50 Pulse Ox 99 01/27/22 10:50 O2 Del Method 01/27/22 10:50 O2 Flow Rate 3 01/27/22 10:50 BMI result Body Mass Index 19.7 GENERAL APPEARANCE: Confused, saying yes to every question. NECK: no carotid bruit, no jugular venous distention. SKIN: no suspicious lesions, warm and dry. HEART: no murmurs, regular rate and rhythm. LUNGS: clear to auscultation bilaterally. ABDOMEN: soft, nontender. EXTREMITIES: no edema. PERIPHERAL PULSES: equal. Objective Labs and Meds Result diagrams: 01/27/22 05:49 01/27/22 13:50 Lab results: Laboratory Results - last 24 hr 01/26/22 01/26/22 01/26/22 15:18 19:50 22:28 WBC RBC Hgb Hct MCV MCH MCHC RDW Plt Count MPV Absolute Nucleated RBC Nucleated RBC % (auto) PT INR aPTT Heparin Protocol D-Dimer High Sensitivty Sodium Potassium Chloride Carbon Dioxide Anion Gap BUN Creatinine Estim Creat Clear Calc Estimated GFR POC Glucose 149 H Random Glucose Calcium Troponin I High Sens 4238.5 H* D 4533.5 H* 01/26/22 01/26/22 01/27/22 22:28 22:28 05:48 WBC 10.7 RBC 3.50 L Hgb 10.3 L Hct 32.9 L MCV 94.0 MCH 29.4 MCHC 31.3 RDW 17.2 H Plt Count 348 MPV 9.0 L Absolute Nucleated RBC 0.000 Nucleated RBC % (auto) 0.0 PT 13.9 H 15.3 H INR 1.2 H 1.3 H aPTT Heparin Protocol 28.6 L 59.6 D D-Dimer High Sensitivty 383 Sodium Potassium Chloride Carbon Dioxide Anion Gap BUN Creatinine Estim Creat Clear Calc Estimated GFR POC Glucose Random Glucose Calcium Troponin I High Sens 01/27/22 01/27/22 01/27/22 05:49 05:49 07:26 WBC 9.6 RBC 3.12 L Hgb 9.2 L Hct 29.4 L MCV 94.2 MCH 29.5 MCHC 31.3 RDW 17.2 H Plt Count 314 MPV 9.9 Absolute Nucleated RBC 0.000 Nucleated RBC % (auto) 0.0 PT INR aPTT Heparin Protocol D-Dimer High Sensitivty Sodium 148 H Potassium 3.4 Chloride 123 H Carbon Dioxide 16 L Anion Gap 12 BUN 32 H Creatinine 1.57 H Estim Creat Clear Calc 42.7 Estimated GFR 45 POC Glucose 149 H Random Glucose 151 H Calcium 7.4 L Troponin I High Sens 01/27/22 01/27/22 01/27/22 10:52 12:49 13:50 WBC RBC Hgb Hct MCV MCH MCHC RDW Plt Count MPV Absolute Nucleated RBC Nucleated RBC % (auto) PT INR aPTT Heparin Protocol 46.4 L D D-Dimer High Sensitivty Sodium 147 H Potassium 3.4 Chloride 121 H Carbon Dioxide 17 L Anion Gap 12 BUN 33 H Creatinine 1.80 H Estim Creat Clear Calc 37.3 Estimated GFR 38 POC Glucose 157 H Random Glucose 189 H Calcium 7.7 L Troponin I High Sens Imaging Radiologist's impression: Impressions Pulmonary Perfusion Imaging 01/27/22 10:30 IMPRESSION: Very low probability of pulmonary embolism. Progress Note: A&P Assessment and plan (1) NSTEMI (non-ST elevated myocardial infarction): Status: Acute (2) Lytic bone lesions on xray: Status: Acute Plan 61-year-old gentleman presenting with confusion and lytic bone lesions. He had mildly elevated troponin level on admission. This was thought to be due to high blood pressure. Subsequent to that he developed chest pains and has repeat troponin level level was 4238. His high sensitive troponin level before this was 40 for on January 23. EKG has shown lateral T-wave inversions which are new. Patient is unable to give any history. He is being treated as NSTEMI. He had V/Q scan given lytic lesions to rule out PE and this was very low probability. I think currently he has acute coronary syndrome. He is not a candidate to go for cardiac catheterization given poor mental status and I doubt he can cooperate for any procedures currently. Agree with heparin drip. If there is no plan of biopsies or any procedures then he should be given Plavix 75 mg after a 300 mg load. Will review echocardiogram. Thank you for allowing me to participate in the care of your patient. Please feel free to contact me if you have any questions. Time Spent With Patient Time: Total time spent is greater than 50% in coordination of care (as documented) at patient's floor/unit and/or counseling patient: Progress Note: Quality Stroke Does the patient have a stroke diagnosis?: No Procedures Date of Service Date of Service: 01/27/22
[2022-01-27 15:09] LABS: PTT Heparin Drip 195.8 SEC (53-77.9)
[2022-01-27 16:13] LABS: Glucose, Whole Blood 139 mg/dL (60-115)
[2022-01-27 20:08] LABS: Glucose, Whole Blood 184 mg/dL (60-115)
[2022-01-27 20:13] LABS: PTT Heparin Drip 76.8 SEC (53-77.9)
[2022-01-27] MEDS: Baclofen 10 MG TABLET 5 MG PO (20:58)
[2022-01-27] MEDS: carvediloL 6.25 MG TABLET PO (20:58)
[2022-01-27] MEDS: Doxazosin Mesylate 2 MG TABLET 4 MG PO (20:58)
[2022-01-27] MEDS: QUEtiapine Fumarate 25 MG TABLET PO (20:59)
[2022-01-27] MEDS: rOPINIRole HCL 0.25 MG TABLET PO (20:59)
[2022-01-27] MEDS: Atorvastatin Calcium 40 MG TABLET PO (20:59)
[2022-01-28] VITALS (7 sets, daily range): BP systolic 89–158; BP diastolic 58–98; PULSE 68–83; RESP 17–20; TEMP 35.8–36.8; O2SAT 93–99
[2022-01-28] MEDS: Heparin Sodium,Porcine/1/2NS 25,000 UNIT/250 ML IV.SOLN 8.68 UNIT IVCONT (00:27)
[2022-01-28] MEDS: 0.9 % Sodium Chloride Flush 3 ML SYRINGE IVFLUSH ×2 (01:09→21:12)
[2022-01-28 02:49] LABS: PTT Heparin Drip 57.9 SEC (53-77.9)
[2022-01-28] MEDS: Levothyroxine Sodium 100 MCG VIAL 60 MCG IVPUSH (05:38)
[2022-01-28] MEDS: levETIRAcetam in NaCl (iso-os) 1,000 MG/100 ML PIGGYBACK 400 MG IV ×2 (05:43→17:55)
[2022-01-28 06:29] LABS: PTT Heparin Drip 51.3 SEC (53-77.9)
[2022-01-28 06:34] LABS: Anion Gap 12 (12-20); Blood Urea Nitrogen 27 mg/dL (9-16); Calcium 7.4 mg/dL (8.4-10.2); Carbon Dioxide 17 mmol/L (22-29); Chloride 120 mmol/L (96-108); Creatinine Clr Calc Pharmacy 44.1; Estimated Glomerular Filt Rate 47; Glucose Random 198 mg/dL (60-115); Potassium 3.4 mmol/L (3.3-5.1); Sodium 146 mmol/L (135-145)
[2022-01-28 06:41] LABS: Hematocrit 27.8 % (42.0-52.0); Hemoglobin 8.9 g/dl (14.0-18.0); Mean Corpuscular Hemoglobin 29.9 pg (27.0-33.0); Mean Corpuscular Volume 93.3 fL (80.0-98.0); Platelet Count 325 X10*3/uL (160-400); Red Blood Count 2.98 X10*6/uL (4.60-5.80); Red Cell Distribution Width 17.1 % (11.0-16.0); White Blood Count 7.1 X10*3/uL (4.8-10.8)
--- NOTE | 2022-01-28 06:49 | PC.NURSE ---
SHELLFISH FARMING SUPERVISOR looked over into room and saw patient on the floor kneeling, holding onto the bed railing. Patient did not sustain any injuries or LOC. Food Science Technician and Dr. Appiah aware. Heart rhythm noted to have possibly changed. EKG, and knee xray ordered. Will pass onto day shift.
--- NOTE | 2022-01-28 06:54 | ECG_ITS ---
Test Reason : fall Blood Pressure : / mmHG Vent. Rate : 078 BPM Atrial Rate : 078 BPM P-R Int : 174 ms QRS Dur : 166 ms QT Int : 460 ms P-R-T Axes : 081 -70 145 degrees QTc Int : 524 ms Normal sinus rhythm Possible Left atrial enlargement Left axis deviation Right bundle branch block Septal infarct (cited on or before 23-JAN-2022) T wave abnormality, consider lateral ischemia Abnormal ECG When compared with ECG of 26-JAN-2022 19:28, Serial changes of Septal infarct Present Referred By: Lauri Appiah Electronically Signed By:GABRIELA DUMONT
[2022-01-28 07:22] LABS: Glucose, Whole Blood 163 mg/dL (60-115)
[2022-01-28] MEDS: Heparin Sodium,Porcine 5,000 UNIT/ML VIAL 2500 UNIT IVPUSH (07:40)
--- NOTE | 2022-01-28 08:59 | P.CDIC_ITS ---
CDI Concurrent Query Documentation Clarification: PHYSICIAN'S DOCUMENTATION REQUEST Date of Query: 01/28/22 0859 Patient Name: Miquel Arnold Admit Date: 01/25/22 Dear Doctor, A review of the medical record indicates additional documentation may be needed. Please review below and update the documentation accordingly. Clinical Indicators: Risk Factors/Clinical Indicators/Treatments LABS: calcium 7.7 7.4 L Based on the above, could you clarify in the Progress Notes the appropriate diagnosis, if significant, that supports the above abnormalities and additional evaluation, monitoring, and/or treatment rendered: * Hypocalcemia or other etiology of findings * Labs indicate a diagnosis of (please specify) * Other (please specify) * Unable to determine Use of terms such as suspected, likely, concern for, or probable (associated with a specific diagnosis that is being evaluated, monitored, or treated as if it exists) are acceptable and can be coded in the inpatient setting, when doc umented at the time of discharge. Thank you, Marry Ríos [facility], CDIS Extension: [phone] Please use your independent medical judgment in providing your response. THIS QUERY IS PART OF THE PERMANENT MEDICAL RECORD Provider Response: Other Other Diagnosis: hypocalcemia
--- NOTE | 2022-01-28 10:23 | PM.PNCARD ---
Subjective Subjective Date of Service: 01/28/22 Interval history: Denying any symptoms. Answering yes to all questions. He has background of schizoaffective disorder. Mental status also poor probably due to pneumonia for which she has been on antibiotics. Echocardiography reviewed which is showing reduced ejection fraction in the range of 20 25% with global hypokinesis with some regionality in the anteroseptal and inferior cantu. Physical Exam Vital Signs: Last Vital Signs Temp 96.4 F L 01/28/22 07:12 Pulse 77 01/28/22 07:12 Resp 18 01/28/22 07:12 BP 137/98 H 01/28/22 07:12 Pulse Ox 99 01/28/22 07:12 O2 Del Method 01/28/22 07:12 O2 Flow Rate 3 01/28/22 07:12 BMI result Body Mass Index 19.7 GENERAL APPEARANCE: Confused, saying yes to every question. NECK: no carotid bruit, no jugular venous distention. SKIN: no suspicious lesions, warm and dry. HEART: no murmurs, regular rate and rhythm. LUNGS: clear to auscultation bilaterally. ABDOMEN: soft, nontender. EXTREMITIES: no edema. PERIPHERAL PULSES: equal. Objective Labs and Meds Result diagrams: 01/28/22 05:32 01/28/22 05:32 Lab results: Laboratory Results - last 24 hr 01/27/22 01/27/22 01/27/22 10:52 12:49 13:50 WBC RBC Hgb Hct MCV MCH MCHC RDW Plt Count MPV Absolute Nucleated RBC Nucleated RBC % (auto) aPTT Heparin Protocol 46.4 L D Sodium 147 H Potassium 3.4 Chloride 121 H Carbon Dioxide 17 L Anion Gap 12 BUN 33 H Creatinine 1.80 H Estim Creat Clear Calc 37.3 Estimated GFR 38 POC Glucose 157 H Random Glucose 189 H Calcium 7.7 L 01/27/22 01/27/22 01/27/22 14:27 16:08 19:52 WBC RBC Hgb Hct MCV MCH MCHC RDW Plt Count MPV Absolute Nucleated RBC Nucleated RBC % (auto) aPTT Heparin Protocol 195.8 H* D 76.8 D Sodium Potassium Chloride Carbon Dioxide Anion Gap BUN Creatinine Estim Creat Clear Calc Estimated GFR POC Glucose 139 H Random Glucose Calcium 01/27/22 01/28/22 01/28/22 20:03 02:35 05:32 WBC 7.1 RBC 2.98 L Hgb 8.9 L Hct 27.8 L MCV 93.3 MCH 29.9 MCHC 32.0 RDW 17.1 H Plt Count 325 MPV 10.0 Absolute Nucleated RBC 0.000 Nucleated RBC % (auto) 0.0 aPTT Heparin Protocol 57.9 D Sodium Potassium Chloride Carbon Dioxide Anion Gap BUN Creatinine Estim Creat Clear Calc Estimated GFR POC Glucose 184 H Random Glucose Calcium 01/28/22 01/28/22 01/28/22 05:32 05:32 07:16 WBC RBC Hgb Hct MCV MCH MCHC RDW Plt Count MPV Absolute Nucleated RBC Nucleated RBC % (auto) aPTT Heparin Protocol 51.3 L Sodium 146 H Potassium 3.4 Chloride 120 H Carbon Dioxide 17 L Anion Gap 12 BUN 27 H Creatinine 1.52 H Estim Creat Clear Calc 44.1 Estimated GFR 47 POC Glucose 163 H Random Glucose 198 H Calcium 7.4 L Imaging Radiologist's impression: Impressions Pulmonary Perfusion Imaging 01/27/22 10:30 IMPRESSION: Very low probability of pulmonary embolism. Knee X-Ray 01/28/22 09:20 IMPRESSION: Right: ORIF of right distal femoral shaft fracture. No acute fracture. Osteopenia and diffuse bony lytic disease. Mild degenerative changes at the patellofemoral joint. Left: No fracture. Degenerative changes at the patellofemoral joint. Osteopenia and diffuse bony lytic disease. Knee X-Ray 01/28/22 09:20 IMPRESSION: Right: ORIF of right distal femoral shaft fracture. No acute fracture. Osteopenia and diffuse bony lytic disease. Mild degenerative changes at the patellofemoral joint. Left: No fracture. Degenerative changes at the patellofemoral joint. Osteopenia and diffuse bony lytic disease. Progress Note: A&P Assessment and plan (1) NSTEMI (non-ST elevated myocardial infarction): Status: Acute (2) Lytic bone lesions on xray: Status: Acute Plan 61-year-old gentleman presenting with confusion and lytic bone lesions. He had mildly elevated troponin level on admission. This was thought to be due to high blood pressure. Subsequent to that he developed chest pains and has repeat troponin level level was 4238. His high sensitive troponin level before this was 44 on January 23. EKG has shown lateral T-wave inversions which are new. Patient is unable to give any history. He is being treated as NSTEMI. He had V/Q scan given lytic lesions to rule out PE and this was very low probability for PE. I think currently he has acute coronary syndrome. He is not a candidate to go for cardiac catheterization given poor mental status and I doubt he can cooperate for any procedures. He should be conservatively managed. His echocardiography showing severely reduced ejection fraction with some regional wall motion abnormalities. 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 I think he can get his biopsy to understand the lytic lesions in his pelvis. In the meantime he should stay on heparin drip for 48 hours. Agree with baby aspirin for now. Once he is done with his hematologic workup then add Plavix 75 mg once a day. For the cardiomyopathy he is already on carvedilol. Adding ARB. Monitor creatinine closely. Thank you for allowing me to participate in the care of your patient. Please feel free to contact me if you have any questions. Time Spent With Patient Time: Total time spent is greater than 50% in coordination of care (as documented) at patient's floor/unit and/or counseling patient: Progress Note: Quality Stroke Does the patient have a stroke diagnosis?: No Procedures Date of Service Date of Service: 01/28/22
[2022-01-28] MEDS: cefTRIAXone sodium 1 GM in 0.9 % Sodium Chloride 50 ML IV (10:25)
[2022-01-28] MEDS: carvediloL 6.25 MG TABLET PO ×2 (10:25→21:10)
[2022-01-28] MEDS: Aspirin Enteric Coated 81 MG TABLET.DR PO (10:25)
[2022-01-28] MEDS: Dextrose 5 % 1,000 ML 80 ML IVCONT (10:25)
[2022-01-28] MEDS: rOPINIRole HCL 0.25 MG TABLET PO ×2 (10:25→21:11)
[2022-01-28] MEDS: Isosorbide Mononitrate 60 MG TAB.ER.24H 120 MG PO (10:25)
[2022-01-28] MEDS: Insulin Lispro 100 UNIT/ML 3 ML VIAL SUBCUT ×2 (10:26→21:11)
[2022-01-28] MEDS: Losartan Potassium 25 MG TABLET PO (10:26)
--- NOTE | 2022-01-28 10:43 | HO.PM.IMPN ---
Subjective Subjective Date of Service: 01/28/22 Interval History: Seen and evaluated this morning alert this morning and answering questions but confused about place and time To the rating p.o. Had a fall this morning trying to leave the bed No other overnight events Review of Systems Review of Systems: Yes all other systems are reviewed and are negative Physical Exam Vital Signs: Vital Signs: Last Vital Signs Temp 96.4 F L 01/28/22 07:12 Pulse 77 01/28/22 07:12 Resp 18 01/28/22 07:12 BP 137/98 H 01/28/22 07:12 Pulse Ox 99 01/28/22 07:12 O2 Del Method 01/28/22 07:12 O2 Flow Rate 3 01/28/22 07:12 BMI result Body Mass Index 19.7 Const: Other: Constitutional : Alert , interactive, not following commands, not in distress Neck : Normal inspection, Supple Cardiovascular : RRR, no JVP, no lower extremity edema Respiratory : fair bilateral air entry, no crackles, wheezes or rhonchi Gastrointestinal: soft, lax, Normal bowel sounds, Non tender Skin : Warm, Dry skin, sternotomy scar Musculoskeletal: No signs of injury in both his knees Neurological : Alert , confused , answering questions, contracted, moving extremities Objective Data Active Medications Acetaminophen (Acetaminophen 325 Mg Tablet) 650 mg PO Q6H PRN PRN Reason: Pain, Mild (Pain Scale 1-3) Acetaminophen (Acetaminophen 325 Mg Tablet) 650 mg PO Q4H PRN PRN Reason: Fever Or Pain Aspirin (Aspirin Enteric Coated 81 Mg Tablet.) 81 mg PO DAILY [facility] Last Admin: 01/28/22 10:25 Dose: 81 mg Documented By: HONEY Atorvastatin Calcium (Atorvastatin Calcium 40 Mg Tablet) 40 mg PO BEDTIME [facility] Last Admin: 01/27/22 20:59 Dose: 40 mg Documented By: EILEEN Baclofen (Baclofen 10 Mg Tablet) 5 mg PO BEDTIME [facility] Last Admin: 01/27/22 20:58 Dose: 5 mg Documented By: EILEEN Bisacodyl (Bisacodyl 10 Mg Supp.Rect) 10 mg WA DAILY PRN PRN Reason: Constipation Carvedilol (Carvedilol 6.25 Mg Tablet) 6.25 mg PO BID [facility]; Protocol Last Admin: 01/28/22 10:25 Dose: 6.25 mg Documented By: HONEY Dextrose (Dextrose 50 % 25 Gm/50 Ml Syringe) 25 gm IVPUSH Q15M PRN; Protocol PRN Reason: per Hypoglycemia Standing Ord. Docusate Sodium (Docusate Sodium 100 Mg Capsule) 100 mg PO DAILY PRN PRN Reason: Constipation Doxazosin Mesylate (Doxazosin Mesylate 2 Mg Tablet) 4 mg PO BEDTIME [facility]; Protocol Last Admin: 01/27/22 20:58 Dose: 4 mg Documented By: EILEEN Glucose (Glucose Gel 15 Gm Gel..Gram.) 15 gm PO Q15M PRN; Protocol PRN Reason: per Hypoglycemia Standing Ord. Heparin Sodium (Porcine) (Heparin Sodium,Porcine 5,000 Unit/Ml Vial) 2,500 unit 40 unit/kg (2500 unit) IVPUSH PROTOCOL BOLUS PRN; Protocol PRN Reason: 40 unit/kg - Heparin Protocol Last Admin: 01/28/22 07:40 Dose: 2,500 unit Documented By: QUAN Heparin Sodium (Porcine) (Heparin Sodium,Porcine 5,000 Unit/Ml Vial) 5,000 unit 80 unit/kg (5000 unit) IVPUSH PROTOCOL BOLUS PRN; Protocol PRN Reason: 80 unit/kg - Heparin Protocol Levetiracetam (Keppra) 1,000 mg in 100 mls @ 400 mls/hr IV Q12H [facility] Last Infusion: 01/28/22 06:07 Dose: 0 mls/hr Documented By: VITOR Ceftriaxone Sodium 1 gm/ (Sodium Chloride) 50 mls @ 100 mls/hr IV Q24H [facility] Last Admin: 01/28/22 10:25 Dose: 100 mls/hr Documented By: HONEY Azithromycin 500 mg/ Sodium (Chloride) 250 mls @ 125 mls/hr IV Q24H [facility] Last Infusion: 01/27/22 16:48 Dose: 0 mls/hr Documented By: STEFFI Heparin Sodium/Sodium Chloride () 25,000 unit in 250 mls @ 0 mls/hr IVCONT .Q0M [facility]; Protocol Last Titration: 01/28/22 07:35 Dose: 16 units/kg/hr, 9.92 mls/hr Documented By: QUAN Co-signed By: VITOR Dextrose (D5w) 1,000 mls @ 80 mls/hr IVCONT .[id number] [facility] Last Admin: 01/28/22 10:25 Dose: 80 mls/hr Documented By: HONEY Insulin Human Lispro (Insulin Lispro 100 Unit/Ml 3 Ml Vial) 0 unit SUBCUT QIDACHS [facility]; Protocol Last Admin: 01/28/22 10:26 Dose: 2 unit Documented By: HONEY Isosorbide Mononitrate (Isosorbide Mononitrate 60 Mg Tab.Er.24h) 120 mg PO DAILY [facility]; Protocol Last Admin: 01/28/22 10:25 Dose: 120 mg Documented By: HONEY Levothyroxine Sodium (Levothyroxine Sodium 100 Mcg Vial) 60 mcg IVPUSH DAILY@0600 [facility] Last Admin: 01/28/22 05:38 Dose: 60 mcg Documented By: VITOR Lorazepam (Lorazepam 0.5 Mg Tablet) 0.5 mg PO BID PRN PRN Reason: Anxiety Losartan Potassium (Losartan Potassium 25 Mg Tablet) 25 mg PO DAILY [facility]; Protocol Last Admin: 01/28/22 10:26 Dose: 25 mg Documented By: HONEY Morphine Sulfate (Morphine Sulfate 2 Mg/Ml Cartridge) 1 mg IVPUSH Q4H PRN; Protocol PRN Reason: Pain, Moderate (Pain Scale 4-6 Last Admin: 01/26/22 18:56 Dose: 1 mg Documented By: DOMINGUEZ Nitroglycerin (Nitroglycerin 0.4 Mg Tab.Subl) 0.4 mg SUBLINGUAL Q5MX3 PRN PRN Reason: Chest Pain Ondansetron HCl (Ondansetron Hcl 4 Mg/2 Ml Vial) 4 mg IVPUSH Q8H PRN PRN Reason: Nausea and Vomiting Pharmacy Consult (Consult Rx Perform Med Rec) 1 each MISCELLANE ONCE PRN PRN Reason: Consult order Quetiapine Fumarate (Quetiapine Fumarate 25 Mg Tablet) 25 mg PO BEDTIME [facility] Last Admin: 01/27/22 20:59 Dose: 25 mg Documented By: EILEEN Ropinirole HCl (Ropinirole Hcl 0.25 Mg Tablet) 0.25 mg PO BID [facility] Last Admin: 01/28/22 10:25 Dose: 0.25 mg Documented By: HONEY Senna (Sennosides 8.6 Mg Tablet) 8.6 mg PO DAILY PRN PRN Reason: Constipation Sodium Chloride (0.9 % Sodium Chloride Flush 3 Ml Syringe) 3 ml IVFLUSH QSHIFT [facility] Last Admin: 01/28/22 09:26 Dose: Not Given Documented By: HONEY Non-Admin Reason: IV Running Labs CBC & Chem 7: 01/28/22 05:32 01/28/22 05:32 Labs: Laboratory Results - last 24 hr 01/27/22 01/27/22 01/27/22 10:52 12:49 13:50 MCV MCH MCHC RDW Plt Count MPV Absolute Nucleated RBC Nucleated RBC % (auto) aPTT Heparin Protocol 46.4 L D Anion Gap 12 Estim Creat Clear Calc 37.3 Estimated GFR 38 POC Glucose 157 H Random Glucose 189 H Calcium 7.7 L 01/27/22 01/27/22 01/27/22 14:27 16:08 19:52 MCV MCH MCHC RDW Plt Count MPV Absolute Nucleated RBC Nucleated RBC % (auto) aPTT Heparin Protocol 195.8 H* D 76.8 D Anion Gap Estim Creat Clear Calc Estimated GFR POC Glucose 139 H Random Glucose Calcium 01/27/22 01/28/22 01/28/22 20:03 02:35 05:32 MCV 93.3 MCH 29.9 MCHC 32.0 RDW 17.1 H Plt Count 325 MPV 10.0 Absolute Nucleated RBC 0.000 Nucleated RBC % (auto) 0.0 aPTT Heparin Protocol 57.9 D Anion Gap Estim Creat Clear Calc Estimated GFR POC Glucose 184 H Random Glucose Calcium 01/28/22 01/28/22 01/28/22 05:32 05:32 07:16 MCV MCH MCHC RDW Plt Count MPV Absolute Nucleated RBC Nucleated RBC % (auto) aPTT Heparin Protocol 51.3 L Anion Gap 12 Estim Creat Clear Calc 44.1 Estimated GFR 47 POC Glucose 163 H Random Glucose 198 H Calcium 7.4 L Microbiology Microbiology Results: Microbiology 01/25/22 07:52 Blood Culture - Preliminary Blood - Venous No growth after 48 hours. 01/25/22 07:48 Blood Culture - Preliminary Blood - Venous No growth after 48 hours. Assessment and Plan (1) NSTEMI (non-ST elevated myocardial infarction): Status: Acute (2) Lytic bone lesions on xray: Status: Acute (3) Hypertensive urgency: Status: Acute (4) Pneumonia: Status: Acute Plan 61-year-old male with past medical history of CAD, CVA, as well as a resident of [facility] presents to the hospital with complaints of chest pain, headache, and was found to be hypertensive # NSTEMI Reported chest pain, troponin elevated at [address] or T-wave changes to suggest ACS echo significantly decreased EF 20-25% with severe global hypokinesia Cardiology input appreciated, NSTEMI, not a candidate for aggressive treatment To finish least 48 hours of heparin drip To load with Plavix 300 mg thin 75 daily after the bone Hernandez biopsy On heparin drip, aspirin and statin # sepsis secondary to pneumonia Lactic acidosis resolved Tylenol as needed CT showed an evidence of left lower lobe infiltrates Negative cultures Continue Ceftriaxone and Azithromycin # Lytic pelvic lesion concerning for possible multiple myeloma with elevated protein to albumin ratio Oncology input appreciated, immunofixation, kappa lambda ordered Urine immunofixation ordered To do bone marrow biopsy tomorrow # fall Unwitnessed, has a camera in the room X-rays of the knees negative for any acute findings Mentation improving, no head injury reported Trying to leave the bed, to have a sitter next to him # toxic metabolic encephalopathy secondary to possible multiple myeloma, infection Improving Control blood pressure Treat infection Evaluate for multiple myeloma Recurrent reorientation # headache secondary to hypertensive urgency, multiple myeloma head CT showed no acute bleeds or territorial infarct Control blood pressure, Tylenol p.r.n. # hypocalcemia Likely pseudo hypocalcemia from low albumin To check liver function and re-evaluate # urine retention Hansen catheter placed by urologist Tamsulosin discontinued and started on doxazosin # hypertension urgency elevated troponin secondary to hypertension Better controlled Not taking p.o. medications, increase labetalol to 10 mg q.i.d. cardiology following, continue baby aspirin # DORIAN on CKD3b Kidney function improving Nephrology following Continue to monitor # hypernatremia Secondary to dehydration Continue D5W and follow BMP # diabetes low-dose sliding scale insulin hold oral antihyperglycemics # hypothyroidism continue levothyroxine IV for now # schizoaffective disorder continue antipsychotics once he can tolerate oral DVT prophylaxis: Heparin The patient will need overnight hospital stay to continue evaluation of possible multiple myeloma requiring bone Hernandez biopsy, treatment of NSTEMI with heparin drip and pneumonia to prevent possible decomposition into hypoxic respiratory failure and severe sepsis. Quality Stroke Does the patient have a stroke diagnosis?: No VTE Prior VTE?: No VTE Risk Level:: Medical - moderate - high VTE Device Contraindication: Treatment Not Indicated VTE Drug Contraindication: N/A - Med Ordered
--- NOTE | 2022-01-28 10:56 | MHC.SL.SWA ---
Speech Pathologist Impression: Risk of Aspiration Due to: Neurological Condition Reduced Cognition Dysphasia Diet Status: Recommend continue on diet of PUREE (NDD1) with NECTAR THICK liquid, Pills CRUSHED in PUREE. Continue with 1-1 feed, closely monitor that patient has swallowed and is not pocketing/holding food before introducing more. Patient will continue to be difficult to feed, may only take small amounts of food at any meal. Liquid Consistency and Strategies for Safe Swallow: Liquid Intake Recommendation: [place] Thick Liquid Intake Strategies: Small Sips Liquids by Teaspoon Only Solid Food Consistency: Dietary Recommendations: Pureed (NDD1) Additional Modifications to Solid Foods: Patient may need cuing to: close mouth on spoon to strip spoon of liquid or food; initiate swallowing if holding food or liquid in mouth. Check that patient has swallowed before introducing more food or liquid. Discontinue if patient is pocketing/holding food, or if patient is lethargic/not engaged in meal. Oral Medication Intake: Crushed with Puree Please contact the pharmacy regarding appropriate crushable or liquid drug formulations that are available whenever modified delivery is recommended. Compensatory Strategies and Precautions to be Taken for Safe Swallow: Sitting Upright (90 deg) Liquids from Spoon Small Bites and Sips Alternate Liquids/Solids Rate of Ingestion Change Oral Check Supervision While Eating and Drinking for Safe Swallow: Total Assistance (1:1) Foods to Avoid: Sticky, congealed purees. Swallowing Recommended Treatments: Compens. Strategy Educat. Recommendation for Speech: Inpatient Speech Therapy Comment: Patient was sleeping but easily roused for the treatment. Patient was repositioned to be seated with head of bed at 90 Degrees. Patient verbalized more today, however some comments were incoherent and not contextual to the situation. When cued to swallow, patient occasionally said I know, I know! but did not initiate after the cue (did so after long delay). Pt did try various foods on tray, requested sausage to start (and ate small amount of eggs, pureed peaches), but then expressed displeasure with the taste of the food and refused more. On bites of puree, patient consistently held food in mouth anteriorly for prolonged period, was cued to swallow but did not directly respond to cueing, would initiate lingual movement to manage bolus after very significant delay, initiated swallow after mild delay on each trial. Pt occasionally given addition of nectar thick liquid to bolus of food, which triggered initiating oral movement for swallow. When given liquids, pt again would hold bolus anteriorly for a moderate period, then initiate oral phase of swallow. Pt did open mouth when requested for financial center manager to check on clearance of food from mouth. Despite maladaptive behavior, there were no clinical signs of aspiration during meal. Patient took no more than two bites of each food tried, then refused further. Pt's ash is not well trimmed, collects ample food and liquid when being fed, ash was cleared with a damp washcloth at end of meal. Recommend continue on diet of PUREE (NDD1) with NECTAR THICK liquid, Pills CRUSHED in PUREE. Continue with 1-1 feed, closely monitor that patient has swallowed and is not pocketing/holding food before introducing more. Patient will continue to be difficult to feed, may only take small amounts of food at any meal. Frequency/Duration: M-F while inpatient Date Range for Service Req: Timeline to reassess: Lineman Apprentice Clinican/Clinical Fellow: No Supervisory Statement: I have reviewed and agree with the student/clinical fellow's documentation: Yes Speech Language Pathologist: Yessenia Mcclellan M.A., [facility] M[employer]INE [employer]PERATOR
[2022-01-28 11:20] LABS: Alanine Aminotransferase 14 U/L (0-40); Albumin Level 2.5 g/dL (3.5-5.0); Alkaline Phosphatase 49 U/L (39-117); Aspartate Amino Transferase 20 U/L (5-37); Total Protein 6.8 g/dL (6.5-8.0)
[2022-01-28 11:26] LABS: Glucose, Whole Blood 149 mg/dL (60-115)
--- NOTE | 2022-01-28 11:28 | PM.PNNEP ---
Subjective Subjective Date of Service: 01/29/22 Interval history: Seen and evaluated this morning alert this morning and answering questions but confused about place and time To the rating p.o. Had a fall this morning trying to leave the bed No other overnight events Physical Exam Vital Signs: Vital Signs: Last Vital Signs Temp 97.6 F 01/28/22 11:08 Pulse 83 01/28/22 11:08 Resp 18 01/28/22 11:08 BP 122/72 01/28/22 11:08 Pulse Ox 97 01/28/22 11:08 O2 Del Method 01/28/22 11:08 O2 Flow Rate 3 01/28/22 11:08 BMI result Body Mass Index 19.7 Const: Other: Constitutional : more alert Neck : Normal inspection, Supple Cardiovascular : RRR, no JVP, no lower extremity edema Respiratory : fair bilateral air entry, no crackles, wheezes or rhonchi Gastrointestinal: soft, lax, Normal bowel sounds, Non tender Skin : Warm, Dry skin, sternotomy scar Objective Data Labs CBC & Chem 7: 01/29/22 03:54 01/29/22 03:54 Labs: Laboratory Results - last 24 hr 01/27/22 01/27/22 01/27/22 12:49 13:50 14:27 WBC RBC Hgb Hct MCV MCH MCHC RDW Plt Count MPV Absolute Nucleated RBC Nucleated RBC % (auto) aPTT Heparin Protocol 46.4 L D 195.8 H* D Sodium 147 H Potassium 3.4 Chloride 121 H Carbon Dioxide 17 L Anion Gap 12 BUN 33 H Creatinine 1.80 H Estim Creat Clear Calc 37.3 Estimated GFR 38 POC Glucose Random Glucose 189 H Calcium 7.7 L AST ALT Alkaline Phosphatase Total Protein Albumin 01/27/22 01/27/22 01/27/22 16:08 19:52 20:03 WBC RBC Hgb Hct MCV MCH MCHC RDW Plt Count MPV Absolute Nucleated RBC Nucleated RBC % (auto) aPTT Heparin Protocol 76.8 D Sodium Potassium Chloride Carbon Dioxide Anion Gap BUN Creatinine Estim Creat Clear Calc Estimated GFR POC Glucose 139 H 184 H Random Glucose Calcium AST ALT Alkaline Phosphatase Total Protein Albumin 01/28/22 01/28/22 01/28/22 02:35 05:32 05:32 WBC 7.1 RBC 2.98 L Hgb 8.9 L Hct 27.8 L MCV 93.3 MCH 29.9 MCHC 32.0 RDW 17.1 H Plt Count 325 MPV 10.0 Absolute Nucleated RBC 0.000 Nucleated RBC % (auto) 0.0 aPTT Heparin Protocol 57.9 D Sodium 146 H Potassium 3.4 Chloride 120 H Carbon Dioxide 17 L Anion Gap 12 BUN 27 H Creatinine 1.52 H Estim Creat Clear Calc 44.1 Estimated GFR 47 POC Glucose Random Glucose 198 H Calcium 7.4 L AST 20 ALT 14 Alkaline Phosphatase 49 D Total Protein 6.8 D Albumin 2.5 L D 01/28/22 01/28/22 01/28/22 05:32 07:16 11:06 WBC RBC Hgb Hct MCV MCH MCHC RDW Plt Count MPV Absolute Nucleated RBC Nucleated RBC % (auto) aPTT Heparin Protocol 51.3 L Sodium Potassium Chloride Carbon Dioxide Anion Gap BUN Creatinine Estim Creat Clear Calc Estimated GFR POC Glucose 163 H 149 H Random Glucose Calcium AST ALT Alkaline Phosphatase Total Protein Albumin Microbiology Microbiology Results: Microbiology 01/25/22 07:52 Blood - Venous Blood Culture - Preliminary No growth after 48 hours. 01/25/22 07:48 Blood - Venous Blood Culture - Preliminary No growth after 48 hours. 01/23/22 14:50 Blood - Venous Blood Culture - Preliminary No growth after 48 hours. 01/23/22 14:50 Blood - Venous Blood Culture - Preliminary No growth after 48 hours. Procedures Date of Service Date of Service: 01/28/22 Assessment & Plan Assessment and plan (1) BPH w urinary obs/LUTS: Status: Acute (2) Urinary retention: Status: Acute Plan 61-year-old male with past medical history of CAD, CVA, as well as a resident of [facility] presents to the hospital with complaints of chest pain, headache, and was found to be hypertensive Hypernatremia DORIAN on CKD DORIAN due to hypoperfusion Cr improving No indication for dialysis Keep i >o with D5W to correct hypernatremia Avoid hypotension Add NaHCO3 650 mg BID to correct acidosis Time Spent With Patient Time: Total time spent is greater than 50% in coordination of care (as documented) at patient's floor/unit and/or counseling patient: Progress Note: Quality Stroke Does the patient have a stroke diagnosis?: No
[2022-01-28 11:35] LABS: Bilirubin Direct 0.3 mg/dL (0.0-0.5); Bilirubin Total 0.3 mg/dL (0.0-1.0)
--- NOTE | 2022-01-28 13:05 | MHC.CM.PN ---
Patient has not yet been medically cleared for dc (IV Azithromycin, IV Ceftriaxone, IV Heparin, IV Keppra, IV Synthroid); Returning to [facility] is the goal and CM will continue to follow.
--- NOTE | 2022-01-28 13:13 | MHC.CM.PN ---
CORRECTION TO PREVIOUS CM NOTE: Goal is to return to [facility] NOT [facility]
[2022-01-28] MEDS: Azithromycin 500 MG in 0.9 % Sodium Chloride 250 ML 125 MG IV (13:16)
[2022-01-28 14:31] LABS: PTT Heparin Drip 79.3 SEC (53-77.9)
[2022-01-28 14:51] LABS: Beta-2 Microglobulin, Serum 4.58 mg/L (< OR = 2.51)
[2022-01-28 15:41] LABS: IgA 20 mg/dL (70-320); IgG 3844 mg/dL (600-1540); IgM 21 mg/dL (50-300)
[2022-01-28 16:11] LABS: Glucose, Whole Blood 128 mg/dL (60-115)
[2022-01-28] MEDS: Sodium Bicarbonate 650 MG TABLET PO ×2 (17:00→21:11)
--- NOTE | 2022-01-28 17:07 | PC.NURSE ---
Pt continuously attempting to get out of bed this AM. informed, sitter at bedside as ordered for pt safety. XR was obtained this AM d/t pt fall during prev shift. hep gtt maintained as ordered. ST evaluated pt. Pt noted to pocket food and liquid in mouth requiring freq direction to swallow. POC maintained. fluids maintained. pt repositioning self in bed. Pt O2 d/c'ed, tolerating well w/ no episodes of desatting. safety and fall precautions maintained
[2022-01-28 20:19] LABS: Glucose, Whole Blood 185 mg/dL (60-115)
[2022-01-28] MEDS: Baclofen 10 MG TABLET 5 MG PO (21:10)
[2022-01-28] MEDS: Atorvastatin Calcium 40 MG TABLET PO (21:11)
[2022-01-28] MEDS: Doxazosin Mesylate 2 MG TABLET 4 MG PO (21:11)
[2022-01-28] MEDS: QUEtiapine Fumarate 25 MG TABLET PO (21:12)
[2022-01-28 21:27] LABS: PTT Heparin Drip 60.8 SEC (53-77.9)
[2022-01-29] MEDS: Dextrose 5 % 1,000 ML 80 ML IVCONT (00:50)
[2022-01-29] MEDS: Heparin Sodium,Porcine/1/2NS 25,000 UNIT/250 ML IV.SOLN 8.68 UNIT IVCONT (00:51)
[2022-01-29 04:00] VITALS: BP 154/66; PULSE 67; RESP 20; TEMP 37.1; O2SAT 97
[2022-01-29 04:02] LABS: Hemoglobin 8.1 g/dl (14.0-18.0); Mean Corpuscular HGB Conc 32.4 g/dl (31.0-36.0); Mean Corpuscular Hemoglobin 29.5 pg (27.0-33.0); Mean Corpuscular Volume 90.9 fL (80.0-98.0); Mean Platelet Volume 9.3 fL (9.4-12.4); Platelet Count 307 X10*3/uL (160-400); Red Blood Count 2.75 X10*6/uL (4.60-5.80); Red Cell Distribution Width 16.6 % (11.0-16.0)
[2022-01-29 04:10] LABS: PTT Heparin Drip 66.3 SEC (53-77.9)
[2022-01-29 04:31] LABS: Anion Gap 10 (12-20); Blood Urea Nitrogen 18 mg/dL (9-16); Calcium 7.1 mg/dL (8.4-10.2); Carbon Dioxide 20 mmol/L (22-29); Chloride 112 mmol/L (96-108); Creatinine Clr Calc Pharmacy 52.4; Estimated Glomerular Filt Rate 57; Glucose Random 232 mg/dL (60-115); Potassium 3.2 mmol/L (3.3-5.1); Sodium 139 mmol/L (135-145)
[2022-01-29] MEDS: Levothyroxine Sodium 100 MCG VIAL 60 MCG IVPUSH (06:12)
[2022-01-29] MEDS: levETIRAcetam in NaCl (iso-os) 1,000 MG/100 ML PIGGYBACK 400 MG IV ×2 (06:13→19:06)
[2022-01-29 07:24] LABS: Glucose, Whole Blood 177 mg/dL (60-115)
[2022-01-29 08:00] VITALS: BP 160/77; PULSE 83; RESP 20; TEMP 36.4; O2SAT 95
[2022-01-29] MEDS: Sodium Bicarbonate 650 MG TABLET PO ×3 (08:37→21:46)
[2022-01-29] MEDS: Insulin Lispro 100 UNIT/ML 3 ML VIAL SUBCUT ×2 (08:37→13:24)
[2022-01-29] MEDS: Losartan Potassium 25 MG TABLET PO ×2 (08:37→16:17)
[2022-01-29] MEDS: 0.9 % Sodium Chloride Flush 3 ML SYRINGE IVFLUSH ×3 (08:37→21:48)
[2022-01-29] MEDS: carvediloL 6.25 MG TABLET PO ×2 (08:38→21:47)
[2022-01-29] MEDS: Aspirin Enteric Coated 81 MG TABLET.DR PO (08:38)
[2022-01-29] MEDS: rOPINIRole HCL 0.25 MG TABLET PO ×2 (08:38→21:46)
[2022-01-29] MEDS: Potassium Chloride Packet 20 MEQ PACKET 40 MEQ PO (08:38)
[2022-01-29] MEDS: Isosorbide Mononitrate 60 MG TAB.ER.24H 120 MG PO (08:38)
[2022-01-29] MEDS: cefTRIAXone sodium 1 GM in 0.9 % Sodium Chloride 50 ML IV (08:56)
--- NOTE | 2022-01-29 10:54 | MHC.SL.SWA ---
Speech Pathologist Impression: Risk of Aspiration Due to: Neurological Condition Reduced Cognition Dysphasia Diet Status: Recommend continue on diet of PUREE (NDD1) with NECTAR THICK liquid, Pills CRUSHED in PUREE. Continue with 1-1 feed, closely monitor that patient has swallowed and is not pocketing/holding food before introducing more. Patient will continue to be difficult to feed, may only take small amounts of food at any meal, however swallow behavior improved when he has food that he states he likes. Liquid Consistency and Strategies for Safe Swallow: Liquid Intake Recommendation: [place] Thick Liquid Intake Strategies: Small Sips Liquids by Teaspoon Only Solid Food Consistency: Dietary Recommendations: Pureed (NDD1) Additional Modifications to Solid Foods: Patient may need cuing to: close mouth on spoon to strip spoon of liquid or food; initiate swallowing if holding food or liquid in mouth. Check that patient has swallowed before introducing more food or liquid. Discontinue if patient is pocketing/holding food, or if patient is lethargic/not engaged in meal. Oral Medication Intake: Crushed with Puree Please contact the pharmacy regarding appropriate crushable or liquid drug formulations that are available whenever modified delivery is recommended. Compensatory Strategies and Precautions to be Taken for Safe Swallow: Sitting Upright (90 deg) Liquids from Spoon Small Bites and Sips Alternate Liquids/Solids Rate of Ingestion Change Oral Check Supervision While Eating and Drinking for Safe Swallow: Total Assistance (1:1) Foods to Avoid: Sticky, congealed purees. Swallowing Recommended Treatments: Compens. Strategy Educat. Recommendation for Speech: Inpatient Speech Therapy Comment: Patient now has sitter in room, was sleeping but easily roused for the treatment. Sitter reported that Pt ate only small amounts of food at Breakfast, had long delay before swallowing, c/o didn't like the food and refused any more. Sitter also reported that he had pocketed an aspirin for a prolonged period, with nursing giving a sip of liquid to clear it after a long delay. Patient was repositioned to be seated with head of bed at 90 Degrees. Offered patient orange sherbet, which he accepted, and stated I like it. Pt needs encouragement to strip spoon, often only trace amounts was taken from spoonful. However on sherbet, patient consistently initiated oral movement to propel bolus and produced swallow, with no pausing or pocketing noted. No clinical signs of aspiration. After several tsps, patient grimaced and said the cold sherbet was giving him a headache, so trials were discontinued. Patient then accepted cup sips of nectar thick apple juice, again stating I like it. On cup sips, Patient was able to contain the liquid, initiated oral movement without pausing or pocketing, and had timely swallow. Patient took multiple cupsips, finishing half a cup of juice. Oral check at end of treatment evidenced no residual or pocketing of liquids or solids presented. Recommend continue on Puree consistency (NDD1) with NECTAR THICK liquids PILLS Crushed in PUREE. Pt will be difficult to feed, however today it is evident that if he likes the food being given to him, he is less likely to have maladaptive behaviors or pocketing or holding food in mouth before initiating swallowing. Frequency/Duration: M-F while inpatient Date Range for Service Req: Timeline to reassess: Guard Rail Installer Clinican/Clinical Fellow: No Supervisory Statement: I have reviewed and agree with the student/clinical fellow's documentation: N/A Speech Language Pathologist: Yessenia Mcclellan M.A., CCC-DIGITAL DEVELOPER
[2022-01-29 10:57] LABS: Glucose, Whole Blood 174 mg/dL (60-115)
--- NOTE | 2022-01-29 11:15 | PM.PNNEP ---
Subjective Subjective Date of Service: 02/02/22 Interval history: Events noted More alert Physical Exam Vital Signs: Vital Signs: Last Vital Signs Temp 97.6 F 01/29/22 08:00 Pulse 83 01/29/22 08:00 Resp 20 01/29/22 08:00 BP 160/77 H 01/29/22 08:00 Pulse Ox 95 01/29/22 08:00 O2 Del Method 01/29/22 08:00 O2 Flow Rate 3 01/28/22 11:08 BMI result Body Mass Index 19.7 Const: Other: Constitutional : more alert Neck : Normal inspection, Supple Cardiovascular : RRR, no JVP, no lower extremity edema Respiratory : fair bilateral air entry, no crackles, wheezes or rhonchi Gastrointestinal: soft, lax, Normal bowel sounds, Non tender Skin : Warm, Dry skin, sternotomy scar Objective Data Labs CBC & Chem 7: 01/29/22 03:54 01/29/22 03:54 Labs: Laboratory Results - last 24 hr 01/26/22 01/26/22 01/28/22 06:03 06:23 05:32 WBC RBC Hgb Hct MCV MCH MCHC RDW Plt Count MPV Absolute Nucleated RBC Nucleated RBC % (auto) aPTT Heparin Protocol Sodium Potassium Chloride Carbon Dioxide Anion Gap BUN Creatinine Estim Creat Clear Calc Estimated GFR POC Glucose Random Glucose Calcium Total Bilirubin 0.3 Direct Bilirubin 0.3 AST 20 ALT 14 Alkaline Phosphatase 49 D Total Protein 6.8 D Albumin 2.5 L D Niwx-1-Fkbdtyqhlxpfl 4.58 H IgG Total 3844 H IgA Total 20 L IgM 21 L LUCAS Interpretation SEE NOTE 01/28/22 01/28/22 01/28/22 11:06 14:04 16:05 WBC RBC Hgb Hct MCV MCH MCHC RDW Plt Count MPV Absolute Nucleated RBC Nucleated RBC % (auto) aPTT Heparin Protocol 79.3 H D Sodium Potassium Chloride Carbon Dioxide Anion Gap BUN Creatinine Estim Creat Clear Calc Estimated GFR POC Glucose 149 H 128 H Random Glucose Calcium Total Bilirubin Direct Bilirubin AST ALT Alkaline Phosphatase Total Protein Albumin Grwb-5-Japxeyyhsqanx IgG Total IgA Total IgM LUCAS Interpretation 01/28/22 01/28/22 01/29/22 20:10 20:59 03:54 WBC RBC Hgb Hct MCV MCH MCHC RDW Plt Count MPV Absolute Nucleated RBC Nucleated RBC % (auto) aPTT Heparin Protocol 60.8 D 66.3 Sodium Potassium Chloride Carbon Dioxide Anion Gap BUN Creatinine Estim Creat Clear Calc Estimated GFR POC Glucose 185 H Random Glucose Calcium Total Bilirubin Direct Bilirubin AST ALT Alkaline Phosphatase Total Protein Albumin Zrbz-4-Owjbmfatvaqel IgG Total IgA Total IgM LUCAS Interpretation 01/29/22 01/29/22 01/29/22 03:54 03:54 07:20 WBC 7.0 RBC 2.75 L Hgb 8.1 L Hct 25.0 L MCV 90.9 MCH 29.5 MCHC 32.4 RDW 16.6 H Plt Count 307 MPV 9.3 L Absolute Nucleated RBC 0.000 Nucleated RBC % (auto) 0.0 aPTT Heparin Protocol Sodium 139 Potassium 3.2 L Chloride 112 H Carbon Dioxide 20 L Anion Gap 10 L BUN 18 H Creatinine 1.28 Estim Creat Clear Calc 52.4 Estimated GFR 57 POC Glucose 177 H Random Glucose 232 H Calcium 7.1 L Total Bilirubin Direct Bilirubin AST ALT Alkaline Phosphatase Total Protein Albumin Bhxz-9-Uanarmmfkzrhp IgG Total IgA Total IgM LUCAS Interpretation 01/29/22 10:47 WBC RBC Hgb Hct MCV MCH MCHC RDW Plt Count MPV Absolute Nucleated RBC Nucleated RBC % (auto) aPTT Heparin Protocol Sodium Potassium Chloride Carbon Dioxide Anion Gap BUN Creatinine Estim Creat Clear Calc Estimated GFR POC Glucose 174 H Random Glucose Calcium Total Bilirubin Direct Bilirubin AST ALT Alkaline Phosphatase Total Protein Albumin Dtxv-5-Bdcfzxcpblvgx IgG Total IgA Total IgM LUCAS Interpretation Microbiology Microbiology Results: Microbiology 01/23/22 14:50 Blood - Venous Blood Culture - Final No growth after 5 days. 01/23/22 14:50 Blood - Venous Blood Culture - Final No growth after 5 days. 01/25/22 07:52 Blood - Venous Blood Culture - Preliminary No growth after 48 hours. 01/25/22 07:48 Blood - Venous Blood Culture - Preliminary No growth after 48 hours. Procedures Date of Service Date of Service: 01/29/22 Assessment & Plan Assessment and plan (1) BPH w urinary obs/LUTS: Status: Acute (2) Urinary retention: Status: Acute Plan 61-year-old male with past medical history of CAD, CVA, as well as a resident of [facility] presents to the hospital with complaints of chest pain, headache, and was found to be hypertensive Hypernatremia DORIAN on CKD DORIAN due to hypoperfusion Cr improving- back to baseline Avoid hypotension hypernatremia - corrected NO need for further IVF if PO intake is adequate Replace K as needed NaHCO3 650 mg BID to correct acidosis Time Spent With Patient Time: Total time spent is greater than 50% in coordination of care (as documented) at patient's floor/unit and/or counseling patient: Progress Note: Quality Stroke Does the patient have a stroke diagnosis?: No
[2022-01-29 11:39] VITALS: BP 155/92; PULSE 60; RESP 18; TEMP 36.6; O2SAT 97
--- NOTE | 2022-01-29 12:58 | P.DS_ITS ---
DS: Providers Provider Date of Service: 01/29/22 Date of admission: 01/25/22 12:34 Primary care physician: Uriel Callaway DO Consults: 01/23/22 22:23 Consult to Cardiology Routine Consulting Provider: Jesse Eaton Reason for consultation: elevated trop Has provider been notified: Yes 01/25/22 07:39 Consult to Nephrology Routine Consulting Provider: Javier Duran Reason for consultation: DORIAN for eval and rec 01/25/22 14:34 Consult to Urology Routine Consulting Provider: Jai Childers Reason for consultation: DORIAN, failed attempts to place Hansen. 01/25/22 17:22 Consult to Hematology / Oncology Routine Consulting Provider: Nisreen Horne Reason for consultation: Suspected MM, metastatic disease by CT Abd. 01/28/22 10:09 Consult for Sitter Routine Reason for consultation: fall, restless DS: Diagnosis Discharge Diagnosis (1) BPH w urinary obs/LUTS: Status: Acute (2) Urinary retention: Status: Acute (3) NSTEMI (non-ST elevated myocardial infarction): Status: Acute (4) Lytic bone lesions on xray: Status: Acute (5) Sepsis: Status: Acute (6) Headache: Status: Acute (7) Pneumonia: Status: Acute (8) Hypertensive urgency: Status: Acute DS: Summary Hospital Course Hospital Course: Admission note HPI Hospital course # NSTEMI Reported chest pain, troponin elevated at 4000. echo significantly decreased EF 20-25% with severe global hypokinesia. Treated with heparin drip for 48 hours. Cardiology input appreciated, NSTEMI, not a candidate for aggressive treatment. Started on baby aspirin, atorvastatin and loaded with Plavix 300 mg. To continue with aspirin, Plavix and atorvastatin. ?# sepsis secondary to pneumonia Developed shortness of breath, hypoxia and lactic acidosis. Lactic acidosis resolved with IV fluids. CT showed an evidence of left lower lobe infiltrates. Treated with IV ceftriaxone azithromycin. Blood cultures remain negative. To continue azithromycin and Ceftin at time of discharge. # Lytic pelvic lesion concerning for possible multiple myeloma with elevated protein to albumin ratio Oncology input appreciated, immunofixation, kappa lambda ordered Urine immunofixation ordered To do bone marrow biopsy tomorrow # fall Unwitnessed, has a camera in the room. X-rays of the knees negative for any acute findings. no head injury reported. Trying to leave the bed, have a sitter next to him. Continue to improve mental status back to baseline. ?#? toxic metabolic encephalopathy secondary to possible multiple myeloma, infection. Improved back to baseline with controlling blood pressure, treating infection and IV fluids. Needs Recurrent reorientation ?# urine retention Noted to have 400 cc of urine on daily bladder scan. Nurses could not place a catheter. Hansen catheter placed by urologist who recommended Tamsulosin discontinued and started on doxazosin. To be followed at the facility for voiding trials. ?# hypertension urgency Better controlled with increasing carvedilol to 6.25 mg twice daily in addition of losartan. To be monitored at the facility and followed with Cardiology. # DORIAN on CKD3b, hypernatremia Secondary to decreased oral intake. Responded well to IV fluids with Kidney function improving and sodium returning back to normal. Advise to drink plenty of water at discharge. # swallowing problem Secondary to altered mentation at time of presentation. Swallowing improved as his mentation got better. Evaluated by speech therapist who recommended NDD 1 diet with nectar thick fluids. Continue azithromycin and Ceftin as prescribed Start aspirin and Plavix Start losartan for cardiomyopathy Change from tamsulosin to doxazosin To follow-up with Dr. Horne as outpatient for bone Hernandez biopsy To do voiding trials and removed the Hansen catheter at the facility. Time Spent with Patient Time attestation: Total time spent providing and/or coordinating discharge services: Discharge coordination time: Greater than 30 minutes Quality: Safe Use of Opioids Does Pt have an Active Cancer Diagnosis on the Problem List?: No Quality: Stroke Does the patient have a stroke diagnosis?: No Physical Exam Vital Signs: Vital Signs: Last Vital Signs Temp 97.8 F 01/29/22 11:39 Pulse 60 01/29/22 11:39 Resp 18 01/29/22 11:39 BP 155/92 H 01/29/22 11:39 Pulse Ox 97 01/29/22 11:39 O2 Del Method 01/29/22 11:39 O2 Flow Rate 3 01/28/22 11:08 BMI result Body Mass Index 19.7 Const: Other: Constitutional : Alert , interactive,not in distress Neck : Normal inspection, Supple Cardiovascular : RRR, no JVP, no lower extremity edema Respiratory : fair bilateral air entry, no crackles, wheezes or rhonchi Gastrointestinal: soft, lax, Normal bowel sounds, Non tender Skin : Warm, Dry skin, sternotomy scar Musculoskeletal: No signs of injury in both his knees Neurological : Alert , confused , answering questions, contracted, moving extremities DS: Data Data Completed and Pending Labs on day of discharge: Laboratory Results - last 24 hr 01/26/22 01/26/22 01/28/22 06:03 06:23 14:04 WBC RBC Hgb Hct MCV MCH MCHC RDW Plt Count MPV Absolute Nucleated RBC Nucleated RBC % (auto) aPTT Heparin Protocol 79.3 H D Sodium Potassium Chloride Carbon Dioxide Anion Gap BUN Creatinine Estim Creat Clear Calc Estimated GFR POC Glucose Random Glucose Calcium Wsnm-2-Hethtjdgsgvhl 4.58 H IgG Total 3844 H IgA Total 20 L IgM 21 L LUCAS Interpretation SEE NOTE 01/28/22 01/28/22 01/28/22 16:05 20:10 20:59 WBC RBC Hgb Hct MCV MCH MCHC RDW Plt Count MPV Absolute Nucleated RBC Nucleated RBC % (auto) aPTT Heparin Protocol 60.8 D Sodium Potassium Chloride Carbon Dioxide Anion Gap BUN Creatinine Estim Creat Clear Calc Estimated GFR POC Glucose 128 H 185 H Random Glucose Calcium Pstx-6-Cylguabycwntw IgG Total IgA Total IgM LUCAS Interpretation 01/29/22 01/29/22 01/29/22 03:54 03:54 03:54 WBC 7.0 RBC 2.75 L Hgb 8.1 L Hct 25.0 L MCV 90.9 MCH 29.5 MCHC 32.4 RDW 16.6 H Plt Count 307 MPV 9.3 L Absolute Nucleated RBC 0.000 Nucleated RBC % (auto) 0.0 aPTT Heparin Protocol 66.3 Sodium 139 Potassium 3.2 L Chloride 112 H Carbon Dioxide 20 L Anion Gap 10 L BUN 18 H Creatinine 1.28 Estim Creat Clear Calc 52.4 Estimated GFR 57 POC Glucose Random Glucose 232 H Calcium 7.1 L Glpd-1-Oavzteccihngb IgG Total IgA Total IgM LUCAS Interpretation 01/29/22 01/29/22 07:20 10:47 WBC RBC Hgb Hct MCV MCH MCHC RDW Plt Count MPV Absolute Nucleated RBC Nucleated RBC % (auto) aPTT Heparin Protocol Sodium Potassium Chloride Carbon Dioxide Anion Gap BUN Creatinine Estim Creat Clear Calc Estimated GFR POC Glucose 177 H 174 H Random Glucose Calcium Oows-7-Eqernvtavhibr IgG Total IgA Total IgM LUCAS Interpretation Preliminary micro results at discharge 01/25/22 07:52 Blood Culture - Preliminary Blood - Venous No growth after 48 hours. 01/25/22 07:48 Blood Culture - Preliminary Blood - Venous No growth after 48 hours. Imaging Chest x-ray: Radiologist's impression: ITS Impressions Chest X-Ray 01/23/22 14:34 IMPRESSION: Hypoexpanded lungs with no acute process seen. Head CT 01/23/22 16:50 IMPRESSION: 1. There are no acute bleeds or territorial infarcts. No masses are demonstrated. 2. There are chronic microvascular ischemic changes and chronic lacunar infarcts. There is likely a chronic infarct in the left ross radiata/left centrum semiovale. There is diffuse volume loss. 3. 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 Chest X-Ray 01/25/22 08:20 IMPRESSION: No evidence for acute disease in the chest. Abdomen/Pelvis CT 01/25/22 16:56 IMPRESSION: Diffusely mottled appearance of the bones with moth-eaten appearance of the pelvis where there are numerous tiny lucent lesions with cortical destruction. Findings could be seen in the setting of multiple myeloma or underlying lytic osseous metastatic disease. Recommend correlation with clinical history and sampling could be considered if clinically warranted. Patchy left lower lobe consolidation suspicious for infection or aspiration. Consider follow-up CT chest to ensure resolution. Desiccated stool ball within the rectum measuring at least 7.9 cm. Rectal wall is mildly thickened relative to the degree of distention with some subtle infiltration of the mesorectal fat, which can be seen in the setting of stercoral colitis. Urinary bladder is distended. Recommend correlation with any symptoms of urinary retention. Pulmonary Perfusion Imaging 01/27/22 10:30 IMPRESSION: Very low probability of pulmonary embolism. Knee X-Ray 01/28/22 09:20 IMPRESSION: Right: ORIF of right distal femoral shaft fracture. No acute fracture. Osteopenia and diffuse bony lytic disease. Mild degenerative changes at the patellofemoral joint. Left: No fracture. Degenerative changes at the patellofemoral joint. Osteopenia and diffuse bony lytic disease. Knee X-Ray 01/28/22 09:20 IMPRESSION: Right: ORIF of right distal femoral shaft fracture. No acute fracture. Osteopenia and diffuse bony lytic disease. Mild degenerative changes at the patellofemoral joint. Left: No fracture. Degenerative changes at the patellofemoral joint. Osteopenia and diffuse bony lytic disease. Discharge Plan Discharge Patient Disposition: Xfer [facility] Discharge Diagnosis: NSTEMI Sepsis Pneumonia Lytic pelvic lesion Referrals: Uriel Callaway DO [Primary Care Provider] - 2 days Discharge Medications: New carvedilol 6.25 mg Tablet 6.25 mg PO BID 30 Days Qty: 60 0RF Protocol: Hold for SBP/HR < HOLD for SBP < : 90 HOLD for HR < : 60 clopidogrel 75 mg Tablet 75 mg PO DAILY 30 Days Qty: 30 0RF aspirin 81 mg Tablet,Delayed Release (Dr/Ec) 81 mg PO DAILY 30 Days Qty: 30 0RF losartan 25 mg Tablet 25 mg PO DAILY 30 Days Qty: 30 0RF Protocol: Hold for SBP< HOLD for SBP < : 90 doxazosin 2 mg Tablet 4 mg PO BEDTIME 30 Days Qty: 60 0RF Protocol: Hold for SBP< HOLD for SBP < : 90 azithromycin 500 mg tablet 500 mg PO DAILY 3 Days Qty: 3 0RF cefuroxime axetil 500 mg tablet 500 mg PO BID Qty: 6 0RF Continued acetaminophen 325 mg Tablet 650 mg PO Q4H PRN (Reason: Fever Or Pain) bisacodyl 10 mg Suppository 10 mg VA DAILY PRN (Reason: Constipation) ferrous sulfate 325 mg (65 mg iron) Tablet 325 mg PO BID baclofen 5 mg Tablet 5 mg PO BEDTIME dorzolamide-timolol (PF) 2-0.5 % Drops 1 drp OPHTHALMIC (EYE) BID sennosides [senna] 8.6 mg Tablet 8.6 mg PO DAILY PRN (Reason: Constipation) isosorbide mononitrate 120 mg Tablet Extended Release 24 Hr 120 mg PO DAILY Protocol: Hold for SBP/HR < HOLD for SBP < : 100 HOLD for HR < : 50 levothyroxine 75 mcg Tablet 75 mcg PO DAILY@0630 ropinirole 0.25 mg Tablet 0.25 mg PO BID metformin 1,000 mg Tablet 1,000 mg PO BID lorazepam 1 mg Tablet 1 mg PO BID PRN (Reason: Anxiety) oxycodone 5 mg Tablet 2.5 mg PO Q6H PRN (Reason: Pain) pregabalin [Lyrica] 25 mg Capsule 25 mg PO BID levetiracetam [Keppra] 1,000 mg Tablet 1,000 mg PO BID torsemide 10 mg Tablet 10 mg PO DAILY epinephrine [EpiPen 2-Raghu] 0.3 mg/0.3 mL Auto-Injector 0.3 mg IM Q4H PRN (Reason: Allergic Reaction) multivitamin Tablet 1 tab PO DAILY atorvastatin 10 mg Tablet 10 mg PO BEDTIME quetiapine 200 mg Tablet Extended Release 24 Hr 400 mg PO BEDTIME Discontinued carvedilol 3.125 mg Tablet 3.125 mg PO BID tamsulosin 0.4 mg Capsule 0.4 mg PO DAILY@1730 Discharge Orders: Discharge Order (Routine); Ordered 01/29/22 Ordered By: Delmy Peralta Diet: NDD1 with nectar thick FL Activity on Discharge: As tolerated Stand Alone Forms: Patient Portal Discharge page Print Language: French Care Plan Goals: Read below Health Concerns: Read below Plan of Treatment: Read below Assessment: Admitted for chest pain. Found to have NSTEMI. Evaluated by Cardiology and treated with IV heparin, aspirin with addition of Plavix. Noted to have a a bone lesion. Evaluated by oncologist as blood work was ordered. Will need an outpatient bone marrow biopsy. Developed sepsis secondary to pneumonia. Treated with IV antibiotics with good response as you were weaned off the oxygen. To continue oral antibiotic at discharge. Developed urine retention. Evaluated by urologist who placed a Hansen catheter. To be followed as outpatient. Continue azithromycin and Ceftin as prescribed Start aspirin and Plavix Start losartan for cardiomyopathy Change from tamsulosin to doxazosin To follow-up with Dr. Horne as outpatient for bone Hernandez biopsy To do voiding trials and removed the Hansen catheter at the facility. Patient Instructions: Noncardiac Chest Pain (ED)
--- NOTE | 2022-01-29 13:14 | MHC.CM.PN ---
Patient has been medically cleared for dc to LTC today. Patient is a LTC Resident at [facility] and he will return there today @ 4 PM, via [facility].MAXIM has left a detailed message for Guardian/Yessenia @ [phone], informing her of the dc plan and addressing the IMM (Original will be mailed certified letter to Yesseina and a copy has been placed on the chart).
[2022-01-29] MEDS: Potassium Chloride/H20 10 MEQ/100 ML PIGGYBACK 100 MEQ IV ×2 (13:53→15:06)
[2022-01-29] MEDS: Azithromycin 500 MG in 0.9 % Sodium Chloride 250 ML 125 MG IV (13:53)
[2022-01-29 14:05] LABS: COVID-19 Test Negative (Negative); IDNOW Serial# 16C4AD1C
[2022-01-29] MEDS: Clopidogrel Bisulfate 300 MG TABLET PO (14:26)
--- NOTE | 2022-01-29 15:24 | PM.PNCARD ---
Subjective Subjective Date of Service: 01/29/22 Interval history: Seen examined at bedside. Continues to be confused. His reply to every question today is I cannot see anything . Physical Exam Vital Signs: Last Vital Signs Temp 97.8 F 01/29/22 11:39 Pulse 60 01/29/22 11:39 Resp 18 01/29/22 11:39 BP 155/92 H 01/29/22 11:39 Pulse Ox 97 01/29/22 11:39 O2 Del Method 01/29/22 11:39 O2 Flow Rate 3 01/28/22 11:08 BMI result Body Mass Index 19.7 GENERAL APPEARANCE: Confused. NECK: no carotid bruit, no jugular venous distention. SKIN: no suspicious lesions, warm and dry. HEART: no murmurs, regular rate and rhythm. LUNGS: clear to auscultation bilaterally. ABDOMEN: soft, nontender. EXTREMITIES: no edema. PERIPHERAL PULSES: equal. Objective Labs and Meds Result diagrams: 01/29/22 03:54 01/29/22 03:54 Lab results: Laboratory Results - last 24 hr 01/26/22 01/28/22 01/28/22 06:03 16:05 20:10 WBC RBC Hgb Hct MCV MCH MCHC RDW Plt Count MPV Absolute Nucleated RBC Nucleated RBC % (auto) aPTT Heparin Protocol Sodium Potassium Chloride Carbon Dioxide Anion Gap BUN Creatinine Estim Creat Clear Calc Estimated GFR POC Glucose 128 H 185 H Random Glucose Calcium IgG Total 3844 H IgA Total 20 L IgM 21 L LUCAS Interpretation SEE NOTE COVID-19 ([facility]) COVID-19 Clin Com 01/28/22 01/29/22 01/29/22 20:59 03:54 03:54 WBC 7.0 RBC 2.75 L Hgb 8.1 L Hct 25.0 L MCV 90.9 MCH 29.5 MCHC 32.4 RDW 16.6 H Plt Count 307 MPV 9.3 L Absolute Nucleated RBC 0.000 Nucleated RBC % (auto) 0.0 aPTT Heparin Protocol 60.8 D 66.3 Sodium Potassium Chloride Carbon Dioxide Anion Gap BUN Creatinine Estim Creat Clear Calc Estimated GFR POC Glucose Random Glucose Calcium IgG Total IgA Total IgM LUCAS Interpretation COVID-19 ([facility]ES) COVID-19 Clin Com 01/29/22 01/29/22 01/29/22 03:54 07:20 10:47 WBC RBC Hgb Hct MCV MCH MCHC RDW Plt Count MPV Absolute Nucleated RBC Nucleated RBC % (auto) aPTT Heparin Protocol Sodium 139 Potassium 3.2 L Chloride 112 H Carbon Dioxide 20 L Anion Gap 10 L BUN 18 H Creatinine 1.28 Estim Creat Clear Calc 52.4 Estimated GFR 57 POC Glucose 177 H 174 H Random Glucose 232 H Calcium 7.1 L IgG Total IgA Total IgM LUCAS Interpretation COVID-19 ([facility]ES) COVID-19 Clin Com 01/29/22 13:26 WBC RBC Hgb Hct MCV MCH MCHC RDW Plt Count MPV Absolute Nucleated RBC Nucleated RBC % (auto) aPTT Heparin Protocol Sodium Potassium Chloride Carbon Dioxide Anion Gap BUN Creatinine Estim Creat Clear Calc Estimated GFR POC Glucose Random Glucose Calcium IgG Total IgA Total IgM LUCAS Interpretation COVID-19 ([facility]ES) Negative COVID-19 Clin Com See Note Progress Note: A&P Assessment and plan (1) NSTEMI (non-ST elevated myocardial infarction): Status: Acute (2) Lytic bone lesions on xray: Status: Acute Plan 61-year-old gentleman presenting with confusion and lytic bone lesions. He had mildly elevated troponin level on admission. This was thought to be due to high blood pressure. Subsequent to that he developed chest pains and has repeat troponin level level was 4238. His high sensitive troponin level before this was 44 on January 23. EKG has shown lateral T-wave inversions which are new. Patient is unable to give any history. Treated as NSTEMI. We did not transfer him for procedures because he has significant confusion and will not be able to cooperate for procedures. He is on dual antiplatelet therapy at this stage. He received heparin times 48 hours. His echocardiography has shown biventricular dysfunction with severe LV dysfunction at least moderate RV dysfunction. He has been started on losartan 25 mg once a day. I am increasing her losartan to 50 mg once a day. Continue carvedilol at the same dose. He will be conservatively managed. Thank you for allowing me to participate in the care of your patient. Please feel free to contact me if you have any questions. Time Spent With Patient Time: Total time spent is greater than 50% in coordination of care (as documented) at patient's floor/unit and/or counseling patient: Progress Note: Quality Stroke Does the patient have a stroke diagnosis?: No Procedures Date of Service Date of Service: 01/29/22
[2022-01-29 15:26] VITALS: BP 117/71; PULSE 87; RESP 18; TEMP 36.4; O2SAT 97
--- NOTE | 2022-01-29 15:30 | MHC.CM.PN ---
A call was received from Isidro at [facility]. The facility is pushing the dc to tomorrow. They have safety concerns that will require room changes prior to accepting the patient back. Isidro provided the contact info for the [employer]. She has some questions regarding the Discharge plan. The message with contact info for report to the [employer]IST, was given to the pts nurse. Dr Peralta was notified of the facility's concern for a safe discharge today. Patient will dc tomorrow via BLS.
--- NOTE | 2022-01-29 15:46 | P.PNIM_ITS ---
Subjective Subjective Date of Service: 01/29/22 Interval History: Seen and evaluated this morning alert and answering questions confused about place and time Eating sometimes and refusing to eat on other occasions No other overnight events Review of Systems Review of Systems: Yes Unobtainable due to mental status Physical Exam Vital Signs: Vital Signs: Last Vital Signs Temp 97.6 F 01/29/22 15:26 Pulse 87 01/29/22 15:26 Resp 18 01/29/22 15:26 BP 117/71 01/29/22 15:26 Pulse Ox 97 01/29/22 15:26 O2 Del Method 01/29/22 15:26 O2 Flow Rate 3 01/28/22 11:08 BMI result Body Mass Index 19.7 Const: Other: Constitutional : Alert , interactive,not in distress Neck : Normal inspection, Supple Cardiovascular : RRR, no JVP, no lower extremity edema Respiratory : fair bilateral air entry, no crackles, wheezes or rhonchi Gastrointestinal: soft, lax, Normal bowel sounds, Non tender Skin : Warm, Dry skin, sternotomy scar Musculoskeletal: No signs of injury in both his knees Neurological : Alert , confused , answering questions, contracted, moving extremities Objective Data Active Medications Acetaminophen (Acetaminophen 325 Mg Tablet) 650 mg PO Q6H PRN PRN Reason: Pain, Mild (Pain Scale 1-3) Acetaminophen (Acetaminophen 325 Mg Tablet) 650 mg PO Q4H PRN PRN Reason: Fever Or Pain Aspirin (Aspirin Enteric Coated 81 Mg Tablet.) 81 mg PO DAILY [facility] Last Admin: 01/29/22 08:38 Dose: 81 mg Documented By: ANIKET Atorvastatin Calcium (Atorvastatin Calcium 40 Mg Tablet) 40 mg PO BEDTIME [facility] Last Admin: 01/28/22 21:11 Dose: 40 mg Documented By: FIDEL Baclofen (Baclofen 10 Mg Tablet) 5 mg PO BEDTIME [facility] Last Admin: 01/28/22 21:10 Dose: 5 mg Documented By: FIDEL Bisacodyl (Bisacodyl 10 Mg Supp.Rect) 10 mg IA DAILY PRN PRN Reason: Constipation Carvedilol (Carvedilol 6.25 Mg Tablet) 6.25 mg PO BID [facility]; Protocol Last Admin: 01/29/22 08:38 Dose: 6.25 mg Documented By: ANIKET Clopidogrel Bisulfate (Clopidogrel Bisulfate 75 Mg Tablet) 75 mg PO DAILY [facility] Dextrose (Dextrose 50 % 25 Gm/50 Ml Syringe) 25 gm IVPUSH Q15M PRN; Protocol PRN Reason: per Hypoglycemia Standing Ord. Docusate Sodium (Docusate Sodium 100 Mg Capsule) 100 mg PO DAILY PRN PRN Reason: Constipation Doxazosin Mesylate (Doxazosin Mesylate 2 Mg Tablet) 4 mg PO BEDTIME [facility]; Protocol Last Admin: 01/28/22 21:11 Dose: 4 mg Documented By: FIDEL Glucose (Glucose Gel 15 Gm Gel..Gram.) 15 gm PO Q15M PRN; Protocol PRN Reason: per Hypoglycemia Standing Ord. Levetiracetam (Keppra) 1,000 mg in 100 mls @ 400 mls/hr IV Q12H [facility] Last Infusion: 01/29/22 08:38 Dose: 0 mls/hr Documented By: ANIKET Ceftriaxone Sodium 1 gm/ (Sodium Chloride) 50 mls @ 100 mls/hr IV Q24H [facility] Last Infusion: 01/29/22 10:08 Dose: 0 mls/hr Documented By: ANIKET Azithromycin 500 mg/ Sodium (Chloride) 250 mls @ 125 mls/hr IV Q24H [facility] Last Admin: 01/29/22 13:53 Dose: 125 mls/hr Documented By: AAYUSH Insulin Human Lispro (Insulin Lispro 100 Unit/Ml 3 Ml Vial) 0 unit SUBCUT QIDACHS [facility]; Protocol Last Admin: 01/29/22 13:24 Dose: 2 unit Documented By: AAYUSH Isosorbide Mononitrate (Isosorbide Mononitrate 60 Mg Tab.Er.24h) 120 mg PO DAILY [facility]; Protocol Last Admin: 01/29/22 08:38 Dose: 120 mg Documented By: ANIKET Levothyroxine Sodium (Levothyroxine Sodium 100 Mcg/5 Ml Vial) 60 mcg IVPUSH DAILY@0600 [facility] Lorazepam (Lorazepam 0.5 Mg Tablet) 0.5 mg PO BID PRN PRN Reason: Anxiety Losartan Potassium (Losartan Potassium 50 Mg Tablet) 50 mg PO DAILY [facility]; Protocol Morphine Sulfate (Morphine Sulfate 2 Mg/Ml Cartridge) 1 mg IVPUSH Q4H PRN; Protocol PRN Reason: Pain, Moderate (Pain Scale 4-6 Last Admin: 01/26/22 18:56 Dose: 1 mg Documented By: DOMINGUEZ Nitroglycerin (Nitroglycerin 0.4 Mg Tab.Subl) 0.4 mg SUBLINGUAL Q5MX3 PRN PRN Reason: Chest Pain Ondansetron HCl (Ondansetron Hcl 4 Mg/2 Ml Vial) 4 mg IVPUSH Q8H PRN PRN Reason: Nausea and Vomiting Pharmacy Consult (Consult Rx Perform Med Rec) 1 each MISCELLANE ONCE PRN PRN Reason: Consult order Quetiapine Fumarate (Quetiapine Fumarate 25 Mg Tablet) 25 mg PO BEDTIME [facility] Last Admin: 01/28/22 21:12 Dose: 25 mg Documented By: FIDEL Ropinirole HCl (Ropinirole Hcl 0.25 Mg Tablet) 0.25 mg PO BID [facility] Last Admin: 01/29/22 08:38 Dose: 0.25 mg Documented By: ANIKET Senna (Sennosides 8.6 Mg Tablet) 8.6 mg PO DAILY PRN PRN Reason: Constipation Sodium Bicarbonate (Sodium Bicarbonate 650 Mg Tablet) 650 mg PO TID [facility] Last Admin: 01/29/22 15:06 Dose: 650 mg Documented By: EVENSORRRobert Sodium Chloride (0.9 % Sodium Chloride Flush 3 Ml Syringe) 3 ml IVFLUSH QSHIFT [facility] Last Admin: 01/29/22 08:37 Dose: 3 ml Documented By: ANIKET Labs CBC & Chem 7: 01/29/22 03:54 01/29/22 03:54 Labs: Laboratory Results - last 24 hr 01/28/22 01/28/22 01/28/22 16:05 20:10 20:59 MCV MCH MCHC RDW Plt Count MPV Absolute Nucleated RBC Nucleated RBC % (auto) aPTT Heparin Protocol 60.8 D Anion Gap Estim Creat Clear Calc Estimated GFR POC Glucose 128 H 185 H Random Glucose Calcium COVID-19 ([facility]) COVID-19 Clin Com 01/29/22 01/29/22 01/29/22 03:54 03:54 03:54 MCV 90.9 MCH 29.5 MCHC 32.4 RDW 16.6 H Plt Count 307 MPV 9.3 L Absolute Nucleated RBC 0.000 Nucleated RBC % (auto) 0.0 aPTT Heparin Protocol 66.3 Anion Gap 10 L Estim Creat Clear Calc 52.4 Estimated GFR 57 POC Glucose Random Glucose 232 H Calcium 7.1 L COVID-19 ([facility]) COVID-19 Clin Com 01/29/22 01/29/22 01/29/22 07:20 10:47 13:26 MCV MCH MCHC RDW Plt Count MPV Absolute Nucleated RBC Nucleated RBC % (auto) aPTT Heparin Protocol Anion Gap Estim Creat Clear Calc Estimated GFR POC Glucose 177 H 174 H Random Glucose Calcium COVID-19 ([facility]) Negative COVID-19 Clin Com See Note Microbiology Microbiology Results: Microbiology 01/23/22 14:50 Blood Culture - Final Blood - Venous No growth after 5 days. 01/23/22 14:50 Blood Culture - Final Blood - Venous No growth after 5 days. Assessment and Plan (1) NSTEMI (non-ST elevated myocardial infarction): Status: Acute (2) Lytic bone lesions on xray: Status: Acute (3) Pneumonia: Status: Acute Plan 61-year-old male with past medical history of CAD, CVA, as well as a resident of [facility] presents to the hospital with complaints of chest pain, headache, and was found to be hypertensive # NSTEMI Reported chest pain, troponin elevated at [address] or T-wave changes to suggest ACS echo significantly decreased EF 20-25% with severe global hypokinesia Cardiology input appreciated, NSTEMI, not a candidate for aggressive treatment Finished 48 hours of heparin drip To load with Plavix 300 Start 75 daily aspirin and statin # sepsis secondary to pneumonia Lactic acidosis resolved Tylenol as needed CT showed an evidence of left lower lobe infiltrates Negative cultures Continue Ceftriaxone and Azithromycin # Lytic pelvic lesion concerning for possible multiple myeloma with elevated protein to albumin ratio Oncology input appreciated, immunofixation, kappa lambda ordered Urine immunofixation ordered Bone Hernandez to be scheduled as outpatient # fall Unwitnessed, has a camera in the room X-rays of the knees negative for any acute findings Mentation improving, no head injury reported Trying to leave the bed, to have a sitter next to him # toxic metabolic encephalopathy secondary to possible multiple myeloma, infection Improving Control blood pressure Treat infection Evaluate for multiple myeloma Recurrent reorientation # headache secondary to hypertensive urgency, multiple myeloma head CT showed no acute bleeds or territorial infarct Control blood pressure, Tylenol p.r.n. # hypocalcemia Likely pseudo hypocalcemia from low albumin To check liver function and re-evaluate # urine retention Hansen catheter placed by urologist Tamsulosin discontinued and started on doxazosin # hypertension urgency elevated troponin secondary to hypertension Better controlled Not taking p.o. medications, increase labetalol to 10 mg q.i.d. cardiology following, continue baby aspirin # DORIAN on CKD3b Kidney function improving Nephrology following Continue to monitor # hypernatremia Secondary to dehydration Continue D5W and follow BMP # diabetes low-dose sliding scale insulin hold oral antihyperglycemics # hypothyroidism continue levothyroxine IV for now # schizoaffective disorder continue antipsychotics once he can tolerate oral DVT prophylaxis: Heparin The patient will need overnight hospital stay to continue evaluation of possible multiple myeloma requiring bone Hernandez biopsy, treatment of NSTEMI with heparin drip and pneumonia to prevent possible decomposition into hypoxic respiratory failure and severe sepsis. Quality Stroke Does the patient have a stroke diagnosis?: No VTE Prior VTE?: No VTE Risk Level:: Medical - moderate - high VTE Device Contraindication: Treatment Not Indicated VTE Drug Contraindication: N/A - Med Ordered
[2022-01-29 16:21] LABS: Glucose, Whole Blood 123 mg/dL (60-115)
[2022-01-29 19:34] VITALS: BP 129/73; PULSE 69; RESP 16; TEMP 37.3; O2SAT 97
[2022-01-29 20:25] LABS: Glucose, Whole Blood 129 mg/dL (60-115)
[2022-01-29 21:26] LABS: PES - Abn Protein Band 1 2.7 g/dL (NONE DETECTED); Prot Elec - Albumin 3.2 g/dL (3.8-4.8); Prot Elec - Alpha1 0.4 g/dL (0.2-0.3); Prot Elec - Alpha2 0.8 g/dL (0.5-0.9); Prot Elec - Beta 1 0.3 g/dL (0.4-0.6); Prot Elec - Beta 2 0.2 g/dL (0.2-0.5); Prot Elec - Total Protein 7.7 g/dL (6.1-8.1)
[2022-01-29] MEDS: Baclofen 10 MG TABLET 5 MG PO (21:45)
[2022-01-29] MEDS: QUEtiapine Fumarate 25 MG TABLET PO (21:46)
[2022-01-29] MEDS: Atorvastatin Calcium 40 MG TABLET PO (21:47)
[2022-01-29] MEDS: Doxazosin Mesylate 2 MG TABLET 4 MG PO (21:47)
[2022-01-29 23:17] VITALS: BP 158/68; PULSE 79; RESP 18; TEMP 37; O2SAT 97
[2022-01-30 03:34] VITALS: BP 120/72; PULSE 71; RESP 20; TEMP 36.8; O2SAT 97
[2022-01-30] MEDS: levETIRAcetam in NaCl (iso-os) 1,000 MG/100 ML PIGGYBACK 400 MG IV (06:00)
[2022-01-30] MEDS: Levothyroxine Sodium 100 MCG/5 ML VIAL 60 MCG IVPUSH (06:00)
[2022-01-30 06:41] LABS: PTT Heparin Drip 28.9 SEC (53-77.9)
[2022-01-30 07:23] LABS: Glucose, Whole Blood 159 mg/dL (60-115)
[2022-01-30 07:50] VITALS: BP 111/67; PULSE 64; RESP 18; TEMP 36.7; O2SAT 97
[2022-01-30] MEDS: Insulin Lispro 100 UNIT/ML 3 ML VIAL SUBCUT (08:06)
[2022-01-30] MEDS: rOPINIRole HCL 0.25 MG TABLET PO (08:07)
[2022-01-30] MEDS: Sodium Bicarbonate 650 MG TABLET PO (08:07)
[2022-01-30] MEDS: Isosorbide Mononitrate 60 MG TAB.ER.24H 120 MG PO (08:07)
[2022-01-30] MEDS: Aspirin Enteric Coated 81 MG TABLET.DR PO (08:08)
[2022-01-30] MEDS: Clopidogrel Bisulfate 75 MG TABLET PO (08:08)
[2022-01-30] MEDS: Losartan Potassium 50 MG TABLET PO (08:08)
[2022-01-30] MEDS: carvediloL 6.25 MG TABLET PO (08:08)
[2022-01-30] MEDS: 0.9 % Sodium Chloride Flush 3 ML SYRINGE IVFLUSH (08:16)
[2022-01-30] MEDS: cefTRIAXone sodium 1 GM in 0.9 % Sodium Chloride 50 ML IV (08:16)
[2022-01-30 10:55] LABS: Glucose, Whole Blood 88 mg/dL (60-115)
--- NOTE | 2022-01-30 10:55 | MHC.SL.SWA ---
Speech Pathologist Impression: Oropharyngeal dysphagia Risk of Aspiration Due to: Neurological Condition Reduced Cognition Dysphasia Diet Status: UPGRADE LIQUIDS Liquid Consistency and Strategies for Safe Swallow: Liquid Intake Recommendation: Thin Liquid Intake Strategies: Liquids by Teaspoon Only Solid Food Consistency: Dietary Recommendations: Pureed (NDD1) Additional Modifications to Solid Foods: Recommend continue on diet of PUREE (NDD1) and UPGRADE to THIN liquids by teaspoon only, Pills CRUSHED in PUREE. Continue with 1-1 feed, closely monitor that patient has swallowed and is not pocketing/holding food before introducing more. Patient needs to be cued to swallow. Patient will continue to be difficult to feed, may only take small amounts of food at any meal, however swallow behavior improved when he has food that he states he likes. Monitor for any overt s/s of aspiration throughout meal. Recommend continue speech therapy for dysphagia at next level of care. Patient may need cuing to: close mouth on spoon to strip spoon of liquid or food; initiate swallowing if holding food or liquid in mouth. Check that patient has swallowed before introducing more food or liquid. Discontinue if patient is pocketing/holding food, or if patient is lethargic/not engaged in meal. Oral Medication Intake: Crushed with Puree Please contact the pharmacy regarding appropriate crushable or liquid drug formulations that are available whenever modified delivery is recommended. Compensatory Strategies and Precautions to be Taken for Safe Swallow: Sitting Upright (90 deg) Liquids from Spoon Small Bites and Sips Alternate Liquids/Solids Rate of Ingestion Change Oral Check Supervision While Eating and Drinking for Safe Swallow: Total Assistance (1:1) Foods to Avoid: Sticky, congealed purees. Swallowing Recommended Treatments: Compens. Strategy Educat. Recommendation for Speech: Speech therapy at next level of care Insulator Cutter And Former Clinican/Clinical Fellow: Yes: Cassandra Ugalde M.A., CF-ESTATE PLANNING COUNSELOR Supervisory Statement: I have reviewed and agree with the student/clinical fellow's documentation: Yes Speech Language Pathologist: Kristin Jones M.A., CCC-ESTATE PLANNING COUNSELOR
--- NOTE | 2022-01-30 10:57 | PM.PNNEP ---
Subjective Subjective Date of Service: 01/30/22 Interval history: Seen and evaluated this morning alert and answering questions confused about place and time Eating sometimes and refusing to eat on other occasions No other overnight events Physical Exam Vital Signs: Vital Signs: Last Vital Signs Temp 98.1 F 01/30/22 07:50 Pulse 64 01/30/22 07:50 Resp 18 01/30/22 07:50 BP 111/67 01/30/22 07:50 Pulse Ox 97 01/30/22 07:50 O2 Del Method 01/30/22 07:50 O2 Flow Rate 3 01/28/22 11:08 BMI result Body Mass Index 19.7 Const: Other: Constitutional : Alert , interactive,not in distress Neck : Normal inspection, Supple Cardiovascular : RRR, no JVP, no lower extremity edema Respiratory : fair bilateral air entry, no crackles, wheezes or rhonchi Gastrointestinal: soft, lax, Normal bowel sounds, Non tender Skin : Warm, Dry skin, sternotomy scar Musculoskeletal: No signs of injury in both his knees Neurological : Alert , confused , answering questions, contracted, moving extremities General: cooperative, healthy appearing, comfortable, no acute distress and confusion Orientation/consciousness: patient oriented x3 and confusion HEENT: Other: Unremarkable Head: Yes normal to inspection Face and sinus: Yes normal facial exam Mouth: moist mucous membranes Eyes: General: appearance normal, both eyes and all related structures Neck: Neck: Yes normal visual inspection, Yes full ROM and Yes trachea midline Chest: Other: Sternotomy scar. Chest palpation & inspection: normal inspection of the chest Resp: Effort & Inspection: normal respiratory effort, able to speak in complete sentences and no respiratory distress Auscultation: clear to auscultation bilaterally Cardio: Palpation: normal PMI Rate: regular rate Rhythm: regular rhythm Heart sounds: S1 normal heart sound present, S2 normal heart sound present, no gallops, no murmurs and no rubs GI: Inspection: Yes normal to inspection Palpation (GI): Soft to palpation Auscultation: normal bowel sounds Back/Spine/Pelvis: Other: unremarkable Cervical Spine: normal cervical lordosis Thoracic/Lumbar Spine: thoracic and lumbar spine normal to inspection Skin: General skin exam: no rashes or lesions noted Neuro: Other: Unable to conduct as patient is not following directions General: patient oriented x3, tone normal, moves all extremities and confusion Extrem: General: Yes normal to inspection, Yes capillary refill normal and Yes no pedal edema Psych: Mental Status: mental status grossly abnormal Objective Data Labs CBC & Chem 7: 01/29/22 03:54 01/29/22 03:54 Labs: Laboratory Results - last 24 hr 01/26/22 01/29/22 01/29/22 06:03 10:47 13:26 aPTT Heparin Protocol POC Glucose 174 H Total Protein (PEP) 7.7 Albumin (PEP) 3.2 L Jbzkj-0-Ologjvmtk 0.4 H Ycqyw-4-Znqmtbwlw 0.8 Ezhm-6-Zzaubftn 0.3 L Xrps-5-Kgnaesox 0.2 Gamma Globulins 3.0 H Abnorm Protein Band 1 2.7 H PEP Interpretation SEE NOTE COVID-19 ([facility]) Negative COVID-19 Clin Com See Note 01/29/22 01/29/22 01/30/22 16:16 20:21 06:06 aPTT Heparin Protocol 28.9 L D POC Glucose 123 H 129 H Total Protein (PEP) Albumin (PEP) Rjsbj-2-Otjxauqpe Ppqxk-6-Vgnmwxfkh Nejo-7-Yfzzmbtt Mhgh-5-Bqswraqe Gamma Globulins Abnorm Protein Band 1 PEP Interpretation COVID-19 ([facility]) COVID-19 Clin Com 01/30/22 01/30/22 07:19 10:52 aPTT Heparin Protocol POC Glucose 159 H 88 Total Protein (PEP) Albumin (PEP) Qdfzo-0-Hofisfkfw Zvwnh-8-Uwfvpjweq Zrip-4-Ctfpruav Burq-5-Abxdnqqh Gamma Globulins Abnorm Protein Band 1 PEP Interpretation COVID-19 ([facility]) COVID-19 Clin Com Microbiology Microbiology Results: Microbiology 01/25/22 07:52 Blood - Venous Blood Culture - Final No growth after 5 days. 01/25/22 07:48 Blood - Venous Blood Culture - Final No growth after 5 days. 01/23/22 14:50 Blood - Venous Blood Culture - Final No growth after 5 days. 01/23/22 14:50 Blood - Venous Blood Culture - Final No growth after 5 days. Procedures Date of Service Date of Service: 01/30/22 Assessment & Plan Assessment and plan (1) NSTEMI (non-ST elevated myocardial infarction): Status: Acute (2) Lytic bone lesions on xray: Status: Acute (3) Pneumonia: Status: Acute Plan 61-year-old male with past medical history of CAD, CVA, as well as a resident of [facility] presents to the hospital with complaints of chest pain, headache, and was found to be hypertensive # DORIAN on CKD3b Kidney function improving KCL replacement for low K Continue to monitor # hypernatremia Secondary to dehydration Continue D5W and follow BMP # diabetes low-dose sliding scale insulin hold oral antihyperglycemics # hypothyroidism continue levothyroxine IV for now # schizoaffective disorder continue antipsychotics once he can tolerate oral DVT prophylaxis: Heparin The patient will need overnight hospital stay to continue evaluation of possible multiple myeloma requiring bone Hernandez biopsy, treatment of NSTEMI with heparin drip and pneumonia to prevent possible decomposition into hypoxic respiratory failure and severe sepsis. Time Spent With Patient Time: Total time spent is greater than 50% in coordination of care (as documented) at patient's floor/unit and/or counseling patient: Progress Note: Quality Stroke Does the patient have a stroke diagnosis?: No
[2022-02-03 15:06] LABS: Kappa, Serum 1170 mg/dL (176-443); Lambda, Serum 18 mg/dL (91-240)
[2022-02-13 10:51] LABS: Free Kappa/Lambda 24Hr Ur 8.56; Free Lambda, 24Hr Urine 14.42
[2022-02-13 10:52] LABS: Free Kappa, 24Hr Urine 123.38
== END 2022-01-30 11:30 | DRG 720 ==
LOC: HO.ED 21:39 → HO.EDOVER 22:33 → HO.IMC 01-24 01:00
PROVIDERS: Hospitalist; Internal Medicine; Physician Assistant Medical; Student in an Organized Health Care Education/Training Program; Admitting Provider Internal Medicine; Emergency Provider Student in an Organized Health Care Education/Training Program; PCP Hospitalist; Visit Provider Internal Medicine
DX: A41.9 Sepsis, unspecified organism (principal); I21.4 Non-ST elevation (NSTEMI) myocardial infarction; G92.8 Other toxic encephalopathy; I13.0 Hypertensive heart and chronic kidney disease with heart failure and stage 1 through stage 4 chronic kidney disease, or unspecified chronic kidney disease; E87.0 Hyperosmolality and hypernatremia; J18.9 Pneumonia, unspecified organism; I50.32 Chronic diastolic (congestive) heart failure; D63.1 Anemia in chronic kidney disease; C90.00 Multiple myeloma not having achieved remission; E83.51 Hypocalcemia; E11.22 Type 2 diabetes mellitus with diabetic chronic kidney disease; F25.9 Schizoaffective disorder, unspecified; I24.9 Acute ischemic heart disease, unspecified; I25.10 Atherosclerotic heart disease of native coronary artery without angina pectoris; E03.9 Hypothyroidism, unspecified; H54.8 Legal blindness, as defined in USA; G25.81 Restless legs syndrome; N18.32 Chronic kidney disease, stage 3b; E78.5 Hyperlipidemia, unspecified; I25.2 Old myocardial infarction; G40.909 Epilepsy, unspecified, not intractable, without status epilepticus; I16.0 Hypertensive urgency; N40.1 Benign prostatic hyperplasia with lower urinary tract symptoms; R33.8 Other retention of urine; E86.0 Dehydration; Z20.822 Contact with and (suspected) exposure to COVID-19; Z95.1 Presence of aortocoronary bypass graft; Z86.73 Personal history of transient ischemic attack (TIA), and cerebral infarction without residual deficits; Z79.82 Long term (current) use of aspirin; Z79.02 Long term (current) use of antithrombotics/antiplatelets; Z79.890 Hormone replacement therapy; Z79.84 Long term (current) use of oral hypoglycemic drugs; Z79.899 Other long term (current) drug therapy
CPT/HCPCS: 36415; 70450; 71045; 73560; 74176; 78580; 80048; 80053; 80076; 81001; 82232; 82272; 82784; 82947; 83605; 83615; 83735; 83883; 84165; 84484; 85025; 85027; 85379; 85610; 85730; 86334; 87040; 87635; 92526; 92610; 93005; 93306; 96361; 96374; 96375; 99285; A9540; C1758; J0456; J0696; J1200; J1953; J2270; Q9957

== ENCOUNTER 2022-02-04 07:58 | Outpatient (RCR) | payer MEDICAID, SELFPAY ==
[2022-02-04 08:09] VITALS: BP 194/90; PULSE 80; RESP 16; TEMP 36.4; O2SAT 100
--- NOTE | 2022-02-04 08:32 | MHC.HEMONCMA ---
Patient seen today followup in house consult, arrived with worker from group home who did not know any medical hx, patient refused and unable to stand for weight, VSS, no followup needed, home note scanned.
--- NOTE | 2022-02-04 08:33 | P.PNHO-ONC_ITS ---
Medical Summary - Medical Summary Date of Service: 02/04/22 Chief complaint: None Medical Summary: Diagnosis: Probable multiple myeloma Patient admitted in January 2022 to [facility] for sepsis secondary to pneumonia. During that hospitalization he was noted to have lytic pelvic lesion, further workup revealed evidence of multiple myeloma. Interval History Interval history: Patient is here in follow-up from hospital discharge. [facility] Patient denies any complaints, keeps repeating that he wants to go and have his donut. He keeps saying he does not believe in it when I explained to him that he probably has a blood cancer. Review of Systems - Constitutional Reports as per [facility] Medical History: Medical History (Last Reviewed 01/24/22 @ 06:36 by Valentino Correa MD) Coronary artery disease Diastolic heart failure History of stroke Hyperlipidemia Hypertension Hypothyroidism Legal blindness Restless leg Schizoaffective disorder Seizure disorder Stage 3a chronic kidney disease Type 2 diabetes mellitus Urinary retention Surgical History: Surgical History (Last Reviewed 02/04/22 @ 08:10 by Lauren Rodríguez) History of coronary artery bypass graft Social History: Social History (Last Reviewed 02/04/22 @ 08:10 by Lauren Rodríguez) Living Situation History: Household Members: Other Household Members Other:: FACILITY Housing: Assisted Living Facility Do you presently have visiting nurse or other home services: No Tobacco History: Patient Tobacco Use Status: Never used Tobacco Occupation Assessmet: service: No Current occupational status: disabled Oncology Screenings - ECOG Performance Status ECOG Performance Status: 2 Home Medications and Allergies Home Medications Medication Instructions Recorded Confirmed Type acetaminophen 325 mg tablet 650 mg PO Q4H PRN Fever Or Pain 02/13/21 01/24/22 History baclofen 5 mg tablet 5 mg PO BEDTIME 02/13/21 01/24/22 History bisacodyl 10 mg rectal suppository 10 mg ND DAILY PRN Constipation 02/13/21 01/24/22 History dorzolamide 2 %-timolol 0.5 % (PF) 1 drp ophthalmic (eye) BID 02/13/21 01/24/22 History eye drops ferrous sulfate 325 mg (65 mg 325 mg PO BID 02/13/21 01/24/22 History iron) tablet isosorbide mononitrate 120 mg 120 mg PO DAILY 02/13/21 01/24/22 History tablet,extended release 24 hr levetiracetam 1,000 mg tablet 1,000 mg PO BID 02/13/21 01/24/22 History (Keppra) levothyroxine 75 mcg tablet 75 mcg PO DAILY@0630 02/13/21 01/24/22 History lorazepam 1 mg tablet 1 mg PO BID PRN Anxiety 02/13/21 01/24/22 History metformin 1,000 mg tablet 1,000 mg PO BID 02/13/21 01/24/22 History oxycodone 5 mg tablet 2.5 mg PO Q6H PRN Pain 02/13/21 01/24/22 History pregabalin 25 mg capsule (Lyrica) 25 mg PO BID 02/13/21 01/24/22 History ropinirole 0.25 mg tablet 0.25 mg PO BID 02/13/21 01/24/22 History sennosides 8.6 mg tablet (senna) 8.6 mg PO DAILY PRN Constipation 02/13/21 01/24/22 History torsemide 10 mg tablet 10 mg PO DAILY 02/13/21 01/24/22 History atorvastatin 10 mg tablet 10 mg PO BEDTIME 01/24/22 01/24/22 History epinephrine 0.3 mg/0.3 mL 0.3 mg IM Q4H PRN Allergic Reaction 01/24/22 01/24/22 History injection, auto-injector (EpiPen 2-Raghu) multivitamin 1 tab PO DAILY 01/24/22 01/24/22 History quetiapine 200 mg tablet,extended 400 mg PO BEDTIME 01/24/22 01/24/22 History release 24 hr Allergies Allergy/AdvReac Type Severity Reaction Status Date / Time No Known Allergies Allergy Verified 10/22/21 10:29 Exam Vital signs: Vital Signs Temp 97.6 F 02/04/22 08:09 Pulse 80 02/04/22 08:09 Resp 16 02/04/22 08:09 BP 194/90 H 02/04/22 08:09 Pulse Ox 100 02/04/22 08:09 O2 Del Method 02/04/22 08:09 - Constitutional Present: no acute distress, chronically ill appearing - Routine HEENT Exam Eye: Present: conjunctivae pale - Routine Neck Exam Present: normal inspection - Routine Respiratory Exam Absent: accessory muscle use, respiratory distress - Routine Cardiovascular Exam Cardiovascular: Present: S1, S2 Assessment and Plan Patient Active problem list reviewed?: Yes (1) Lytic bone lesions on xray Status: Acute Assessment and plan: 1. This is a 61-year-old male, long-term resident of [facility] with multiple medical problems who has recently been diagnosed with lytic bony lesions and probable multiple myeloma. He was recently admitted to [facility] with mental status changes secondary to sepsis/pneumonia. He also suffered acute coronary event during that hospitalization. CT abdomen/pelvis showed multiple lytic lesions, he also presented with acute on chronic renal failure and anemia. Workup for multiple myeloma revealed total IgG protein of 3.8 g, IgG kappa monoclonal gammopathy. Abnormal serum kappa/lambda ratio of 65 with kappa light chain of over 1.1 g per dL. 24 hour urine immunofixation is pending. Beta 2 microglobulin elevated at 4.58 mg/L. Patient at this time appears alert but not sure if he is able to make decisions for himself. I have tried to get in touch with his guardian a week ago when he was admitted to the hospital. I have not heard back from anyone. Patient at this time states that he does not want any diagnostics tests such as bone marrow biopsy or treatment because he does not believe in it. I do not have any recommendations at this time. I will be happy to talk to his guardian or his physician about his hematological problem. I can be contacted at [phone]. - Time Spent With Patient Time Spent with Patient (in minutes): 15
== END 2022-11-30 | disposition home or self-care (01) ==
LOC: HO.ONC 07:58
PROVIDERS: Visit Provider Internal Medicine
DX: M89.8X9 Other specified disorders of bone, unspecified site (principal); D64.9 Anemia, unspecified
CPT/HCPCS: 99214

== ENCOUNTER 2022-02-18 13:02 | Inpatient (IN) | payer MEDICAID, SELFPAY ==
[2022-02-18] VITALS (10 sets, daily range): BP systolic 55–111; BP diastolic 32–69; PULSE 59–91; RESP 8–20; TEMP 36.4–37; O2SAT 95–100; BMI 16.4
--- NOTE | ~2022-02-18 | CT_ITS ---
EXAMINATION: CT ANGIOGRAM HEAD CT ANGIOGRAM NECK CLINICAL INFORMATION: Slurred speech. Left-sided mydriasis. COMPARISON: CT head from 02/18/2022. TECHNIQUE: Initial noncontrast urban gardening specialist imaging of the head and neck was performed. Comparison is made with noncontrast head CT from earlier today. Test bolus sequences followed by intravenous administration 70 mL of Omnipaque 350. Helical imaging was performed in the axial plane from the aortic arch to the skull vertex. Delayed postcontrast imaging of the head was also performed. The data was processed at the cardiology technologist's workstation for generation of MIP sequences. Angled MIPs and volume rendered reformatted images were also generated at an offline 3D workstation. Stenoses are assessed in accordance with NASCET criteria unless otherwise indicated. This CT examination was performed using dose optimization techniques as appropriate, variously including the following: *Automated exposure control. *Adjustment of mA and/or kV according to patient size (this includes techniques or standardized protocols for targeted exams where dose is matched to indication/reason for exam; i.e. extremities or head). *Use of iterative reconstruction technique. DLP: 1599 mGy-cm FINDINGS: CT Head: There is no evidence of acute intracranial hemorrhage or edematous territorial infarction. Chronic encephalomalacia of the left frontoparietal lobes. Chronic lacunar infarcts of the left caudate and lentiform nuclei. Scattered hypoattenuation in the periventricular and deep white matter are consistent with moderate microangiopathy. Anand-white matter differentiation is preserved. Proportional prominence of the ventricles and sulcal spaces. No evidence for obstructive hydrocephalus. No abnormal mass effect or midline shift. No extra-axial fluid collections. No pathologic intra-axial enhancement. No acute soft tissue or osseous abnormalities. Mild mucosal thickening of the paranasal sinuses. The mastoid air cells and middle ear cavities are clear. The patient is edentulous. Bilateral lens extractions. Hyperattenuating material within the posterior chambers of the left greater than right globe suggestive of sequela of prior retinal detachment. CT Neck: The thyroid gland and remaining cervical soft tissues are within normal limits. Generalized demineralization of the osseous structures. Advanced degenerative disc disease at C6-C7. Moderate degenerative disc disease from C2-C4, at C5-C6, and at C7-T1. Facet and uncovertebral joint arthropathy leads to osseous encroachment on the neural foramina at C6-C7. CT Upper Chest: Changes of median sternotomy for CABG. The visualized lung apices and upper mediastinum are within normal limits. Neck CTA: Aortic Arch: Normal contour and caliber with moderate calcific atherosclerotic disease. Atherosclerotic occlusion of the proximal left subclavian artery. There is partial reconstitution of opacification of the left subclavian artery at the level of the origin of the left vertebral artery. Classic 3 vessel branching pattern of the aortic arch. Great Vessel Origins: Atherosclerotic disease causes less than 50% stenosis of the origins of the brachiocephalic and left common carotid arteries. Right Common Carotid Artery: No focal stenosis or occlusion. Cervical Right Internal Carotid Artery: Calcific atherosclerotic disease of the carotid bulb and proximal internal carotid artery causing less than 50% stenosis. Left Common Carotid Artery: No focal stenosis or occlusion. Cervical Left Internal Carotid Artery: Irregular calcific atherosclerotic disease of the carotid bulb and proximal internal carotid artery causing less than 50% stenosis. Cervical Right Vertebral Artery: Occluded at its origin. Partial irregular segmental reconstitution of the V2 and V3 segments at the level of C1-C4. Cervical Left Vertebral Artery: Paradoxical gradient retrograde opacification. Brain CTA: Intracranial Internal Carotid Arteries: Heavy mixed lipid rich and calcific atherosclerotic disease causes multifocal moderate to high-grade stenoses (most notably involving the right cavernous sinus/paraophthalmic segments and left supraclinoid segment). No overt occlusion. Right Anterior Cerebral Artery: Moderate stenosis of the origin of the A1 segment. Multifocal mild to moderate stenoses of the distal FREDERICK segments. Left Anterior Cerebral Artery: Normal A1 segment. Multifocal mild stenoses of the distal FREDERICK segments. Anterior Communicating Artery: Normal. Right Middle Cerebral Artery: Multifocal mild irregular stenoses of the M1 segment without occlusion. Moderate stenosis of the proximal M2 branch. Otherwise, normal arborization of the distal segments. Left Middle Cerebral Artery: Multifocal moderate irregular stenoses of the M1 segment without occlusion. Multifocal moderate stenoses of the M2 branches. Otherwise, normal arborization of the distal segments. Right Vertebral Artery: There is occlusion of the V4 segment. Left Vertebral Artery: Normal V4 segment. Normal opacification of the proximal segments of the posterior inferior cerebellar artery. Basilar Artery: Moderate to high-grade stenosis of the mid basilar artery without overt occlusion. Normal appearance of the proximal superior cerebellar arteries. Right Posterior Cerebral Artery: Normal P1 segment. Moderate to high-grade stenosis of the P2 and P3 segments without occlusion. Left Posterior Cerebral Artery: Normal P1 segment. Moderate to high-grade stenosis of the P2 and P3 segments without occlusion. Normal opacification of the superior sagittal, straight, transverse, and sigmoid sinuses. CT/CT angio head neck stroke IMPRESSION: 1. No evidence of acute intracranial hemorrhage or edematous territorial infarction. Chronic and simple malacia of the left frontoparietal lobes. Chronic lacunar infarcts of the deep nuclei. Moderate underlying microangiopathy and generalized cerebral volume loss. 2. 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 Retrograde opacification of the left vertebral artery. This morphology could lead to left-sided subclavian steal phenomenon. 3. Furthermore, CTA of the head and neck is notable for moderate to extensive underlying atherosclerotic disease throughout the cervical and intracranial structures. Multifocal moderate to high-grade after sclerotic stenoses of the intracranial bilateral internal carotid arteries, mid basilar artery, left-sided M1 segment, bilateral M2 segments, and bilateral P2-P3 segments. 4. No evidence of acute occlusive thrombotic disease. 5. Sequela of bilateral retinal detachment. This critical result was discussed with Dr. Sánchez at 15:13 on 02/18/2022 and it was ascertained that the content and urgency of the report was understood at the time of direct communication.
--- NOTE | ~2022-02-18 | XR_ITS ---
EXAMINATION: XR CHEST CLINICAL INFORMATION: Hypotensive COMPARISON: None TECHNIQUE: Frontal view of the chest was obtained. FINDINGS: The lungs are hypoexpanded but clear of acute process. The heart size enlarged. Perivascular is normal. There are median sternotomy sutures and mediastinal dwain from previous CABG. No gross bony abnormality seen. XR/XR chest 1V IMPRESSION: Hypoexpanded lungs without acute process.
--- NOTE | ~2022-02-18 | CT_ITS ---
EXAMINATION: CT HEAD WITHOUT CONTRAST (STROKE PROTOCOL) CLINICAL INFORMATION: Stroke protocol. Rule out bleed. COMPARISON: Previous CT head 01/23/2022. TECHNIQUE: Contiguous axial imaging was performed from the skull base to vertex without intravenous administration of contrast. This CT examination was performed using dose optimization techniques as appropriate, variously including the following: *Automated exposure control *Adjustment of mA and/or kV according to patient size (this includes techniques or standardized protocols for targeted exams where dose is matched to indication/reason for exam; i.e. extremities or head) *Use of iterative reconstruction technique DLP: 774 mGy-cm FINDINGS: There is no evidence of an extra-axial collection. There is no evidence of intra-axial or extra-axial hemorrhage. The ventricles and extra-axial CSF spaces are slightly prominent suggestive of mild generalized atrophy. There is nonspecific periventricular white matter disease. There are old left parietal and left basal ganglia lacunar infarcts. There may be small, old infarcts in the right basal ganglia as well. This appears unchanged from the previous exam of 01/23/2022. No mass, mass effect or acute infarct is seen. Review at bone windows is normal. No skull fracture is seen. The visualized paranasal sinuses, mastoid air cells and middle ears are clear. There is abnormal appearance of both orbits, similar to the 01/23/2022 exam, likely related to bilateral old retinal detachments. CT/CT head for stroke IMPRESSION: No acute findings. Generalized atrophy, nonspecific periventricular white matter disease and old infarcts similar to the 01/23/2022 exam. This critical result was discussed with Negrita Sánchez at 1341 hours on 02/18/2022. It was ascertained that the content and urgency of the report was understood at the time of direct communication.
--- NOTE | 2022-02-18 13:18 | ECG_ITS ---
Test Reason : AMS Blood Pressure : / mmHG Vent. Rate : 075 BPM Atrial Rate : 075 BPM P-R Int : 198 ms QRS Dur : 164 ms QT Int : 500 ms P-R-T Axes : 077 -69 135 degrees QTc Int : 558 ms Sinus rhythm with occasional Premature ventricular complexes Left axis deviation Right bundle branch block Septal infarct (cited on or before 23-JAN-2022) Inferior infarct , age undetermined T wave abnormality, consider lateral ischemia Abnormal ECG When compared with ECG of 28-JAN-2022 07:31, Premature ventricular complexes are now Present Inferior infarct is now Present Referred By: Negrita Sánchez Electronically Signed By:GABRIELA DUMONT
[2022-02-18] MEDS: 0.9 % Sodium Chloride 2,000 ML 999 ML IVCONT (13:40)
--- NOTE | 2022-02-18 13:49 | PC.NURSE ---
Pt presents to ED obtunded, responsive, periods or apneic breathing, HR 50s, SBP 50 intiailly. Unresponsive to name, skin cool to touch. This RN, staff and dr Sánchez to bedside. Pt coming from [facility] with c/o lethargy x [address] scan with this RN. Pt was being prepared for intubation and Levophed however pt back in room and mentating appropriately. Speech is slurred but understandable and appropriate to situation most times. HR has improved as well as BP with SBP 100 at this time (levo held per Dr Sánchez at this time).Fluids infusing. Skin cool and dry to touch.
--- NOTE | 2022-02-18 14:15 | PC.NURSE ---
Pt more alert, lucid at times but then noted to have periods of confusion, calling out for Sarah. BP continues to trend up. Second liter started per order. Labs sent. Awaiting CTA
--- NOTE | 2022-02-18 14:18 | ED_ITS ---
HPI - Altered Mental Status General Chief Complaint: Altered Mental Status Stated Complaint: AMS,SLURRED SPEACH,LKWT UNK PER EMS Time Seen by Provider: 02/18/22 13:12 Source: EMS Mode of arrival: EMS Limitations: altered mental status History of Present Illness HPI narrative: Patient comes to the emergency room via ambulance from care 1. Patient was sent for altered mental status and slurred speech. EMS reports that the staff at [facility] was not sure when the slurred speech started, it was noted sometime today , unknown last well known time. At baseline, patient has periods of lucidity and confusion. On arrival, it was noted that patient was nearly unresponsive, only mumbling, blood pressure 55/32. EMS stated that they noticed the patient had a nitro paste patch on when they picked him up from the fa cility. They asked how long the patch has been on the patient. EMS reports that the nurses replied that he did not have a patch on. EMS showed to the patient's nurse that the patient did have a nitro paste patch on, they were unsure how it got there or how long it has been on the patient. Patient is too altered to give any history Related Data Home Medications Medication Instructions Recorded Confirmed acetaminophen 325 mg tablet 650 mg PO Q4H PRN Fever Or Pain 02/13/21 02/18/22 baclofen 5 mg tablet 5 mg PO BEDTIME primary 02/13/21 02/18/22 osteoarthritis bisacodyl 10 mg rectal suppository 10 mg IA DAILY PRN Constipation 02/13/21 02/18/22 dorzolamide 2 %-timolol 0.5 % (PF) 1 drp ophthalmic (eye) BID glaucoma 02/13/21 02/18/22 eye drops ferrous sulfate 325 mg (65 mg 324 mg PO BID iron def anemia 02/13/21 02/18/22 iron) tablet isosorbide mononitrate 120 mg 120 mg PO DAILY htn 02/13/21 02/18/22 tablet,extended release 24 hr levetiracetam 1,000 mg tablet 1,000 mg PO BID seizures 02/13/21 02/18/22 (Keppra) levothyroxine 75 mcg tablet 75 mcg PO DAILY@0630 thyroid 02/13/21 02/18/22 lorazepam 1 mg tablet 1 mg PO BID PRN Anxiety 02/13/21 02/18/22 metformin 1,000 mg tablet 1,000 mg PO BID type 2 diabetes 02/13/21 02/18/22 oxycodone 5 mg tablet 2.5 mg PO Q6H PRN Pain 02/13/21 02/18/22 pregabalin 25 mg capsule (Lyrica) 25 mg PO BID schioaffective 02/13/21 02/18/22 disorder ropinirole 0.25 mg tablet 0.25 mg PO BID restless legs 02/13/21 02/18/22 sennosides 8.6 mg tablet (senna) 8.6 mg PO DAILY PRN Constipation 02/13/21 02/18/22 torsemide 10 mg tablet 10 mg PO DAILY htn 02/13/21 02/18/22 atorvastatin 10 mg tablet 10 mg PO BEDTIME 01/24/22 02/18/22 hypercholesterolemia epinephrine 0.3 mg/0.3 mL 0.3 mg IM Q4H PRN Allergic Reaction 01/24/22 02/18/22 injection, auto-injector (EpiPen 2-Raghu) multivitamin 1 tab PO DAILY 01/24/22 02/18/22 quetiapine 200 mg tablet,extended 400 mg PO BID schizoaffective 01/24/22 02/18/22 release 24 hr disorder aspirin 81 mg tablet,delayed 81 mg PO DAILY htn 02/04/22 02/18/22 release carvedilol 6.25 mg tablet 6.25 mg PO BID primary hypertension 02/04/22 02/18/22 clopidogrel 75 mg tablet 75 mg PO DAILY I25.720 02/04/22 02/18/22 doxazosin 2 mg tablet 4 mg PO BEDTIME retention of urine 02/04/22 02/18/22 losartan 25 mg tablet 25 mg PO DAILY htn 02/04/22 02/18/22 naloxone 0.4 mg/mL injection 1 mg intranasal DIRECTED PRN 02/04/22 02/18/22 solution Opioid Overdose sennosides 8.6 mg tablet (senna) 8.6 mg PO DAILY 02/18/22 02/18/22 Allergies Allergy/AdvReac Type Severity Reaction Status Date / Time No Known Allergies Allergy Verified 10/22/21 10:29 Review of Systems Review of Systems: Yes Unobtainable due to mental condition [facility] Past Medical History Medical History BPH w urinary obs/LUTS Coronary artery disease Diastolic heart failure History of stroke Hyperlipidemia Hypertension Hypothyroidism Legal blindness Lytic bone lesions on xray NSTEMI (non-ST elevated myocardial infarction) Restless leg Schizoaffective disorder Seizure disorder Stage 3a chronic kidney disease Type 2 diabetes mellitus Urinary retention Surgical History History of coronary artery bypass graft Social History Social History Household Members: Other Household Members Other:: FACILITY Housing: Assisted Living Facility Do you presently have visiting nurse or other home services: No Patient Tobacco Use Status: Never used Tobacco Advance Directives: Yes Advance Directives on File: Yes Advance Directives Date on File: 02/02/22 service: No Current occupational status: disabled Physical Exam ED Vital Signs: Vital Signs - 24 hr 02/18/22 13:16 02/18/22 13:29 02/18/22 13:45 Temperature 97.6 F Pulse Rate 59 66 73 Respiratory Rate 8 L 12 16 Blood Pressure 55/32 L 77/54 L 100/66 Pulse Oximetry 100 Oxygen Delivery Method Nasal Cannula Oxygen Flow Rate 6 02/18/22 14:14 Temperature Pulse Rate 74 Respiratory Rate 14 Blood Pressure 111/66 Pulse Oximetry 100 Oxygen Delivery Method Nasal Cannula Oxygen Flow Rate 3 BMI result Body Mass Index 16.4 Const Other: Appearance: Alert. Minimally responsive Eyes: Bilateral Mydriasis, more noticeable on the left eye, nonresponsive to light ENT: Pharynx normal. Dry oral mucosa, seems that there is old vomit in on the patient's ash Neck: Normal inspection. Neck supple. No lymph nodes noted. No crepitus CVS: Very faint pulse, S1-S2 Respiratory: No respiratory distress. Breath sounds normal. No Wheezing. No rales Abdomen: Soft and nontender. No rigidity. No distention. Skin: Skin warm and dry. Normal skin color. Normal skin turgor. Extremities: No lower extremity edema. No Lacerations. No Rash Neuro: Minimally responsive, unable to participating cranial nerve assessment Psych: Minimally responsive Course Course Course Narrative: On patient's arrival, a head CT was done to rule out brain bleed. Patient has fluids running but BP is still low. I was present during the CT scan, I do not see a brain bleed. I asked the patient's nurse to return the patient to his room, stabilize the BP and HR, then we will get the CTA. There is no clear time when the symptoms started. Patient is not a candidate for tPA if this would be a stroke. CT scan shows T-wave inversions V2 through V6, however these are old, they were initially seen on 01/24/2022, when patient was admitted to the hospital and was treated for an NSTEMI After 2 L of fluid, patient became more awake, alert, very talkative, has intervals of lucidity and confusion. Patient's speech seems somewhat slurred but fairly understandable. Still confused, unable to participate in cranial nerve assessment. Blood pressure improved to 111/66. There is no fever. It is possible that patient's altered mental status was secondary to low blood pressure. This was likely caused by the nitroglycerin patch, which was removed. Sepsis is not suspected at this time, 14:30. CTA of head and neck are in process. Since patient had slurred speech, it is possible the patient may have had a TIA. [facility] called regarding the CTA, no acute findings. Patient's blood pressure still stable, a bit soft, in the low 90s, patient receiving 1 more L of normal saline. No pressors were needed. I discussed the patient with Dr. Callaway, patient being admitted MDM - Altered Mental Status Lab Data Result diagrams: 02/18/22 14:11 02/18/22 14:11 Labs: Lab Results 02/18/22 02/18/22 02/18/22 Range/Units 14:11 14:11 14:11 WBC 6.3 (4.8-10.8) X10*3/uL RBC 3.02 L (4.60-5.80) X10*6/uL Hgb 9.1 L (14.0-18.0) g/dl Hct 28.4 L (42.0-52.0) % MCV 94.0 (80.0-98.0) fL MCH 30.1 (27.0-33.0) pg MCHC 32.0 (31.0-36.0) g/dl RDW 16.0 (11.0-16.0) % Plt Count 366 (160-400) X10*3/uL MPV 9.4 (9.4-12.4) fL Immature Gran % (Auto) 0.5 H (0.0-0.4) % Neut % (Auto) 70.5 (45-73) % Lymph % (Auto) 20.3 (20-40) % Mcduffie % (Auto) 7.3 (2-11) % Eos % (Auto) 0.0 (0-4) % Baso % (Auto) 1.4 (0-2) % Lymph # (Auto) 1.3 (1.2-4.9) X10*3/uL Mcduffie # (Auto) 0.5 (0.1-1.2) X10*3/uL Eos # (Auto) 0.0 (0.0-0.4) X10*3/uL Baso # (Auto) 0.1 (0.0-0.2) X10*3/uL Abs Immat Gran (auto) 0.03 (0.00-0.03) X10*3/uL Absolute Neuts (auto) 4.5 (2.0-8.3) x10*3/uL Absolute Nucleated RBC 0.000 (0.0-0.012) X10*3/uL Nucleated RBC % (auto) 0.0 (0.0-0.2) /100WBC PT 12.7 (10.0-13.1) SEC INR 1.1 (0.9-1.1) Sodium 138 (135-145) mmol/L Potassium 4.2 D (3.3-5.1) mmol/L Chloride 105 (96-108) mmol/L Carbon Dioxide 25 (22-29) mmol/L Anion Gap 12 (12-20) BUN 15 (9-16) mg/dL Creatinine 1.83 H (0.5-1.4) mg/dL Estim Creat Clear Calc 32.4 Estimated GFR 38 Random Glucose 161 H (60-115) mg/dL Lactic Acid (0.5-2.0) mmol/L Calcium 7.8 L D (8.4-10.2) mg/dL Magnesium 1.7 (1.6-2.6) mg/dL Total Bilirubin 0.4 (0.0-1.0) mg/dL Direct Bilirubin 0.2 (0.0-0.5) mg/dL AST 15 (5-37) U/L ALT 10 (0-40) U/L Alkaline Phosphatase 70 D (39-117) U/L Troponin I High Sens (<3.5-35.0) ng/L Total Protein 8.5 H D (6.5-8.0) g/dL Albumin 3.1 L D (3.5-5.0) g/dL Lipase 20 (8-78) U/L TSH (0.32-4.0) uIU/mL COVID-19 (HAYES) (Negative) COVID-19 Clin Com 02/18/22 02/18/22 02/18/22 Range/Units 14:11 14:11 14:12 WBC (4.8-10.8) X10*3/uL RBC (4.60-5.80) X10*6/uL Hgb (14.0-18.0) g/dl Hct (42.0-52.0) % MCV (80.0-98.0) fL MCH (27.0-33.0) pg MCHC (31.0-36.0) g/dl RDW (11.0-16.0) % Plt Count (160-400) X10*3/uL MPV (9.4-12.4) fL Immature Gran % (Auto) (0.0-0.4) % Neut % (Auto) (45-73) % Lymph % (Auto) (20-40) % Mcduffie % (Auto) (2-11) % Eos % (Auto) (0-4) % Baso % (Auto) (0-2) % Lymph # (Auto) (1.2-4.9) X10*3/uL Mcduffie # (Auto) (0.1-1.2) X10*3/uL Eos # (Auto) (0.0-0.4) X10*3/uL Baso # (Auto) (0.0-0.2) X10*3/uL Abs Immat Gran (auto) (0.00-0.03) X10*3/uL Absolute Neuts (auto) (2.0-8.3) x10*3/uL Absolute Nucleated RBC (0.0-0.012) X10*3/uL Nucleated RBC % (auto) (0.0-0.2) /100WBC PT (10.0-13.1) SEC INR (0.9-1.1) Sodium (135-145) mmol/L Potassium (3.3-5.1) mmol/L Chloride (96-108) mmol/L Carbon Dioxide (22-29) mmol/L Anion Gap (12-20) BUN (9-16) mg/dL Creatinine (0.5-1.4) mg/dL Estim Creat Clear Calc Estimated GFR Random Glucose (60-115) mg/dL Lactic Acid 1.1 (0.5-2.0) mmol/L Calcium (8.4-10.2) mg/dL Magnesium (1.6-2.6) mg/dL Total Bilirubin (0.0-1.0) mg/dL Direct Bilirubin (0.0-0.5) mg/dL AST (5-37) U/L ALT (0-40) U/L Alkaline Phosphatase (39-117) U/L Troponin I High Sens 28.1 D (<3.5-35.0) ng/L Total Protein (6.5-8.0) g/dL Albumin (3.5-5.0) g/dL Lipase (8-78) U/L TSH 3.49 (0.32-4.0) uIU/mL COVID-19 (HAYES) (Negative) COVID-19 Clin Com 02/18/22 Range/Units 14:13 WBC (4.8-10.8) X10*3/uL RBC (4.60-5.80) X10*6/uL Hgb (14.0-18.0) g/dl Hct (42.0-52.0) % MCV (80.0-98.0) fL MCH (27.0-33.0) pg MCHC (31.0-36.0) g/dl RDW (11.0-16.0) % Plt Count (160-400) X10*3/uL MPV (9.4-12.4) fL Immature Gran % (Auto) (0.0-0.4) % Neut % (Auto) (45-73) % Lymph % (Auto) (20-40) % Mcduffie % (Auto) (2-11) % Eos % (Auto) (0-4) % Baso % (Auto) (0-2) % Lymph # (Auto) (1.2-4.9) X10*3/uL Mcduffie # (Auto) (0.1-1.2) X10*3/uL Eos # (Auto) (0.0-0.4) X10*3/uL Baso # (Auto) (0.0-0.2) X10*3/uL Abs Immat Gran (auto) (0.00-0.03) X10*3/uL Absolute Neuts (auto) (2.0-8.3) x10*3/uL Absolute Nucleated RBC (0.0-0.012) X10*3/uL Nucleated RBC % (auto) (0.0-0.2) /100WBC PT (10.0-13.1) SEC INR (0.9-1.1) Sodium (135-145) mmol/L Potassium (3.3-5.1) mmol/L Chloride (96-108) mmol/L Carbon Dioxide (22-29) mmol/L Anion Gap (12-20) BUN (9-16) mg/dL Creatinine (0.5-1.4) mg/dL Estim Creat Clear Calc Estimated GFR Random Glucose (60-115) mg/dL Lactic Acid (0.5-2.0) mmol/L Calcium (8.4-10.2) mg/dL Magnesium (1.6-2.6) mg/dL Total Bilirubin (0.0-1.0) mg/dL Direct Bilirubin (0.0-0.5) mg/dL AST (5-37) U/L ALT (0-40) U/L Alkaline Phosphatase (39-117) U/L Troponin I High Sens (<3.5-35.0) ng/L Total Protein (6.5-8.0) g/dL Albumin (3.5-5.0) g/dL Lipase (8-78) U/L TSH (0.32-4.0) uIU/mL COVID-19 (HAYES) Negative (Negative) COVID-19 Clin Com See Note Discharge Plan Discharge Clinical Impression: Hypotension, TIA (transient ischemic attack) Patient Disposition: Admitted As Inpatient Prescriptions: No Action acetaminophen 325 mg Tablet 650 mg PO Q4H PRN (Reason: Fever Or Pain) bisacodyl 10 mg Suppository 10 mg IA DAILY PRN (Reason: Constipation) ferrous sulfate 325 mg (65 mg iron) Tablet 324 mg PO BID baclofen 5 mg Tablet 5 mg PO BEDTIME dorzolamide-timolol (PF) 2-0.5 % Drops 1 drp OPHTHALMIC (EYE) BID sennosides [senna] 8.6 mg Tablet 8.6 mg PO DAILY PRN (Reason: Constipation) isosorbide mononitrate 120 mg Tablet Extended Release 24 Hr 120 mg PO DAILY Protocol: Hold for SBP/HR < HOLD for SBP < : 100 HOLD for HR < : 50 levothyroxine 75 mcg Tablet 75 mcg PO DAILY@0630 ropinirole 0.25 mg Tablet 0.25 mg PO BID metformin 1,000 mg Tablet 1,000 mg PO BID lorazepam 1 mg Tablet 1 mg PO BID PRN (Reason: Anxiety) oxycodone 5 mg Tablet 2.5 mg PO Q6H PRN (Reason: Pain) pregabalin [Lyrica] 25 mg Capsule 25 mg PO BID levetiracetam [Keppra] 1,000 mg Tablet 1,000 mg PO BID torsemide 10 mg Tablet 10 mg PO DAILY epinephrine [EpiPen 2-Raghu] 0.3 mg/0.3 mL Auto-Injector 0.3 mg IM Q4H PRN (Reason: Allergic Reaction) multivitamin Tablet 1 tab PO DAILY atorvastatin 10 mg Tablet 10 mg PO BEDTIME quetiapine 200 mg Tablet Extended Release 24 Hr 400 mg PO BID naloxone [Narcan] 0.4 mg/mL Solution 1 mg intranasal DIRECTED MDD 1 PRN (Reason: Opioid Overdose) carvedilol 6.25 mg tablet 6.25 mg PO BID Protocol: Hold for SBP/HR < HOLD for SBP < : 90 HOLD for HR < : 60 clopidogrel 75 mg tablet 75 mg PO DAILY aspirin 81 mg tablet,delayed release (DR/EC) 81 mg PO DAILY losartan 25 mg tablet 25 mg PO DAILY Protocol: Hold for SBP< HOLD for SBP < : 90 doxazosin 2 mg tablet 4 mg PO BEDTIME Protocol: Hold for SBP< HOLD for SBP < : 90 sennosides [senna] 8.6 mg Tablet 8.6 mg PO DAILY
[2022-02-18 14:20] LABS: MANUAL DIFF FLAG NO
[2022-02-18 14:25] LABS: Basophils Absolute Auto 0.1 X10*3/uL (0.0-0.2); Basophils Percent Auto 1.4 % (0-2); Hematocrit 28.4 % (42.0-52.0); Hemoglobin 9.1 g/dl (14.0-18.0); Imm Gran Abs Auto 0.03 X10*3/uL (0.00-0.03); Imm Gran Pct Auto 0.5 % (0.0-0.4); Lymphocytes Absolute Auto 1.3 X10*3/uL (1.2-4.9); Lymphocytes Percent Auto 20.3 % (20-40); Mean Corpuscular Hemoglobin 30.1 pg (27.0-33.0); Mean Platelet Volume 9.4 fL (9.4-12.4); Monocytes Absolute Auto 0.5 X10*3/uL (0.1-1.2); Monocytes Percent Auto 7.3 % (2-11); Neutrophils Absolute Auto 4.5 x10*3/uL (2.0-8.3); Neutrophils Percent Auto 70.5 % (45-73); Platelet Count 366 X10*3/uL (160-400); Red Blood Count 3.02 X10*6/uL (4.60-5.80); White Blood Count 6.3 X10*3/uL (4.8-10.8)
[2022-02-18 14:33] LABS: Lactic Acid 1.1 mmol/L (0.5-2.0)
[2022-02-18 14:37] LABS: Alanine Aminotransferase 10 U/L (0-40); Albumin Level 3.1 g/dL (3.5-5.0); Alkaline Phosphatase 70 U/L (39-117); Anion Gap 12 (12-20); Aspartate Amino Transferase 15 U/L (5-37); Bilirubin Direct 0.2 mg/dL (0.0-0.5); Bilirubin Total 0.4 mg/dL (0.0-1.0); Blood Urea Nitrogen 15 mg/dL (9-16); Calcium 7.8 mg/dL (8.4-10.2); Carbon Dioxide 25 mmol/L (22-29); Chloride 105 mmol/L (96-108); Creatinine Clr Calc Pharmacy 32.4; Estimated Glomerular Filt Rate 38; Glucose Random 161 mg/dL (60-115); INTERNATIONAL NORM RATIO 1.1 (0.9-1.1); Lipase 20 U/L (8-78); Magnesium 1.7 mg/dL (1.6-2.6); Potassium 4.2 mmol/L (3.3-5.1); Prothrombin Time 12.7 SEC (10.0-13.1); Sodium 138 mmol/L (135-145); Total Protein 8.5 g/dL (6.5-8.0)
[2022-02-18 14:37] LABS: COVID-19 Test Negative (Negative)
[2022-02-18 14:41] LABS: Troponin-I High Sensitivity 28.1 ng/L (<3.5-35.0)
--- NOTE | 2022-02-18 14:41 | PHA.MEDREC ---
Pharmacy Consult ? Medication Reconciliation Pharmacy has completed the [facility] reconciliation[facility]
[2022-02-18] MEDS: iohexoL 350 MG/ML 100 ML INFUS..BTL 70 ML IV (14:53)
[2022-02-18 14:57] LABS: TSH reflex Free T4 3.49 uIU/mL (0.32-4.0)
--- NOTE | 2022-02-18 15:47 | PM.IMHP ---
History of Present Illness Date of Service: 02/18/22 Chief Complaint: change in mental status Patient comes to the emergency room via ambulance from care 1.? Patient was sent for altered mental status and slurred speech.? EMS reports that the staff at [facility] was not sure when the slurred speech started, it was noted sometime today , unknown last well known time.? At baseline, patient has periods of lucidity and confusion.? On arrival, it was noted that patient was nearly unresponsive, only mumbling, blood pressure 55/32.? CTA done in ED: ?Multifocal moderate to high-grade after sclerotic stenoses of the intracranial bilateral internal carotid arteries, mid basilar artery, left-sided M1 segment, bilateral M2 segments, and bilateral P2-P3 segments. after volume repletion, pressure responded and patient became mildly responsive. At this point in time is hemodynamically stable and can be admitted to telemetry Review of Systems Review of Systems: unable to obtain [facility] Medical History (Updated 02/18/22 @ 15:55 by Uriel Callaway DO) BPH w urinary obs/LUTS Coronary artery disease Diastolic heart failure History of stroke Hyperlipidemia Hypertension Hypothyroidism Legal blindness Lytic bone lesions on xray NSTEMI (non-ST elevated myocardial infarction) Restless leg Schizoaffective disorder Seizure disorder Stage 3a chronic kidney disease Type 2 diabetes mellitus Urinary retention Surgical History History of coronary artery bypass graft Social History Household Members: Other Household Members Other:: FACILITY Housing: Assisted Living Facility Do you presently have visiting nurse or other home services: No Patient Tobacco Use Status: Never used Tobacco Advance Directives: Yes Advance Directives on File: Yes Advance Directives Date on File: 02/02/22 service: No Current occupational status: disabled Meds Allergies Allergy/AdvReac Type Severity Reaction Status Date / Time No Known Allergies Allergy Verified 10/22/21 10:29 Active Medications: Current Medications Enoxaparin Sodium (Enoxaparin Sodium 40 Mg/0.4 Ml Syringe) 40 mg SUBCUT Q24H MARLENA Norepinephrine Bitartrate (Levophed) 8 mg in 250 mls @ 0 mls/hr IVCONT .Q0M MARLENA; Protocol Sodium Chloride (Ns) 1,000 mls @ 999 mls/hr IVCONT .Q1H1M ONE Stop: 02/18/22 16:29 Pharmacy Consult (Consult Rx Perform Med Rec) 1 each MISCELLANE ONCE PRN PRN Reason: Consult order Sodium Chloride (0.9 % Sodium Chloride Flush 3 Ml Syringe) 3 ml IVFLUSH QSHIFT [facility] Home Medications Medication Instructions Recorded Confirmed Last Taken Type acetaminophen 325 mg tablet 650 mg PO Q4H PRN Fever Or Pain 02/13/21 02/18/22 Unknown History baclofen 5 mg tablet 5 mg PO BEDTIME primary 02/13/21 02/18/22 Unknown History osteoarthritis bisacodyl 10 mg rectal suppository 10 mg KS DAILY PRN Constipation 02/13/21 02/18/22 Unknown History dorzolamide 2 %-timolol 0.5 % (PF) 1 drp ophthalmic (eye) BID glaucoma 02/13/21 02/18/22 Unknown History eye drops ferrous sulfate 325 mg (65 mg 324 mg PO BID iron def anemia 02/13/21 02/18/22 Unknown History iron) tablet isosorbide mononitrate 120 mg 120 mg PO DAILY htn 02/13/21 02/18/22 Unknown History tablet,extended release 24 hr levetiracetam 1,000 mg tablet 1,000 mg PO BID seizures 02/13/21 02/18/22 Unknown History ([place]) levothyroxine 75 mcg tablet 75 mcg PO DAILY@0630 thyroid 02/13/21 02/18/22 Unknown History lorazepam 1 mg tablet 1 mg PO BID PRN Anxiety 02/13/21 02/18/22 Unknown History metformin 1,000 mg tablet 1,000 mg PO BID type 2 diabetes 02/13/21 02/18/22 Unknown History oxycodone 5 mg tablet 2.5 mg PO Q6H PRN Pain 02/13/21 02/18/22 Unknown History pregabalin 25 mg capsule (Lyrica) 25 mg PO BID schioaffective 02/13/21 02/18/22 Unknown History disorder ropinirole 0.25 mg tablet 0.25 mg PO BID restless legs 02/13/21 02/18/22 Unknown History sennosides 8.6 mg tablet (senna) 8.6 mg PO DAILY PRN Constipation 02/13/21 02/18/22 Unknown History torsemide 10 mg tablet 10 mg PO DAILY htn 02/13/21 02/18/22 Unknown History atorvastatin 10 mg tablet 10 mg PO BEDTIME 01/24/22 02/18/22 Unknown History hypercholesterolemia epinephrine 0.3 mg/0.3 mL 0.3 mg IM Q4H PRN Allergic Reaction 01/24/22 02/18/22 Unknown History injection, auto-injector (EpiPen 2-Raghu) multivitamin 1 tab PO DAILY 01/24/22 02/18/22 Unknown History quetiapine 200 mg tablet,extended 400 mg PO BID schizoaffective 01/24/22 02/18/22 Unknown History release 24 hr disorder aspirin 81 mg tablet,delayed 81 mg PO DAILY htn 02/04/22 02/18/22 Unknown History release carvedilol 6.25 mg tablet 6.25 mg PO BID primary hypertension 02/04/22 02/18/22 Unknown History clopidogrel 75 mg tablet 75 mg PO DAILY I25.720 02/04/22 02/18/22 Unknown History doxazosin 2 mg tablet 4 mg PO BEDTIME retention of urine 02/04/22 02/18/22 Unknown History losartan 25 mg tablet 25 mg PO DAILY htn 02/04/22 02/18/22 Unknown History naloxone 0.4 mg/mL injection 1 mg intranasal DIRECTED PRN 02/04/22 02/18/22 Unknown History solution Opioid Overdose sennosides 8.6 mg tablet (senna) 8.6 mg PO DAILY 02/18/22 02/18/22 Unknown History Physical Exam Vital Signs and Narrative: Vital Signs: Last Vital Signs Temp 97.6 F 02/18/22 13:16 Pulse 74 02/18/22 14:14 Resp 14 02/18/22 14:14 BP 111/66 02/18/22 14:14 Pulse Ox 100 02/18/22 14:14 O2 Del Method 02/18/22 14:14 O2 Flow Rate 3 02/18/22 14:14 BMI result Body Mass Index 16.4 Const: Other: somnolent intermittently arousable. Nonsensical speech which is his baseline Resp: Other: clear to auscultation bilaterally no rales rhonchi or wheezes Cardio: Other: no S4; positive S1-S2; no S3 murmurs rubs or gallops Neuro: Other: moves all extremities. Otherwise unable to assess neuro function Extrem: Other: no edema bilaterally Results Labs CBC and Chem 7: 02/18/22 14:11 02/18/22 14:11 Labs: Laboratory Results - last 24 hr 02/18/22 02/18/22 02/18/22 14:11 14:11 14:11 MCV 94.0 MCH 30.1 MCHC 32.0 RDW 16.0 Plt Count 366 MPV 9.4 Immature Gran % (Auto) 0.5 H Neut % (Auto) 70.5 Lymph % (Auto) 20.3 Banks % (Auto) 7.3 Eos % (Auto) 0.0 Baso % (Auto) 1.4 Lymph # (Auto) 1.3 Banks # (Auto) 0.5 Eos # (Auto) 0.0 Baso # (Auto) 0.1 Abs Immat Gran (auto) 0.03 Absolute Neuts (auto) 4.5 Absolute Nucleated RBC 0.000 Nucleated RBC % (auto) 0.0 PT 12.7 INR 1.1 Anion Gap 12 Estim Creat Clear Calc 32.4 Estimated GFR 38 Random Glucose 161 H Lactic Acid Calcium 7.8 L D Magnesium 1.7 Total Bilirubin 0.4 Direct Bilirubin 0.2 AST 15 ALT 10 Alkaline Phosphatase 70 D Total Protein 8.5 H D Albumin 3.1 L D Lipase 20 TSH COVID-19 (HAYES) COVID-19 Clin Com 02/18/22 02/18/22 02/18/22 14:11 14:12 14:13 MCV MCH MCHC RDW Plt Count MPV Immature Gran % (Auto) Neut % (Auto) Lymph % (Auto) Banks % (Auto) Eos % (Auto) Baso % (Auto) Lymph # (Auto) Banks # (Auto) Eos # (Auto) Baso # (Auto) Abs Immat Gran (auto) Absolute Neuts (auto) Absolute Nucleated RBC Nucleated RBC % (auto) PT INR Anion Gap Estim Creat Clear Calc Estimated GFR Random Glucose Lactic Acid 1.1 Calcium Magnesium Total Bilirubin Direct Bilirubin AST ALT Alkaline Phosphatase Total Protein Albumin Lipase TSH 3.49 COVID-19 (HAYES) Negative COVID-19 Clin Com See Note Imaging Radiologist's Impressions: Impressions Chest X-Ray 02/18/22 14:20 IMPRESSION: Hypoexpanded lungs without acute process. Head/Neck CTA 02/18/22 14:33 IMPRESSION: 1. No evidence of acute intracranial hemorrhage or edematous territorial infarction. Chronic and simple malacia of the left frontoparietal lobes. Chronic lacunar infarcts of the deep nuclei. Moderate underlying microangiopathy and generalized cerebral volume loss. 2. 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 Retrograde opacification of the left vertebral artery. This morphology could lead to left-sided subclavian steal phenomenon. 3. Furthermore, CTA of the head and neck is notable for moderate to extensive underlying atherosclerotic disease throughout the cervical and intracranial structures. Multifocal moderate to high-grade after sclerotic stenoses of the intracranial bilateral internal carotid arteries, mid basilar artery, left-sided M1 segment, bilateral M2 segments, and bilateral P2-P3 segments. 4. No evidence of acute occlusive thrombotic disease. 5. Sequela of bilateral retinal detachment. This critical result was discussed with Dr. Sánchez at 15:13 on 02/18/2022 and it was ascertained that the content and urgency of the report was understood at the time of direct communication. Assessment and Plan (1) Hypotension: Status: Acute (2) Coronary artery disease: Status: Acute (3) Hypertension: Status: Acute (4) Hypothyroidism: Status: Acute (5) Stage 3a chronic kidney disease: Status: Acute Plan Unfortunate 61-year-old male long-term resident [facility] presents with altered mental status and garbled speech. Unknown will last well time. Profoundly hypotensive upon arrival; responded to volume repletion. CTA consistent with multiple high-grade stenosis of posterior circulation. Long discussion with patient's guardian Becca .); In process of petitioning court to change code status. At present patient DNR DNI 1.Altered Mental Status - multifactorial although directly related to hypotension question medication - responding to volume repletion - will continue volume appreciate an with lactated Ringer's overnight 2.Coronary artery disease - given profound hypotension, will hold cardiac meds at this time - restart meds when appropriate - EKG 3.HTN - relatively hypotensive - follow-up clinically add back therapies when appropriate 4.Hypothyroidism - continue outpatient supplementation 5.CKD 3 -follow renals/divalents 6.DMII - hold metformin secondary to renal insufficiency - lispro correctional scale Full COde Lovenox Patient will require at least 2 midnights going forward for IV volume repletion and monitoring of renal function. This cannot be achieved a lesser acute setting Quality Stroke Does the patient have a stroke diagnosis?: No VTE Prior VTE?: No VTE Risk Level:: Medical - moderate - high VTE Device Contraindication: Treatment Not Indicated VTE Drug Contraindication: N/A - Med Ordered
[2022-02-18] MEDS: 0.9 % Sodium Chloride 1,000 ML 999 ML IVCONT (16:04)
[2022-02-18] MEDS: Enoxaparin Sodium 40 MG/0.4 ML SYRINGE SUBCUT (16:04)
[2022-02-18 18:51] LABS: Glucose, Whole Blood 103 mg/dL (60-115)
[2022-02-18 20:17] LABS: Glucose, Whole Blood 104 mg/dL (60-115)
[2022-02-18] MEDS: levETIRAcetam 1,000 MG TABLET 1000 MG PO (22:47)
[2022-02-18] MEDS: 0.9 % Sodium Chloride Flush 3 ML SYRINGE IVFLUSH (22:47)
[2022-02-18] MEDS: QUEtiapine Fumarate 400 MG TABLET PO (22:47)
[2022-02-19] VITALS (7 sets, daily range): BP systolic 85–138; BP diastolic 53–76; PULSE 61–87; RESP 16–20; TEMP 36.4–36.7; O2SAT 99–100; BMI 18.3
--- NOTE | 2022-02-19 08:31 | MHC.CM.PN ---
CM spoke with Patient's Guardian/Yessenia @ [phone] and addressed IMM with her (original will be mailed certified letter to Yessenia and a copy has been placed on the chart). Patient is a LTC Resident at [facility] and the goal is for him to return there once medically cleared for dc. CM has initiated and will follow for dc planning.
--- NOTE | 2022-02-19 08:34 | MHC.CDI.CONC ---
CDI Concurrent Query Documentation Clarification: PHYSICIAN'S DOCUMENTATION REQUEST Date of Query: 02/19/22 0834 Patient Name: Miquel Arnold Admit Date: 02/18/22 Dear Doctor, A review of the medical record indicates additional documentation may be needed. Please review below and update the documentation accordingly. Clinical Indicators: Risk Factors/Clinical Indicators/Treatments Change in mental status, confusion, lucidity, altered mental status. Multifactorial although directly related to hypotension question medication. Volume repletion. BP 55/32 Based on the above, could you clarify in the Progress Notes which, if any of the following, is the most likely etiology of the confusion/altered mental status? Encephalopathy - Metabolic, toxic, both or other etiology of altered mental status Other etiology (please specify) Unable to determine Use of terms such as suspected, likely, concern for, or probable (associated with a specific diagnosis that is being evaluated, monitored, or treated as if it exists) are acceptable and can be coded in the inpatient setting, when documented at the time of discharge. Thank you, Marry Ríos [facility], CDIS Extension: [phone] Please use your independent medical judgment in providing your response. THIS QUERY IS PART OF THE PERMANENT MEDICAL RECORD Provider Response: Other Other Diagnosis: Unable to determine cause of encephalopathy
[2022-02-19] MEDS: Aspirin Enteric Coated 81 MG TABLET.DR PO (09:07)
[2022-02-19] MEDS: levETIRAcetam 1,000 MG TABLET 1000 MG PO ×2 (09:07→21:19)
[2022-02-19] MEDS: 0.9 % Sodium Chloride Flush 3 ML SYRINGE IVFLUSH ×3 (09:09→21:36)
[2022-02-19] MEDS: Levothyroxine Sodium 75 MCG TABLET PO (09:14)
[2022-02-19] MEDS: Ferrous Sulfate 324 MG TABLET.DR PO ×2 (09:14→21:19)
[2022-02-19] MEDS: Clopidogrel Bisulfate 75 MG TABLET PO (09:14)
[2022-02-19 10:31] LABS: Appearance Urine Clear; Color Urine Yellow; Glucose Urine UA Negative (Negative); Leukocyte Esterase Urine Small (1+) (Negative); Nitrite Urine Negative (Negative); Urine Blood Negative (Negative); Urine Ketones Negative (Negative); Urine Protein Negative (Neg-Trace)
[2022-02-19 10:44] LABS: Bacteria Urine None Seen (None Seen); Hyaline Casts Urine 0-2 /LPF (0-2); RBC Urine 0-2 /HPF (0-2); Squamous Epithelial Cell Urine 0-2 /HPF (0-2); UACC Culture Trigger YES; WBC Urine 0-5 /HPF (0-5)
[2022-02-19 10:51] LABS: Amphetamine Screen Urine Not Detected (Not Detect); Barbiturates, Urine Not Detected (Not Detect); Benzodiazepines Screen Urine Not Detected (Not Detect); Cannabinoid Screen Urine Not Detected (Not Detect); Cocaine Screen Urine Not Detected (Not Detect); Fentanyl, urine Not Detected (Not Detect); Opiate Screen Urine Not Detected (Not Detect); Phencyclidine Screen Urine Not Detected (Not Detect)
--- NOTE | 2022-02-19 11:11 | MHC.SL.SWA ---
Speech Pathologist Impression: Risk of Aspiration Due to: Neurological Condition Dysphasia Diet Status: Liquid Consistency and Strategies for Safe Swallow: Liquid Intake Recommendation: Thin Liquid Intake Strategies: Small Sips Solid Food Consistency: Dietary Recommendations: Grnd/Mech Altered (NDD2) Additional Modifications to Solid Foods: Avoid hard ground solids (e.g. ground carrots) that may be difficulty to chew/manage. Add sauces and gravies. Alternate liquids and solids. If using straw, interrupt serial/chain sips/chugging. Oral Medication Intake: Whole with Puree Please contact the pharmacy regarding appropriate crushable or liquid drug formulations that are available whenever modified delivery is recommended. Compensatory Strategies and Precautions to be Taken for Safe Swallow: Sitting Upright (90 deg) Liquids from Cup Liquids from Straw Liquids from Spoon Small Bites and Sips Alternate Liquids/Solids Supervision While Eating and Drinking for Safe Swallow: Total Assistance (1:1) Foods to Avoid: Dry or hard ground solids Swallowing Recommended Treatments: Compens. Strategy Educat. Recommendation for Speech: Inpatient Speech Therapy Comment: Patient presents with mild oral phase dysphagia due to edentulous state. Pt. produced normal oral phase and timely swallow on thin liquids and purees, has prolonged mastication on soft/ground food. Note that Patient's presentation is markedly improved when compared to last admission, where limited lingual movement was noted, pocketing of food, etc. Recommend START diet of Ground Mechanical Altered (NDD2) with THIN liquids, Pills WHOLE in PUREE. Patient will require 1-1 feeding/full assist due to blindness. Do not attempt if patient is lethargic or not engaged in meal. Monitor for swallow on ground foods, alternate liquids and solids to clear any oral residual. Patient can use straw but needs monitor to keep from chain sipping/chugging (interrupt/pause if this is noted). YANELIS GONZALES notified by secure text, Nursing advised in person. DATABASES COMPUTER CONSULTANT will follow for toleration of diet 1-2 X (patient is at baseline). Frequency/Duration: Date Range for Service Req: Timeline to reassess: Supervisor Screen Making Clinican/Clinical Fellow: No Supervisory Statement: I have reviewed and agree with the student/clinical fellow's documentation: N/A Speech Language Pathologist: Yessenia Mcclellan M.A., CCC-DATABASES COMPUTER CONSULTANT
--- NOTE | 2022-02-19 11:13 | MHC.CLN ---
PT IS MODERATELY MALNOURISHED PT WITH MILDLY DEPLETED MUSCLE MASS, BMI 18.3 AND TRIGGERS FOR 19.4 % BORDERLINE NON-SIGNIFICANT WT LOSS X 1 YEAR DIET RX: 2GM NA GRD M/S -APPROPRIATE ELECTRICAL ASSEMBLY SUPERVISOR RECOMMENDED GRD M/S DIET RECOMMEND ADDING ENSURE BID TO INCREASE KCALS SUPP TO PROVIDE 700KCALS, 40G PROTEIN MONITOR PO INTAKE CLOSELY SEE ALSO FULL CLINICAL NUTRITION ASSESSMENT
[2022-02-19 12:20] LABS: MANUAL DIFF FLAG NO
[2022-02-19 12:24] LABS: Basophils Absolute Auto 0.1 X10*3/uL (0.0-0.2); Basophils Percent Auto 1.6 % (0-2); Eosinophils Absolute Auto 0.2 X10*3/uL (0.0-0.4); Eosinophils Percent Auto 2.9 % (0-4); Hematocrit 27.1 % (42.0-52.0); Hemoglobin 8.6 g/dl (14.0-18.0); Imm Gran Abs Auto 0.03 X10*3/uL (0.00-0.03); Imm Gran Pct Auto 0.6 % (0.0-0.4); Lymphocytes Absolute Auto 1.3 X10*3/uL (1.2-4.9); Lymphocytes Percent Auto 25.9 % (20-40); Mean Corpuscular HGB Conc 31.7 g/dl (31.0-36.0); Mean Corpuscular Hemoglobin 30.1 pg (27.0-33.0); Mean Corpuscular Volume 94.8 fL (80.0-98.0); Mean Platelet Volume 9.4 fL (9.4-12.4); Monocytes Absolute Auto 0.4 X10*3/uL (0.1-1.2); Monocytes Percent Auto 8.1 % (2-11); Neutrophils Absolute Auto 3.1 x10*3/uL (2.0-8.3); Neutrophils Percent Auto 60.9 % (45-73); Platelet Count 339 X10*3/uL (160-400); Red Blood Count 2.86 X10*6/uL (4.60-5.80); Red Cell Distribution Width 16.1 % (11.0-16.0); White Blood Count 5.1 X10*3/uL (4.8-10.8)
[2022-02-19 12:37] LABS: Glucose, Whole Blood 170 mg/dL (60-115)
[2022-02-19 12:39] LABS: Alanine Aminotransferase 10 U/L (0-40); Albumin Level 2.9 g/dL (3.5-5.0); Alkaline Phosphatase 64 U/L (39-117); Anion Gap 14 (12-20); Aspartate Amino Transferase 13 U/L (5-37); Bilirubin Total 0.3 mg/dL (0.0-1.0); Blood Urea Nitrogen 11 mg/dL (9-16); Calcium 7.7 mg/dL (8.4-10.2); Carbon Dioxide 21 mmol/L (22-29); Chloride 105 mmol/L (96-108); Creatinine Clr Calc Pharmacy 34.3; Estimated Glomerular Filt Rate 40; Glucose Fasting 181 mg/dL (60-99); Potassium 3.8 mmol/L (3.3-5.1); Sodium 136 mmol/L (135-145); Total Protein 7.9 g/dL (6.5-8.0)
[2022-02-19] MEDS: Dorzolamide/Timolo 2.23%/0.68% 10 ML DRBTL 1 DROP EYE-BOTH (13:14)
[2022-02-19] MEDS: Insulin Lispro 100 UNIT/ML 3 ML VIAL SUBCUT ×2 (13:14→21:34)
--- NOTE | 2022-02-19 14:10 | HO.PM.IMPN ---
Subjective Subjective Date of Service: 02/19/22 Interval History: No acute issues overnight. Remains hemodynamically stable. Mentation back to baseline Review of Systems unable to obtain Physical Exam Vital Signs: Vital Signs: Last Vital Signs Temp 98.0 F 02/19/22 11:19 Pulse 76 02/19/22 11:19 Resp 18 02/19/22 11:19 BP 105/65 02/19/22 12:33 Pulse Ox 100 02/19/22 11:19 O2 Del Method 02/19/22 11:19 O2 Flow Rate 2 02/19/22 11:19 BMI result Body Mass Index 18.3 Const: Other: somnolent intermittently arousable. Mentation back to baseline as at [facility] Resp: Other: clear to auscultation bilaterally no rales rhonchi or wheezes Cardio: Other: no S4; positive S1-S2; no S3 murmurs rubs or gallops Neuro: Other: moves all extremities. Otherwise unable to assess neuro function Extrem: Other: no edema bilaterally Objective Data Active Medications Acetaminophen (Acetaminophen 325 Mg Tablet) 650 mg PO Q4H PRN PRN Reason: Fever Or Pain Aspirin (Aspirin Enteric Coated 81 Mg Tablet.) 81 mg PO DAILY [facility] Last Admin: 02/19/22 09:07 Dose: 81 mg Documented By: VIKTOR Comments: approved to give per dr. hawley Clopidogrel Bisulfate (Clopidogrel Bisulfate 75 Mg Tablet) 75 mg PO DAILY [facility] Last Admin: 02/19/22 09:14 Dose: 75 mg Documented By: VIKTOR Dorzolamide/Timolol (Dorzolamide/Timolo 2.23%/0.68% 10 Ml Drbtl) 1 drop EYE-BOTH BID [facility] Last Admin: 02/19/22 13:14 Dose: 1 drop Documented By: VIKTOR Enoxaparin Sodium (Enoxaparin Sodium 40 Mg/0.4 Ml Syringe) 40 mg SUBCUT Q24H [facility] Last Admin: 02/18/22 16:04 Dose: 40 mg Documented By: JOSEPH Ferrous Sulfate (Ferrous Sulfate 324 Mg Tablet.) 324 mg PO BID [facility] Last Admin: 02/19/22 09:14 Dose: 324 mg Documented By: VIKTOR Norepinephrine Bitartrate (Levophed) 8 mg in 250 mls @ 0 mls/hr IVCONT .Q0M [facility]; Protocol Insulin Human Lispro (Insulin Lispro 100 Unit/Ml 3 Ml Vial) 0 unit SUBCUT QIDACHS [facility]; Protocol Last Admin: 02/19/22 13:14 Dose: 2 unit Documented By: VIKTOR Levetiracetam (Levetiracetam 1,000 Mg Tablet) 1,000 mg PO BID [facility] Last Admin: 02/19/22 09:07 Dose: 1,000 mg Documented By: VIKTOR Levothyroxine Sodium (Levothyroxine Sodium 75 Mcg Tablet) 75 mcg PO DAILY@0630 [facility] Last Admin: 02/19/22 09:14 Dose: 75 mcg Documented By: VIKTOR Pharmacy Consult (Consult Rx Perform Med Rec) 1 each MISCELLANE ONCE PRN PRN Reason: Consult order Quetiapine Fumarate (Quetiapine Fumarate 400 Mg Tablet) 400 mg PO BID [facility] Last Admin: 02/19/22 11:23 Dose: Not Given Documented By: VIKTOR Non-Admin Reason: Physician Approved Sodium Chloride (0.9 % Sodium Chloride Flush 3 Ml Syringe) 3 ml IVFLUSH QSHIFT [facility] Last Admin: 02/19/22 09:09 Dose: 3 ml Documented By: VIKTOR Labs CBC & Chem 7: 02/19/22 12:05 02/19/22 12:05 Labs: Laboratory Results - last 24 hr 02/18/22 02/18/22 02/18/22 14:11 14:11 14:11 MCV 94.0 MCH 30.1 MCHC 32.0 RDW 16.0 Plt Count 366 MPV 9.4 Immature Gran % (Auto) 0.5 H Neut % (Auto) 70.5 Lymph % (Auto) 20.3 Mclennan % (Auto) 7.3 Eos % (Auto) 0.0 Baso % (Auto) 1.4 Lymph # (Auto) 1.3 Mclennan # (Auto) 0.5 Eos # (Auto) 0.0 Baso # (Auto) 0.1 Abs Immat Gran (auto) 0.03 Absolute Neuts (auto) 4.5 Absolute Nucleated RBC 0.000 Nucleated RBC % (auto) 0.0 PT 12.7 INR 1.1 Anion Gap 12 Estim Creat Clear Calc 32.4 Estimated GFR 38 POC Glucose Random Glucose 161 H Fasting Glucose Lactic Acid Calcium 7.8 L D Magnesium 1.7 Total Bilirubin 0.4 Direct Bilirubin 0.2 AST 15 ALT 10 Alkaline Phosphatase 70 D Total Protein 8.5 H D Albumin 3.1 L D Lipase 20 TSH Urine Color Urine Appearance Urine pH Ur Specific [place] Urine Protein Urine Glucose (UA) Urine Ketones Urine Blood Urine Nitrite Ur Leukocyte Esterase Urine RBC Urine WBC Ur Squamous Epith Cells Urine Bacteria Hyaline Casts Urine Opiates Screen Urine Fentanyl Screen Ur Barbiturates Screen Ur Phencyclidine Scrn Ur Amphetamines Screen U Benzodiazepines Scrn Urine Cocaine Screen U Marijuana (THC) Screen COVID-19 (HAYES) COVID-19 Clin Com 02/18/22 02/18/22 02/18/22 14:11 14:12 14:13 MCV MCH MCHC RDW Plt Count MPV Immature Gran % (Auto) Neut % (Auto) Lymph % (Auto) Mclennan % (Auto) Eos % (Auto) Baso % (Auto) Lymph # (Auto) Mclennan # (Auto) Eos # (Auto) Baso # (Auto) Abs Immat Gran (auto) Absolute Neuts (auto) Absolute Nucleated RBC Nucleated RBC % (auto) PT INR Anion Gap Estim Creat Clear Calc Estimated GFR POC Glucose Random Glucose Fasting Glucose Lactic Acid 1.1 Calcium Magnesium Total Bilirubin Direct Bilirubin AST ALT Alkaline Phosphatase Total Protein Albumin Lipase TSH 3.49 Urine Color Urine Appearance Urine pH Ur Specific [place] Urine Protein Urine Glucose (UA) Urine Ketones Urine Blood Urine Nitrite Ur Leukocyte Esterase Urine RBC Urine WBC Ur Squamous Epith Cells Urine Bacteria Hyaline Casts Urine Opiates Screen Urine Fentanyl Screen Ur Barbiturates Screen Ur Phencyclidine Scrn Ur Amphetamines Screen U Benzodiazepines Scrn Urine Cocaine Screen U Marijuana (THC) Screen COVID-19 (HAYES) Negative COVID-19 Clin Com See Note 02/18/22 02/18/22 02/19/22 18:46 20:12 09:01 MCV MCH MCHC RDW Plt Count MPV Immature Gran % (Auto) Neut % (Auto) Lymph % (Auto) Mclennan % (Auto) Eos % (Auto) Baso % (Auto) Lymph # (Auto) Mclennan # (Auto) Eos # (Auto) Baso # (Auto) Abs Immat Gran (auto) Absolute Neuts (auto) Absolute Nucleated RBC Nucleated RBC % (auto) PT INR Anion Gap Estim Creat Clear Calc Estimated GFR POC Glucose 103 104 Random Glucose Fasting Glucose Lactic Acid Calcium Magnesium Total Bilirubin Direct Bilirubin AST ALT Alkaline Phosphatase Total Protein Albumin Lipase TSH Urine Color Yellow Urine Appearance Clear Urine pH 7.0 Ur Specific [place] 1.020 Urine Protein Negative Urine Glucose (UA) Negative Urine Ketones Negative Urine Blood Negative Urine Nitrite Negative Ur Leukocyte Esterase Small (1+) H Urine RBC 0-2 Urine WBC 0-5 Ur Squamous Epith Cells 0-2 Urine Bacteria None Seen Hyaline Casts 0-2 Urine Opiates Screen Urine Fentanyl Screen Ur Barbiturates Screen Ur Phencyclidine Scrn Ur Amphetamines Screen U Benzodiazepines Scrn Urine Cocaine Screen U Marijuana (THC) Screen COVID-19 (HAYES) COVID-19 Clin Com 02/19/22 02/19/22 02/19/22 09:01 12:05 12:05 MCV 94.8 MCH 30.1 MCHC 31.7 RDW 16.1 H Plt Count 339 MPV 9.4 Immature Gran % (Auto) 0.6 H Neut % (Auto) 60.9 Lymph % (Auto) 25.9 Mclennan % (Auto) 8.1 Eos % (Auto) 2.9 Baso % (Auto) 1.6 Lymph # (Auto) 1.3 Mclennan # (Auto) 0.4 Eos # (Auto) 0.2 Baso # (Auto) 0.1 Abs Immat Gran (auto) 0.03 Absolute Neuts (auto) 3.1 Absolute Nucleated RBC 0.000 Nucleated RBC % (auto) 0.0 PT INR Anion Gap 14 Estim Creat Clear Calc 34.3 Estimated GFR 40 POC Glucose Random Glucose Fasting Glucose 181 H Lactic Acid Calcium 7.7 L Magnesium Total Bilirubin 0.3 Direct Bilirubin AST 13 ALT 10 Alkaline Phosphatase 64 Total Protein 7.9 Albumin 2.9 L Lipase TSH Urine Color Urine Appearance Urine pH Ur Specific [place] Urine Protein Urine Glucose (UA) Urine Ketones Urine Blood Urine Nitrite Ur Leukocyte Esterase Urine RBC Urine WBC Ur Squamous Epith Cells Urine Bacteria Hyaline Casts Urine Opiates Screen Not Detected Urine Fentanyl Screen Not Detected Ur Barbiturates Screen Not Detected Ur Phencyclidine Scrn Not Detected Ur Amphetamines Screen Not Detected U Benzodiazepines Scrn Not Detected Urine Cocaine Screen Not Detected U Marijuana (THC) Screen Not Detected COVID-19 (HAYES) COVID-19 Clin Com 02/19/22 12:30 MCV MCH MCHC RDW Plt Count MPV Immature Gran % (Auto) Neut % (Auto) Lymph % (Auto) Mclennan % (Auto) Eos % (Auto) Baso % (Auto) Lymph # (Auto) Mclennan # (Auto) Eos # (Auto) Baso # (Auto) Abs Immat Gran (auto) Absolute Neuts (auto) Absolute Nucleated RBC Nucleated RBC % (auto) PT INR Anion Gap Estim Creat Clear Calc Estimated GFR POC Glucose 170 H Random Glucose Fasting Glucose Lactic Acid Calcium Magnesium Total Bilirubin Direct Bilirubin AST ALT Alkaline Phosphatase Total Protein Albumin Lipase TSH Urine Color Urine Appearance Urine pH Ur Specific [place] Urine Protein Urine Glucose (UA) Urine Ketones Urine Blood Urine Nitrite Ur Leukocyte Esterase Urine RBC Urine WBC Ur Squamous Epith Cells Urine Bacteria Hyaline Casts Urine Opiates Screen Urine Fentanyl Screen Ur Barbiturates Screen Ur Phencyclidine Scrn Ur Amphetamines Screen U Benzodiazepines Scrn Urine Cocaine Screen U Marijuana (THC) Screen COVID-19 (HAYES) COVID-19 Clin Com Assessment and Plan (1) Hypotension: Status: Acute (2) Coronary artery disease: Status: Acute (3) Hypothyroidism: Status: Acute (4) Stage 3a chronic kidney disease: Status: Acute (5) Altered mental status: Status: Acute Plan Unfortunate 61-year-old male long-term resident [facility] [place] presents with altered mental status and garbled speech. Unknown will last well time. Profoundly hypotensive upon arrival; responded to volume repletion. CTA consistent with multiple high-grade stenosis of posterior circulation. Long discussion with patient's guardian Becca .); In process of petitioning court to change code status. 1.Altered Mental Status - multifactorial although directly related to hypotension - responding to volume repletion 2.Coronary artery disease - continue to hold medicine at this time -reduced when appropriate 3.HTN - relatively hypotensive - follow-up clinically add back therapies when appropriate 4.Hypothyroidism - continue outpatient supplementation 5.CKD 3 -follow renals/divalents 6.DMII - hold metformin secondary to renal insufficiency - lispro correctional scale Full COde Lovenox Patient will require ongoing hospitalization for IV volume repletion to stabilize blood pressure Quality Stroke Does the patient have a stroke diagnosis?: No VTE Prior VTE?: No VTE Risk Level:: Medical - moderate - high VTE Device Contraindication: Treatment Not Indicated VTE Drug Contraindication: N/A - Med Ordered
[2022-02-19 16:25] LABS: Glucose, Whole Blood 59 mg/dL (60-115)
[2022-02-19] MEDS: Glucose Gel 15 GM GEL..GRAM. PO (16:39)
[2022-02-19 16:52] LABS: Glucose, Whole Blood 66 mg/dL (60-115)
[2022-02-19 17:10] LABS: Glucose, Whole Blood 89 mg/dL (60-115)
[2022-02-19 17:25] LABS: Glucose, Whole Blood 121 mg/dL (60-115)
[2022-02-19 17:49] LABS: Glucose, Whole Blood 120 mg/dL (60-115)
[2022-02-19] MEDS: Enoxaparin Sodium 40 MG/0.4 ML SYRINGE SUBCUT (18:10)
[2022-02-19 19:51] LABS: Glucose, Whole Blood 171 mg/dL (60-115)
--- NOTE | 2022-02-19 19:57 | PC.NURSE ---
this nurse assumed care of pt around 15:30, pt hypoglycemic (POC 59) around 14:08. pt was alert and asymptomatic. Provider notified. followed protocol. , 4 8oz OJ given as well as 1 glucose gel. Pt tolerated well and poc improving ; 66, 89, 121, 120.
[2022-02-19] MEDS: QUEtiapine Fumarate 400 MG TABLET PO (21:19)
[2022-02-20 09:01] LABS: Glucose, Whole Blood 100 mg/dL (60-115)
[2022-02-20] MEDS: Aspirin Enteric Coated 81 MG TABLET.DR PO (09:28)
[2022-02-20] MEDS: Clopidogrel Bisulfate 75 MG TABLET PO (09:28)
[2022-02-20] MEDS: QUEtiapine Fumarate 400 MG TABLET PO (11:29)
[2022-02-20] MEDS: levETIRAcetam 1,000 MG TABLET 1000 MG PO (11:29)
[2022-02-20] MEDS: Ferrous Sulfate 324 MG TABLET.DR PO (11:29)
[2022-02-20 11:39] VITALS: PULSE 52; O2SAT 100
--- NOTE | 2022-02-20 11:44 | MHC.CLN ---
F/U PT IS MODERATELY MALNOURISHED SEE FULL CLINICAL NUTRITION ASSESSMENT DATED 02/19/22 DIET RX: 2GM NA GRD M/S -APPROPRIATE PT RECEIVING ENSURE BID TO INCREASE KCALS SUPP PROVIDES 700KCALS, 40G PROTEIN MONITOR PO INTAKE CLOSELY
[2022-02-20 11:58] LABS: Glucose, Whole Blood 120 mg/dL (60-115)
--- NOTE | 2022-02-20 12:29 | MHC.CM.PN ---
Addendum entered by Carol March 02/20/22 16:13: [facility] HAS INDICATED THEY CANNOT ACCEPT PT BACK AT 1900 HOURS [facility] INFORMED Addendum entered by Carol March 02/20/22 13:58: PT CLEARED BY [facility] FOR RETURN PER [facility], TRANSPORT UNAVAILABLE PRIOR TO 1730 HOURS SNF INFORMED UPDATED COVID RESULTS PENDING VM MESSAGE LEFT FOR PTS GUARDIAN, CLARISSA WADDELL [phone] IMM DELIVERED 02/19/22 Original Note: PT CLEARED TO DC [facility] TO [facility] UPDATES SENT TO SNF ALONG WITH NOTICE OF INTENT TO DC AWAITING RESPONSE
--- NOTE | 2022-02-20 12:31 | P.DS_ITS ---
DS: Providers Provider Date of Service: 02/20/22 Date of admission: 02/18/22 15:41 Date of discharge: 02/20/22 Primary care physician: Uriel Callaway DO DS: Diagnosis Discharge Diagnosis (1) Hypotension: Status: Acute (2) Coronary artery disease: Status: Acute (3) Hypothyroidism: Status: Acute (4) Stage 3a chronic kidney disease: Status: Acute (5) Altered mental status: Status: Acute DS: Summary Hospital Course Hospital Course: Patient comes to the emergency room via ambulance from [facility].? Patient was sent for altered mental status and slurred speech.? EMS reports that the staff at [facility] was not sure when the slurred speech started, it was noted sometime today , unknown last well known time.? At baseline, patient has periods of lucidity and confusion.? On arrival, it was noted that patient was nearly unresponsive, only mumbling, blood pressure 55/32.? CTA done in ED: ?Multifocal moderate to high-grade after sclerotic stenoses of the intracranial bilateral internal carotid arteries, mid basilar artery, left-sided M1 segment, bilateral M2 segments, and bilateral P2-P3 segments. ?Hospital course Patient admitted to telemetry with ongoing volume repletion. Antihypertensives were held. Over the next 48 hours patient's blood pressure normalized and he no longer had an oxygen requirement. At this point in time he is medically stable for transfer to [facility]. Patient will need nutritional consult as BMI demonstrates moderate malnourishment Time Spent with Patient Time attestation: Total time spent providing and/or coordinating discharge services: Discharge coordination time: Greater than 30 minutes Quality: Safe Use of Opioids Does Pt have an Active Cancer Diagnosis on the Problem List?: No Quality: Stroke Does the patient have a stroke diagnosis?: No Physical Exam Vital Signs: Vital Signs: Last Vital Signs Temp 98.0 F 02/19/22 23:02 Pulse 52 02/20/22 11:39 Resp 18 02/19/22 23:02 BP 138/72 02/19/22 23:02 Pulse Ox 100 02/20/22 11:39 O2 Del Method 02/20/22 11:39 O2 Flow Rate 2 02/19/22 23:02 BMI result Body Mass Index 18.3 DS: Data Data Completed and Pending Labs on day of discharge: Laboratory Results - last 24 hr 02/19/22 02/19/22 02/19/22 12:05 12:30 16:08 Sodium 136 Potassium 3.8 Chloride 105 Carbon Dioxide 21 L Anion Gap 14 BUN 11 Creatinine 1.73 H Estim Creat Clear Calc 34.3 Estimated GFR 40 POC Glucose 170 H 59 L* Fasting Glucose 181 H Calcium 7.7 L Total Bilirubin 0.3 AST 13 ALT 10 Alkaline Phosphatase 64 Total Protein 7.9 Albumin 2.9 L 02/19/22 02/19/22 02/19/22 16:47 17:05 17:20 Sodium Potassium Chloride Carbon Dioxide Anion Gap BUN Creatinine Estim Creat Clear Calc Estimated GFR POC Glucose 66 89 121 H Fasting Glucose Calcium Total Bilirubin AST ALT Alkaline Phosphatase Total Protein Albumin 02/19/22 02/19/22 02/20/22 17:45 19:47 08:55 Sodium Potassium Chloride Carbon Dioxide Anion Gap BUN Creatinine Estim Creat Clear Calc Estimated GFR POC Glucose 120 H 171 H 100 Fasting Glucose Calcium Total Bilirubin AST ALT Alkaline Phosphatase Total Protein Albumin 02/20/22 11:54 Sodium Potassium Chloride Carbon Dioxide Anion Gap BUN Creatinine Estim Creat Clear Calc Estimated GFR POC Glucose 120 H Fasting Glucose Calcium Total Bilirubin AST ALT Alkaline Phosphatase Total Protein Albumin Preliminary micro results at discharge 02/18/22 14:10 Blood Culture - Preliminary Blood - Venous No growth after 24 hours. 02/18/22 14:10 Blood Culture - Preliminary Blood - Venous No growth after 24 hours. Discharge Plan Discharge Patient Disposition: er [facility] Discharge Diagnosis: Altered mental status/hypotension Referrals: [facility] [Outside] - 1 Week Uriel Callaway DO [Primary Care Provider] - 1 Week Discharge Medications: Continued acetaminophen 325 mg Tablet 650 mg PO Q4H PRN (Reason: Fever Or Pain) bisacodyl 10 mg Suppository 10 mg MI DAILY PRN (Reason: Constipation) ferrous sulfate 325 mg (65 mg iron) Tablet 324 mg PO BID dorzolamide-timolol (PF) 2-0.5 % Drops 1 drp OPHTHALMIC (EYE) BID sennosides [senna] 8.6 mg Tablet 8.6 mg PO DAILY PRN (Reason: Constipation) levothyroxine 75 mcg Tablet 75 mcg PO DAILY@0630 ropinirole 0.25 mg Tablet 0.25 mg PO BID metformin 1,000 mg Tablet 1,000 mg PO BID lorazepam 1 mg Tablet 1 mg PO BID PRN (Reason: Anxiety) oxycodone 5 mg Tablet 2.5 mg PO Q6H PRN (Reason: Pain) pregabalin [Lyrica] 25 mg Capsule 25 mg PO BID levetiracetam [Keppra] 1,000 mg Tablet 1,000 mg PO BID epinephrine [EpiPen 2-Raghu] 0.3 mg/0.3 mL Auto-Injector 0.3 mg IM Q4H PRN (Reason: Allergic Reaction) multivitamin Tablet 1 tab PO DAILY atorvastatin 10 mg Tablet 10 mg PO BEDTIME quetiapine 200 mg Tablet Extended Release 24 Hr 400 mg PO BID naloxone 0.4 mg/mL Solution 1 mg intranasal DIRECTED MDD 1 PRN (Reason: Opioid Overdose) carvedilol 6.25 mg tablet 6.25 mg PO BID Protocol: Hold for SBP/HR < HOLD for SBP < : 90 HOLD for HR < : 60 clopidogrel 75 mg tablet 75 mg PO DAILY aspirin 81 mg tablet,delayed release (DR/EC) 81 mg PO DAILY doxazosin 2 mg tablet 4 mg PO BEDTIME Protocol: Hold for SBP< HOLD for SBP < : 90 sennosides [senna] 8.6 mg Tablet 8.6 mg PO DAILY Discontinued baclofen 5 mg Tablet 5 mg PO BEDTIME isosorbide mononitrate 120 mg Tablet Extended Release 24 Hr 120 mg PO DAILY Protocol: Hold for SBP/HR < HOLD for SBP < : 100 HOLD for HR < : 50 torsemide 10 mg Tablet 10 mg PO DAILY losartan 25 mg tablet 25 mg PO DAILY Protocol: Hold for SBP< HOLD for SBP < : 90 Discharge Orders: Discharge Order (Routine); Ordered 02/20/22 Ordered By: Uriel Callaway Diet: Advance to usual diet Activity on Discharge: As tolerated Stand Alone Forms: Patient Portal Discharge page Care Plan Goals: Meds adjusted. Will review upon arrival Health Concerns: Recommend nutritional assessment at [facility] as patient is clinically malnourished Plan of Treatment: As per receiving facility Assessment: See care plan
--- NOTE | 2022-02-20 12:37 | PM.EVENT ---
Event Note Date of Service: 02/20/22 Event Note: Based on patient's BMI he is moderately malnourished. Will order nutritional consult at [facility]. This should be added to diagnosis
[2022-02-20 16:48] LABS: Glucose, Whole Blood 150 mg/dL (60-115)
--- NOTE | 2022-02-20 16:52 | MHC.SLORD ---
Addendum entered and electronically signed by Kristin Jones MA, [facility]-CLIENT OPERATIONS MANAGER 02/20/22 17:14: D.S. Original Note: Speech Language Pathology Order Status: CLIENT OPERATIONS MANAGER attempted to see pt for bedside swallow treatment this afternoon. CLIENT OPERATIONS MANAGER checked in with RN who reported pt did well with eggs and orange juice via straw today. No coughing reported. RN reported that med Keppra is unable to be crushed. RN administered this pill with applesauce successfully by putting spoon in back of pt's mouth. No coughing reporting. CLIENT OPERATIONS MANAGER checked in on pt 3X during afternoon, each time pt was busy with another staff member or inappropriate for treatment (i.e. anxious, yelling, trying to get out of bed). CLIENT OPERATIONS MANAGER to continue to follow during pt stay.
== END 2022-02-20 17:45 | DRG 207 ==
LOC: HO.ED 15:31 → HO.EDOVER 15:51 → HO.IMC 18:14
PROVIDERS: Admitting Provider Hospitalist; Emergency Provider Emergency Medicine; PCP Hospitalist; Visit Provider Hospitalist
DX: I95.9 Hypotension, unspecified (principal); G93.40 Encephalopathy, unspecified; E44.0 Moderate protein-calorie malnutrition; I13.0 Hypertensive heart and chronic kidney disease with heart failure and stage 1 through stage 4 chronic kidney disease, or unspecified chronic kidney disease; I50.32 Chronic diastolic (congestive) heart failure; E11.22 Type 2 diabetes mellitus with diabetic chronic kidney disease; I65.23 Occlusion and stenosis of bilateral carotid arteries; Z66 Do not resuscitate; H54.8 Legal blindness, as defined in USA; N18.31 Chronic kidney disease, stage 3a; I25.10 Atherosclerotic heart disease of native coronary artery without angina pectoris; Z95.1 Presence of aortocoronary bypass graft; I25.2 Old myocardial infarction; E03.9 Hypothyroidism, unspecified; N40.1 Benign prostatic hyperplasia with lower urinary tract symptoms; R33.8 Other retention of urine; G40.909 Epilepsy, unspecified, not intractable, without status epilepticus; Z20.822 Contact with and (suspected) exposure to COVID-19; Z91.010 Allergy to peanuts; Z79.02 Long term (current) use of antithrombotics/antiplatelets; Z79.82 Long term (current) use of aspirin; Z79.890 Hormone replacement therapy; Z79.899 Other long term (current) drug therapy; Z68.1 Body mass index [BMI] 19.9 or less, adult
CPT/HCPCS: 36415; 70450; 70496; 70498; 71045; 80048; 80053; 80076; 80307; 81001; 82947; 83605; 83690; 83735; 84443; 84484; 85025; 85610; 87040; 87086; 87635; 92610; 93005; 99285; J1650; Q9967

== ENCOUNTER 2022-04-18 09:41 | Inpatient (IN) | payer MEDICAID, SELFPAY ==
[2022-04-18] VITALS (11 sets, daily range): BP systolic 70–155; BP diastolic 41–84; PULSE 84–101; RESP 15–20; TEMP 37.3–39.2; O2SAT 94–100; BMI 16.9
--- NOTE | 2022-04-18 | ECG_ITS ---
Test Reason : GENERAL MEDICAL Blood Pressure : / mmHG Vent. Rate : 087 BPM Atrial Rate : 087 BPM P-R Int : 194 ms QRS Dur : 176 ms QT Int : 428 ms P-R-T Axes : 066 -64 092 degrees QTc Int : 515 ms Normal sinus rhythm Left anterior fascicular block Nonspecific T wave abnormality Right bundle branch block Inferior infarct (cited on or before 23-JAN-2022) Abnormal ECG When compared with ECG of 18-APR-2022 13:06, No significant changes seen Referred By: Isiah Moore Electronically Signed By:ANGEL PRAJAPATI MD
--- NOTE | ~2022-04-18 | CT_ITS ---
EXAMINATION: CT CHEST, ABDOMEN AND PELVIS WITH CONTRAST CLINICAL INFORMATION: Fever COMPARISON: 01/26/2020 TECHNIQUE: Multidetector volumetric imaging was performed of the chest, abdomen and pelvis.. Sagittal and coronal reformatted images were obtained on the technologist's workstation. This CT examination was performed using dose optimization techniques as appropriate, variously including the following: *Automated exposure control *Adjustment of mA and/or kV according to patient size (this includes techniques or standardized protocols for targeted exams where dose is matched to indication/reason for exam; i.e. extremities or head) *Use of iterative reconstruction technique DLP: 1099 mGy-cm FINDINGS: CHEST, ABDOMINAL AND PELVIC WALL: Unremarkable. LUNGS: There is right greater than left lower lobe consolidation and small bilateral pleural effusions. There is centrilobular nodules in the right middle lobe which may reflect aspiration or infection.Largest nodule in the right middle lobe measures 4 mm (7: 232). MEDIASTINUM: Dense coronary artery sclerotic calcifications. No mediastinal adenopathy. PLEURA: There is no pleural effusion. No pleural mass or thickening. AXILLA: No lymphadenopathy. LIVER AND BILIARY TREE: Noncontrast liver is unremarkable. No suspicious liver lesions. GALLBLADDER: Gallbladder is grossly unremarkable. PANCREAS: Unremarkable SPLEEN: Unremarkable ADRENAL GLANDS: Unremarkable. KIDNEYS AND URETERS: A punctate nonobstructing right renal stone. GASTROINTESTINAL TRACT: The stomach and duodenum are unremarkable. The small and large bowel are unremarkable. VASCULAR: Unremarkable. LYMPH NODES: No lymphadenopathy. FREE FLUID: No free fluid. BLADDER: Hansen catheter is seen within the urinary bladder which contains small volume of fluid and air. PELVIC VISCERA: Unremarkable OSSEOUS STRUCTURES: Diffuse osteopenia redemonstration of diffuse lytic lesions throughout the axial and appendicular skeleton, predominantly conspicuous in the pelvis. Right femoral hardware partially visualized. CT/CT abdomen pelvis wo IV con IMPRESSION: * Right greater than left lower lobe consolidation and small bilateral pleural effusions. * Centrilobular nodules in the right middle lobe may reflect aspiration or infection. Largest measures up to 4 mm in the right middle lobe. According to the UPDATED 2017 Fleischner Society recommendations, the advised followup imaging for solid nodules < 6 mm is: LOW RISK PATIENT: No routine follow up. HIGH RISK PATIENT: Optional CT at 12 months. * Redemonstration of diffuse lytic lesions throughout the axial and appendicular skeleton, predominantly conspicuous in the pelvis. Differential considerations remain metastatic disease versus multiple myeloma. Correlate with clinical history.
--- NOTE | ~2022-04-18 | CT_ITS ---
EXAMINATION: CT HEAD WITHOUT CONTRAST (STROKE PROTOCOL) CLINICAL INFORMATION: Stroke protocol. COMPARISON: 02/18/2022 and 01/23/2022. TECHNIQUE: Contiguous axial imaging was performed from the skull base to vertex without intravenous administration of contrast. This CT examination was performed using dose optimization techniques as appropriate, variously including the following: *Automated exposure control *Adjustment of mA and/or kV according to patient size (this includes techniques or standardized protocols for targeted exams where dose is matched to indication/reason for exam; i.e. extremities or head) *Use of iterative reconstruction technique DLP: 758 mGy-cm FINDINGS: No intracranial hemorrhage, large infarction, or mass lesion is seen. Bilateral chronic periventricular white matter changes, left worse than right. Old left parietal infarct. Old left caudate head and possibly nasal ganglia infarct. No extra-axial collection is appreciated. The ventricles are normal in size and configuration without evidence of hydrocephalus. The visualized paranasal sinuses and mastoid air cells are clear. Dense left globe, unchanged. Posterior density in the right globe as well, unchanged. Bilateral lens extractions, unchanged. CT/CT head for stroke IMPRESSION: No acute intracranial finding. No significant radiographic change compared with 02/18/2022. This critical result was discussed with Dr. Moore at approximately 10:08 hours on 04/18/2022.. It was ascertained that the content and urgency of the report was understood at the time of direct communication.
--- NOTE | ~2022-04-18 | XR_ITS ---
EXAMINATION: XR CHEST CLINICAL INFORMATION: Fever COMPARISON: 02/18/2022 TECHNIQUE: Frontal view of the chest was obtained. FINDINGS: No infiltrate is seen here.. Lung ocasio are grossly clear. Small nodular density at the left base may represent patient's nipple. Attention to follow-up with nipple markers. There has been a median sternotomy. No failure or infiltrate is seen. There is no effusion. The hilar regions are felt to be compatible. There is diffuse moderate in appearance to the visualized humeri and scapula region on the right as well as probable clavicular bones. XR/XR chest 1V IMPRESSION: No acute infiltrate or failure. As described mottled appearance to the bones which was also reported on CT dated 01/25/2022. Malignancy needs to be considered. Multiple myeloma needs to be considered. Recommend bone scan if further evaluation is clinically warranted
--- OUTSIDE RECORDS SUMMARY | 2022-04-18 09:47 | XMS_ITS | Continuity of Care Document ---
:1960 Author Organization [facility] Address [address] [place] [address]- Care Team Providers Name Role Phone Not on Staff, PCP Primary Care Physician Unavailable Encounter [facility] Date(s): 10/18/20 - 10/20/[address] [address]- Discharge Disposition: A-Transfer SNF Attending Physician: Michael Dove MD Admitting Physician: Sebastien Ross MD Referring Physician: Not on Staff, Referring MD Allergies, Adverse Reactions, Alerts Substance Reaction Severity Status Peanuts Active Medications Acetaminophen = 650 mg, By Mouth, 4 times a day, PRN Pain , Mild, 0 Refills, Maintenance, 10/10/20 13:09:00 EDT, Partial fill upon patient request if the prescription is for a schedule II opioid drug. Start Date: 10/10/20 Status: Orderedacetaminophen 325 mg oral tablet 650 mg, Tablet, By Mouth, Every 4 hours, PRN for Pain , Mild, Routine, 10/18/20 22:25:00 EDT Start Date: 10/18/20 Stop Date: 10/21/20 Status: Discontinuedascorbic acid 250 mg oral tablet = 250 mg, By Mouth, 2 times a day with meals, 0 Refills, Maintenance, 10/15/20 10:59:00 EDT, Tablet,Partial fill upon patient request if the prescription is for a schedule II opioid drug. Start Date: 10/15/20 Status: Orderedatorvastatin 10 mg oral tablet 1 tablet = 10 mg, By Mouth, Daily, # 30 tablet, 0 Refills, Maintenance, 10/10/20 13:01:00 EDT, Partial fill upon patient request if the prescription is for a schedule II opioid drug. Start Date: 10/10/20 Status: Orderedbaclofen 5 mg oral tablet 1 tablet = 5 mg, By Mouth, Daily at bedtime, 0 Refills, Maintenance, 10/10/20 13:01:00 EDT, Partial fill upon patient request if the prescription is for a schedule II opioid drug. Start Date: 10/10/20 Status: Orderedbisacodyl 10 mg rectal suppository 1 supp = 10 mg, Rectally, Daily, PRN as needed for constipation, 0 Refills, Maintenance, 10/19/20 5:59:00 EDT, Partial fill upon patient request if the prescription is for a schedule II opioid drug. Start Date: 10/19/20 Status: Orderedcarvedilol 3.125 mg oral tablet 3.125 mg, 1, tablet, By Mouth, 2 times a day, # 180 tablet, Refills 0, Maintenance, 10/10/20 13:05:00 EDT, Partial fill upon patient request if the prescription is for a schedule II opioid drug. Start Date: 10/10/20 Status: Orderedcarvedilol 3.125 mg oral tablet 3.125 mg, Tablet, By Mouth, 10/20/20 9:00:00 EDT Start Date: 10/20/20 Stop Date: 10/20/20 Status: Completeddorzolamide-timolol 2%-0.5% preservative-free ophthalmic solution 1 drops, Eye, Left, 2 times a day, # 60 each, 0 Refills, Maintenance, 10/10/20 13:06:00 EDT, Solution, Partial fill upon patient request if the prescription is for a schedule II opioid drug. Start Date: 10/10/20 Status: OrderedEliquis 5 mg oral tablet 1 tablet = 5 mg, By Mouth, 2 times a day, # 60 tablet, 0 Refills, Maintenance, 10/10/20 13:06:00 EDT, Tablet, Partial fill upon patient request if the prescription is for a schedule II opioid drug. Start Date: 10/10/20 Status: OrderedEpiPen 2-Raghu 0.3 mg injectable kit = 0.3 mg, Intramuscular, Once, 0 Refills, Maintenance, 10/10/20 13:10:00 EDT, Partial fill upon patient request if the prescription is for a schedule II opioid drug. Start Date: 10/10/20 Status: Orderedferrous sulfate 325 mg oral tablet 1 tablet = 325 mg, By Mouth, 2 times a day, 0 Refills, Maintenance, 10/19/20 6:03:00 EDT, Partial fill upon patient request if the prescription is for a schedule II opioid drug. Start Date: 10/19/20 Status: OrderedIsosorbide Mononitrate = 120 mg, By Mouth, Daily in AM, 0 Refills, Maintenance, 10/10/20 13:01:00 EDT, Partial fill upon patient request if the prescription is for a schedule II opioid drug. Start Date: 10/10/20 Status: OrderedLantus 100 u/ml subcutaneous solution = 10 units, Subcutaneous Injection, Daily at bedtime, # 10 mL, 0 Refills, Maintenance, 10/10/20 13:03:00 EDT, Solution, Partial fill upon patient request if the prescription is for a schedule II opioiddrug. Start Date: 10/10/20 Status: OrderedlevETIRAcetam = 1,000 mg, By Mouth, 2 times a day, 0 Refills, Maintenance, 10/10/20 13:07:00 EDT, Partial fill upon patient request if the prescription is for a schedule II opioid drug. Start Date: 10/10/20 Status: OrderedLORazepam 1 mg oral tablet See Instructions, 1 tablet By Mouth every 12 hours as needed for severe agitation, 0 Refills, Maintenance, 10/19/20 6:05:00 EDT, Partial fill upon patient request if the prescription is for a schedule II opioid drug. Start Date: 10/19/20 Status: OrderedLyrica 25 mg oral capsule 1 capsule = 25 mg, By Mouth, 2 times a day, 0 Refills, Maintenance, 10/10/20 13:07:00 EDT, Capsule, Partial fill upon patient request if the prescription is for a schedule II opioid drug. Start Date: 10/10/20 Status: OrderedmetFORMIN 500 mg oral tablet 1 tablet = 500 mg, By Mouth, 2 times a day, 0 Refills, Maintenance, 10/19/20 6:07:00 EDT, Partial fill upon patient request if the prescription is for a schedule II opioid drug. Start Date: 10/19/20 Status: OrderedMultivitamin Tablet 1 tablet, By Mouth, Daily, 0 Refills, Maintenance, 10/15/20 10:59:00 EDT, Tablet, Partial fill upon patient request if the prescription is for a schedule II opioid drug. Start Date: 10/15/20 Status: OrderedOxycodone = 2.5 mg, By Mouth, Every 6 hours, PRN Pain , Moderate, 0 Refills, Maintenance, 10/19/20 6:08:00 EDT, Partial fill upon patient request if the prescription is for a schedule II opioid drug. Start Date: 10/19/20 Status: OrderedQuetiapine 100 mg, By Mouth, Daily, Refills 0, Maintenance, 10/10/20 13:03:00 EDT, Partial fill upon patient request if the prescription is for a schedule II opioid drug. Start Date: 10/10/20 Status: OrderedQuetiapine 75 mg, By Mouth, Daily, total 175mg daily in am, Refills 0, Maintenance, 10/10/20 13:04:00 EDT, Partial fill upon patient request if the prescription is for a schedule II opioid drug. Start Date: 10/10/20 Status: OrderedQUEtiapine 300 mg oral tablet, extended release 1 tablet = 300 mg, By Mouth, Daily at bedtime, 0 Refills, Maintenance, 10/19/20 6:13:00 EDT, Partialfill upon patient request if the prescription is for a schedule II opioid drug. Start Date: 10/19/20 Status: OrderedrOPINIRole 0.25 mg oral tablet 1 tablet = 0.25 mg, By Mouth, 2 times a day, # 270 tablet, 0 Refills, Maintenance, 10/10/20 13:09:00EDT, Tablet, Partial fill upon patient request if the prescription is for a schedule II opioid drug. Start Date: 10/10/20 Status: Orderedsaccharomyces angelai lyo 250 mg oral capsule 1 capsule = 250 mg, By Mouth, 2 times a day, 0 Refills, Maintenance, 10/19/20 6:09:00 EDT, Partial fill upon patient request if the prescription is for a schedule II opioid drug. Start Date: 10/19/20 Status: OrderedSenna = 8.6 mg, By Mouth, Daily, 0 Refills, Maintenance, 10/10/20 13:11:00 EDT, Partial fill upon patient request if the prescription is for a schedule II opioid drug. Start Date: 10/10/20 Status: OrderedSynthroid 0.05 mg oral tablet 1 tablet = 50 mcg, By Mouth, Daily, # 30 tablet, 0 Refills, Maintenance, 10/10/20 13:04:00 EDT, Tablet, Partial fill upon patient request if the prescription is for a schedule II opioid drug. Start Date: 10/10/20 Status: Orderedtamsulosin 0.4 mg oral capsule 0.4 mg, 1, capsule, By Mouth, Daily, # 30 capsule, Refills 0, Maintenance, 10/10/20 13:05:00 EDT, Partial fill upon patient request if the prescription is for a schedule II opioid drug. Start Date: 10/10/20 Status: Orderedtorsemide 10 mg oral tablet 1 tablet = 10 mg, By Mouth, Daily, # 30 tablet, 0 Refills, Maintenance, 10/10/20 13:05:00 EDT, Tablet, Partial fill upon patient request if the prescription is for a schedule II opioid drug. Start Date: 10/10/20 Status: OrderedtraMADol 50 mg oral tablet 50 mg, Tablet, By Mouth, Every 4 hours, PRN for Pain , Moderate, Routine, 10/20/20 11:19:00 EDT Start Date: 10/20/20 Stop Date: 10/21/20 Status: Discontinued Problem List Condition Effective Dates Status Health Status Informant Hyperglycemia due to diabetes Active mellitus(Confirmed) Results Orders for Microbiology Reports Name Date Blood Culture 10/18/20 Blood Culture #2 10/18/20 Microbiology Reports TEST:Blood Culture, Second Order STATUS:Unauthenticated BODY SITE: SOURCE:Blood COLLECTED DATE/TIME:10/18/20 4:50 PMBlood Culture, Second Order SPECIMEN DESCRIPTION : BLOOD L AC SPECIAL REQUESTS : NONE CULTURE : NO GROWTH AFTER 48 HOURS REPORT STATUS : PRELIMINARY REPORT TEST:Blood Culture STATUS:Unauthenticated BODY SITE: SOURCE:Blood COLLECTED DATE/TIME:10/18/20 4:33 PMBlood Culture SPECIMEN DESCRIPTION : BLOOD R ARM SPECIAL REQUESTS : NONE CULTURE : NO GROWTH AFTER 48 HOURS REPORT STATUS : PRELIMINARY REPORT Radiology Reports Exam Date Time Procedure Performing Provider Status 10/18/20 7:18 PM Chest Portable Fitting , Sanket; Tamara (Verified) Notes:(Chest Portable) Reason For Exam: Shortness of BreathRESULT: Chest Portable Chest Portable Hx of Present Illness: EMS called for AMS on arrival, staff noted <HGB, EMS POC >500; Reason: Shortness of Breath; Clinical Question(s): Pleural Effusion COMPARISON: 10/10/2020. FINDINGS: LINES AND TUBES: None. LUNGS AND PLEURA: Clear lungs. Normal pulmonary vascularity. No pleural effusion. No pneumothorax. HEART, MEDIASTINUM AND ROSCOE: The cardiac silhouette remains prominent. BONES AND SOFT TISSUES: No acute abnormality. IMPRESSION: Stable prominence of the cardiac silhouette without evidence of acute pulmonary pathology. WSN: [id number] Ordering Physician: Miguel Mcbride Dictated By: Brittany Layton MD Dictated Date/Time: 10/18/20 7:23 pm Reviewed By: Brittany Layton MD Signed By: Brittany Layton MD Signed Date/Time: 10/18/20 7:23 pm Transcribed By: [place] Transcribed Date/Time: 10/18/20 7:22 pm Vital Signs Most recent to oldest 1 2 3 [Reference Range]: Weight 69.8 kg (10/19/20 1:21 AM) Oxygen Saturation [94-100 %] 98 % 97 % 96 % (10/20/20 7:39 AM) (10/20/20 12:37 AM) (10/19/20 8:14 PM) Pulse Rate [55-90 bpm] 67 bpm 67 bpm 70 bpm (10/20/20 10:54 AM) (10/20/20 7:39 AM) (10/20/20 12:37 AM) Blood Pressure [90-138/55-84 mm 116/76 mm Hg 116/76 mm Hg 118/84 mm Hg Hg] (10/20/20 10:54 AM) (10/20/20 7:39 AM) (10/20/20 12:37 AM) Respiratory Rate [16-30 br/min] 20 br/min 20 br/min 16 br/min (10/20/20 12:45 PM) (10/20/20 11:47 AM) (10/20/20 7:39 AM) Temperature [96.8-100.4 DegF] 98.9 DegF 97.8 DegF 98 .2 DegF (10/20/20 7:39 AM) (10/20/20 12:37 AM) (10/19/20 8:14 PM) Liters per Minute 0 L/min (10/19/20 2:35 AM) Mode of Delivery (Oxygen) Room air Room air Room a ir (10/20/20 7:39 AM) (10/20/20 12:37 AM) (10/19/20 8:14 PM) Blood pressure sites Arm, left Arm, left Arm, right (10/20/20 7:39 AM) (10/20/20 12:37 AM) (10/19/20 8:14 PM) Temperature Route Temporal Temporal Temporal (10/20/20 7:39 AM) (10/20/20 12:37 AM) (10/19/20 8:14 PM) Weight Obtained Via Bed scale (10/19/20 1:21 AM) Social History Social History Type Response Smoking Status Unable to Obtain Sex
--- OUTSIDE RECORDS SUMMARY | 2022-04-18 09:47 | XMS_ITS | Continuity of Care Document ---
:1960 Author Organization [facility] Address [address] [place] [address]- Care Team Providers Name Role Phone Not on Staff, PCP Primary Care Physician Unavailable Encounter [facility] [place]): 10/10/20 - 10/15/[address] [address]- Encounter Diagnosis Fall (Final) - 10/09/20 Discharge Disposition: A-Transfer SNF Attending Physician: Dwight Woo MD Admitting Physician: Sergio Valles MD Referring Physician: Not on Staff, Referring MD Allergies, Adverse Reactions, Alerts Substance Reaction Severity Status Peanuts Active Medications Acetaminophen = 650 mg, By Mouth, 4 times a day, PRN Pain , Mild, 0 Refills, Maintenance, 10/10/20 13:09:00 EDT, Partial fill upon patient request if the prescription is for a schedule II opioid drug. Start Date: 10/10/20 Status: Orderedascorbic acid 250 mg oral tablet = 250 [...] opioid drug. Start Date: 10/10/20 Status: Orderedbaclofen 10 mg oral tablet 5 mg, Tablet, By Mouth, 10/14/20 21:00:00 EDT Start Date: 10/14/20 Stop Date: 10/14/20 Status: Completedbaclofen 5 mg oral tablet 1 tablet = 5 mg, By Mouth, Daily at bedtime, 0 Refills, Maintenance, 10/10/20 13:01:00 EDT, Partial fill upon patient request if the prescription is for a schedule II opioid drug. Start Date: 10/10/20 Status: Orderedcarvedilol 3.125 mg oral tablet 3.125 mg, Tablet, By Mouth, 10/15/20 9:00:00 EDT Start Date: 10/15/20 Stop Date: 10/15/20 Status: Completedcarvedilol 3.125 mg oral tablet 3.125 mg, 1, tablet, By Mouth, 2 times a day, # 180 tablet, Refills 0, Maintenance, 10/10/20 13:05:00 EDT, Partial fill upon patient request if the prescription is for a schedule II opioid drug. Start Date: 10/10/20 Status: Ordereddorzolamide-timolol 2%-0.5% preservative-free ophthalmic solution 1 drops, Eye, [...] II opioid drug. Start Date: 10/10/20 Status: OrderedIsosorbide Mononitrate = 120 mg, By [...] 10/10/20 Status: OrderedLORazepam 1 mg oral tablet 1 tablet = 1 mg, By Mouth, 2 times a day, PRN as needed for anxiety, for 3 days, # 10 tablet, 0 Refills, Acute 10/18/20 10:19:00 EDT, 10/15/20 10:19:00 EDT, Tablet, Partial fill upon patient request ifthe prescription is for a schedule II opioid drug. Start Date: 10/15/20 Stop Date: 10/18/20 Status: OrderedLyrica 25 mg oral capsule 1 capsule = 25 mg, By Mouth, 2 times a day, 0 Refills, Maintenance, 10/10/20 13:07:00 EDT, Capsule, Partial fill upon patient request if the prescription is for a schedule II opioid drug. Start Date: 10/10/20 Status: OrderedMultivitamin Tablet 1 tablet, By Mouth, Daily, 0 Refills, Maintenance, 10/15/20 10:59:00 EDT, Tablet, Partial fill upon patient request if the prescription is for a schedule II opioid drug. Start Date: 10/15/20 Status: OrderedoxyCODONE 5 mg oral tablet 0.5, By Mouth, Every 6 hours, PRN, for 3 days, # 5 tablet, Refills 0, Tot. Refills 0, Acute 10/18/2109:19:00 EDT, Pain , Severe, 10/15/20 10:19:00 EDT, Print Requisition, Partial fill upon patient request if the prescription is for a schedule II opio... Start Date: 10/15/20 Stop Date: 10/18/20 Status: OrderedQuetiapine 100 mg, By Mouth, Daily, [...] II opioid drug. Start Date: 10/10/20 Status: OrderedrOPINIRole 0.25 mg oral tablet 1 tablet = 0.25 mg, By Mouth, 2 times a day, # 270 tablet, 0 Refills, Maintenance, 10/10/20 13:09:00EDT, Tablet, Partial fill upon patient request if the prescription is for a schedule II opioid drug. Start Date: 10/10/20 Status: OrderedSenna = 8.6 mg, By Mouth, [...] II opioid drug. Start Date: 10/10/20 Status: Ordered Procedures Procedure Date Related Diagnosis Body Site Status Open treatment of femoral shaft 10/12/20 Completed fracture, with or without external fixation, with insertion of intramedullary implant, with or without cerclage and/or locking screws1 1supracondylar femur- metaphyseal diaphyseal junction SN trigen retro meta nail 38cm x 10mm locked x3 distally and x1 prox Results Radiology Reports Exam Date Time Procedure Performing Provider Status 10/12/20 5:18 PM C-Arm > 1 Hour Frieda Juares (Verifie d) Notes:(C-Arm > 1 Hour) Reason For Exam: Right distal femur fracture, Right femur nailing (FT: 58 sec TT: 1 hr)RESULT: C-Arm > 1 Hour Femur 2 Views Right, C-Arm > 1 Hour INDICATION/CLINICAL QUESTION: Intraoperative planning for right distal femur fracture, Right femur nailing (FT: 58 sec TT: 1 hr). COMPARISON: CT 10/10/2020. TECHNIQUE: Fluoroscopy support was provided. There was no radiologist in attendance. Fluoroscopy time: 58 seconds. Technologist time: 1 hour. Exposure: 5 mGy FINDINGS: 7 fluoroscopic spot views for intraoperative planning and retrograde placement of a long intramedullary tawny with a single interlocking screw proximally and 3 interlocking screws distally with improved femoral fracture alignment. Please see procedural report for further information. IMPRESSION: See above. WSN: [id number] Ordering Physician: Rafiq Gallagher MD Dictated By: Nathan Guerrero MD Dictated Date/Time: 10/13/20 4:55 pm Reviewed By: Nathan Guerrero MD Signed By: Nathan Guerrero MD Signed Date/Time: 10/13/20 4:55 pm Transcribed By: [place] Transcribed Date/Time: 10/13/20 4:53 pm Exam Date Time Procedure Performing Provider Status 10/12/20 5:18 PM XR Femur 2 Views Right Frieda Juares ( Verified) Notes:(XR Femur 2 Views Right) Reason For Exam: Right distal femur fracture, Right femur nailing (FT: 58 sec TT: 1 hr)RESULT: Femur 2 Views Right Femur 2 Views Right, C-Arm > 1 Hour INDICATION/CLINICAL QUESTION: Intraoperative planning for right distal femur fracture, Right femur nailing (FT: 58 sec TT: 1 hr). COMPARISON: CT 10/10/2020. TECHNIQUE: Fluoroscopy support was provided. There was no radiologist in attendance. Fluoroscopy time: 58 seconds. Technologist time: 1 hour. Exposure: 5 mGy FINDINGS: 7 fluoroscopic spot views for intraoperative planning and retrograde placement of a long intramedullary tawny with a single interlocking screw proximally and 3 interlocking screws distally with improved femoral fracture alignment. Please see procedural report for further information. IMPRESSION: See above. WSN: [id number] Ordering Physician: Rafiq Gallagher MD Dictated By: Nathan Guerrero MD Dictated Date/Time: 10/13/20 4:55 pm Reviewed By: Nathan Guerrero MD Signed By: Nathan Guerrero MD Signed Date/Time: 10/13/20 4:55 pm Transcribed By: [place] Transcribed Date/Time: 10/13/20 4:53 pm Exam Date Time Procedure Performing Provider Status 10/10/20 1:50 AM Chest 2 Views Frontal and Lat Shana Hoyt [facility] (Verified) Notes:(Chest 2 Views Frontal and Lat) Reason For Exam: Shortness of Breath, Fever;Other:RESULT: Chest 2 Views Frontal and Lat Chest 2 Views Frontal and Lat Hx of Present Illness: patient with unwitnessed fall, reporting right knee pain swelling; Reason: Other:; Shortness of Breath, Fever; Clinical Question(s): Pneumonia COMPARISON: None. FINDINGS: LINES AND TUBES: None. LUNGS AND PLEURA: Lung volumes are low with bibasilar atelectasis. The lungs otherwise appear grossly clear. No pleural effusion or pneumothorax. Diffusely increased opacification overlying the spine on the lateral viewmay be due to multilevel spinal degenerative changes are overlying material. There is a rounded density projecting over the hilum on the lateral view, likely a large calcified mediastinal or left hilarlymph node. 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 BONES AND SOFT TISSUES: No acute abnormality. Mild to moderate multilevel degenerative changes throughout the spine, partially obscured by overlying density may be external to the patient. IMPRESSION: 1. No definite acute abnormality. 2. Low lung volumes with atelectasis. 3. Probable large calcified mediastinal or left hilar lymph node. Contrast- enhanced CT could be considered for confirmation. WSN: [id number] Ordering Physician: Bhavana Long Dictated By: Clemente Ortega MD Dictated Date/Time: 10/10/20 8:14 am Reviewed By: Clemente Ortega MD Signed By: Clemente Ortega MD Signed Date/Time: 10/10/20 8:14 am Transcribed By: [place] Transcribed Date/Time: 10/10/20 8:08 am Exam Date Time Procedure Performing Provider Status 10/10/20 1:50 AM XR Femur 2 Views Right Bertrand Hoyt; Tamara (Ve rified) Notes:(XR Femur 2 Views Right) Reason For Exam: with Pain;TraumaRESULT: Femur 2 Views Right PROCEDURE: Pelvis 1 or 2 Views, Femur 2 Views Right CLINICAL INDICATION: 60 years old Male with Hx of Present Illness: patient with unwitnessed fall, reporting right knee pain swelling; Reason: Trauma; With Pain; Clinical Question(s): Fracture. COMPARISONS: None. FINDINGS: Bones and joints: There is a comminuted fracture in the distal femoral diaphysis with full with posterior displacement of the distal fragment and impaction at the fracture site. No acute abnormality seen in the pelvis. Well-corticated calcifications adjacent to the right greater trochanter, anterior tibial tuberosity, and superior anterior patella likely represent calcific enthesopathy. There are mild osteoarthritic changes in the hip joints. Soft Tissues: Suprapatellar joint effusion. There is large amount of stool in the visualized colon. Surgical clips are seen in the right inguinal region and posterior right leg. There are vascular calcifications. IMPRESSION: 1. Displaced impacted fracture of the distal femur. 2. No acute osseous abnormality in the pelvis. Thank you for allowing me to participate in the care of this patient. WSN: [id number] Ordering Physician: Bhavana Long Dictated By: Georges Sawyer MD Dictated Date/Time: 10/10/20 7:49 am Reviewed By: Georges Sawyer MD Signed By: Georges Sawyer MD Signed Date/Time: 10/10/20 7:49 am Transcribed By: [place] Transcribed Date/Time: 10/10/20 7:46 am Exam Date Time Procedure Performing Provider Status 10/10/20 1:50 AM Pelvis 1 or 2 Views Bertrand Hoyt; Tamara (Verif ied) Notes:(Pelvis 1 or 2 Views) Reason For Exam: With Pain;TraumaRESULT: Pelvis 1 or 2 Views PROCEDURE: Pelvis 1 or 2 Views, Femur 2 Views Right CLINICAL INDICATION: 60 years old Male with Hx of Present Illness: patient with unwitnessed fall, reporting right knee pain swelling; Reason: Trauma; With Pain; Clinical Question(s): Fracture. COMPARISONS: None. FINDINGS: Bones and joints: There is a comminuted fracture in the distal femoral diaphysis with full with posterior displacement of the distal fragment and impaction at the fracture site. No acute abnormality seen in the pelvis. Well-corticated calcifications adjacent to the right greater trochanter, anterior tibial tuberosity, and superior anterior patella likely represent calcific enthesopathy. There are mild osteoarthritic changes in the hip joints. Soft Tissues: Suprapatellar joint effusion. There is large amount of stool in the visualized colon. Surgical clips are seen in the right inguinal region and posterior right leg. There are vascular calcifications. IMPRESSION: 1. Displaced impacted fracture of the distal femur. 2. No acute osseous abnormality in the pelvis. Thank you for allowing me to participate in the care of this patient. WSN: [id number] Ordering Physician: Bhavana Long Dictated By: Georges Sawyer MD Dictated Date/Time: 10/10/20 7:49 am Reviewed By: Georges Sawyer MD Signed By: Georges Sawyer MD Signed Date/Time: 10/10/20 7:49 am Transcribed By: [place] Transcribed Date/Time: 10/10/20 7:46 am Vital Signs Most recent to oldest [Reference 1 2 3 Range]: Weight 109 kg (10/12/20 3:13 PM) Oxygen Saturation [94-100 %] 97 % 100 % 98 % (10/15/20 11:27 AM) (10/15/20 6:51 AM) (10/15/20 4:10 AM) Pulse Rate [55-90 bpm] 85 bpm 85 bpm 85 bpm (10/15/20 11:27 AM) (10/15/20 7:08 AM) (10/15/20 6:51 AM) Blood Pressure [90-138/55-84 mm 93/61 mm Hg 173/78 mm Hg 173/78 mm Hg Hg] (10/15/20 11:27 AM) *H* *H* (10/15/20 7:08 AM) (10/15/20 6:51 AM ) Respiratory Rate [16-30 br/min] 17 br/min 17 br/min 17 br/min (10/15/20 11:27 AM) (10/15/20 4:10 AM) (10/14/20 7:18 PM) Temperature [96.8-100.4 DegF] 99.1 DegF 100.4 DegF 98 .4 DegF (10/15/20 11:27 AM) (10/15/20 6:51 AM) (10/15/20 4:10 AM) Liters per Minute 4 L/min 0 L/min (10/12/20 5:45 PM) (10/12/20 3:13 PM) Mode of Delivery (Oxygen) Room air Room air Room a ir (10/15/20 11:27 AM) (10/15/20 6:51 AM) (10/15/20 4:10 AM) Blood pressure sites Arm, left Arm, right Arm, left (10/15/20 11:27 AM) (10/15/20 6:51 AM) (10/15/20 4:10 AM) Temperature Route Oral Axillary Oral (10/15/20 11:27 AM) (10/15/20 6:51 AM) (10/15/20 4:10 AM) Dry Weight 109 kg (10/12/20 3:13 PM) Weight Obtained Via Bed scale (10/12/20 3:13 PM) Dry Weight Obtained Via Bed scale (10/12/20 3:13 PM)
--- NOTE | 2022-04-18 10:10 | ED_ITS ---
HPI - Altered Mental Status General Chief Complaint: Altered Mental Status Stated Complaint: FEVER,LETHARGY FROM [facility] PER EMS Time Seen by Provider: 04/18/22 09:50 Source: patient Mode of arrival: EMS Limitations: altered mental status History of Present Illness HPI narrative: This is 62 years old male resident of [facility] sent to the emergency department because altered mental status and fever. Patient has history of schizoaffective disorder, essential hypertension, coronary artery disease, type 2 diabetes, hypothyroidism. Symptoms started today. Patient is unable to give any history he is answering his name but is disoriented x3 MD complaint: altered mental status Onset (ago): hour(s) (7) Severity: moderate Consistency of symptoms: waxing and waning Associated symptoms: denies other symptoms Related Data Home Medications Medication Instructions Recorded Confirmed acetaminophen 325 mg tablet 650 mg PO Q4H PRN Fever Or Pain 02/13/21 04/18/22 bisacodyl 10 mg rectal suppository 10 mg MD DAILY PRN Constipation 02/13/21 04/18/22 dorzolamide 2 %-timolol 0.5 % (PF) 1 drp ophthalmic (eye) BID glaucoma 02/13/21 04/18/22 eye drops ferrous sulfate 325 mg (65 mg 325 mg PO BID iron def anemia 02/13/21 04/18/22 iron) tablet levetiracetam 1,000 mg tablet 1,000 mg PO BID seizures 02/13/21 04/18/22 (Keppra) levothyroxine 75 mcg tablet 75 mcg PO DAILY@0630 thyroid 02/13/21 04/18/22 lorazepam 1 mg tablet 1 mg PO BID PRN Anxiety 02/13/21 04/18/22 metformin 1,000 mg tablet 1,000 mg PO BID type 2 diabetes 02/13/21 04/18/22 oxycodone 5 mg tablet 2.5 mg PO Q6H PRN Pain 02/13/21 04/18/22 pregabalin 25 mg capsule (Lyrica) 25 mg PO BID schioaffective 02/13/21 04/18/22 disorder ropinirole 0.25 mg tablet 0.25 mg PO BID restless legs 02/13/21 04/18/22 sennosides 8.6 mg tablet (senna) 8.6 mg PO DAILY PRN Constipation 02/13/21 04/18/22 atorvastatin 10 mg tablet 10 mg PO BEDTIME 01/24/22 04/18/22 hypercholesterolemia epinephrine 0.3 mg/0.3 mL 0.3 mg IM Q4H PRN Allergic Reaction 01/24/22 04/18/22 injection, auto-injector (EpiPen 2-Raghu) multivitamin 1 tab PO DAILY 01/24/22 04/18/22 quetiapine 200 mg tablet,extended 400 mg PO BID schizoaffective 01/24/22 04/18/22 release 24 hr disorder aspirin 81 mg tablet,delayed 81 mg PO DAILY htn 02/04/22 04/18/22 release carvedilol 6.25 mg tablet 6.25 mg PO BID primary hypertension 02/04/22 04/18/22 clopidogrel 75 mg tablet 75 mg PO DAILY I25.720 02/04/22 04/18/22 doxazosin 2 mg tablet 4 mg PO BEDTIME retention of urine 02/04/22 04/18/22 naloxone 0.4 mg/mL injection 1 mg intranasal DIRECTED PRN 02/04/22 04/18/22 solution Opioid Overdose sennosides 8.6 mg tablet (senna) 8.6 mg PO DAILY 02/18/22 04/18/22 miconazole nitrate 2 % topical 1 appl topical BID 04/18/22 04/18/22 cream miconazole nitrate 2 % topical 1 appl topical BID PRN fungal rash 04/18/22 04/18/22 cream sacubitril 24 mg-valsartan 26 mg 1 tab PO BID 04/18/22 04/18/22 tablet (Entresto) vericiguat 2.5 mg tablet (Verquvo) 2.5 mg PO DAILY 04/18/22 04/18/22 Allergies Allergy/AdvReac Type Severity Reaction Status Date / Time peanut Allergy Unknown Verified 02/19/22 00:43 Review of Systems Constitutional: Constitutional: Reports no additional constitutional compla ints ENT: Reports system reviewed and no additional complaints, except as documented Cardiovascular: Cardiovascular: Reports no additional cardiovascular complaints Respiratory: Respiratory: Reports no additional respiratory complaints Gastrointestinal: Gastrointestinal: Reports no additional gastrointestinal complaints Musculoskeletal: Musculoskeletal: Reports no additional musculoskeletal complaints Neurologic: Reports system reviewed and no additional complaints, except as documented [facility] Past Medical History Medical History BPH w urinary obs/LUTS Coronary artery disease Diastolic heart failure History of stroke Hyperlipidemia Hypertension Hypothyroidism Ischemic cardiomyopathy Legal blindness Lytic bone lesions on xray Multiple myeloma NSTEMI (non-ST elevated myocardial infarction) Restless leg Schizoaffective disorder Seizure disorder Stage 3a chronic kidney disease Type 2 diabetes mellitus Urinary retention Surgical History History of coronary artery bypass graft Social History Social History Household Members: Other Household Members Other:: FACILITY Housing: [facility] Do you presently have visiting nurse or other home services: No Unable to assess alcohol history related to: Unknown Alcohol intake: unknown Patient Tobacco Use Status: Never used Tobacco Use of substances other than those prescribed or required for medical reasons: Unknown Advance Directives: Yes Advance Directives on File: Yes Advance Directives Date on File: 02/02/22 service: No Current occupational status: disabled Physical Exam ED Vital Signs: Vital Signs - 24 hr 04/18/22 10:02 04/18/22 10:14 04/18/22 10:54 Temperature 102.6 F H Pulse Rate 101 H 91 Respiratory Rate 20 20 Blood Pressure 70/43 L 74/44 L Pulse Oximetry 94 98 Oxygen Delivery Method Nasal Cannula Nasal Cannula Oxygen Flow Rate 2 04/18/22 11:42 04/18/22 12:18 04/18/22 13:33 Temperature 99.1 F Pulse Rate 84 84 84 Respiratory Rate 18 15 19 Blood Pressure 70/41 L 74/47 L 93/54 L Pulse Oximetry 100 100 100 Oxygen Delivery Method Nasal Cannula Room Air Oxygen Flow Rate 2 04/18/22 14:22 04/18/22 15:23 Temperature Pulse Rate 87 87 Respiratory Rate 15 19 Blood Pressure 81/51 L 128/56 L Pulse Oximetry 98 98 Oxygen Delivery Method Nasal Cannula Oxygen Flow Rate 2 BMI result Body Mass Index 16.9 Const Other: Patient is awake but disoriented x3 General: ill appearing Nutritional Appearance: average body habitus HENMT Head: Yes normal to inspection Face and sinus: Yes normal facial exam Mouth: Normal oral and palatal mucosa present Throat: Yes posterior oropharynx normal Neck Neck: Yes normal visual inspection Resp Effort & Inspection: normal respiratory effort Auscultation: rhonchi Cardio Rate: regular rate Rhythm: regular rhythm GI Inspection: Yes normal to inspection Palpation (GI): Soft to palpation, not firm, nontender and no guarding Auscultation: normal bowel sounds Skin General skin exam: no rashes or lesions noted Course Reevaluation(s) Reevaluation #1: Reexamine Heart RRR,Lungs clear,capillary refill less than 2 seconds,Fluids bolus ordered ,AB ordered Time: : Reevaluation #2: Seen by [employer] Dr Hunter MAP now more than 65 ,OK to telemetry per Dr Hunter because DNR/I Reevaluation #3: BP 128/56 at this time spoke with next of kin Yessenia pt is DNR/I Additional Reevaluation(s): Awake and alert good capillary refill,COR RRR,Lungs clear MDM - Altered Mental Status Lab Data Result diagrams: 04/18/22 10:30 04/18/22 10:29 Labs: Lab Results 04/18/22 04/18/22 04/18/22 Range/Units 10:29 10:29 10:29 WBC (4.8-10.8) X10*3/uL RBC (4.60-5.80) X10*6/uL Hgb (14.0-18.0) g/dl Hct (42.0-52.0) % MCV (80.0-98.0) fL MCH (27.0-33.0) pg MCHC (31.0-36.0) g/dl RDW (11.0-16.0) % Plt Count (160-400) X10*3/uL MPV (9.4-12.4) fL Immature Gran % (Auto) (0.0-0.4) % Neut % (Auto) (45-73) % Lymph % (Auto) (20-40) % Chaves % (Auto) (2-11) % Eos % (Auto) (0-4) % Baso % (Auto) (0-2) % Lymph # (Auto) (1.2-4.9) X10*3/uL Chaves # (Auto) (0.1-1.2) X10*3/uL Eos # (Auto) (0.0-0.4) X10*3/uL Baso # (Auto) (0.0-0.2) X10*3/uL Abs Immat Gran (auto) (0.00-0.03) X10*3/uL Absolute Neuts (auto) (2.0-8.3) x10*3/uL Absolute Nucleated RBC (0.0-0.012) X10*3/uL Nucleated RBC % (auto) (0.0-0.2) /100WBC PT 16.4 H (10.0-13.1) SEC INR 1.4 H (0.9-1.1) APTT 34.0 (26.0-36.4) SEC Sodium 135 (135-145) mmol/L Potassium 4.5 (3.3-5.1) mmol/L Chloride 101 (96-108) mmol/L Carbon Dioxide 23 (22-29) mmol/L Anion Gap 16 (12-20) BUN 28 H D (9-16) mg/dL Creatinine 2.15 H (0.5-1.4) mg/dL Estim Creat Clear Calc 28.2 Estimated GFR 31 Random Glucose 154 H (60-115) mg/dL Lactic Acid (0.5-2.0) mmol/L Lactic Acid F/U @ 2Hr (0.5-2.0) mmol/L Calcium 8.6 D (8.4-10.2) mg/dL Total Bilirubin 0.9 (0.0-1.0) mg/dL AST 13 (5-37) U/L ALT 9 (0-40) U/L Alkaline Phosphatase 59 (39-117) U/L Total Creatine Kinase 112 (38-174) U/L Troponin I High Sens 196.7 H* D (<3.5-35.0) ng/L Total Protein 9.2 H (6.5-8.0) g/dL Albumin 3.4 L (3.5-5.0) g/dL Urine Color Urine Appearance Urine pH (5.0-9.0) Ur Specific [place] (1.005-1.025) Urine Protein (Neg-Trace) mg/dL Urine Glucose (UA) (Negative) mg/dL Urine Ketones (Negative) mg/dL Urine Blood (Negative) Urine Nitrite (Negative) Ur Leukocyte Esterase (Negative) Urine RBC (0-2) /HPF Urine WBC (0-5) /HPF Ur Squamous Epith Cells (0-2) /HPF Urine Bacteria (None Seen) Hyaline Casts (0-2) /LPF COVID-19 (HAYES) (Negative) COVID-19 Clin Com 04/18/22 04/18/22 04/18/22 Range/Units 10:29 10:30 10:30 WBC 13.3 H (4.8-10.8) X10*3/uL RBC 3.50 L D (4.60-5.80) X10*6/uL Hgb 10.6 L D (14.0-18.0) g/dl Hct 32.4 L (42.0-52.0) % MCV 92.6 (80.0-98.0) fL MCH 30.3 (27.0-33.0) pg MCHC 32.7 (31.0-36.0) g/dl RDW 15.2 (11.0-16.0) % Plt Count 345 (160-400) X10*3/uL MPV 9.2 L (9.4-12.4) fL Immature Gran % (Auto) 0.8 H (0.0-0.4) % Neut % (Auto) 85.4 H (45-73) % Lymph % (Auto) 5.1 L (20-40) % Chaves % (Auto) 6.0 (2-11) % Eos % (Auto) 2.2 (0-4) % Baso % (Auto) 0.5 (0-2) % Lymph # (Auto) 0.7 L (1.2-4.9) X10*3/uL Chaves # (Auto) 0.8 (0.1-1.2) X10*3/uL Eos # (Auto) 0.3 (0.0-0.4) X10*3/uL Baso # (Auto) 0.1 (0.0-0.2) X10*3/uL Abs Immat Gran (auto) 0.10 H (0.00-0.03) X10*3/uL Absolute Neuts (auto) 11.4 H (2.0-8.3) x10*3/uL Absolute Nucleated RBC 0.000 (0.0-0.012) X10*3/uL Nucleated RBC % (auto) 0.0 (0.0-0.2) /100WBC PT (10.0-13.1) SEC INR (0.9-1.1) APTT (26.0-36.4) SEC Sodium (135-145) mmol/L Potassium (3.3-5.1) mmol/L Chloride (96-108) mmol/L Carbon Dioxide (22-29) mmol/L Anion Gap (12-20) BUN (9-16) mg/dL Creatinine (0.5-1.4) mg/dL Estim Creat Clear Calc Estimated GFR Random Glucose (60-115) mg/dL Lactic Acid 2.9 H* (0.5-2.0) mmol/L Lactic Acid F/U @ 2Hr (0.5-2.0) mmol/L Calcium (8.4-10.2) mg/dL Total Bilirubin (0.0-1.0) mg/dL AST (5-37) U/L ALT (0-40) U/L Alkaline Phosphatase (39-117) U/L Total Creatine Kinase (38-174) U/L Troponin I High Sens (<3.5-35.0) ng/L Total Protein (6.5-8.0) g/dL Albumin (3.5-5.0) g/dL Urine Color Urine Appearance Urine pH (5.0-9.0) Ur Specific [place] (1.005-1.025) Urine Protein (Neg-Trace) mg/dL Urine Glucose (UA) (Negative) mg/dL Urine Ketones (Negative) mg/dL Urine Blood (Negative) Urine Nitrite (Negative) Ur Leukocyte Esterase (Negative) Urine RBC (0-2) /HPF Urine WBC (0-5) /HPF Ur Squamous Epith Cells (0-2) /HPF Urine Bacteria (None Seen) Hyaline Casts (0-2) /LPF COVID-19 ([facility]ES) Negative (Negative) COVID-19 Clin Com See Note 04/18/22 04/18/22 Range/Units 12:14 13:50 WBC (4.8-10.8) X10*3/uL RBC (4.60-5.80) X10*6/uL Hgb (14.0-18.0) g/dl Hct (42.0-52.0) % MCV (80.0-98.0) fL MCH (27.0-33.0) pg MCHC (31.0-36.0) g/dl RDW (11.0-16.0) % Plt Count (160-400) X10*3/uL MPV (9.4-12.4) fL Immature Gran % (Auto) (0.0-0.4) % Neut % (Auto) (45-73) % Lymph % (Auto) (20-40) % Chaves % (Auto) (2-11) % Eos % (Auto) (0-4) % Baso % (Auto) (0-2) % Lymph # (Auto) (1.2-4.9) X10*3/uL [place]aves # (Auto) (0.1-1.2) X10*3/uL Eos # (Auto) (0.0-0.4) X10*3/uL Baso # (Auto) (0.0-0.2) X10*3/uL Abs Immat Gran (auto) (0.00-0.03) X10*3/uL Absolute Neuts (auto) (2.0-8.3) x10*3/uL Absolute Nucleated RBC (0.0-0.012) X10*3/uL Nucleated RBC % (auto) (0.0-0.2) /100WBC PT (10.0-13.1) SEC INR (0.9-1.1) APTT (26.0-36.4) SEC Sodium (135-145) mmol/L Potassium (3.3-5.1) mmol/L Chloride (96-108) mmol/L Carbon Dioxide (22-29) mmol/L Anion Gap (12-20) BUN (9-16) mg/dL Creatinine (0.5-1.4) mg/dL Estim Creat Clear Calc Estimated GFR Random Glucose (60-115) mg/dL Lactic Acid (0.5-2.0) mmol/L Lactic Acid F/U @ 2Hr 2.5 H* (0.5-2.0) mmol/L Calcium (8.4-10.2) mg/dL Total Bilirubin (0.0-1.0) mg/dL AST (5-37) U/L ALT (0-40) U/L Alkaline Phosphatase (39-117) U/L Total Creatine Kinase (38-174) U/L Troponin I High Sens (<3.5-35.0) ng/L Total Protein (6.5-8.0) g/dL Albumin (3.5-5.0) g/dL Urine Color Yellow Urine Appearance Clear Urine pH 7.5 (5.0-9.0) Ur Specific [place] 1.015 (1.005-1.025) Urine Protein 30 (1+) H (Neg-Trace) mg/dL Urine Glucose (UA) Negative (Negative) mg/dL Urine Ketones Negative (Negative) mg/dL Urine Blood Negative (Negative) Urine Nitrite Negative (Negative) Ur Leukocyte Esterase Negative (Negative) Urine RBC 0-2 (0-2) /HPF Urine WBC 0-5 (0-5) /HPF Ur Squamous Epith Cells 0-2 (0-2) /HPF Urine Bacteria None Seen (None Seen) Hyaline Casts 0-2 (0-2) /LPF COVID-19 ([facility]ES) (Negative) COVID-19 Clin Com Imaging Data Chest x-ray: Radiologist's impression: pple. Attention to follow-up with nipple markers. There has been a median sternotomy. No failure or infiltrate is seen. There is no effusion. The hilar regions are felt to be compatible. There is diffuse moderate in appearance to the visualized humeri and scapula region on the right as well as probable clavicular bones. XR/XR chest 1V IMPRESSION: No acute infiltrate or failure. ? As described mottled appearance to the bones which was also reported on CT dated 01/25/2022. Malignancy needs to be considered. Multiple myeloma needs to be considered. Recommend bone scan if further evaluation is clinically warranted Dictated By: Jeromy Ferraro MD Signed By: <Electronically signed by Jeromy Ferraro MD in OV> 04/18/22 1213 Critical Care Time Critical Care Time Critical Care Time: Yes Total Critical Care Time: 60 Attestation: Speaking with family/customer professional/Hospitalist taking care of the pt Discharge Plan Discharge Clinical Impression: Fever, Sepsis Patient Disposition: Admitted As Inpatient
[2022-04-18] MEDS: 0.9 % Sodium Chloride 1,779 ML 1779 ML IV (10:21)
[2022-04-18] MEDS: Acetaminophen Supp 650 MG SUPP.RECT PR (10:22)
[2022-04-18 10:34] LABS: MANUAL DIFF FLAG NO
[2022-04-18 10:42] LABS: INTERNATIONAL NORM RATIO 1.4 (0.9-1.1); Prothrombin Time 16.4 SEC (10.0-13.1)
[2022-04-18 10:43] LABS: Basophils Absolute Auto 0.1 X10*3/uL (0.0-0.2); Basophils Percent Auto 0.5 % (0-2); Eosinophils Absolute Auto 0.3 X10*3/uL (0.0-0.4); Eosinophils Percent Auto 2.2 % (0-4); Hematocrit 32.4 % (42.0-52.0); Hemoglobin 10.6 g/dl (14.0-18.0); Imm Gran Pct Auto 0.8 % (0.0-0.4); Lymphocytes Absolute Auto 0.7 X10*3/uL (1.2-4.9); Lymphocytes Percent Auto 5.1 % (20-40); Mean Corpuscular HGB Conc 32.7 g/dl (31.0-36.0); Mean Corpuscular Hemoglobin 30.3 pg (27.0-33.0); Mean Corpuscular Volume 92.6 fL (80.0-98.0); Mean Platelet Volume 9.2 fL (9.4-12.4); Monocytes Absolute Auto 0.8 X10*3/uL (0.1-1.2); Neutrophils Absolute Auto 11.4 x10*3/uL (2.0-8.3); Neutrophils Percent Auto 85.4 % (45-73); Platelet Count 345 X10*3/uL (160-400); Red Cell Distribution Width 15.2 % (11.0-16.0); White Blood Count 13.3 X10*3/uL (4.8-10.8)
[2022-04-18 10:50] LABS: COVID-19 Test Negative (Negative); IDNOW Serial# 16C4AD1C
[2022-04-18] MEDS: cefEPime HCl 2 GM in 0.9 % Sodium Chloride 50 ML IV (10:50)
[2022-04-18 11:00] LABS: Lactic Acid 2.9 mmol/L (0.5-2.0)
[2022-04-18 11:02] LABS: Alanine Aminotransferase 9 U/L (0-40); Albumin Level 3.4 g/dL (3.5-5.0); Alkaline Phosphatase 59 U/L (39-117); Anion Gap 16 (12-20); Aspartate Amino Transferase 13 U/L (5-37); Bilirubin Total 0.9 mg/dL (0.0-1.0); Blood Urea Nitrogen 28 mg/dL (9-16); Calcium 8.6 mg/dL (8.4-10.2); Carbon Dioxide 23 mmol/L (22-29); Chloride 101 mmol/L (96-108); Creatinine Clr Calc Pharmacy 28.2; Estimated Glomerular Filt Rate 31; Glucose Random 154 mg/dL (60-115); Potassium 4.5 mmol/L (3.3-5.1); Sodium 135 mmol/L (135-145); Total Protein 9.2 g/dL (6.5-8.0)
[2022-04-18 11:15] LABS: Troponin-I High Sensitivity 196.7 ng/L (<3.5-35.0)
[2022-04-18] MEDS: vancomycin HCL 1,000 MG in 0.9 % Sodium Chloride 250 ML 270 MG IV (11:40)
[2022-04-18] MEDS: Lidocaine HCl 2 % Urojet 10 ML JEL.PF.APP TOPICAL (11:40)
--- NOTE | 2022-04-18 11:43 | PC.NURSE ---
coude 16 placed w urojet and tolerated well, inflated w 30ml ns, sr on monitor, hypotensive still, awa5re 2nd ns liter started, vanco infusing
[2022-04-18] MEDS: 0.9 % Sodium Chloride 1,000 ML 999 ML IVCONT (11:46)
[2022-04-18 12:32] LABS: Reflex Lactate? Lactic Acid Added
[2022-04-18 12:36] LABS: Appearance Urine Clear; Color Urine Yellow; Glucose Urine UA Negative (Negative); Leukocyte Esterase Urine Negative (Negative); Nitrite Urine Negative (Negative); PH 7.5 (5.0-9.0); Specific Gravity - Urine 1.015 (1.005-1.025); UMIC TRIGGER UACC YES; Urine Blood Negative (Negative); Urine Ketones Negative (Negative); Urine Protein 30 (1+) mg/dL (Neg-Trace)
[2022-04-18 12:41] LABS: Bacteria Urine None Seen (None Seen); Hyaline Casts Urine 0-2 /LPF (0-2); RBC Urine 0-2 /HPF (0-2); Squamous Epithelial Cell Urine 0-2 /HPF (0-2); WBC Urine 0-5 /HPF (0-5)
--- NOTE | 2022-04-18 12:55 | ECG_ITS ---
Test Reason : CP Blood Pressure : / mmHG Vent. Rate : 085 BPM Atrial Rate : 085 BPM P-R Int : 204 ms QRS Dur : 180 ms QT Int : 464 ms P-R-T Axes : 078 -69 094 degrees QTc Int : 552 ms Normal sinus rhythm Left anterior fascicular block Right bundle branch block Inferior infarct (cited on or before 23-JAN-2022) Nonspecific T wave abnormality Abnormal ECG When compared with ECG of 18-FEB-2022 13:29, Premature ventricular complexes are no longer Present Questionable change in initial forces of Anteroseptal leads T wave inversion less evident in Anterolateral leads Referred By: Isiah Moore Electronically Signed By:ANGEL PRAJAPATI MD
--- NOTE | 2022-04-18 13:47 | PHA.MEDREC ---
Pharmacy Consult ? Medication Reconciliation Pharmacy has completed the medication reconciliation. Utilized [employer] for med rec.
--- NOTE | 2022-04-18 14:23 | PC.NURSE ---
Provider aware of patients BP
[2022-04-18 14:25] LABS: ~Lactic Acid-LAB USE ONLY 2.5 mmol/L (0.5-2.0)
[2022-04-18] MEDS: 0.9 % Sodium Chloride 500 ML IVCONT (15:03)
--- NOTE | 2022-04-18 15:43 | W.PM.CCCN ---
History of Present Illness Data of Consult Service Date: 04/18/22 Requesting physician: Isiah Moore Primary Care Provider: DO TK Beckwith Reason for consult: Hypotension 62-year-old male from [facility] with lifelong mental compromise midline sternal scar in a clearly consistent with coronary bypass grafting of unknown age but it certainly is well healed who presented with lethargy from the home noted here to be relatively hypotensive and febrile but clearly he is awake and he is calling out at this point in and he had been given 30 cc/kilos of IV fluid fully cultured empiric antibiotics and blood pressure was running about 80 systolic but the last pressure as I stand here is 90/60 he is warm well perfused and he has made urine to appears to have circulatory adequacy and I did bedside echo because I noticed that he is on in a number of a vasodilators including sacubitril and and losartan and carvedilol unclear if he took any today but there still is persistent defect from these medicines normal sinus rhythm and EKG with right bundle branch block and left axis no acute ST-T changes echo shows that he has got some distal apical lower apical septal akinesis otherwise good kind any cysts in the inferior 0 posterior and proximal septum is well global ejection fraction still overall between 40 and 50% with normal aortic valve that is trileaflet no calcification no significant mitral regurgitation normal right ventricular dimension and systolic function and no pericardial disease Visualizing the inferior vena cava it is well under 2 cm but there is greater than 50% inspiratory collapse on just quiet breathing so clearly he still has a relative degree of hypovolemia neck veins are flat bilateral carotid upstrokes easily palpable no livedo no acrocyanosis I reviewed all of his records and apparently on previous admission this past summer in January they noticed that on a skeletal pictures that he had diffuse lytic lesions and he had a serum protein electrophoresis that indicated a monoclonal antibody which was a kappa IgG monoclonal antibody and very likely with a skeletal survey to represent multiple myeloma which means he he has B-cell deficiency in all likelihood which opens up in 0 a list of possibilities for the source of his fever but thus far chest x-ray is clear and his urinalysis is clear so we might need more in-depth imaging it at least his to specify treatments and that includes is chest is abdomen and pelvis or this may yet be a fever that is just it from his untreated multiple myeloma and he apparently had refused biopsy any further workup and any therapy and apparently there has been no return communication from his guardian and so the emergency room physician contacted his nearest relative is family and they voiced that they were looking to petition the court for comfort measure only treatment and therefore as I see him now S pressure has since come up to 120 adjust fluids I do not see that we are going to improve his prognosis at all with a pressor agent if he is otherwise warm well perfused with adequate circulation room for volume and of course now responding to volume whether his pressure is 80 or 90 it will not alter prognosis I would simply continue fluid and make an antibiotic choice based on the most specific information weekend arrive today and that is why the further imaging Review of Systems Review of Systems: Yes Unobtainable due to mental status PMFSH Past Medical History Medical History (Updated 04/18/22 @ 15:55 by Christie Hunter MD) BPH w urinary obs/LUTS Coronary artery disease Diastolic heart failure History of stroke Hyperlipidemia Hypertension Hypothyroidism Ischemic cardiomyopathy Legal blindness Lytic bone lesions on xray Multiple myeloma NSTEMI (non-ST elevated myocardial infarction) Restless leg Schizoaffective disorder Seizure disorder Stage 3a chronic kidney disease Type 2 diabetes mellitus Urinary retention Surgical History Surgical History History of coronary artery bypass graft Social History Social History Household Members: Other Household Members Other:: FACILITY Housing: Assisted Do you presently have visiting nurse or other home services: No Unable to assess alcohol history related to: Unknown Alcohol intake: unknown Patient Tobacco Use Status: Never used Tobacco Use of substances other than those prescribed or required for medical reasons: Unknown Advance Directives: No Advance Directives Date on File: 02/02/22 service: No Current occupational status: disabled Meds Allergies Allergy/AdvReac Type Severity Reaction Status Date / Time peanut Allergy Unknown Verified 02/19/22 00:43 Active Medications: Current Medications Sodium Chloride (Ns) 500 mls @ 250 mls/hr IVCONT .Q2H MARLENA Stop: 04/18/22 16:52 Last Admin: 04/18/22 15:03 Dose: 500 mls/hr Pharmacy Consult (Consult Rx Perform Med Rec) 1 each MISCELLANE ONCE PRN PRN Reason: Consult order Pharmacy Consult (Consult Rx Perform Med Rec) 1 each MISCELLANE ONCE PRN PRN Reason: Consult order Home Medications Medication Instructions Recorded Confirmed Last Taken Type acetaminophen 325 mg tablet 650 mg PO Q4H PRN Fever Or Pain 02/13/21 04/18/22 Unknown History bisacodyl 10 mg rectal suppository 10 mg [place] DAILY PRN Constipation 02/13/21 04/18/22 Unknown History dorzolamide 2 %-timolol 0.5 % (PF) 1 drp ophthalmic (eye) BID glaucoma 02/13/21 04/18/22 04/17/22 History eye drops ferrous sulfate 325 mg (65 mg 325 mg PO BID iron def anemia 02/13/21 04/18/22 04/18/22 History iron) tablet levetiracetam 1,000 mg tablet 1,000 mg PO BID seizures 02/13/21 04/18/22 04/18/22 History (Keppra) levothyroxine 75 mcg tablet 75 mcg PO DAILY@0630 thyroid 02/13/21 04/18/22 04/17/22 History lorazepam 1 mg tablet 1 mg PO BID PRN Anxiety 02/13/21 04/18/22 Unknown History metformin 1,000 mg tablet 1,000 mg PO BID type 2 diabetes 02/13/21 04/18/22 04/18/22 History oxycodone 5 mg tablet 2.5 mg PO Q6H PRN Pain 02/13/21 04/18/22 Unknown History pregabalin 25 mg capsule (Lyrica) 25 mg PO BID schioaffective 02/13/21 04/18/22 04/18/22 History disorder ropinirole 0.25 mg tablet 0.25 mg PO BID restless legs 02/13/21 04/18/22 04/17/22 History sennosides 8.6 mg tablet (senna) 8.6 mg PO DAILY PRN Constipation 02/13/21 04/18/22 Unknown History atorvastatin 10 mg tablet 10 mg PO BEDTIME 01/24/22 04/18/22 04/17/22 History hypercholesterolemia epinephrine 0.3 mg/0.3 mL 0.3 mg IM Q4H PRN Allergic Reaction 01/24/22 04/18/22 Unknown History injection, auto-injector (EpiPen 2-Raghu) multivitamin 1 tab PO DAILY 01/24/22 04/18/22 04/17/22 History quetiapine 200 mg tablet,extended 400 mg PO BID schizoaffective 01/24/22 04/18/22 04/17/22 History release 24 hr disorder aspirin 81 mg tablet,delayed 81 mg PO DAILY htn 02/04/22 04/18/22 04/17/22 History release carvedilol 6.25 mg tablet 6.25 mg PO BID primary hypertension 02/04/22 04/18/22 04/17/22 History clopidogrel 75 mg tablet 75 mg PO DAILY I25.720 02/04/22 04/18/22 04/17/22 History doxazosin 2 mg tablet 4 mg PO BEDTIME retention of urine 02/04/22 04/18/22 04/17/22 History naloxone 0.4 mg/mL injection 1 mg intranasal DIRECTED PRN 02/04/22 04/18/22 Unknown History solution Opioid Overdose sennosides 8.6 mg tablet (senna) 8.6 mg PO DAILY 02/18/22 04/18/22 04/17/22 History miconazole nitrate 2 % topical 1 appl topical BID 04/18/22 04/18/22 Unknown History cream miconazole nitrate 2 % topical 1 appl topical BID PRN fungal rash 04/18/22 04/18/22 Unknown History cream sacubitril 24 mg-valsartan 26 mg 1 tab PO BID 04/18/22 04/18/22 04/16/22 History tablet (Entresto) vericiguat 2.5 mg tablet (Verquvo) 2.5 mg PO DAILY 04/18/22 04/18/22 04/17/22 History Physical Exam Vital Signs: Vital Signs: Last Vital Signs Temp 99.1 F 04/18/22 13:33 Pulse 87 04/18/22 15:23 Resp 19 04/18/22 15:23 BP 128/56 L 04/18/22 15:23 Pulse Ox 98 04/18/22 15:23 O2 Del Method 04/18/22 15:23 O2 Flow Rate 2 04/18/22 15:23 Oxygen Flow Rate 2 04/18/22 10:02 BMI result Body Mass Index 16.9 On his exam again skin is normal 1 warm and well perfused with no acrocyanosis He is awake and a little bit oppositional clearly does not understand but moving all 4 extremities Abdomen is soft and there was no Mireles sign and as I mentioned his IVC was still relatively small and collapsing with inspiration indicating volume deficit Chest is clear without adventitious sounds and clearly no respiratory distress no tachypnea no dyspnea no accessory muscle use Skin without any wounds or cellulitis Cardiac exam by echo as I had mentioned only segmental wall motion abnormality being the apical portion of the septum Results Labs CBC & Chem 7: 04/18/22 10:30 04/18/22 10:29 Labs: Short CBC 04/18/22 Range/Units 10:30 WBC 13.3 H (4.8-10.8) X10*3/uL Hgb 10.6 L D (14.0-18.0) g/dl Hct 32.4 L (42.0-52.0) % Plt Count 345 (160-400) X10*3/uL BMP 04/18/22 10:29 Sodium 135 Potassium 4.5 Chloride 101 Carbon Dioxide 23 BUN 28 H D Creatinine 2.15 H Calcium 8.6 D Cardiac Enzymes 04/18/22 Range/Units 10:29 Total Creatine Kinase 112 (38-174) U/L Liver Function 04/18/22 Range/Units 10:29 Total Bilirubin 0.9 (0.0-1.0) mg/dL AST 13 (5-37) U/L ALT 9 (0-40) U/L Alkaline Phosphatase 59 (39-117) U/L Albumin 3.4 L (3.5-5.0) g/dL Urine 04/18/22 Range/Units 12:14 Urine Color Yellow Urine Appearance Clear Urine pH 7.5 (5.0-9.0) Ur Specific [place] 1.015 (1.005-1.025) Urine Protein 30 (1+) H (Neg-Trace) mg/dL Urine Glucose (UA) Negative (Negative) mg/dL Assessment and Plan (1) Fever: Status: Acute (2) Sepsis: Status: Acute (3) Altered mental status: Status: Acute (4) Stage 3a chronic kidney disease: Status: Acute (5) Hypothyroidism: Status: Acute (6) Hypertension: Status: Acute (7) Coronary artery disease: Status: Acute (8) Hypovolemia associated with hypermetabolic state: Status: Acute (9) Multiple myeloma: Status: Acute (10) Ischemic cardiomyopathy: Status: Acute Plan While in the emergency room with his blood pressure now at 01:20 I would obtain more specific information by scanning by CT scan his chest and his abdomen with the understanding that he has gotten immunosuppressive background disease of multiple myeloma with B-cell deficiency so of course some the most concerned about the pneumococcus Haemophilus and therefore I would I would scan his chest and his abdomen but empirically cover him as the initial antibiotics indicated with cefepime and vancomycin I think is fine but continued IV fluid maintenance as the ICU by giving him a pressor at this point is not going to change his prognosis not in the short term and not in the long-term certainly If able it would be opt optimal to put a Hansen catheter in as is urine output would be indicative of the adequacy of his circulation under the circumstances but ultimately this could also be the no his advancing multiple myeloma without an actual infectious etiology being that it has been on treated
[2022-04-18 15:57] LABS: Reflex Lactate? 2 Y
--- NOTE | 2022-04-18 16:00 | P.HPHOSP_ITS ---
History of Present Illness Date of Service: 04/18/22 Attending physician on admission: Kriss Sanchez Chief Complaint: Fever, lethargy This is a 62 year old male with history of CKD3, cardiomyopathy, HTN, HLD, seizure disorder, schizoaffective disorder, multiple myeloma long-term care resi dent at [facility] who was sent to the emergency department for evaluation of lethargy and fever. On arrival patient had a temperature of 102 degrees and blood pressure in the 70s. He received 30 cc/kg bolus as well as an additional 1.5 L of normal saline and gradually his blood pressure improved. Reportedly he was altered on arrival but as blood pressure improved became more alert. Chest x-ray and urinalysis were both unremarkable. Brain CT showed no evidence of acute intracranial abnormality. Lactic acid was elevated at 2.9, initial troponin 196. The patient was able to tell me his name and that he was at the hospital. He denies any abdominal pain, chest pain, shortness of breath, cough. He did report pain in his genitals. He was started on broad-spectrum antibiotics. He was initially evaluated by ICU attending but because blood pressure improved the decision was made to admit him to the medical floor. Review of Systems Review of Systems: Yes all other systems are reviewed and are negative Constitutional: Constitutional: Denies chills and Denies fever(s) ENT: Denies dizziness Cardiovascular: Cardiovascular: Denies chest pain, Denies palpitations and Den ies dyspnea Respiratory: Respiratory: Denies cough and Denies dyspnea Gastrointestinal: Gastrointestinal: Denies abdominal pain, Denies nausea and Denies vomiting Neurologic: Denies dizziness Endocrine: Endocrine: Denies palpitations [facility] Medical History BPH w urinary obs/LUTS Coronary artery disease Diastolic heart failure History of stroke Hyperlipidemia Hypertension Hypothyroidism Ischemic cardiomyopathy Legal blindness Lytic bone lesions on xray Multiple myeloma NSTEMI (non-ST elevated myocardial infarction) Restless leg Schizoaffective disorder Seizure disorder Stage 3a chronic kidney disease Type 2 diabetes mellitus Urinary retention Pertinent family history: patient unable to provide any relevant family history Surgical History History of coronary artery bypass graft Social History Household Members: Other Household Members Other:: FACILITY Housing: Alf Do you presently have visiting nurse or other home services: No Unable to assess alcohol history related to: Unknown Alcohol intake: unknown Patient Tobacco Use Status: Never used Tobacco Use of substances other than those prescribed or required for medical reasons: Unknown Advance Directives: Yes Advance Directives on File: Yes Advance Directives Date on File: 02/02/22 service: No Current occupational status: disabled Meds Allergies Allergy/AdvReac Type Severity Reaction Status Date / Time peanut Allergy Unknown Verified 02/19/22 00:43 Active Medications: Current Medications Acetaminophen (Acetaminophen 325 Mg Tablet) 650 mg PO Q6H PRN PRN Reason: Pain, Mild (Pain Scale 1-3) Atorvastatin Calcium (Atorvastatin Calcium 10 Mg Tablet) 10 mg PO BEDTIME [facility] Clopidogrel Bisulfate (Clopidogrel Bisulfate 75 Mg Tablet) 75 mg PO DAILY [facility] Docusate Sodium (Docusate Sodium 100 Mg Capsule) 100 mg PO DAILY [facility] Enoxaparin Sodium (Enoxaparin Sodium 30 Mg/0.3 Ml Syringe) 30 mg SUBCUT Q24H [facility] Sodium Chloride (Ns) 500 mls @ 250 mls/hr IVCONT .Q2H [facility] Stop: 04/18/22 16:52 Last Admin: 04/18/22 15:03 Dose: 500 mls/hr Cefepime HCl 1 gm/ Sodium (Chloride) 50 mls @ 100 mls/hr IV Q12H [facility] Insulin Human Lispro (Insulin Lispro 100 Unit/Ml 3 Ml Vial) 0 unit SUBCUT QIDACHS [facility]; Protocol Levetiracetam (Levetiracetam 1,000 Mg Tablet) 1,000 mg PO BID [facility] Levothyroxine Sodium (Levothyroxine Sodium 75 Mcg Tablet) 75 mcg PO DAILY@0630 [facility] Miconazole Nitrate (Miconazole 2 % Extra Thick Cr 56.7 Gm Tube) 1 appl TOPICAL BID [facility]; Protocol Non-Formulary Medication (Dorzolamide-Timolol (Pf)) 1 drop EYE-BOTH BID [facility] Non-Formulary Medication (Ferrous Sulfate) 325 mg PO BID [facility] Non-Formulary Medication (Quetiapine) 400 mg PO BID [facility] Ondansetron HCl (Ondansetron Hcl 4 Mg/2 Ml Vial) 4 mg IVPUSH Q8H PRN PRN Reason: Nausea and Vomiting Pharmacy Consult (Consult Rx Perform Med Rec) 1 each MISCELLANE ONCE PRN PRN Reason: Consult order Pharmacy Consult (Consult Rx Perform Med Rec) 1 each MISCELLANE ONCE PRN PRN Reason: Consult order Pharmacy Consult (Consult Rx Vancomycin Dosing) 1 each MISCELLANE DAILY PRN PRN Reason: Consult order Pregabalin (Pregabalin 25 Mg Capsule) 25 mg PO BID [facility] Ropinirole HCl (Ropinirole Hcl 0.25 Mg Tablet) 0.25 mg PO BID [facility] Senna (Sennosides 8.6 Mg Tablet) 8.6 mg PO DAILY [facility] Sodium Chloride (0.9 % Sodium Chloride Flush 3 Ml Syringe) 3 ml IVFLUSH QSHIFT [facility] Home Medications Medication Instructions Recorded Confirmed Last Taken Type acetaminophen 325 mg tablet 650 mg PO Q4H PRN Fever Or Pain 02/13/21 04/18/22 Unknown History bisacodyl 10 mg rectal suppository 10 mg FL DAILY PRN Constipation 02/13/21 04/18/22 Unknown History dorzolamide 2 %-timolol 0.5 % (PF) 1 drp ophthalmic (eye) BID glaucoma 02/13/21 04/18/22 04/17/22 History eye drops ferrous sulfate 325 mg (65 mg 325 mg PO BID iron def anemia 02/13/21 04/18/22 04/18/22 History iron) tablet levetiracetam 1,000 mg tablet 1,000 mg PO BID seizures 02/13/21 04/18/22 04/18/22 History (Keppra) levothyroxine 75 mcg tablet 75 mcg PO DAILY@0630 thyroid 02/13/21 04/18/22 04/17/22 History lorazepam 1 mg tablet 1 mg PO BID PRN Anxiety 02/13/21 04/18/22 Unknown History metformin 1,000 mg tablet 1,000 mg PO BID type 2 diabetes 02/13/21 04/18/22 04/18/22 History oxycodone 5 mg tablet 2.5 mg PO Q6H PRN Pain 02/13/21 04/18/22 Unknown History pregabalin 25 mg capsule (Lyrica) 25 mg PO BID schioaffective 02/13/21 04/18/22 04/18/22 History disorder ropinirole 0.25 mg tablet 0.25 mg PO BID restless legs 0904/18/22 04/17/22 History sennosides 8.6 mg tablet (senna) 8.6 mg PO DAILY PRN Constipation 02/13/21 04/18/22 Unknown History atorvastatin 10 mg tablet 10 mg PO BEDTIME 01/24/22 04/18/22 04/17/22 History hypercholesterolemia epinephrine 0.3 mg/0.3 mL 0.3 mg IM Q4H PRN Allergic Reaction 01/24/22 04/18/22 Unknown History injection, auto-injector (EpiPen 2-Raghu) multivitamin 1 tab PO DAILY 01/24/22 04/18/22 04/17/22 History quetiapine 200 mg tablet,extended 400 mg PO BID schizoaffective 01/24/22 04/18/22 04/17/22 History release 24 hr disorder aspirin 81 mg tablet,delayed 81 mg PO DAILY htn 02/04/22 04/18/22 04/17/22 History release carvedilol 6.25 mg tablet 6.25 mg PO BID primary hypertension 02/04/22 04/18/22 04/17/22 History clopidogrel 75 mg tablet 75 mg PO DAILY I25.720 02/04/22 04/18/22 04/17/22 History doxazosin 2 mg tablet 4 mg PO BEDTIME retention of urine 02/04/22 04/18/22 04/17/22 History naloxone 0.4 mg/mL injection 1 mg intranasal DIRECTED PRN 02/04/22 04/18/22 Unknown History solution Opioid Overdose sennosides 8.6 mg tablet (senna) 8.6 mg PO DAILY 02/18/22 04/18/22 04/17/22 History miconazole nitrate 2 % topical 1 appl topical BID 04/18/22 04/18/22 Unknown History cream miconazole nitrate 2 % topical 1 appl topical BID PRN fungal rash 04/18/22 04/18/22 Unknown History cream sacubitril 24 mg-valsartan 26 mg 1 tab PO BID 04/18/22 04/18/22 04/16/22 History tablet (Entresto) vericiguat 2.5 mg tablet (Verquvo) 2.5 mg PO DAILY 04/18/22 04/18/22 04/17/22 History Physical Exam Vital Signs and Narrative: Vital Signs: Last Vital Signs Temp 99.1 F 04/18/22 13:33 Pulse 87 04/18/22 15:23 Resp 19 04/18/22 15:23 BP 128/56 L 04/18/22 15:23 Pulse Ox 98 04/18/22 15:23 O2 Del Method 04/18/22 15:23 O2 Flow Rate 2 04/18/22 15:23 Oxygen Flow Rate 2 04/18/22 10:02 BMI result Body Mass Index 16.9 Const: Other: chronically ill appearing; awake, alert; speaking in full sentences, answering most questions appropriately General: comfortable, alert and awake Nutritional Appearance: cachectic Orientation/consciousness: oriented to person and oriented to place Resp: Effort & Inspection: normal respiratory effort and able to speak in complete sentences Auscultation: clear to auscultation bilaterally Cardio: Rate: regular rate Heart sounds: S1 normal heart sound present and S2 normal heart sound present GI: Inspection: No distended Palpation (GI): Soft to palpation and nontender : Other: ramos in place draining yellow urine scrotum erythematous, painful, no swelling Neuro: Other: knows his name, knows he is in the hospital General: oriented to person and oriented to place Extrem: Other: able to move all 4 extremities spontaneously Results Labs CBC and Chem 7: 04/18/22 10:30 04/18/22 10:29 Labs: Laboratory Results - last 24 hr 04/18/22 04/18/22 04/18/22 10:29 10:29 10:29 MCV MCH MCHC RDW Plt Count MPV Immature Gran % (Auto) Neut % (Auto) Lymph % (Auto) Pitkin % (Auto) Eos % (Auto) Baso % (Auto) Lymph # (Auto) Pitkin # (Auto) Eos # (Auto) Baso # (Auto) Abs Immat Gran (auto) Absolute Neuts (auto) Absolute Nucleated RBC Nucleated RBC % (auto) PT 16.4 H INR 1.4 H APTT 34.0 Anion Gap 16 Estim Creat Clear Calc 28.2 Estimated GFR 31 Random Glucose 154 H Lactic Acid Lactic Acid F/U @ 2Hr Calcium 8.6 D Total Bilirubin 0.9 AST 13 ALT 9 Alkaline Phosphatase 59 Total Creatine Kinase 112 Troponin I High Sens 196.7 H* D Total Protein 9.2 H Albumin 3.4 L Urine Color Urine Appearance Urine pH Ur Specific Lorida Urine Protein Urine Glucose (UA) Urine Ketones Urine Blood Urine Nitrite Ur Leukocyte Esterase Urine RBC Urine WBC Ur Squamous Epith Cells Urine Bacteria Hyaline Casts COVID-19 ([facility]) COVID-19 Clin Com 04/18/22 04/18/22 04/18/22 10:29 10:30 10:30 MCV 92.6 MCH 30.3 MCHC 32.7 RDW 15.2 Plt Count 345 MPV 9.2 L Immature Gran % (Auto) 0.8 H Neut % (Auto) 85.4 H Lymph % (Auto) 5.1 L Pitkin % (Auto) 6.0 Eos % (Auto) 2.2 Baso % (Auto) 0.5 Lymph # (Auto) 0.7 L Pitkin # (Auto) 0.8 Eos # (Auto) 0.3 Baso # (Auto) 0.1 Abs Immat Gran (auto) 0.10 H Absolute Neuts (auto) 11.4 H Absolute Nucleated RBC 0.000 Nucleated RBC % (auto) 0.0 PT INR APTT Anion Gap Estim Creat Clear Calc Estimated GFR Random Glucose Lactic Acid 2.9 H* Lactic Acid F/U @ 2Hr Calcium Total Bilirubin AST ALT Alkaline Phosphatase Total Creatine Kinase Troponin I High Sens Total Protein Albumin Urine Color Urine Appearance Urine pH Ur Specific Lorida Urine Protein Urine Glucose (UA) Urine Ketones Urine Blood Urine Nitrite Ur Leukocyte Esterase Urine RBC Urine WBC Ur Squamous Epith Cells Urine Bacteria Hyaline Casts COVID-19 ([facility]) Negative COVID-19 Clin Com See Note 04/18/22 04/18/22 12:14 13:50 MCV MCH MCHC RDW Plt Count MPV Immature Gran % (Auto) Neut % (Auto) Lymph % (Auto) Pitkin % (Auto) Eos % (Auto) Baso % (Auto) Lymph # (Auto) Pitkin # (Auto) Eos # (Auto) Baso # (Auto) Abs Immat Gran (auto) Absolute Neuts (auto) Absolute Nucleated RBC Nucleated RBC % (auto) PT INR APTT Anion Gap Estim Creat Clear Calc Estimated GFR Random Glucose Lactic Acid Lactic Acid F/U @ 2Hr 2.5 H* Calcium Total Bilirubin AST ALT Alkaline Phosphatase Total Creatine Kinase Troponin I High Sens Total Protein Albumin Urine Color Yellow Urine Appearance Clear Urine pH 7.5 Ur Specific Lorida 1.015 Urine Protein 30 (1+) H Urine Glucose (UA) Negative Urine Ketones Negative Urine Blood Negative Urine Nitrite Negative Ur Leukocyte Esterase Negative Urine RBC 0-2 Urine WBC 0-5 Ur Squamous Epith Cells 0-2 Urine Bacteria None Seen Hyaline Casts 0-2 COVID-19 ([facility]) COVID-19 Clin Com Imaging Radiologist's Impressions: Impressions Chest X-Ray 04/18/22 09:55 IMPRESSION: No acute infiltrate or failure. As described mottled appearance to the bones which was also reported on CT dated 01/25/2022. Malignancy needs to be considered. Multiple myeloma needs to be considered. Recommend bone scan if further evaluation is clinically warranted Head CT 04/18/22 09:56 IMPRESSION: No acute intracranial finding. No significant radiographic change compared with 02/18/2022. This critical result was discussed with Dr. Moore at approximately 10:08 hours on 04/18/2022.. It was ascertained that the content and urgency of the report was understood at the time of direct communication. Assessment and Plan (1) Sepsis: Status: Acute Plan This is a 62-year-old care [facility] resident with history of multiple myeloma, CKD 3, cardiomyopathy, hypertension, diabetes, hyperlipidemia who was sent to the emergency department with fever and lethargy found to have severe s epsis/hypotension Severe sepsis Meet sepsis criteria with fever of 102, leukocytosis 13.3 Severe features with DORIAN, elevated lactic acid sepsis focused exam completed s/p 30cc/kg bolus + and additional 1500 cc for total 3.2L possible scrotal cellulitis ct chest, abdomen pending RPP pending follow up blood cultures continue empiric broad spectrum antibiotics encephalopathy, likely metabolic r/t hypotension, sepsis appears to have improved with improvement in blood pressure. pt now awake, alert answering most questions appropriately brain CT negative no focal neuro deficits appreciated DORIAN on CKD3 r/t sepsis avoid nephrotoxins continue gentle IVF follow renal function elevated troponin possibly r/t demand from sepsis/hypotention denies chest pain repeat trop ordered DM hold metformin SSI, POCs HTN hypotensive on arrival hold baseline meds Seizure disorder continue home dose of keppra CAD/Cardiomyopathy hold entresto, carvedilol, verquvo continue asa, plavix, statin schizoaffective d/o continue baseline medications Hypothyroidism Continue levothyroxine severe protein calorie malnutrition bmi 17, loss of muscle mass supplements added dvt ppx - renal dose lovenox code status - paperwork indicates DNR/DNI Guardian Yessenia [phone] Due to severe sepsis with hypotension patient will likely require 2 midnight stay in hospital for further workup to identify source and IV antibiotics. Quality Stroke Does the patient have a stroke diagnosis?: No VTE Prior VTE?: No VTE Risk Level:: Medical - moderate - high VTE Device Contraindication: N/A - Device Ordered VTE Drug Contraindication: N/A - Med Ordered
--- NOTE | 2022-04-18 16:33 | HE.PHANOTE ---
additional dose of vanco 500 mg given to make up for loading dose
--- NOTE | 2022-04-18 16:41 | PM.EVENT ---
Event Note Date of Service: 04/20/22 Event Note: This patient is seen and examined with APC. Patient is a [facility] patient with multiple comorbidities- possible history of multiple abnormal, CKD, cardiomyopathy hypertension, diabetes- last time also was brought with low blood pressure which was thought to be related to his head and antihypertensive medications- was fluid resuscitated as well as antihypertensive was on hold. this time patient was brought again with low blood pressure and had all 102 fever WBC count of 13.3, initially heart rate was 101, fever of 102.6 blood pressure was in 70s Lab imaging, EKG reviewed. BUNis 28, creatinine2.15, lactic acid 2.9 and repeated 2.5 chest x-ray: clear, CT head:No acute intracranial finding. Physical exam : please see H and P. assessment and plan coordinated in APCs note, Agree with the plan in addition: patient clinically had she possible severe sepsis with hypotension initially- was given sepsis bolus, IV antibiotics were given? considering his history of possible multiple myleoma started on broad-spectrum antibiotics volume repletion done, maintenance fluids started, continue IV antibiotics monitor on tele, closely monitor blood pressures patient is mentation connell -seems near his baseline( as per review previous progress notes from last admission), somewhat anxious. elvated tropx1, added another trop - possible sec to sepsis and hypotension,ekg unchaged. hold bp medications.
--- NOTE | 2022-04-18 16:43 | PC.NURSE ---
Patient refusing labs from technical staff engineer and phlebotomy. Dr. Sanchez notified.
[2022-04-18] MEDS: Enoxaparin Sodium 30 MG/0.3 ML SYRINGE SUBCUT (17:46)
[2022-04-18] MEDS: vancomycin HCL 500 MG in 0.9 % Sodium Chloride 100 ML 110 MG IV (17:46)
[2022-04-18] MEDS: 0.9 % Sodium Chloride 1,000 ML 80 ML IVCONT (17:53)
[2022-04-18 18:33] LABS: ~Lactic Acid-LAB USE ONLY 3.4 mmol/L (0.5-2.0)
[2022-04-18 18:34] LABS: Troponin-I High Sensitivity 148.5 ng/L (<3.5-35.0)
[2022-04-18 18:36] LABS: Procalcitonin 6.57 ng/mL
[2022-04-18 18:36] LABS: Glucose, Whole Blood 123 mg/dL (60-115)
--- NOTE | 2022-04-18 19:05 | PC.NURSE ---
Provider and on coming nurse made aware of patients temperature.
[2022-04-18] MEDS: Acetaminophen 325 MG TABLET 650 MG PO (19:30)
[2022-04-18] MEDS: traZODone HCL 50 MG TABLET PO (19:49)
[2022-04-18 20:38] LABS: Magnesium 1.4 mg/dL (1.6-2.6)
[2022-04-18 20:39] LABS: Lactic Acid 5.5 mmol/L (0.5-2.0)
--- NOTE | 2022-04-18 20:39 | PM.EVENT ---
Event Note Date of Service: 04/18/22 Event Note: Pt's lactic acid 5.5 on rpt. Will continue IVF. Pt had already received over the 30cc/kg IVF and given his pmhx of heartfailure, will be cautious with fluid resuc. He is HDS, with normal/elevated bp.
[2022-04-18 20:52] LABS: Glucose, Whole Blood 149 mg/dL (60-115)
[2022-04-18] MEDS: Magnesium Sulfate/H2O 2 GM/50 ML PIGGYBACK IV (21:07)
[2022-04-18] MEDS: Lactated Ringers 1,000 ML 125 ML IVCONT (21:07)
[2022-04-18] MEDS: Ferrous Sulfate 324 MG TABLET.DR PO (21:08)
[2022-04-18] MEDS: levETIRAcetam 1,000 MG TABLET 1000 MG PO (21:09)
[2022-04-18] MEDS: QUEtiapine Fumarate 400 MG TABLET PO (21:09)
[2022-04-18] MEDS: Atorvastatin Calcium 10 MG TABLET PO (21:09)
[2022-04-18] MEDS: diphenhydrAMINE HCL 50 MG/ML VIAL IM (21:48)
[2022-04-18 22:03] LABS: Reflex Lactate? Lactic Acid Added
[2022-04-18] MEDS: rOPINIRole HCL 0.25 MG TABLET PO (22:15)
[2022-04-18] MEDS: Pregabalin 25 MG CAPSULE PO (22:15)
[2022-04-18] MEDS: Miconazole 2 % Extra Thick Cr 56.7 Gm Tube 1 APPL TOPICAL (22:57)
[2022-04-18] MEDS: cefEPime HCl 1 GM in 0.9 % Sodium Chloride 50 ML IV (23:37)
[2022-04-18 23:55] LABS: ~Lactic Acid-LAB USE ONLY 1.9 mmol/L (0.5-2.0)
[2022-04-19] VITALS (7 sets, daily range): BP systolic 116–138; BP diastolic 51–68; PULSE 83–97; RESP 12–18; TEMP 36.6–37.4; O2SAT 92–100
--- NOTE | 2022-04-19 | ECG_ITS ---
Test Reason : PROLONGED QTC Blood Pressure : / mmHG Vent. Rate : 093 BPM Atrial Rate : 093 BPM P-R Int : 202 ms QRS Dur : 176 ms QT Int : 448 ms P-R-T Axes : 061 -71 077 degrees QTc Int : 557 ms Normal sinus rhythm Possible Left atrial enlargement Left anterior fascicular block Right bundle branch block Inferior infarct (cited on or before 23-JAN-2022) Abnormal ECG When compared with ECG of 18-APR-2022 21:30, No significant change was found Referred By: Evelia Woods Electronically Signed By:ANGEL PRAJAPATI MD
[2022-04-19] MEDS: LORazepam 1 MG TABLET PO ×2 (04:46→17:42)
--- NOTE | 2022-04-19 04:56 | PC.NURSE ---
pt became increasingly more agitated frequently yelling out for help. This RN spoke with Dr. Correa regarding pt's agitation. repeat EKG ordered to look at status of pt's qtc. Pt medicated according to Dr Correa, Ativan 1mg PO
[2022-04-19] MEDS: Lactated Ringers 1,000 ML 125 ML IVCONT (05:58)
[2022-04-19] MEDS: Levothyroxine Sodium 75 MCG TABLET PO (05:59)
[2022-04-19] MEDS: 0.9 % Sodium Chloride Flush 3 ML SYRINGE IVFLUSH (06:36)
[2022-04-19 07:57] LABS: Glucose, Whole Blood 131 mg/dL (60-115)
[2022-04-19 09:03] LABS: Adenovirus PCR Not Detected (Not Detect.); Bordetella parapertussis PCR Not Detected (Not Detect.); Bordetella pertussis PCR Not Detected (Not Detect.); Chlamydia pneumoniae PCR Not Detected (Not Detect.); Coronavirus 229E PCR Not Detected (Not Detect.); Coronavirus HKU1 PCR Not Detected (Not Detect.); Coronavirus NL63 PCR Not Detected (Not Detect.); Coronavirus OC43 PCR Not Detected (Not Detect.); Human metapneumovirus PCR Not Detected (Not Detect.); Influenza A PCR Not Detected (Not Detect.); Influenza B PCR Not Detected (Not Detect.); Mycoplasma pneumoniae PCR Not Detected (Not Detect.); Parainfluenza 1 PCR Not Detected (Not Detect.); Parainfluenza 2 PCR Not Detected (Not Detect.); Parainfluenza 3 PCR Not Detected (Not Detect.); Parainfluenza 4 PCR Not Detected (Not Detect.); RSV PCR Not Detected (Not Detect.); Rhino/Enterovirus PCR Detected (Not Detect.); SARS-CoV-2 PCR Not Detected (Not Detect.)
[2022-04-19] MEDS: cefEPime HCl 1 GM in 0.9 % Sodium Chloride 50 ML IV ×2 (09:11→22:57)
--- NOTE | 2022-04-19 11:11 | MHC.CM.PN ---
CM spoke with Patient's Guardian/Yessenia @ [phone] and addressed IMM with her (original to be mailed certified letter to her and a copy has been placed on the chart). Patient is a LTC Resident of [facility] and the goal is to return there once medically cleared for dc. CM has initiated and will follow for dc planning.
[2022-04-19] MEDS: vancomycin HCL 750 MG in 0.9 % Sodium Chloride 250 ML 265 MG IV (11:14)
--- NOTE | 2022-04-19 12:00 | PC.NURSE ---
PT REFUSED PO MEDS. IV MEDS GIVEN DOCUMENTED. PT CHANGED AND REPOSITIONED.
[2022-04-19 12:03] LABS: Glucose, Whole Blood 123 mg/dL (60-115)
[2022-04-19 13:10] LABS: Glucose, Whole Blood 120 mg/dL (60-115)
--- NOTE | 2022-04-19 14:06 | HE.PHANOTE ---
VANCO DOSING DOSE OF 750MG Q 24H CONTINUED. UNABLE TO GET SCR TODAY. NEXT TROUGH 04/20 @ 0900
--- NOTE | 2022-04-19 15:13 | P.PNIM_ITS ---
Subjective Subjective Date of Service: 04/19/22 Interval History: seen and examined this morning follow up for sepsis Patient is awake, alert, answering questions appropriately Argumentative with nurse, refusing meds Denies pain Review of Systems Review of Systems: Yes all other systems are reviewed and are negative Constitutional Constitutional: Denies chills and Denies fever(s) Cardiovascular Cardiovascular: Denies chest pain and Denies dyspnea Respiratory Respiratory: Denies dyspnea Gastrointestinal Gastrointestinal: Denies abdominal pain Physical Exam Vital Signs: Vital Signs: Last Vital Signs Temp 98.2 F 04/19/22 11:33 Pulse 95 04/19/22 11:33 Resp 18 04/19/22 11:33 BP 116/52 L 04/19/22 11:33 Pulse Ox 94 04/19/22 11:33 O2 Del Method 04/19/22 11:33 O2 Flow Rate 2 04/19/22 03:43 Oxygen Flow Rate 2 04/18/22 10:02 BMI result Body Mass Index 16.9 Const: Other: chronically ill appearing; awake, alert; speaking in full sentences, answering most questions appropriately General: comfortable, alert and awake Nutritional Appearance: cachectic Orientation/consciousness: oriented to person and oriented to place Resp: Effort & Inspection: normal respiratory effort and able to speak in complete sentences Auscultation: clear to auscultation bilaterally Cardio: Rate: regular rate Heart sounds: S1 normal heart sound present and S2 normal heart sound present GI: Inspection: No distended Palpation (GI): Soft to palpation and no ntender : Other: ramos in place draining yellow urine scrotum no longer erythematous Neuro: Other: knows his name, knows he is in the hospital General: oriented to person and oriented to place Extrem: Other: able to move all 4 extremities spontaneously Objective Data Active Medications Acetaminophen (Acetaminophen 325 Mg Tablet) 650 mg PO Q6H PRN PRN Reason: Pain, Mild (Pain Scale 1-3) Last Admin: 04/18/22 19:30 Dose: 650 mg Documented By: SELENA Atorvastatin Calcium (Atorvastatin Calcium 10 Mg Tablet) 10 mg PO BEDTIME [facility] Last Admin: 04/18/22 21:09 Dose: 10 mg Documented By: SELENA Clopidogrel Bisulfate (Clopidogrel Bisulfate 75 Mg Tablet) 75 mg PO DAILY [facility] Last Admin: 04/19/22 11:55 Dose: Not Given Documented By: KOLBY Non-Admin Reason: See Note Docusate Sodium (Docusate Sodium 100 Mg Capsule) 100 mg PO DAILY [facility] Last Admin: 04/19/22 11:55 Dose: Not Given Documented By: KOLBY Non-Admin Reason: See Note Enoxaparin Sodium (Enoxaparin Sodium 30 Mg/0.3 Ml Syringe) 30 mg SUBCUT Q24H SC [facility] Last Admin: 04/18/22 17:46 Dose: 30 mg Documented By: BELÉN Ferrous Sulfate (Ferrous Sulfate 324 Mg Tablet.Dr) 324 mg PO BID [facility] Last Admin: 04/19/22 11:56 Dose: Not Given Documented By: KOLBY Non-Admin Reason: See Note Cefepime HCl 1 gm/ Sodium (Chloride) 50 mls @ 100 mls/hr IV Q12H [facility] Last Infusion: 04/19/22 11:07 Dose: 0 mls/hr Documented By: GUANAKO Vancomycin HCl 750 mg/ Sodium (Chloride) 265 mls @ 265 mls/hr IV Q24H [facility] Last Admin: 04/19/22 11:14 Dose: 265 mls/hr Documented By: GUANAKO Lactated Ringer's (Lr) 1,000 mls @ 80 mls/hr IVCONT .[id number] [facility] Last Admin: 04/19/22 05:58 Dose: 125 mls/hr Documented By: SELENA Insulin Human Lispro (Insulin Lispro 100 Unit/Ml 3 Ml Vial) 0 unit SUBCUT QIDA [facility]; Protocol Last Admin: 04/19/22 11:53 Dose: Not Given Documented By: KOLBY Non-Admin Reason: See Note Levetiracetam (Levetiracetam 1,000 Mg Tablet) 1,000 mg PO BID [facility] Last Admin: 04/19/22 11:56 Dose: Not Given Documented By: KOLBY Non-Admin Reason: See Note Levothyroxine Sodium (Levothyroxine Sodium 75 Mcg Tablet) 75 mcg PO DAILY@0630 [facility] Last Admin: 04/19/22 05:59 Dose: 75 mcg Documented By: SELENA Lorazepam (Lorazepam 1 Mg Tablet) 1 mg PO BID PRN PRN Reason: Anxiety Last Admin: 04/19/22 04:46 Dose: 1 mg Documented By: SELENA Miconazole Nitrate (Miconazole 2 % Extra Thick Cr 56.7 Gm Tube) 1 appl TOPICAL BID [facility]; Protocol Last Admin: 04/19/22 11:24 Dose: Not Given Documented By: GUANAKO Non-Admin Reason: Med Not Available Non-Formulary Medication (Dorzolamide-Timolol (Pf)) 1 drop EYE-BOTH BID [facility] Ondansetron HCl (Ondansetron Hcl 4 Mg/2 Ml Vial) 4 mg IVPUSH Q8H PRN PRN Reason: Nausea and Vomiting Pharmacy Consult (Consult Rx Perform Med Rec) 1 each MISCELLANE ONCE PRN PRN Reason: Consult order Pharmacy Consult (Consult Rx Perform Med Rec) 1 each MISCELLANE ONCE PRN PRN Reason: Consult order Pharmacy Consult (Consult Rx Vancomycin Dosing) 1 each MISCELLANE DAILY PRN PRN Reason: Consult order Pregabalin (Pregabalin 25 Mg Capsule) 25 mg PO BID [facility] Last Admin: 04/19/22 11:56 Dose: Not Given Documented By: KOLBY Non-Admin Reason: See Note Quetiapine Fumarate (Quetiapine Fumarate 400 Mg Tablet) 400 mg PO BID [facility] Last Admin: 04/19/22 11:24 Dose: Not Given Documented By: GUANAKO Non-Admin Reason: Patient Refused Ropinirole HCl (Ropinirole Hcl 0.25 Mg Tablet) 0.25 mg PO BID [facility] Last Admin: 04/19/22 11:25 Dose: Not Given Documented By: GUANAKO Non-Admin Reason: Patient Refused Senna (Sennosides 8.6 Mg Tablet) 8.6 mg PO DAILY [facility] Last Admin: 04/19/22 11:55 Dose: Not Given Documented By: KOLBY Non-Admin Reason: See Note Sodium Chloride (0.9 % Sodium Chloride Flush 3 Ml Syringe) 3 ml IVFLUSH QSHIFT [facility] Last Admin: 04/19/22 11:07 Dose: Not Given Documented By: GUANAKO Non-Admin Reason: IV Running Labs CBC & Chem 7: 04/18/22 10:30 04/18/22 10:29 Labs: Laboratory Results - last 24 hr 04/18/22 04/18/22 04/18/22 15:36 17:36 17:36 POC Glucose Lactic Acid Lactic Acid F/U @ 2Hr Lactic Acid F/U @ 4Hr Magnesium Troponin I High Sens 148.5 H* Procalcitonin 6.57 Respiratory Panel Mei See note Adenovirus (Rapid PCR) Not Detected B.pert (TEM-PCR) Not Detected B.parapertussis DNA PCR Not Detected C. pneumoniae DNA (PCR) Not Detected Coronavirus OC43 (PCR) Not Detected Coronavirus HKU1 (PCR) Not Detected Coronavirus 229E (PCR) Not Detected Coronavirus NL63 (PCR) Not Detected Human Metapneumovir PCR Not Detected Influenza A (RT-PCR) Not Detected Influenza B (RT-PCR) Not Detected M. pneumoniae (PCR) Not Detected Parainfluenza 1 (PCR) Not Detected Parainfluenza 2 (PCR) Not Detected Parainfluenza 3 (PCR) Not Detected Parainfluenza 4 (PCR) Not Detected RSV (PCR) Not Detected Entero/Rhino (PCR) Detected A SARS-CoV-2 RNA (RT-PCR) Not Detected 04/18/22 04/18/22 04/18/22 17:36 18:31 19:58 POC Glucose 123 H Lactic Acid 5.5 H* Lactic Acid F/U @ 2Hr Lactic Acid F/U @ 4Hr 3.4 H* Magnesium Troponin I High Sens Procalcitonin Respiratory Panel Mei Adenovirus (Rapid PCR) B.pert (TEM-PCR) B.parapertussis DNA PCR C. pneumoniae DNA (PCR) Coronavirus OC43 (PCR) Coronavirus HKU1 (PCR) Coronavirus 229E (PCR) Coronavirus NL63 (PCR) Human Metapneumovir PCR Influenza A (RT-PCR) Influenza B (RT-PCR) M. pneumoniae (PCR) Parainfluenza 1 (PCR) Parainfluenza 2 (PCR) Parainfluenza 3 (PCR) Parainfluenza 4 (PCR) RSV (PCR) Entero/Rhino (PCR) SARS-CoV-2 RNA (RT-PCR) 04/18/22 04/18/22 04/18/22 19:58 20:43 23:30 POC Glucose 149 H Lactic Acid Lactic Acid F/U @ 2Hr 1.9 Lactic Acid F/U @ 4Hr Magnesium 1.4 L* Troponin I High Sens Procalcitonin Respiratory Panel Mei Adenovirus (Rapid PCR) B.pert (TEM-PCR) B.parapertussis DNA PCR C. pneumoniae DNA (PCR) Coronavirus OC43 (PCR) Coronavirus HKU1 (PCR) Coronavirus 229E (PCR) Coronavirus NL63 (PCR) Human Metapneumovir PCR Influenza A (RT-PCR) Influenza B (RT-PCR) M. pneumoniae (PCR) Parainfluenza 1 (PCR) Parainfluenza 2 (PCR) Parainfluenza 3 (PCR) Parainfluenza 4 (PCR) RSV (PCR) Entero/Rhino (PCR) SARS-CoV-2 RNA (RT-PCR) 04/19/22 04/19/22 04/19/22 07:48 11:58 13:06 POC Glucose 131 H 123 H 120 H Lactic Acid Lactic Acid F/U @ 2Hr Lactic Acid F/U @ 4Hr Magnesium Troponin I High Sens Procalcitonin Respiratory Panel Mei Adenovirus (Rapid PCR) B.pert (TEM-PCR) B.parapertussis DNA PCR C. pneumoniae DNA (PCR) Coronavirus OC43 (PCR) Coronavirus HKU1 (PCR) Coronavirus 229E (PCR) Coronavirus NL63 (PCR) Human Metapneumovir PCR Influenza A (RT-PCR) Influenza B (RT-PCR) M. pneumoniae (PCR) Parainfluenza 1 (PCR) Parainfluenza 2 (PCR) Parainfluenza 3 (PCR) Parainfluenza 4 (PCR) RSV (PCR) Entero/Rhino (PCR) SARS-CoV-2 RNA (RT-PCR) Microbiology Microbiology Results: Microbiology 04/18/22 10:30 Blood Culture - Preliminary Blood - Venous No growth after 24 hours. 04/18/22 10:29 Blood Culture - Preliminary Blood - Venous No growth after 24 hours. Assessment and Plan (1) Sepsis: Status: Acute Plan This is a 62-year-old care one resident with history of multiple myeloma, CKD 3, cardiomyopathy, hypertension, diabetes, hyperlipidemia who was sent to the emergency department with fever and lethargy found to have severe sepsis/hypotension Severe sepsis secondary to pneumonia (pt refused follow up labs this am) Meet sepsis criteria with fever of 102, leukocytosis 13.3 Severe features with DORIAN, elevated lactic acid up to 5.5. improved with IVF sepsis focused exam completed. s/p 30cc/kg bolus + and additional 1500 cc for total 3.2L CT chest showing evidence of right greater then left lower lobe consolidation ct abdomen with no additional source of infection RPP + for enetro/rhinovirus. covid negative. procalcitonin elevated at 6.57 follow up blood cultures continue empiric broad spectrum antibiotics encephalopathy, likely metabolic r/t hypotension, sepsis appears to have improved with improvement in blood pressure. pt now awake, alert. seems to be at baseline brain CT negative no focal neuro deficits appreciated DORIAN on CKD3 r/t sepsis avoid nephrotoxins continue gentle IVF follow renal function elevated troponin possibly r/t demand from sepsis/hypotention denies chest pain repeat trop ordered DM hold metformin SSI, POCs HTN hypotensive on arrival hold baseline meds Seizure disorder continue home dose of keppra CAD/Cardiomyopathy EF 20-25% with global hypokinesis hold entresto, carvedilol, verquvo continue asa, plavix, statin follow fluid status closely schizoaffective d/o continue baseline medications Hypothyroidism Continue levothyroxine severe protein calorie malnutrition bmi 17, loss of muscle mass supplements added dvt ppx - renal dose lovenox code status - paperwork indicates DNR/DNI Guardian Yessenia [phone] Attending - dr. golden Due to severe sepsis with hypotension patient will likely require 2 midnight stay in hospital for further workup to identify source and IV antibiotics. Quality Stroke Does the patient have a stroke diagnosis?: No VTE Prior VTE?: No VTE Risk Level:: Medical - moderate - high VTE Device Contraindication: N/A - Device Ordered VTE Drug Contraindication: N/A - Med Ordered
[2022-04-19 16:43] LABS: Glucose, Whole Blood 159 mg/dL (60-115)
[2022-04-19] MEDS: Lactated Ringers 1,000 ML 80 ML IVCONT (19:48)
[2022-04-19 20:54] LABS: Glucose, Whole Blood 173 mg/dL (60-115)
[2022-04-19] MEDS: QUEtiapine Fumarate 400 MG TABLET PO (21:16)
[2022-04-19] MEDS: Atorvastatin Calcium 10 MG TABLET PO (21:16)
[2022-04-19] MEDS: rOPINIRole HCL 0.25 MG TABLET PO (21:16)
[2022-04-19] MEDS: Ferrous Sulfate 324 MG TABLET.DR PO (21:16)
[2022-04-19] MEDS: levETIRAcetam 1,000 MG TABLET 1000 MG PO (21:16)
[2022-04-19] MEDS: Pregabalin 25 MG CAPSULE PO (21:16)
[2022-04-19] MEDS: Insulin Lispro 100 UNIT/ML 3 ML VIAL SUBCUT (21:17)
[2022-04-19] MEDS: Miconazole 2 % Extra Thick Cr 56.7 Gm Tube 1 APPL TOPICAL (22:32)
[2022-04-20 00:42] VITALS: BP 143/77; PULSE 100; RESP 18; TEMP 37.4; O2SAT 92
[2022-04-20] MEDS: 0.9 % Sodium Chloride Flush 3 ML SYRINGE IVFLUSH ×2 (01:35→10:30)
[2022-04-20 08:00] VITALS: BP 138/66; PULSE 75; RESP 16; TEMP 36.6; O2SAT 97
[2022-04-20 08:05] LABS: Glucose, Whole Blood 98 mg/dL (60-115)
[2022-04-20 09:47] LABS: Hematocrit 26.2 % (42.0-52.0); Hemoglobin 8.4 g/dl (14.0-18.0); Mean Corpuscular HGB Conc 32.1 g/dl (31.0-36.0); Mean Corpuscular Volume 93.6 fL (80.0-98.0); Mean Platelet Volume 9.4 fL (9.4-12.4); Platelet Count 307 X10*3/uL (160-400); Red Cell Distribution Width 15.4 % (11.0-16.0); White Blood Count 11.5 X10*3/uL (4.8-10.8)
[2022-04-20 09:57] LABS: Anion Gap 13 (12-20); Blood Urea Nitrogen 24 mg/dL (9-16); Carbon Dioxide 22 mmol/L (22-29); Chloride 108 mmol/L (96-108); Creatinine Clr Calc Pharmacy 40.7; Estimated Glomerular Filt Rate 48; Glucose Random 105 mg/dL (60-115); Potassium 3.9 mmol/L (3.3-5.1); Sodium 139 mmol/L (135-145)
[2022-04-20 10:03] LABS: Vancomycin Random 9.2 mcg/mL (15-20)
--- NOTE | 2022-04-20 10:11 | HE.PHANOTE ---
Addendum entered by Paula Avalos RPh 04/20/22 10:13: Edit: 500mg additional dose not entered into [employer], new predicted AUC for 1000mg Q24H is 441mg/L Original Note: RE: vanco Trough on 04/20/22 came back at 9.2mg/L; increased dose to 1000mg Q24H with predicted AUC 478mg/L. Renal function improving, next level to be drawn 04/22 @0900
[2022-04-20] MEDS: Lactated Ringers 1,000 ML 80 ML IVCONT (10:15)
[2022-04-20] MEDS: cefEPime HCl 1 GM in 0.9 % Sodium Chloride 50 ML IV ×2 (10:28→20:57)
[2022-04-20] MEDS: Miconazole 2 % Extra Thick Cr 56.7 Gm Tube 1 APPL TOPICAL (10:31)
[2022-04-20 11:26] LABS: Glucose, Whole Blood 97 mg/dL (60-115)
[2022-04-20] MEDS: vancomycin HCL 1,000 MG in 0.9 % Sodium Chloride 250 ML 270 MG IV (11:34)
[2022-04-20 11:45] VITALS: BP 163/87; PULSE 66; RESP 17; TEMP 37.2; O2SAT 99
[2022-04-20 12:55] VITALS: BMI 16.9
--- NOTE | 2022-04-20 12:59 | PC.NURSE ---
During assessment this morning pt was noted to be very lethargic. Pt was arousable to voice, and oriented x2 (self-place). Pt was deemed by RN to not be safe taking PO meds so medication were held and provider was notified. [employer] is aware
--- NOTE | 2022-04-20 14:22 | P.PNIM_ITS ---
Subjective Subjective Date of Service: 04/20/22 Interval History: follow up for sepsis Patient is awake, alert, answering questions appropriately Denies pain Review of Systems Review of Systems: Yes all other systems are reviewed and are negative Constitutional Constitutional: Denies chills and Denies fever(s) Cardiovascular Cardiovascular: Denies chest pain and Denies dyspnea Respiratory Respiratory: Denies dyspnea Gastrointestinal Gastrointestinal: Denies abdominal pain Physical Exam 2 Vital Signs: Vital Signs: Last Vital Signs Temp 98.9 F 04/20/22 11:45 Pulse 66 04/20/22 11:45 Resp 17 04/20/22 11:45 BP 163/87 H 04/20/22 11:45 Pulse Ox 99 04/20/22 11:45 O2 Del Method 04/20/22 11:45 O2 Flow Rate 2 04/19/22 03:43 Oxygen Flow Rate 2 04/18/22 10:02 BMI result Body Mass Index 16.9 Appearing in no acute distress lung sounds are clear to auscultation heart regular rate rhythm, clear S1, S2 positive bowel sounds, abdomen is soft, nontender neuro patient, confused, thick speech Objective Data Active Medications Acetaminophen (Acetaminophen 325 Mg Tablet) 650 mg PO Q6H PRN PRN Reason: Pain, Mild (Pain Scale 1-3) Last Admin: 04/18/22 19:30 Dose: 650 mg Documented By: SELENA Atorvastatin Calcium (Atorvastatin Calcium 10 Mg Tablet) 10 mg PO BEDTIME [facility] Last Admin: 04/19/22 21:16 Dose: 10 mg Documented By: FIDEL Clopidogrel Bisulfate (Clopidogrel Bisulfate 75 Mg Tablet) 75 mg PO DAILY [facility] Last Admin: 04/20/22 10:37 Dose: Not Given Documented By: YUSUF Non-Admin Reason: Patient Refused Docusate Sodium (Docusate Sodium 100 Mg Capsule) 100 mg PO DAILY [facility] Last Admin: 04/20/22 10:37 Dose: Not Given Documented By: YUSUF Non-Admin Reason: Patient Refused Enoxaparin Sodium (Enoxaparin Sodium 30 Mg/0.3 Ml Syringe) 30 mg SUBCUT Q24H [facility] Last Admin: 04/19/22 16:52 Dose: Not Given Documented By: AAYUSH Non-Admin Reason: Patient Refused Ferrous Sulfate (Ferrous Sulfate 324 Mg Jorge.) 324 mg PO BID [facility] Last Admin: 04/20/22 10:37 Dose: Not Given Documented By: YUSUF Non-Admin Reason: Patient Refused Cefepime HCl 1 gm/ Sodium (Chloride) 50 mls @ 100 mls/hr IV Q12H [facility] Last Infusion: 04/20/22 11:45 Dose: 0 mls/hr Documented By: YUSUF Lactated Ringer's (Lr) 1,000 mls @ 80 mls/hr IVCONT .[id number] [facility] Last Admin: 04/20/22 10:15 Dose: 80 mls/hr Documented By: YUSUF Vancomycin HCl 1,000 mg/ (Sodium Chloride) 270 mls @ 270 mls/hr IV Q24H [facility] Last Infusion: 04/20/22 12:49 Dose: 0 mls/hr Documented By: YUSUF Insulin Human Lispro (Insulin Lispro 100 Unit/Ml 3 Ml Vial) 0 unit SUBCUT QIDACHS [facility]; Protocol Last Admin: 04/20/22 12:09 Dose: Not Given Documented By: YUSUF Non-Admin Reason: No Insulin Coverage Levetiracetam (Levetiracetam 1,000 Mg Tablet) 1,000 mg PO BID [facility] Last Admin: 04/20/22 10:37 Dose: Not Given Documented By: YUSUF Non-Admin Reason: Patient Refused Levothyroxine Sodium (Levothyroxine Sodium 75 Mcg Tablet) 75 mcg PO DAILY@0630 [facility] Last Admin: 04/20/22 06:05 Dose: Not Given Documented By: ANDIE Non-Admin Reason: Patient Refused Lorazepam (Lorazepam 1 Mg Tablet) 1 mg PO BID PRN PRN Reason: Anxiety Last Admin: 04/19/22 17:42 Dose: 1 mg Documented By: AAYUSH Miconazole Nitrate (Miconazole 2 % Extra Thick Cr 56.7 Gm Tube) 1 appl TOPICAL BID [facility]; Protocol Last Admin: 04/20/22 10:31 Dose: 1 appl Documented By: YUSUF Non-Formulary Medication (Dorzolamide-Timolol (Pf)) 1 drop EYE-BOTH BID [facility] Ondansetron HCl (Ondansetron Hcl 4 Mg/2 Ml Vial) 4 mg IVPUSH Q8H PRN PRN Reason: Nausea and Vomiting Pharmacy Consult (Consult Rx Perform Med Rec) 1 each MISCELLANE ONCE PRN PRN Reason: Consult order Pharmacy Consult (Consult Rx Perform Med Rec) 1 each MISCELLANE ONCE PRN PRN Reason: Consult order Pharmacy Consult (Consult Rx Vancomycin Dosing) 1 each MISCELLANE DAILY PRN PRN Reason: Consult order Pregabalin (Pregabalin 25 Mg Capsule) 25 mg PO BID [facility] Last Admin: 04/20/22 10:37 Dose: Not Given Documented By: YUSUF Non-Admin Reason: Patient Refused Quetiapine Fumarate (Quetiapine Fumarate 400 Mg Tablet) 400 mg PO BID [facility] Last Admin: 04/20/22 10:37 Dose: Not Given Documented By: YUSUF Non-Admin Reason: Patient Refused Ropinirole HCl (Ropinirole Hcl 0.25 Mg Tablet) 0.25 mg PO BID [facility] Last Admin: 04/20/22 10:37 Dose: Not Given Documented By: YUSUF Non-Admin Reason: Patient Refused Senna (Sennosides 8.6 Mg Tablet) 8.6 mg PO DAILY [facility] Last Admin: 04/20/22 10:31 Dose: Not Given Documented By: YUSUF Non-Admin Reason: Patient Refused Sodium Chloride (0.9 % Sodium Chloride Flush 3 Ml Syringe) 3 ml IVFLUSH QSHIFT [facility] Last Admin: 04/20/22 10:30 Dose: 3 ml Documented By: YUSUF Labs CBC & Chem 7: 04/20/22 09:31 04/20/22 09:31 Labs: Laboratory Results - last 24 hr 04/19/22 04/19/22 04/20/22 16:39 20:49 08:00 MCV MCH MCHC RDW Plt Count MPV Absolute Nucleated RBC Nucleated RBC % (auto) Anion Gap Estim Creat Clear Calc Estimated GFR POC Glucose 159 H 173 H 98 Random Glucose Calcium Random Vancomycin 04/20/22 04/20/22 04/20/22 09:31 09:31 09:31 MCV 93.6 MCH 30.0 MCHC 32.1 RDW 15.4 Plt Count 307 MPV 9.4 Absolute Nucleated RBC 0.000 Nucleated RBC % (auto) 0.0 Anion Gap 13 Estim Creat Clear Calc 40.7 Estimated GFR 48 POC Glucose Random Glucose 105 Calcium 8.0 L D Random Vancomycin 9.2 L 04/20/22 11:13 MCV MCH MCHC RDW Plt Count MPV Absolute Nucleated RBC Nucleated RBC % (auto) Anion Gap Estim Creat Clear Calc Estimated GFR POC Glucose 97 Random Glucose Calcium Random Vancomycin Microbiology Microbiology Results: Microbiology 04/18/22 10:30 Blood Culture - Preliminary Blood - Venous No growth after 48 hours. 04/18/22 10:29 Blood Culture - Preliminary Blood - Venous No growth after 48 hours. Assessment and Plan (1) Sepsis: Status: Acute Plan This is a 62-year-old care one resident with history of multiple myeloma, CKD 3, cardiomyopathy, hypertension, diabetes, hyperlipidemia who was sent to the emergency department with fever and lethargy found to have severe sepsis/hypotension Severe sepsis secondary to pneumonia (pt refused follow up labs this am) Meet sepsis criteria with fever of 102, leukocytosis 13.3 Severe features with DORIAN, elevated lactic acid up to 5.5. improved with IVF sepsis focused exam completed. s/p 30cc/kg bolus + and additional 1500 cc for total 3.2L CT chest showing evidence of right greater then left lower lobe consolidation ct abdomen with no additional source of infection RPP + for enetro/rhinovirus. covid negative. procalcitonin elevated at 6.57 follow up blood cultures continue empiric broad spectrum antibiotics encephalopathy, likely metabolic r/t hypotension, sepsis appears to have improved with improvement in blood pressure. pt now awake, alert. seems to be at baseline brain CT negative no focal neuro deficits appreciated DORIAN on CKD3 r/t sepsis avoid nephrotoxins continue gentle IVF follow renal function elevated troponin possibly r/t demand from sepsis/hypotention denies chest pain repeat trop ordered DM hold metformin SSI, POCs HTN hypotensive on arrival hold baseline meds Seizure disorder continue home dose of keppra CAD/Cardiomyopathy EF 20-25% with global hypokinesis hold entresto, carvedilol, verquvo continue asa, plavix, statin follow fluid status closely schizoaffective d/o continue baseline medications Hypothyroidism Continue levothyroxine severe protein calorie malnutrition bmi 17, loss of muscle mass supplements added dvt ppx - renal dose lovenox code status - paperwork indicates DNR/DNI Guardian Yessenia [phone] Attending - dr. Dawkins continued hospital stay for tx of PNA with IV antibiotics. Quality Stroke Does the patient have a stroke diagnosis?: No VTE Prior VTE?: No VTE Risk Level:: Medical - moderate - high VTE Device Contraindication: N/A - Device Ordered VTE Drug Contraindication: N/A - Med Ordered
[2022-04-20 16:00] VITALS: BP 176/77; PULSE 114; RESP 17; TEMP 36.4; O2SAT 92
[2022-04-20 16:19] LABS: Glucose, Whole Blood 95 mg/dL (60-115)
--- NOTE | 2022-04-20 16:36 | MHC.CM.PN ---
DP return to [facility] via BLS @ discharge.
[2022-04-20] MEDS: Enoxaparin Sodium 30 MG/0.3 ML SYRINGE SUBCUT (16:51)
[2022-04-20 17:10] VITALS: BP 158/75; PULSE 86; O2SAT 94
[2022-04-20 20:00] VITALS: BP 146/65; PULSE 66; RESP 18; TEMP 36.6; O2SAT 96
[2022-04-20 20:10] LABS: Glucose, Whole Blood 153 mg/dL (60-115)
[2022-04-20] MEDS: levETIRAcetam 1,000 MG TABLET 1000 MG PO (21:00)
[2022-04-20] MEDS: Pregabalin 25 MG CAPSULE PO (21:02)
[2022-04-20] MEDS: rOPINIRole HCL 0.25 MG TABLET PO (21:02)
[2022-04-20] MEDS: Insulin Lispro 100 UNIT/ML 3 ML VIAL SUBCUT (21:02)
[2022-04-20] MEDS: QUEtiapine Fumarate 400 MG TABLET PO (21:02)
[2022-04-20] MEDS: Ferrous Sulfate 324 MG TABLET.DR PO (21:02)
[2022-04-20] MEDS: Atorvastatin Calcium 10 MG TABLET PO (21:02)
[2022-04-21] VITALS: BP 162/70; PULSE 74; RESP 15; TEMP 36.8; O2SAT 98
[2022-04-21] MEDS: 0.9 % Sodium Chloride Flush 3 ML SYRINGE IVFLUSH ×3 (05:29→17:22)
[2022-04-21] MEDS: Levothyroxine Sodium 75 MCG TABLET PO (05:30)
[2022-04-21 06:48] LABS: Anion Gap 13 (12-20); Blood Urea Nitrogen 19 mg/dL (9-16); Calcium 7.6 mg/dL (8.4-10.2); Carbon Dioxide 20 mmol/L (22-29); Chloride 109 mmol/L (96-108); Creatinine Clr Calc Pharmacy 44.3; Estimated Glomerular Filt Rate 52; Glucose Random 109 mg/dL (60-115); Potassium 3.9 mmol/L (3.3-5.1); Sodium 138 mmol/L (135-145)
[2022-04-21 07:08] LABS: Procalcitonin 4.06 ng/mL
[2022-04-21 08:00] VITALS: BP 127/69; PULSE 94; RESP 18; TEMP 36.7; O2SAT 97
[2022-04-21 08:15] LABS: Glucose, Whole Blood 128 mg/dL (60-115)
--- NOTE | 2022-04-21 08:57 | HO.PM.IMPN ---
Subjective Subjective Date of Service: 04/21/22 Interval History: follow up for sepsis Patient is awake, alert, answering questions appropriately Denies pain Review of Systems Review of Systems: Yes all other systems are reviewed and are negative Constitutional Constitutional: Denies chills and Denies fever(s) Cardiovascular Cardiovascular: Denies chest pain and Denies dyspnea Respiratory Respiratory: Denies dyspnea Gastrointestinal Gastrointestinal: Denies abdominal pain Physical Exam Vital Signs: Vital Signs: Last Vital Signs Temp 98.0 F 04/21/22 08:00 Pulse 94 04/21/22 08:00 Resp 18 04/21/22 08:00 BP 127/69 04/21/22 08:00 Pulse Ox 97 04/21/22 08:00 O2 Del Method 04/21/22 08:00 O2 Flow Rate 2 04/19/22 03:43 Oxygen Flow Rate 2 04/18/22 10:02 BMI result Body Mass Index 16.9 Appearing in no acute distress lung sounds are clear to auscultation heart regular rate rhythm, clear S1, S2 positive bowel sounds, abdomen is soft, nontender neuro patient is alert x3, no focal deficits Objective Data Active Medications Acetaminophen (Acetaminophen 325 Mg Tablet) 650 mg PO Q6H PRN PRN Reason: Pain, Mild (Pain Scale 1-3) Last Admin: 04/18/22 19:30 Dose: 650 mg Documented By: SELENA Atorvastatin Calcium (Atorvastatin Calcium 10 Mg Tablet) 10 mg PO BEDTIME [facility] Last Admin: 04/20/22 21:02 Dose: 10 mg Documented By: ROCKY Clopidogrel Bisulfate (Clopidogrel Bisulfate 75 Mg Tablet) 75 mg PO DAILY [facility] Last Admin: 04/20/22 10:37 Dose: Not Given Documented By: YUSUF Non-Admin Reason: Patient Refused Docusate Sodium (Docusate Sodium 100 Mg Capsule) 100 mg PO DAILY [facility] Last Admin: 04/20/22 10:37 Dose: Not Given Documented By: YUSUF Non-Admin Reason: Patient Refused Enoxaparin Sodium (Enoxaparin Sodium 30 Mg/0.3 Ml Syringe) 30 mg SUBCUT Q24H [facility] Last Admin: 04/20/22 16:51 Dose: 30 mg Documented By: ROCKY Ferrous Sulfate (Ferrous Sulfate 324 Mg Tablet.) 324 mg PO BID [facility] Last Admin: 04/20/22 21:02 Dose: 324 mg Documented By: ROCKY Cefepime HCl 1 gm/ Sodium (Chloride) 50 mls @ 100 mls/hr IV Q12H [facility] Last Infusion: 04/20/22 22:19 Dose: 0 mls/hr Documented By: ROCKY Vancomycin HCl 1,000 mg/ (Sodium Chloride) 270 mls @ 270 mls/hr IV Q24H [facility] Last Infusion: 04/20/22 12:49 Dose: 0 mls/hr Documented By: YUSUF Insulin Human Lispro (Insulin Lispro 100 Unit/Ml 3 Ml Vial) 0 unit SUBCUT QIDACHS [facility]; Protocol Last Admin: 04/21/22 08:37 Dose: Not Given Documented By: KIRILL Non-Admin Reason: No Insulin Coverage Levetiracetam (Levetiracetam 1,000 Mg Tablet) 1,000 mg PO BID [facility] Last Admin: 04/20/22 21:00 Dose: 1,000 mg Documented By: ROCKY Levothyroxine Sodium (Levothyroxine Sodium 75 Mcg Tablet) 75 mcg PO DAILY@0630 [facility] Last Admin: 04/21/22 05:30 Dose: 75 mcg Documented By: ANAYA Lorazepam (Lorazepam 1 Mg Tablet) 1 mg PO BID PRN PRN Reason: Anxiety Last Admin: 04/19/22 17:42 Dose: 1 mg Documented By: AAYUSH Miconazole Nitrate (Miconazole 2 % Extra Thick Cr 56.7 Gm Tube) 1 appl TOPICAL BID [facility]; Protocol Last Admin: 04/20/22 21:03 Dose: Not Given Documented By: ROCKY Non-Admin Reason: Patient Refused Non-Formulary Medication (Dorzolamide-Timolol (Pf)) 1 drop EYE-BOTH BID [facility] Ondansetron HCl (Ondansetron Hcl 4 Mg/2 Ml Vial) 4 mg IVPUSH Q8H PRN PRN Reason: Nausea and Vomiting Pharmacy Consult (Consult Rx Perform Med Rec) 1 each MISCELLANE ONCE PRN PRN Reason: Consult order Pharmacy Consult (Consult Rx Perform Med Rec) 1 each MISCELLANE ONCE PRN PRN Reason: Consult order Pharmacy Consult (Consult Rx Vancomycin Dosing) 1 each MISCELLANE DAILY PRN PRN Reason: Consult order Pregabalin (Pregabalin 25 Mg Capsule) 25 mg PO BID [facility] Last Admin: 04/20/22 21:02 Dose: 25 mg Documented By: ROCKY Quetiapine Fumarate (Quetiapine Fumarate 400 Mg Tablet) 400 mg PO BID [facility] Last Admin: 04/20/22 21:02 Dose: 400 mg Documented By: ROCKY Ropinirole HCl (Ropinirole Hcl 0.25 Mg Tablet) 0.25 mg PO BID [facility] Last Admin: 04/20/22 21:02 Dose: 0.25 mg Documented By: ROCKY Senna (Sennosides 8.6 Mg Tablet) 8.6 mg PO DAILY [facility] Last Admin: 04/20/22 10:31 Dose: Not Given Documented By: YUSUF Non-Admin Reason: Patient Refused Sodium Chloride (0.9 % Sodium Chloride Flush 3 Ml Syringe) 3 ml IVFLUSH QSHIFT [facility] Last Admin: 04/21/22 05:29 Dose: 3 ml Documented By: ANAYA Labs CBC & Chem 7: 04/20/22 09:31 04/21/22 06:23 Labs: Laboratory Results - last 24 hr 04/20/22 04/20/22 04/20/22 09:31 09:31 09:31 MCV 93.6 MCH 30.0 MCHC 32.1 RDW 15.4 Plt Count 307 MPV 9.4 Absolute Nucleated RBC 0.000 Nucleated RBC % (auto) 0.0 Anion Gap 13 Estim Creat Clear Calc 40.7 Estimated GFR 48 POC Glucose Random Glucose 105 Calcium 8.0 L D Procalcitonin Random Vancomycin 9.2 L 04/20/22 04/20/22 04/20/22 11:13 16:10 20:05 MCV MCH MCHC RDW Plt Count MPV Absolute Nucleated RBC Nucleated RBC % (auto) Anion Gap Estim Creat Clear Calc Estimated GFR POC Glucose 97 95 153 H Random Glucose Calcium Procalcitonin Random Vancomycin 04/21/22 04/21/22 04/21/22 06:23 06:23 06:23 MCV MCH MCHC RDW Plt Count MPV Absolute Nucleated RBC Nucleated RBC % (auto) Anion Gap 13 Estim Creat Clear Calc Cancelled 44.3 Estimated GFR Cancelled 52 POC Glucose Random Glucose 109 Calcium 7.6 L Procalcitonin 4.06 Random Vancomycin 04/21/22 08:10 MCV MCH MCHC RDW Plt Count MPV Absolute Nucleated RBC Nucleated RBC % (auto) Anion Gap Estim Creat Clear Calc Estimated GFR POC Glucose 128 H Random Glucose Calcium Procalcitonin Random Vancomycin Microbiology Microbiology Results: Microbiology 04/18/22 10:30 Blood Culture - Preliminary Blood - Venous No growth after 48 hours. 04/18/22 10:29 Blood Culture - Preliminary Blood - Venous No growth after 48 hours. Assessment and Plan (1) Sepsis: Status: Acute Plan This is a 5 is [age]-year-old care one resident with history of multiple myeloma, CKD 3, cardiomyopathy, hypertension, diabetes, hyperlipidemia who was sent to the emergency department with fever and lethargy found to have severe sepsis/hypotension Severe sepsis secondary to pneumonia. Resolved CT chest showing evidence of right greater then left lower lobe consolidation ct abdomen with no additional source of infection RPP + for enetro/rhinovirus. covid negative. procalcitonin elevated at 6.57 follow up blood cultures continue empiric broad spectrum antibiotics encephalopathy, likely metabolic r/t hypotension, sepsis appears to have improved, more awake but confused, baseline brain CT negative no focal neuro deficits appreciated DORIAN on CKD3 r/t sepsis avoid nephrotoxins continue gentle IVF follow renal function elevated troponin possibly r/t demand from sepsis/hypotention denies chest pain repeat trop ordered DM hold metformin SSI, POCs HTN hypotensive on arrival, better now Continue carvedilol Seizure disorder continue home dose of keppra CAD/Cardiomyopathy EF 20-25% with global hypokinesis continue asa, plavix, statin, BB, entresto follow fluid status closely schizoaffective d/o continue baseline medications Hypothyroidism Continue levothyroxine severe protein calorie malnutrition bmi 17, loss of muscle mass supplements added dvt ppx - renal dose lovenox code status - paperwork indicates DNR/DNI Attending - dr. Dawkins DISPO back to [facility] when medically cleared the continued hospital stay for tx of PNA with IV antibiotics. Quality Stroke Does the patient have a stroke diagnosis?: No VTE Prior VTE?: No VTE Risk Level:: Medical - moderate - high VTE Device Contraindication: N/A - Device Ordered VTE Drug Contraindication: N/A - Med Ordered
[2022-04-21] MEDS: cefEPime HCl 1 GM in 0.9 % Sodium Chloride 50 ML IV ×2 (10:30→21:07)
[2022-04-21] MEDS: Pregabalin 25 MG CAPSULE PO ×2 (10:45→21:07)
[2022-04-21] MEDS: rOPINIRole HCL 0.25 MG TABLET PO ×2 (10:45→21:07)
[2022-04-21] MEDS: Sennosides 8.6 MG TABLET PO (10:45)
[2022-04-21] MEDS: Clopidogrel Bisulfate 75 MG TABLET PO (10:45)
[2022-04-21] MEDS: levETIRAcetam 1,000 MG TABLET 1000 MG PO ×2 (10:46→21:07)
[2022-04-21] MEDS: LORazepam 1 MG TABLET PO (10:46)
[2022-04-21] MEDS: Docusate Sodium 100 MG CAPSULE PO (10:46)
[2022-04-21] MEDS: Acetaminophen 325 MG TABLET 650 MG PO (10:46)
[2022-04-21] MEDS: Ferrous Sulfate 324 MG TABLET.DR PO ×2 (10:46→21:07)
[2022-04-21] MEDS: QUEtiapine Fumarate 400 MG TABLET PO ×2 (10:46→21:07)
--- NOTE | 2022-04-21 11:14 | PC.NURSE ---
pt was noted to have a ramos catheter, but no order for one. Pt c/o some discomfort in his penis. After speaking with KALA Chapa, the ramos was pulled at approx. 1100. Pt is DTV by 1700
[2022-04-21 11:47] VITALS: BP 142/69; PULSE 81; RESP 20; TEMP 36.7; O2SAT 98
[2022-04-21 11:55] LABS: Glucose, Whole Blood 165 mg/dL (60-115)
[2022-04-21] MEDS: Insulin Lispro 100 UNIT/ML 3 ML VIAL SUBCUT (12:26)
[2022-04-21] MEDS: vancomycin HCL 1,000 MG in 0.9 % Sodium Chloride 250 ML 270 MG IV (12:28)
[2022-04-21 15:56] VITALS: BP 114/59; PULSE 72; RESP 18; TEMP 35.9; O2SAT 99
[2022-04-21 16:07] LABS: Glucose, Whole Blood 125 mg/dL (60-115)
[2022-04-21 19:47] VITALS: BP 164/77; PULSE 74; RESP 17; TEMP 36.8; O2SAT 98
[2022-04-21 20:14] LABS: Glucose, Whole Blood 132 mg/dL (60-115)
[2022-04-21] MEDS: carvediloL 6.25 MG TABLET PO (21:07)
[2022-04-21] MEDS: Atorvastatin Calcium 10 MG TABLET PO (21:07)
[2022-04-21 23:24] VITALS: BP 115/60; PULSE 76; RESP 17; TEMP 36.4; O2SAT 98
[2022-04-22 07:40] VITALS: BP 114/60; PULSE 82; RESP 18; TEMP 37.1; O2SAT 98
[2022-04-22 07:50] LABS: Glucose, Whole Blood 108 mg/dL (60-115)
[2022-04-22 11:34] VITALS: BP 139/69; PULSE 67; RESP 18; TEMP 36.4; O2SAT 95
[2022-04-22 11:42] LABS: Glucose, Whole Blood 149 mg/dL (60-115)
--- NOTE | 2022-04-22 11:57 | MHC.CLN ---
PT IS SEVERELY MALNOURISHED PT IS SEVERELY DEPLETED IN SUBCUTANEOUS FAT AND MUSCLE MASS WITH BMI 16.9 NOTED CACHETIC AND ADDED SUPPLEMENTS PO INTAKE VARIABLE BETWEEN 0-75% X4 MEALS DIET RX: 2000DM PUREED-APPROPRIATE PT RECEIVING GLUCERNA BID TO INCREASE KCALS PROVIDES 474KCALS, 20G PROTEIN MONITOR PO INTAKE CLOSELY
--- NOTE | 2022-04-22 12:06 | P.DS_ITS ---
DS: Providers Provider Date of Service: 04/22/22 Date of admission: 04/18/22 15:38 Date of discharge: 04/22/22 Primary care physician: Uriel Callaway DO Consults: 04/19/22 17:48 Consult for Sitter Routine Reason for consultation: safety,agitation, trying to get out of bed Has provider been notified: No Attending physician on discharge: Dayton Dawkins Discharging clinician: Evelia Woods DS: Diagnosis Discharge Diagnosis (1) Sepsis: Status: Acute DS: Summary Hospital Course Hospital Course: from H&P on day of admission This is a 62 year old male with history of CKD3, cardiomyopathy, HTN, HLD, seizure disorder, schizoaffective disorder, multiple myeloma long-term care resident at [facility] who was sent to the emergency department for evaluation of lethargy and fever.? On arrival patient had a temperature of 102 degrees and blood pressure in the 70s.? He received 30 cc/kg bolus as well as an additional 1.5 L of normal saline and gradually his blood pressure improved. ? Reportedly he was altered on arrival but as blood pressure improved became more alert.? Chest x-ray and urinalysis were both unremarkable.? Brain CT showed no evidence of acute intracranial abnormality.? Lactic acid was elevated at 2.9, initial troponin 196.? The patient was able to tell me his name and that he was at the hospital.? He denies any abdominal pain, chest pain, shortness of breath, cough.? He did report pain in his genitals.? He was started on broad-spectrum antibiotics. He was initially evaluated by ICU attending but because blood pressure improved the decision was made to admit him to the medical floor. Severe sepsis secondary to pneumonia.CT chest showing evidence of right greater then left lower lobe consolidation. ct abdomen with no additional source of infection RPP + for enetro/rhinovirus. covid negative. procalcitonin elevated at 6.57, trending down. blood cultures have remained negative. Patient has been a febrile. Blood pressure has remained stable. Initially treated with cefepime and vancomycin will transition to Ceftin and doxy on discharge. Has remained on room air. encephalopathy, likely metabolic. r/t hypotension, sepsis. appears to be back to baseline. brain CT negative DORIAN on CKD3. r/t sepsis. resolved with IV fluid elevated troponin possibly r/t demand from sepsis/hypotention denies chest pain repeat trop ordered Time Spent with Patient Time attestation: Total time spent providing and/or coordinating discharge services: Discharge coordination time: Greater than 30 minutes Quality: Safe Use of Opioids Does Pt have an Active Cancer Diagnosis on the Problem List?: No Quality: Stroke Does the patient have a stroke diagnosis?: No Physical Exam Vital Signs: Vital Signs: Last Vital Signs Temp 97.5 F 04/22/22 11:34 Pulse 67 04/22/22 11:34 Resp 18 04/22/22 11:34 BP 139/69 04/22/22 11:34 Pulse Ox 95 04/22/22 11:34 O2 Del Method 04/22/22 11:34 O2 Flow Rate 2 04/19/22 03:43 Oxygen Flow Rate 2 04/18/22 10:02 BMI result Body Mass Index 16.9 Const: Other: chronically ill appearing; awake, alert; speaking in full sentences, answering most questions appropriately General: comfortable, alert and awake Nutritional Appearance: cachectic Orientation/consciousness: oriented to person and oriented to place Resp: Effort & Inspection: normal respiratory effort and able to speak in complete sentences Auscultation: clear to auscultation bilaterally Cardio: Rate: regular rate Heart sounds: S1 normal heart sound present and S2 normal heart sound present GI: Inspection: No distended Palpation (GI): Soft to palpation and nontender Neuro: General: oriented to person and oriented to place Extrem: Other: able to move all 4 extremities spontaneously DS: Data Data Completed and Pending Labs on day of discharge: Laboratory Results - last 24 hr 04/21/22 04/21/22 04/22/22 15:57 20:08 07:43 POC Glucose 125 H 132 H 108 04/22/22 11:35 POC Glucose 149 H Preliminary micro results at discharge 04/18/22 10:30 Blood Culture - Preliminary Blood - Venous No growth after 48 hours. 04/18/22 10:29 Blood Culture - Preliminary Blood - Venous No growth after 48 hours. Discharge Plan Discharge Patient Disposition: [facility] Discharge Diagnosis: sepsis, pneumonia Referrals: [facility] [Outside] - 1 Week Uriel Callaway DO [Primary Care Provider] - 1 Week Discharge Medications: New doxycycline hyclate 100 mg tablet 100 mg PO BID 3 Days Qty: 6 0RF cefuroxime axetil 250 mg tablet 250 mg PO BID Qty: 6 0RF Continued acetaminophen 325 mg Tablet 650 mg PO Q4H PRN (Reason: Fever Or Pain) bisacodyl 10 mg Suppository 10 mg PA DAILY PRN (Reason: Constipation) ferrous sulfate 325 mg (65 mg iron) Tablet 325 mg PO BID dorzolamide-timolol (PF) 2-0.5 % Drops 1 drp OPHTHALMIC (EYE) BID Rx Instructions: instill 1 drop in both eyes sennosides [senna] 8.6 mg Tablet 8.6 mg PO DAILY PRN (Reason: Constipation) levothyroxine 75 mcg Tablet 75 mcg PO DAILY@0630 ropinirole 0.25 mg Tablet 0.25 mg PO BID metformin 1,000 mg Tablet 1,000 mg PO BID lorazepam 1 mg Tablet 1 mg PO BID PRN (Reason: Anxiety) oxycodone 5 mg Tablet 2.5 mg PO Q6H PRN (Reason: Pain) pregabalin [Lyrica] 25 mg Capsule 25 mg PO BID levetiracetam [Keppra] 1,000 mg Tablet 1,000 mg PO BID epinephrine [EpiPen 2-Raghu] 0.3 mg/0.3 mL Auto-Injector 0.3 mg IM Q4H PRN (Reason: Allergic Reaction) Rx Instructions: may repeat once after 15 min with no relief multivitamin Tablet 1 tab PO DAILY atorvastatin 10 mg Tablet 10 mg PO BEDTIME quetiapine 200 mg Tablet Extended Release 24 Hr 400 mg PO BID naloxone 0.4 mg/mL Solution 1 mg intranasal DIRECTED MDD 1 PRN (Reason: Opioid Overdose) carvedilol 6.25 mg tablet 6.25 mg PO BID Protocol: Hold for SBP/HR < HOLD for SBP < : 90 HOLD for HR < : 60 clopidogrel 75 mg tablet 75 mg PO DAILY aspirin 81 mg tablet,delayed release (DR/EC) 81 mg PO DAILY doxazosin 2 mg tablet 4 mg PO BEDTIME Protocol: Hold for SBP< HOLD for SBP < : 90 miconazole nitrate 2 % Cream 1 appl TOPICAL BID Rx Instructions: apply to bilateral buttocks miconazole nitrate 2 % Cream 1 appl TOPICAL BID PRN (Reason: fungal rash) Rx Instructions: apply to bilateral buttocks sennosides [senna] 8.6 mg Tablet 8.6 mg PO DAILY Discontinued Entresto 24-26 mg Tablet 1 tab PO BID Rx Instructions: hold for SBP <100 and DBP <60 Verquvo 2.5 mg Tablet 2.5 mg PO DAILY Rx Instructions: must administer with a meal/food Discharge Orders: Discharge Order (Routine); Ordered 04/22/22 Ordered By: Evelia Woods Activity on Discharge: As tolerated Stand Alone Forms: Patient Portal Discharge page Care Plan Goals: see below Health Concerns: severe sepsis secondary to pneumonia- 3 more days of cetin/doxy rhino/enterovirus hypotension-improved DORIAN-resolved encephalopathy-resolved Plan of Treatment: complete course of antibiotics renal function has returned to baseline entresto and verquvo have been placed on hold for low blood pressure - resume outpatient as blood pressure allows Assessment: see discharge summary
--- NOTE | 2022-04-22 13:15 | MHC.CM.PN ---
Patient has been medically cleared for dc today to return to LTC. Patient will dc back to [facility] for LTC today at 3:30 PM via [facility]. CM has left a detailed message for and addressed IMM with Patient's Guardian/Yessenia @ [phone].
[2022-04-22 14:15] LABS: COVID-19 Test Negative (Negative); IDNOW Serial# 9DB6401D
--- NOTE | 2022-04-22 16:13 | PC.NURSE ---
Alert and confused. VSS, afebrile, no acute resp. distress noted. Refused blood work and medications after multiple attempts. PA. Woods updated. New order to discharge patient back to [facility] today. Report called in to nurse Bustamante. Report given to EMS. Patient left the hospital via stretcher accompanied by 2EMTs.
== END 2022-04-22 16:00 | DRG 720 ==
LOC: HO.ED 13:30 → HO.EDOVER 15:59 → HO.IMC 04-19 14:26
PROVIDERS: Internal Medicine; Internal Medicine Cardiovascular Disease; Nurse Practitioner Acute Care; Admitting Provider Physician Assistant Medical; Emergency Provider Emergency Medicine; PCP Hospitalist; Visit Provider Physician Assistant Medical
DX: A41.9 Sepsis, unspecified organism (principal); G93.41 Metabolic encephalopathy; E43 Unspecified severe protein-calorie malnutrition; E87.20 Acidosis, unspecified; J18.9 Pneumonia, unspecified organism; I24.8 Other forms of acute ischemic heart disease; N17.9 Acute kidney failure, unspecified; F25.9 Schizoaffective disorder, unspecified; C90.00 Multiple myeloma not having achieved remission; E11.22 Type 2 diabetes mellitus with diabetic chronic kidney disease; Z68.1 Body mass index [BMI] 19.9 or less, adult; R65.20 Severe sepsis without septic shock; Z66 Do not resuscitate; I25.10 Atherosclerotic heart disease of native coronary artery without angina pectoris; E03.9 Hypothyroidism, unspecified; I25.5 Ischemic cardiomyopathy; N18.31 Chronic kidney disease, stage 3a; I12.9 Hypertensive chronic kidney disease with stage 1 through stage 4 chronic kidney disease, or unspecified chronic kidney disease; B97.10 Unspecified enterovirus as the cause of diseases classified elsewhere; G40.909 Epilepsy, unspecified, not intractable, without status epilepticus; H54.8 Legal blindness, as defined in USA; Z95.1 Presence of aortocoronary bypass graft; Z79.02 Long term (current) use of antithrombotics/antiplatelets; Z79.82 Long term (current) use of aspirin; Z79.84 Long term (current) use of oral hypoglycemic drugs; Z79.899 Other long term (current) drug therapy
CPT/HCPCS: 36415; 70450; 71045; 71250; 74176; 80048; 80053; 80202; 81001; 82550; 82947; 83605; 83735; 84145; 84484; 85025; 85027; 85610; 85730; 87040; 87633; 87635; 93005; 99285; J0692; J1200; J1650; J3370; J3475

== ENCOUNTER 2022-05-31 12:41 | Emergency (ER) | payer MEDICAID, SELFPAY ==
[2022-05-31] VITALS (7 sets, daily range): BP systolic 94–113; BP diastolic 41–74; PULSE 78–90; RESP 16–22; TEMP 36.7–36.9; O2SAT 95–100; BMI 25.8
--- NOTE | ~2022-05-31 | XR_ITS ---
EXAMINATION: PORTABLE CHEST 1 VIEW CLINICAL INFORMATION: Chest pain . COMPARISON: Prior studies including the 04/18/2022 CT scan. TECHNIQUE: Portable frontal view of the chest was obtained. FINDINGS: The lungs are well expanded. No focal infiltrate, effusion, edema, or pneumothorax. Cardiac and mediastinal silhouettes are within normal limits for size. Patient status post sternotomy and CABG. Vascular calcification seen in the aorta. Again no mixed lytic bone marrow pattern is seen in the visualized skeleton. Etiology of this is uncertain. Metastatic disease or multiple myeloma could have a similar appearance. This bone marrow pattern is similar to the oldest available study of 02/13/2021. No acute bony abnormality seen. XR/XR chest 1V IMPRESSION: 1. Chronic appearing and postoperative changes. I do not appreciate any acute superimposed airspace disease. 2. In the visualized skeleton there is a mixed lytic bone marrow pattern. Etiology is uncertain. Metastatic disease or multiple myeloma could have a similar appearance.
--- NOTE | 2022-05-31 12:53 | ECG_ITS ---
Test Reason : cp Blood Pressure : / mmHG Vent. Rate : 087 BPM Atrial Rate : 087 BPM P-R Int : 192 ms QRS Dur : 170 ms QT Int : 456 ms P-R-T Axes : 061 -64 053 degrees QTc Int : 548 ms Normal sinus rhythm Possible Left atrial enlargement Left axis deviation Right bundle branch block Inferior infarct (cited on or before 23-JAN-2022) Abnormal ECG When compared with ECG of 19-APR-2022 04:35, No significant changes seen Referred By: Gideon Grant Electronically Signed By:Freddy Stauffer
--- NOTE | 2022-05-31 13:07 | ED_ITS ---
HPI - Chest Pain General Chief Complaint: Chest Pain Stated Complaint: chest pain(45min) per EMS Time Seen by Provider: 05/31/22 12:53 Source: patient Mode of arrival: ambulatory Limitations: no limitations History of Present Illness HPI narrative: 62-year-old male history schizoaffective disoder, NSTEMI, HTN, DM, CKD stage 3, CVA presents to ED for chest pain that occurred 45 minutes ago. Patient states now chest pain resolved and just wants to eat. Patient coming from skilled nursing facilities. Patient denies any leg swelling, calf pain, coughing up blood. Patient denies any chest pain on inspiration. Patient denies any recent long travel, recent surgery, or estrogen hormonal use. Patient denies any shortness of breath Related Data Home Medications Medication Instructions Recorded Confirmed acetaminophen 325 mg tablet 650 mg PO Q4H PRN Fever Or Pain 02/13/21 04/18/22 bisacodyl 10 mg rectal suppository 10 mg MA DAILY PRN Constipation 02/13/21 04/18/22 dorzolamide 2 %-timolol 0.5 % (PF) 1 drp ophthalmic (eye) BID glaucoma 02/13/21 04/18/22 eye drops ferrous sulfate 325 mg (65 mg 325 mg PO BID iron def anemia 02/13/21 04/18/22 iron) tablet levetiracetam 1,000 mg tablet 1,000 mg PO BID seizures 02/13/21 04/18/22 (Keppra) levothyroxine 75 mcg tablet 75 mcg PO DAILY@0630 thyroid 02/13/21 04/18/22 lorazepam 1 mg tablet 1 mg PO BID PRN Anxiety 02/13/21 04/18/22 metformin 1,000 mg tablet 1,000 mg PO BID type 2 diabetes 02/13/21 04/18/22 oxycodone 5 mg tablet 2.5 mg PO Q6H PRN Pain 02/13/21 04/18/22 pregabalin 25 mg capsule (Lyrica) 25 mg PO BID schioaffective 02/13/21 04/18/22 disorder ropinirole 0.25 mg tablet 0.25 mg PO BID restless legs 02/13/21 04/18/22 sennosides 8.6 mg tablet (senna) 8.6 mg PO DAILY PRN Constipation 02/13/21 04/18/22 atorvastatin 10 mg tablet 10 mg PO BEDTIME 01/24/22 04/18/22 hypercholesterolemia epinephrine 0.3 mg/0.3 mL 0.3 mg IM Q4H PRN Allergic Reaction 01/24/22 04/18/22 injection, auto-injector (EpiPen 2-Raghu) multivitamin 1 tab PO DAILY 01/24/22 04/18/22 quetiapine 200 mg tablet,extended 400 mg PO BID schizoaffective 01/24/22 04/18/22 release 24 hr disorder aspirin 81 mg tablet,delayed 81 mg PO DAILY htn 02/04/22 04/18/22 release carvedilol 6.25 mg tablet 6.25 mg PO BID primary hypertension 02/04/22 04/18/22 clopidogrel 75 mg tablet 75 mg PO DAILY I25.720 02/04/22 04/18/22 doxazosin 2 mg tablet 4 mg PO BEDTIME retention of urine 02/04/22 04/18/22 naloxone 0.4 mg/mL injection 1 mg intranasal DIRECTED PRN 02/04/22 04/18/22 solution Opioid Overdose sennosides 8.6 mg tablet (senna) 8.6 mg PO DAILY 02/18/22 04/18/22 miconazole nitrate 2 % topical 1 appl topical BID 04/18/22 04/18/22 cream miconazole nitrate 2 % topical 1 appl topical BID PRN fungal rash 04/18/22 04/18/22 cream Previous Rx's Medication Instructions Recorded cefuroxime axetil 250 mg tablet 250 mg PO BID #6 tabs 04/22/22 doxycycline hyclate 100 mg tablet 100 mg PO BID 3 days #6 tabs 04/22/22 Allergies Allergy/AdvReac Type Severity Reaction Status Date / Time peanut Allergy Unknown Verified 05/31/22 13:06 Review of Systems Review of Systems: resolved chest pain PMFSH Past Medical History Medical History BPH w urinary obs/LUTS Coronary artery disease Diastolic heart failure History of stroke Hyperlipidemia Hypertension Hypothyroidism Ischemic cardiomyopathy Legal blindness Lytic bone lesions on xray Multiple myeloma NSTEMI (non-ST elevated myocardial infarction) Restless leg Schizoaffective disorder Seizure disorder Stage 3a chronic kidney disease Type 2 diabetes mellitus Urinary retention Surgical History History of coronary artery bypass graft Social History Social History Household Members: Other Household Members Other:: FACILITY Housing: [facility] Do you presently have visiting nurse or other home services: No Unable to assess alcohol history related to: Unknown Alcohol intake: never Patient Tobacco Use Status: Never used Tobacco Smoked in Last 30 Days: No Use of substances other than those prescribed or required for medical reasons: No Advance Directives: Yes Advance Directives on File: Yes Advance Directives Date on File: 02/02/22 service: No Current occupational status: disabled Physical Exam Vital Signs: Vital Signs: Last Vital Signs Temp 98.1 F 05/31/22 20:00 Pulse 87 05/31/22 20:00 Resp 18 05/31/22 20:00 BP 100/67 05/31/22 20:00 Pulse Ox 96 05/31/22 20:00 O2 Del Method 05/31/22 20:00 BMI result Body Mass Index 25.8 Const: Other: patient at baseline General: cooperative, healthy appearing, comfortable and no acute distress Orientation/consciousness: oriented to person, oriented to place, oriented to time and patient oriented x3 HEENT: Head: Yes normal to inspection, Yes No palpable skull fracture present, Yes normocephalic, Yes atraumatic and No abrasion Eyes: General: appearance normal, both eyes and all related structures Neck: Neck: Yes normal visual inspection, Yes full ROM, Yes no lymphadenopathy, Yes no meningeal signs, Yes trachea midline, Yes supple, No anterior neck swelling and No tender Chest: Chest palpation & inspection: normal inspection of the chest and normal palpation of entire chest wall Resp: Effort & Inspection: normal respiratory effort and able to speak in complete sentences Auscultation: clear to auscultation bilaterally Cardio: Jugular venous distension: no JVD Heart sounds: S1 normal heart sound present and S2 normal heart sound present GI: Inspection: Yes normal to inspection and No abdominal wall ecchymosis Palpation (GI): Soft to palpation, not firm, nontender, no guarding and not rigid : General: No CVA tenderness and Yes no CVA tenderness Back/Spine/Pelvis: Back: no CVA tenderness, No CVA tenderness and No back tenderness Skin: General skin exam: no rashes or lesions noted and elasticity normal Neuro: Other: Negative facial droop negative slurred speech. Negative for any neuro deficits General: oriented to person, oriented to place, oriented to time, patient oriented x3, tone normal, moves all extremities, no meningeal signs and CN's II- XI intact bilaterally Extrem: Other: Bilateral lower extremity negative for swelling, pitting edema, calf tenderness. General: Yes normal to inspection and Yes full ROM Psych: Appearance: grossly normal, well kempt and not disheveled Course Course Course Narrative: Patient's chest pain resolved. Due to medical history will do cardiac evaluation although chest pain resolved. Patient would like to eat will wait on results for Reevaluation(s) Reevaluation #1: EKG negative STEMI. Two troponins negative. Patient any distress. Patient is sleeping comfortably in bed. Kidney function improved. Patient has CKD. Chest x-ray shows same lytic lesions from prior imaging. Patient discussed with hospitalist Dr. castro states patient is a DNI DNR and could be transferred back to [facility]. States Lytic lesions reading on imaging could be worked up as outpatient. Patient ate a meal. Since patient came to the ED he had no chest pain and comfortable in the bed. Time: 18:34 Medications Administered Discontinued Medications Generic Name Dose Route Start Last Admin Trade Name Freq PRN Reason Stop Dose Admin Sodium Chloride 1,000 mls @ 999 mls/hr 05/31/22 13:42 05/31/22 16:00 Ns IV 05/31/22 14:42 Infused .Q1H1M STA Infusion Sodium Chloride 1,000 mls @ 999 mls/hr 05/31/22 13:47 05/31/22 16:00 Ns IV 05/31/22 14:47 Infused .Q1H1M STA Infusion Medical Decision Making Medical Decision Making [facility] Narrative: 62 a low history of NSTEMI presents to the ED for chest pain that resolved on its own 45 minute. History physical exam does not indicate PE or CHF exacerbation. Negative for pneumonia. No need for D-dimer to be sent. Patient admits not eating much at skilled nursing. Patient does not need any further workup or admission. Patient ate large amount of food and sleeping in bed in a Differential Diagnosis Differential Diagnoses: The differential diagnosis associated with the presentation includes (PE, myocardial infarction, CHF exacerbation, or pneumonia) Consult Healthcare Provider Management of the patient was discussed with: Hospitalist (Dr. Ewing) Lab Data MDM Lab Attestation statement: I reviewed the patient's lab results. Result Diagrams: 05/31/22 13:12 05/31/22 16:55 Labs: Lab Results 05/31/22 05/31/22 05/31/22 Range/Units 13:12 13:12 13:12 WBC 6.5 (4.8-10.8) X10*3/uL RBC 2.91 L (4.60-5.80) X10*6/uL Hgb 8.9 L (14.0-18.0) g/dl Hct 27.8 L (42.0-52.0) % MCV 95.5 (80.0-98.0) fL MCH 30.6 (27.0-33.0) pg MCHC 32.0 (31.0-36.0) g/dl RDW 15.2 (11.0-16.0) % Plt Count 349 (160-400) X10*3/uL MPV 9.2 L (9.4-12.4) fL Immature Gran % (Auto) 0.6 H (0.0-0.4) % Neut % (Auto) 70.6 (45-73) % Lymph % (Auto) 19.1 L (20-40) % [place] % (Auto) 8.0 (2-11) % Eos % (Auto) 0.2 (0-4) % Baso % (Auto) 1.5 (0-2) % Lymph # (Auto) 1.3 (1.2-4.9) X10*3/uL [place] # (Auto) 0.5 (0.1-1.2) X10*3/uL Eos # (Auto) 0.0 (0.0-0.4) X10*3/uL Baso # (Auto) 0.1 (0.0-0.2) X10*3/uL Abs Immat Gran (auto) 0.04 H (0.00-0.03) X10*3/uL Absolute Neuts (auto) 4.6 (2.0-8.3) x10*3/uL Absolute Nucleated RBC 0.000 (0.0-0.012) X10*3/uL Nucleated RBC % (auto) 0.0 (0.0-0.2) /100WBC PT (10.0-13.1) SEC INR (0.9-1.1) APTT (26.0-36.4) SEC Sodium (135-145) mmol/L Potassium (3.3-5.1) mmol/L Chloride (96-108) mmol/L Carbon Dioxide (22-29) mmol/L Anion Gap (12-20) BUN (9-16) mg/dL Creatinine (0.5-1.4) mg/dL Estim Creat Clear Calc Estimated GFR Random Glucose (60-115) mg/dL Calcium (8.4-10.2) mg/dL Magnesium (1.6-2.6) mg/dL Total Bilirubin (0.0-1.0) mg/dL AST (5-37) U/L ALT (0-40) U/L Alkaline Phosphatase (39-117) U/L Troponin I High Sens 13.6 (<3.5-35.0) ng/L B-Natriuretic Peptide 80 (<100) pg/mL Total Protein (6.5-8.0) g/dL Albumin (3.5-5.0) g/dL Influenza Type A (PCR) (Negative) Influenza Type B (PCR) (Negative) RSV RNA Qual (PCR) (Negative) SARS-CoV-2 RNA (RT-PCR) (Negative) 05/31/22 05/31/22 05/31/22 Range/Units 13:12 13:56 13:56 WBC (4.8-10.8) X10*3/uL RBC (4.60-5.80) X10*6/uL Hgb (14.0-18.0) g/dl Hct (42.0-52.0) % MCV (80.0-98.0) fL MCH (27.0-33.0) pg MCHC (31.0-36.0) g/dl RDW (11.0-16.0) % Plt Count (160-400) X10*3/uL MPV (9.4-12.4) fL Immature Gran % (Auto) (0.0-0.4) % Neut % (Auto) (45-73) % Lymph % (Auto) (20-40) % [place] % (Auto) (2-11) % Eos % (Auto) (0-4) % Baso % (Auto) (0-2) % Lymph # (Auto) (1.2-4.9) X10*3/uL [place] # (Auto) (0.1-1.2) X10*3/uL Eos # (Auto) (0.0-0.4) X10*3/uL Baso # (Auto) (0.0-0.2) X10*3/uL Abs Immat Gran (auto) (0.00-0.03) X10*3/uL Absolute Neuts (auto) (2.0-8.3) x10*3/uL Absolute Nucleated RBC (0.0-0.012) X10*3/uL Nucleated RBC % (auto) (0.0-0.2) /100WBC PT 12.6 (10.0-13.1) SEC INR 1.1 (0.9-1.1) APTT 32.6 (26.0-36.4) SEC Sodium 138 (135-145) mmol/L Potassium 4.3 (3.3-5.1) mmol/L Chloride 105 (96-108) mmol/L Carbon Dioxide 25 (22-29) mmol/L Anion Gap 12 (12-20) BUN 23 H (9-16) mg/dL Creatinine 1.75 H (0.5-1.4) mg/dL Estim Creat Clear Calc 41.8 Estimated GFR 40 Random Glucose 192 H (60-115) mg/dL Calcium 8.3 L D (8.4-10.2) mg/dL Magnesium (1.6-2.6) mg/dL Total Bilirubin 0.3 (0.0-1.0) mg/dL AST 16 (5-37) U/L ALT 11 (0-40) U/L Alkaline Phosphatase 67 (39-117) U/L Troponin I High Sens (<3.5-35.0) ng/L B-Natriuretic Peptide (<100) pg/mL Total Protein 8.4 H (6.5-8.0) g/dL Albumin 3.2 L (3.5-5.0) g/dL Influenza Type A (PCR) NEGATIVE (Negative) Influenza Type B (PCR) NEGATIVE (Negative) RSV RNA Qual (PCR) NEGATIVE (Negative) SARS-CoV-2 RNA (RT-PCR) NEGATIVE (Negative) 05/31/22 05/31/22 Range/Units 16:49 16:55 WBC (4.8-10.8) X10*3/uL RBC (4.60-5.80) X10*6/uL Hgb (14.0-18.0) g/dl Hct (42.0-52.0) % MCV (80.0-98.0) fL MCH (27.0-33.0) pg MCHC (31.0-36.0) g/dl RDW (11.0-16.0) % Plt Count (160-400) X10*3/uL MPV (9.4-12.4) fL Immature Gran % (Auto) (0.0-0.4) % Neut % (Auto) (45-73) % Lymph % (Auto) (20-40) % [place] % (Auto) (2-11) % Eos % (Auto) (0-4) % Baso % (Auto) (0-2) % Lymph # (Auto) (1.2-4.9) X10*3/uL [place] # (Auto) (0.1-1.2) X10*3/uL Eos # (Auto) (0.0-0.4) X10*3/uL Baso # (Auto) (0.0-0.2) X10*3/uL Abs Immat Gran (auto) (0.00-0.03) X10*3/uL Absolute Neuts (auto) (2.0-8.3) x10*3/uL Absolute Nucleated RBC (0.0-0.012) X10*3/uL Nucleated RBC % (auto) (0.0-0.2) /100WBC PT (10.0-13.1) SEC INR (0.9-1.1) APTT (26.0-36.4) SEC Sodium 138 (135-145) mmol/L Potassium 4.2 (3.3-5.1) mmol/L Chloride 108 (96-108) mmol/L Carbon Dioxide 24 (22-29) mmol/L Anion Gap 10 L (12-20) BUN 21 H (9-16) mg/dL Creatinine 1.54 H (0.5-1.4) mg/dL Estim Creat Clear Calc 47.5 Estimated GFR 46 Random Glucose 121 H (60-115) mg/dL Calcium 7.8 L D (8.4-10.2) mg/dL Magnesium 1.8 (1.6-2.6) mg/dL Total Bilirubin 0.3 (0.0-1.0) mg/dL AST 15 (5-37) U/L ALT 10 (0-40) U/L Alkaline Phosphatase 62 (39-117) U/L Troponin I High Sens 12.6 (<3.5-35.0) ng/L B-Natriuretic Peptide (<100) pg/mL Total Protein 7.9 (6.5-8.0) g/dL Albumin 3.0 L (3.5-5.0) g/dL Influenza Type A (PCR) (Negative) Influenza Type B (PCR) (Negative) RSV RNA Qual (PCR) (Negative) SARS-CoV-2 RNA (RT-PCR) (Negative) Independent Interpretation I performed an independent interpretation of an: EKG (Normal sinus rhythm. Ventricular rate 87. Pr interval 192. QRS 170. QTC 548. Negative STEMI) Radiology Impression Discussion of test interpretation with radiology: I have reviewed the radiologist's reading. Independent Historian Clinical information obtained from an independent historian. History obtained from or confirmed by: EMS and Other (patient) Chronic Conditions Patient?s care impacted by: Hypertension and Other (NSTEMI, schizoaffective disorder) Discharge Plan Discharge Clinical Impression: Atypical chest pain Patient Disposition: Home, Self-Care Instructions: Chest Pain (ED) Additional Instructions: Return to ED immediately for worsening chest pain, leg swelling, calf pain, coughing up blood, fever, chills, weakness, dizziness, chest pain on inspiration, abdominal pain, nausea, vomiting, or any other concerning symptoms. Chest xray show Lytic lesions recommend follow up as outpatient. Prescriptions: No Action acetaminophen 325 mg Tablet 650 mg PO Q4H PRN (Reason: Fever Or Pain) bisacodyl 10 mg Suppository 10 mg MA DAILY PRN (Reason: Constipation) ferrous sulfate 325 mg (65 mg iron) Tablet 325 mg PO BID dorzolamide-timolol (PF) 2-0.5 % Drops 1 drp OPHTHALMIC (EYE) BID Rx Instructions: instill 1 drop in both eyes sennosides [senna] 8.6 mg Tablet 8.6 mg PO DAILY PRN (Reason: Constipation) levothyroxine 75 mcg Tablet 75 mcg PO DAILY@0630 ropinirole 0.25 mg Tablet 0.25 mg PO BID metformin 1,000 mg Tablet 1,000 mg PO BID lorazepam 1 mg Tablet 1 mg PO BID PRN (Reason: Anxiety) oxycodone 5 mg Tablet 2.5 mg PO Q6H PRN (Reason: Pain) pregabalin [Lyrica] 25 mg Capsule 25 mg PO BID levetiracetam [Keppra] 1,000 mg Tablet 1,000 mg PO BID epinephrine [EpiPen 2-Raghu] 0.3 mg/0.3 mL Auto-Injector 0.3 mg IM Q4H PRN (Reason: Allergic Reaction) Rx Instructions: may repeat once after 15 min with no relief multivitamin Tablet 1 tab PO DAILY atorvastatin 10 mg Tablet 10 mg PO BEDTIME quetiapine 200 mg Tablet Extended Release 24 Hr 400 mg PO BID naloxone 0.4 mg/mL Solution 1 mg intranasal DIRECTED MDD 1 PRN (Reason: Opioid Overdose) carvedilol 6.25 mg tablet 6.25 mg PO BID Protocol: Hold for SBP/HR < HOLD for SBP < : 90 HOLD for HR < : 60 clopidogrel 75 mg tablet 75 mg PO DAILY aspirin 81 mg tablet,delayed release (DR/EC) 81 mg PO DAILY doxazosin 2 mg tablet 4 mg PO BEDTIME Protocol: Hold for SBP< HOLD for SBP < : 90 miconazole nitrate 2 % Cream 1 appl TOPICAL BID Rx Instructions: apply to bilateral buttocks miconazole nitrate 2 % Cream 1 appl TOPICAL BID PRN (Reason: fungal rash) Rx Instructions: apply to bilateral buttocks doxycycline hyclate 100 mg tablet 100 mg PO BID 3 Days Qty: 6 0RF cefuroxime axetil 250 mg tablet 250 mg PO BID Qty: 6 0RF sennosides [senna] 8.6 mg Tablet 8.6 mg PO DAILY Interventions: ED Discharge Assessment Last Done: 05/31/22 21:35 Discharge Date/Time: 05/31/22 21:36 Print Language: Arabic
[2022-05-31 13:25] LABS: MANUAL DIFF FLAG NO
[2022-05-31 13:26] LABS: Basophils Absolute Auto 0.1 X10*3/uL (0.0-0.2); Basophils Percent Auto 1.5 % (0-2); Eosinophils Percent Auto 0.2 % (0-4); Hematocrit 27.8 % (42.0-52.0); Hemoglobin 8.9 g/dl (14.0-18.0); Imm Gran Abs Auto 0.04 X10*3/uL (0.00-0.03); Imm Gran Pct Auto 0.6 % (0.0-0.4); Lymphocytes Absolute Auto 1.3 X10*3/uL (1.2-4.9); Lymphocytes Percent Auto 19.1 % (20-40); Mean Corpuscular Hemoglobin 30.6 pg (27.0-33.0); Mean Corpuscular Volume 95.5 fL (80.0-98.0); Mean Platelet Volume 9.2 fL (9.4-12.4); Monocytes Absolute Auto 0.5 X10*3/uL (0.1-1.2); Neutrophils Absolute Auto 4.6 x10*3/uL (2.0-8.3); Neutrophils Percent Auto 70.6 % (45-73); Platelet Count 349 X10*3/uL (160-400); Red Blood Count 2.91 X10*6/uL (4.60-5.80); Red Cell Distribution Width 15.2 % (11.0-16.0); White Blood Count 6.5 X10*3/uL (4.8-10.8)
--- NOTE | 2022-05-31 13:30 | PC.NURSE ---
iv inserted labs drawn, pt screaming that he wants to eat
[2022-05-31 13:32] LABS: INTERNATIONAL NORM RATIO 1.1 (0.9-1.1); Prothrombin Time 12.6 SEC (10.0-13.1)
[2022-05-31 13:34] LABS: Partial Thromboplastin Time 32.6 SEC (26.0-36.4)
[2022-05-31 13:46] LABS: B Type Natriuretic Peptide 80 pg/mL (<100)
[2022-05-31] MEDS: 0.9 % Sodium Chloride 1,000 ML 999 ML IV ×2 (13:50)
[2022-05-31 13:56] LABS: Troponin-I High Sensitivity 13.6 ng/L (<3.5-35.0)
--- NOTE | 2022-05-31 14:00 | PC.NURSE ---
IV fluids hung per order
[2022-05-31 14:37] LABS: Alanine Aminotransferase 11 U/L (0-40); Albumin Level 3.2 g/dL (3.5-5.0); Alkaline Phosphatase 67 U/L (39-117); Anion Gap 12 (12-20); Aspartate Amino Transferase 16 U/L (5-37); Bilirubin Total 0.3 mg/dL (0.0-1.0); Blood Urea Nitrogen 23 mg/dL (9-16); Calcium 8.3 mg/dL (8.4-10.2); Carbon Dioxide 25 mmol/L (22-29); Chloride 105 mmol/L (96-108); Creatinine Clr Calc Pharmacy 41.8; Estimated Glomerular Filt Rate 40; Glucose Random 192 mg/dL (60-115); Potassium 4.3 mmol/L (3.3-5.1); Sodium 138 mmol/L (135-145); Total Protein 8.4 g/dL (6.5-8.0)
[2022-05-31 14:40] LABS: Influenza A PCR NEGATIVE (Negative); Influenza B PCR NEGATIVE (Negative); Resp Syncy Virus RNA Qual PCR NEGATIVE (Negative); SARS COV2 PCR INHOUSE NEGATIVE (Negative)
[2022-05-31 17:14] LABS: Troponin-I High Sensitivity 12.6 ng/L (<3.5-35.0)
[2022-05-31 17:15] LABS: Alanine Aminotransferase 10 U/L (0-40); Alkaline Phosphatase 62 U/L (39-117); Anion Gap 10 (12-20); Aspartate Amino Transferase 15 U/L (5-37); Bilirubin Total 0.3 mg/dL (0.0-1.0); Blood Urea Nitrogen 21 mg/dL (9-16); Calcium 7.8 mg/dL (8.4-10.2); Carbon Dioxide 24 mmol/L (22-29); Chloride 108 mmol/L (96-108); Creatinine Clr Calc Pharmacy 47.5; Estimated Glomerular Filt Rate 46; Glucose Random 121 mg/dL (60-115); Potassium 4.2 mmol/L (3.3-5.1); Sodium 138 mmol/L (135-145); Total Protein 7.9 g/dL (6.5-8.0)
--- NOTE | 2022-05-31 18:37 | MHC.EDTECH ---
This bioinformatics technician brought patient two warm blankets. Feed patient two vanilla pudding. Patient drank two apple juice using a straw as this tech held the cup. Now patient is sleeping comfortably.
[2022-05-31 18:55] LABS: Magnesium 1.8 mg/dL (1.6-2.6)
--- NOTE | 2022-05-31 19:19 | MHC.EDTECH ---
pt was fed tuna sandwich ,pudding and drank 3 carton of orange juice .
--- NOTE | 2022-05-31 19:19 | PC.NURSE ---
report has been called to care 1. will speak with board of education secretary about transportation to return to the facility
--- NOTE | 2022-05-31 20:29 | MHC.EDTECH ---
Spoke with Negrita tanner Depue at 1930 for a bls transfer back to [facility], Negrita stated she would get back to me with an ETA. At 2008 I spoke with Negrita she stated she is going to try to pass the call,and let me know merly.Rn and Entry Level Drafter aware
--- NOTE | 2022-05-31 21:28 | MHC.EDTECH ---
At 2041 I spoke with Negrita from [facility] she is sending a crew to transport patient.At 2124 ems arrived for transport.
== END 2022-05-31 21:36 | disposition home or self-care (01) ==
PROVIDERS: Physician Assistant; Emergency Provider Emergency Medicine; PCP Hospitalist
DX: R07.89 Other chest pain (principal); I10 Essential (primary) hypertension; E11.9 Type 2 diabetes mellitus without complications; R06.02 Shortness of breath; Z20.822 Contact with and (suspected) exposure to COVID-19; Z79.899 Other long term (current) drug therapy
CPT/HCPCS: 0241U; 36415; 71045; 80053; 83735; 83880; 84484; 85025; 85610; 85730; 93005; 96360; 99285

== ENCOUNTER → 2022-07-31 12:56 | Outpatient (BNVA) | payer MEDICAID, SELFPAY | PROVIDERS: PCP Hospitalist; Visit Provider Urology | DX: N40.1 Benign prostatic hyperplasia with lower urinary tract symptoms (principal); N13.8 Other obstructive and reflux uropathy; N28.9 Disorder of kidney and ureter, unspecified; Z79.82 Long term (current) use of aspirin; Z79.899 Other long term (current) drug therapy | CPT/HCPCS: 99212 ==

== ENCOUNTER 2022-11-19 02:58 | Emergency (ER) | payer MEDICAID, SELFPAY ==
--- NOTE | ~2022-11-19 | CT_ITS ---
EXAMINATION: NONCONTRAST HEAD CT NONCONTRAST CERVICAL SPINE CT INDICATION INFORMATION: Fall. COMPARISON: 04/18/2022 TECHNIQUE: Separate noncontrast CT examinations of the head and cervical spine were performed. Coronal and sagittal images were created for each examination at the technologist workstation. This CT examination was performed using dose optimization techniques as appropriate, variously including the following: *Automated exposure control *Adjustment of mA and/or kV according to patient size (this includes techniques or standardized protocols for targeted exams where dose is matched to indication/reason for exam; i.e. extremities or head) *Use of iterative reconstruction technique DLP: 948 mGy-cm FINDINGS: Head: There is no evidence of acute intracranial hemorrhage or territorial infarction. No abnormal mass effect or midline shift is seen. Anand to white matter differentiation is well preserved. No extra-axial fluid collections are identified. No hydrocephalus. Proportional prominence of the ventricles and sulcal spaces is consistent with mild volume loss. Patchy periventricular and deep white matter hypoattenuation is consistent with mild small vessel ischemic changes. Chronic left parietal lobe infarct. Chronic right cerebellar hemisphere infarct. No acute osseous or soft tissue abnormality. Abnormal appearance of both globes with internal high attenuation. This is unchanged from prior. The mastoid air cells and visualized portions of the paranasal sinuses are well aerated. Cervical spine: There is anatomic alignment of the vertebral bodies and posterior elements. The atlantoaxial and atlantooccipital articulations are intact. Vertebral body heights are maintained. There is multilevel intervertebral disc space narrowing with endplate osteophyte formation and facet arthropathy. No evidence of acute fracture. No prevertebral soft tissue swelling. Visualized portions of the lung apices are unremarkable. The thyroid gland is unremarkable. CT/CT cervical spine wo IV con IMPRESSION: 1. No acute intracranial finding. 2. No fracture or malalignment of the cervical spine. Mild degenerative change.
[2022-11-19 03:10] VITALS: BP 155/106; PULSE 114; RESP 18; TEMP 36.6; O2SAT 98; BMI 15.2
[2022-11-19 03:16] VITALS: BP 162/108; PULSE 88; RESP 16; TEMP 36.9; O2SAT 100
--- NOTE | 2022-11-19 03:26 | ED.WOUNDLAC ---
HPI - Wound/Laceration General Chief Complaint: Wound/Laceration Stated Complaint: lacon eyebrow Time Seen by Provider: 11/19/22 03:01 Source: EMS Mode of arrival: EMS Limitations: other (Dementia) History of Present Illness HPI narrative: Patient comes from [facility] complaining of a laceration to the left eyebrow. According to the staff, patient rolled from his bed, hit his head and now has a laceration below the left eyebrow. Patient is unable to give any further history. Related Data Home Medications Medication Instructions Recorded Confirmed acetaminophen 325 mg tablet 650 mg PO Q4H PRN Fever Or Pain 02/13/21 04/18/22 bisacodyl 10 mg rectal suppository 10 mg OK DAILY PRN Constipation 02/13/21 04/18/22 dorzolamide 2 %-timolol 0.5 % (PF) 1 drp ophthalmic (eye) BID glaucoma 02/13/21 04/18/22 eye drops ferrous sulfate 325 mg (65 mg 325 mg PO BID iron def anemia 02/13/21 04/18/22 iron) tablet levetiracetam 1,000 mg tablet 1,000 mg PO BID seizures 02/13/21 04/18/22 (Keppra) levothyroxine 75 mcg tablet 75 mcg PO DAILY@0630 thyroid 02/13/21 04/18/22 lorazepam 1 mg tablet 1 mg PO BID PRN Anxiety 02/13/21 04/18/22 metformin 1,000 mg tablet 1,000 mg PO BID type 2 diabetes 02/13/21 04/18/22 oxycodone 5 mg tablet 2.5 mg PO Q6H PRN Pain 02/13/21 04/18/22 pregabalin 25 mg capsule (Lyrica) 25 mg PO BID schioaffective 02/13/21 04/18/22 disorder ropinirole 0.25 mg tablet 0.25 mg PO BID restless legs 02/13/21 04/18/22 sennosides 8.6 mg tablet (senna) 8.6 mg PO DAILY PRN Constipation 02/13/21 04/18/22 atorvastatin 10 mg tablet 10 mg PO BEDTIME 01/24/22 04/18/22 hypercholesterolemia epinephrine 0.3 mg/0.3 mL 0.3 mg IM Q4H PRN Allergic Reaction 01/24/22 04/18/22 injection, auto-injector (EpiPen 2-Raghu) multivitamin 1 tab PO DAILY 01/24/22 04/18/22 quetiapine 200 mg tablet,extended 400 mg PO BID schizoaffective 01/24/22 04/18/22 release 24 hr disorder aspirin 81 mg tablet,delayed 81 mg PO DAILY htn 02/04/22 04/18/22 release carvedilol 6.25 mg tablet 6.25 mg PO BID primary hypertension 02/04/22 04/18/22 clopidogrel 75 mg tablet 75 mg PO DAILY I25.720 02/04/22 04/18/22 doxazosin 2 mg tablet 4 mg PO BEDTIME retention of urine 02/04/22 04/18/22 naloxone 0.4 mg/mL injection 1 mg intranasal DIRECTED PRN 02/04/22 04/18/22 solution Opioid Overdose sennosides 8.6 mg tablet (senna) 8.6 mg PO DAILY 02/18/22 04/18/22 miconazole nitrate 2 % topical 1 appl topical BID 04/18/22 04/18/22 cream miconazole nitrate 2 % topical 1 appl topical BID PRN fungal rash 04/18/22 04/18/22 cream Previous Rx's Medication Instructions Recorded cefuroxime axetil 250 mg tablet 250 mg PO BID #6 tabs 04/22/22 doxycycline hyclate 100 mg tablet 100 mg PO BID 3 days #6 tabs 04/22/22 Allergies Allergy/AdvReac Type Severity Reaction Status Date / Time peanut Allergy Unknown Verified 11/19/22 03:09 Review of Systems Review of Systems: Yes Unobtainable due to mental condition [facility] Past Medical History Medical History BPH w urinary obs/LUTS Coronary artery disease Diastolic heart failure History of stroke Hyperlipidemia Hypertension Hypothyroidism Ischemic cardiomyopathy Legal blindness Lytic bone lesions on xray NSTEMI (non-ST elevated myocardial infarction) Restless leg Schizoaffective disorder Seizure disorder Stage 3a chronic kidney disease Type 2 diabetes mellitus Urinary retention Surgical History History of coronary artery bypass graft Social History Social History Household Members: Other Household Members Other:: FACILITY Housing: [facility] Do you presently have visiting nurse or other home services: No Unable to assess alcohol history related to: Unknown Alcohol intake: never Patient Tobacco Use Status: Never used Tobacco Smoked in Last 30 Days: No Use of substances other than those prescribed or required for medical reasons: No Advance Directives: Yes Advance Directives on File: Yes Advance Directives Date on File: 02/02/22 service: No Current occupational status: disabled Physical Exam Vital Signs: Vital Signs: Last Vital Signs Temp 98.4 F 11/19/22 05:12 Pulse 88 11/19/22 05:12 Resp 16 11/19/22 05:12 BP 127/90 H 11/19/22 05:12 Pulse Ox 99 11/19/22 05:12 O2 Del Method Room Air 11/19/22 05:12 BMI result Body Mass Index 15.2 Const: Other: Appearance: Alert. Oriented X1. No acute distress. Eyes: Pupils equal, round and reactive to light. ENT: Pharynx normal. Neck: Normal inspection. Neck supple. No lymph nodes noted. No crepitus CVS: Normal heart rate and rhythm. Pulses normal. Normal S1 and S2 Respiratory: No respiratory distress. Breath sounds normal. No Wheezing. No rales Abdomen: Soft and nontender. No rigidity. No distention. Skin: 0.5 cm laceration below the left eyebrow Extremities: No lower extremity edema. No Lacerations. No Rash Neuro: Oriented X 3. No motor deficit. No sensory deficit. Moving all extremities. No slurred speech. CN 2 through 12 grossly intact Psych: calm, cooperative, normal affect Medications Administered Discontinued Medications Generic Name Dose Route Start Last Admin Trade Name Audra PRN Reason Stop Dose Admin Lidocaine HCl 5 ml 11/19/22 03:10 11/19/22 03:44 Lidocaine Hcl 2 % Mpf 5 Ml Vial INFILTRATI 11/19/22 03:11 5 ml ONCE ONE Administration Lorazepam 2 mg 11/19/22 03:26 11/19/22 03:42 Lorazepam 2 Mg/Ml Vial IM 11/19/22 03:27 2 mg ONCE ONE Administration Medical Decision Making Medical Decision Making MDM Narrative: -patient received 3 stitches to the left eyebrow. Surgicel was applied to the left eyebrow. -patient CT scan, to altered, unable to cooperate. Altered mental status is at baseline. Patient given 2 mg IM of Ativan. -CT scan of the head and neck does not show any acute abnormalities, patient will be returning home shortly Radiology Impression Discussion of test interpretation with radiology: I have reviewed the radiologist's reading. Radiologist Impression: FINDINGS: Head: There is no evidence of acute intracranial hemorrhage or territorial infarction. No abnormal mass effect or midline shift is seen. Anand to white matter differentiation is well preserved. No extra-axial fluid collections are identified. No hydrocephalus. Proportional prominence of the ventricles and sulcal spaces is consistent with mild volume loss. Patchy periventricular and deep white matter hypoattenuation is consistent with mild small vessel ischemic changes. Chronic left parietal lobe infarct. Chronic right cerebellar hemisphere infarct. No acute osseous or soft tissue abnormality. Abnormal appearance of both globes with internal high attenuation. This is unchanged from prior. The mastoid air cells and visualized portions of the paranasal sinuses are well aerated. Cervical spine: There is anatomic alignment of the vertebral bodies and posterior elements. The atlantoaxial and atlantooccipital articulations are intact. Vertebral body heights are maintained. There is multilevel intervertebral disc space narrowing with endplate osteophyte formation and facet arthropathy. No evidence of acute fracture. No prevertebral soft tissue swelling. Visualized portions of the lung apices are unremarkable. The thyroid gland is unremarkable. CT/CT cervical spine wo IV con IMPRESSION: 1.? No acute intracranial finding. 2.? No fracture or malalignment of the cervical spine. Mild degenerative change. ? Procedures Laceration Laceration 1: Site: face Side (If applicable): left Size (cm): 0.5 Description: linear Depth: simple, single layer Local Anesthetic: lidocaine 1% Amount of anesthesia used (mL): 2 Skin layer closed with: nylon Size (cm): 6-0 Number of sutures: 3 Technique: simple, interrupted Discharge Plan Discharge Clinical Impression: Fall, Laceration of skin of face Patient Disposition: Home, Self-Care Instructions: Laceration (ED) Additional Instructions: Your stitches need to be removed in 7-10 days. Please follow-up with your primary care physician tomorrow. If you have any worsening or new symptoms, please return to the emergency room or call 911 Prescriptions: No Action acetaminophen 325 mg Tablet 650 mg PO Q4H PRN (Reason: Fever Or Pain) bisacodyl 10 mg Suppository 10 mg OK DAILY PRN (Reason: Constipation) ferrous sulfate 325 mg (65 mg iron) Tablet 325 mg PO BID dorzolamide-timolol (PF) 2-0.5 % Drops 1 drp OPHTHALMIC (EYE) BID Rx Instructions: instill 1 drop in both eyes sennosides [senna] 8.6 mg Tablet 8.6 mg PO DAILY PRN (Reason: Constipation) levothyroxine 75 mcg Tablet 75 mcg PO DAILY@0630 ropinirole 0.25 mg Tablet 0.25 mg PO BID metformin 1,000 mg Tablet 1,000 mg PO BID lorazepam 1 mg Tablet 1 mg PO BID PRN (Reason: Anxiety) oxycodone 5 mg Tablet 2.5 mg PO Q6H PRN (Reason: Pain) pregabalin [Lyrica] 25 mg Capsule 25 mg PO BID levetiracetam [Keppra] 1,000 mg Tablet 1,000 mg PO BID epinephrine [EpiPen 2-Raghu] 0.3 mg/0.3 mL Auto-Injector 0.3 mg IM Q4H PRN (Reason: Allergic Reaction) Rx Instructions: may repeat once after 15 min with no relief multivitamin Tablet 1 tab PO DAILY atorvastatin 10 mg Tablet 10 mg PO BEDTIME quetiapine 200 mg Tablet Extended Release 24 Hr 400 mg PO BID naloxone 0.4 mg/mL Solution 1 mg intranasal DIRECTED MDD 1 PRN (Reason: Opioid Overdose) carvedilol 6.25 mg tablet 6.25 mg PO BID Protocol: Hold for SBP/HR < HOLD for SBP < : 90 HOLD for HR < : 60 clopidogrel 75 mg tablet 75 mg PO DAILY aspirin 81 mg tablet,delayed release (DR/EC) 81 mg PO DAILY doxazosin 2 mg tablet 4 mg PO BEDTIME Protocol: Hold for SBP< HOLD for SBP < : 90 miconazole nitrate 2 % Cream 1 appl TOPICAL BID Rx Instructions: apply to bilateral buttocks miconazole nitrate 2 % Cream 1 appl TOPICAL BID PRN (Reason: fungal rash) Rx Instructions: apply to bilateral buttocks doxycycline hyclate 100 mg tablet 100 mg PO BID 3 Days Qty: 6 0RF cefuroxime axetil 250 mg tablet 250 mg PO BID Qty: 6 0RF sennosides [senna] 8.6 mg Tablet 8.6 mg PO DAILY
[2022-11-19] MEDS: LORazepam 2 MG/ML VIAL IM (03:42)
[2022-11-19] MEDS: Lidocaine HCl 2 % MPF 5 ML VIAL INFILTRATI (03:44)
--- NOTE | 2022-11-19 04:05 | PC.NURSE ---
Patient was brought in to the ER by EMS due to patient was at the [facility] where he resides patient was with a 1:1 and the patient accidentally hit his head on the bed railing patient developed a laceration on the left eye brow patient had to receive a few stitches patient had to receive a IM of Ativan due to patient is very restless patient have to be redirected several times due to patient repeats himself due to a brain injury patient side rails were padded to prevent further injuries patient will continue to be monitored for safety
[2022-11-19 05:12] VITALS: BP 127/90; PULSE 88; RESP 16; TEMP 36.9; O2SAT 99
--- NOTE | 2022-11-19 06:16 | PC.NURSE ---
Patient in the process of being transferred back to the facility patient showing no distress vitals are stable at this time patient report was given to the receiving unit her name was Shital patient will continue to be monitored safety until patient is leaving
--- NOTE | 2022-11-19 06:23 | MHC.EDTECH ---
Call out to [facility] @[phone] to book BLS transport back to [facility]. ETA [id number]
== END 2022-11-19 08:04 | disposition home or self-care (01) ==
PROVIDERS: Emergency Provider Emergency Medicine; PCP Hospitalist
DX: S01.112A Laceration without foreign body of left eyelid and periocular area, initial encounter (principal); W06.XXXA Fall from bed, initial encounter; I10 Essential (primary) hypertension; E78.5 Hyperlipidemia, unspecified; Y93.84 Activity, sleeping; Y92.122 Bedroom in nursing home as the place of occurrence of the external cause; Y99.9 Unspecified external cause status; Z79.02 Long term (current) use of antithrombotics/antiplatelets; Z79.899 Other long term (current) drug therapy
CPT/HCPCS: 12011; 70450; 72125; 96372; 99284; J2060